=== PATIENT | female | born 1940 | race African-American/Black ===

== ENCOUNTER 2018-01-21 15:39 | Inpatient (IN) | payer OTHER ==
--- NOTE | 2018-01-21 16:02 | PDOC ---
History of Present Illness - General History Source: Patient, Care Provider (Aid.), [facility] Records Exam Limitations: No Limitations - History of Present Illness Initial Comments: 01/21/18 16:50 The patient is a 77 year old female, with a significant past medical history of HTN,Afib, osteoarthritis, GERD,depression, HLD, chronic pain, and age related cognitive decline, who presents to the emergency department with, 2 days of chest pain, shortness of breath, and cough. The patient is a poor historian. She describes her chest pain as her heart not feeling right. The patient reports an increasing nonproductive cough beginning yesterday. She reports shortness of breath when she talks which worsens at night. The shortness of breath is somewhat alleviated when sitting upright. She reports nausea without emesis. She reports drinking primarily water and small amounts of food. As per patient, she did not take her AM medications. As per patients aid to whom she is accompanied by, she took her AM medication today, however, the past few days she has been noncompliant with her medications. She denies recent fevers, chills, headache or dizziness. She denies recent vomit , diarrhea or constipation. She denies recent dysuria or hematuria. Allergies: NKA Past surgical history: None reported. Social history: Nonsmoker. Denies EtOH use and recreational drug use. <Cee Matson - Last Filed: 01/21/18 19:07> <Oscar Jung - Last Filed: 01/28/18 10:15> - General Chief Complaint: Respiratory Stated Complaint: SOB Time Seen by Provider: 01/21/18 16:00 Past History <Cee Matson - Last Filed: 01/21/18 19:07> <Oscar Jung - Last Filed: 01/28/18 10:15> 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 History Allergies/Adverse Reactions: Allergies Allergy/AdvReac Type Severity Reaction Status Date / Time No Known Allergies Allergy Verified 01/21/18 15:58 Home Medications: Ambulatory Orders Apixaban [Eliquis] 5 mg PO BID 01/21/18 Cholecalciferol (Vitamin D3) [Vitamin D3 -] 1,000 unit PO DAILY 01/21/18 Gabapentin [Neurontin] 100 mg PO TID 01/21/18 Lisinopril 5 mg PO DAILY 01/21/18 Metoprolol Tartrate [Lopressor] 100 mg PO BID 01/21/18 Mirtazapine 7.5 mg PO HS 01/21/18 Ranitidine [Zantac -] 150 mg PO HS 01/21/18 Rosuvastatin [Crestor -] 20 mg PO HS 01/21/18 Review of Systems - Review of Systems Able to Perform ROS?: Yes Comments:: 01/21/18 16:50 CONSTITUTIONAL: Absent: fever, no chills, no fatigue EYES: Absent: visual changes ENT: Absent: ear pain, no sore throat CARDIOVASCULAR: Present: Chest Pain Absent:no palpitations RESPIRATORY: Present: SOB, Cough GI: Present: Nausea. Absent: abdominal pain, no vomiting, no constipation, no diarrhea GENITOURINARY: Absent: dysuria, no frequency, no hematuria MUSKULOSKELETAL: Absent: back pain, no arthralgia, no myalgia SKIN: Absent: rash NEURO: Absent: headache All Other Systems: Reviewed and Negative <Cee Matson - Last Filed: 01/21/18 19:07> *Physical Exam - Vital Signs Last Vital Signs Temp Pulse Resp BP Pulse Ox 98.1 F 55 L 16 93/67 100 01/21/18 15:57 01/21/18 16:42 01/21/18 16:40 01/21/18 16:40 01/21/18 16:42 - Physical Exam Comments: 01/21/18 17:10 +GENERAL: Mildly obese. Well developed, well nourished. Awake and alert. No acute distress. HEENT: Normocephalic, atraumatic. PERRLA, fundi benign. No conjunctival pallor. Sclera are non-icteric. Moist mucous membranes. Oropharynx is clear. +NECK: Neck vein distention. Supple. Full ROM. Carotid pulses 2+ and symmetric, without bruits. No thyromegaly. No lymphadenopathy. +CARDIOVASCULAR: Regular rate and rhythm. 60 bpm. S1 S2 distant. No murmurs, rubs, or gallops. PULMONARY: Decreased breath sounds at the right posterior base with rales. No evidence of respiratory distress. No wheezing or rhonchi. ABDOMINAL: Soft. Non-tender. Non-distended. No rebound or guarding. No organomegaly. Normoactive bowel sounds. MUSCULOSKELETAL Normal range of motion at all joints. No bony deformities or tenderness. No CVA tenderness. EXTREMITIES: No cyanosis. No clubbing. No edema. No calf tenderness. SKIN: Warm and dry. Normal capillary refill. No rashes. No jaundice. +NEUROLOGICAL: Generalized weakness. No motor or sensory deficits in the in face, upper extremities and lower extremities. Alert, awake, appropriate. Cranial nerves 2- 12 intact. No deficits to light touch and temperature in face, upper extremities and lower extremities. Normoreflexic in the upper and lower extremities. Normal speech. Toes are down-going bilaterally. Gait not assessed. PSYCHIATRIC: Cooperative. Good eye contact. Appropriate mood and affect. <Cee Matson - Last Filed: 01/21/18 19:07> Heart Score/ECG Review #1 01/21/18 16:52 EKG performed at: 21 Jan 2018 at 16:28:29 Vent Rate 55 bpm KS interval 146 ms QRS duration 72 ms QT/QTc 574/549 ms P-R-T axes 69 -9 154 Sinus bradycardia Inferio infarct, age undetermined Anterior infarct, age undetermined T wave abnormality, consider lateral ischemia Prolonged QT Abnormal ECG <Cee Matson - Last Filed: 01/21/18 19:07> ED Treatment Course - LABORATORY CBC & Chemistry Diagram: 01/21/18 16:00 01/21/18 16:10 <Cee Matson - Last Filed: 01/21/18 19:07> - LABORATORY CBC & Chemistry Diagram: 01/27/18 09:55 01/27/18 09:55 <Oscar Jung - Last Filed: 01/28/18 10:15> Medical Decision Making - Medical Decision Making 01/21/18 5:14pm Call placed to Dr. Meet Xie, cardiology [employer] airspace control officer, awaiting call back. 5:41pm Second placed to Dr. Meet Xie, cardiology [employer] airspace control officer, awaiting call back. 6:00pm Third call placed to Dr. Meet Xie, cardiology [employer] airspace control officer, awaiting call back. 5:48pm Call placed to Dr. James Johnson, for ICU admission, case was discussed. 6:40pm Fourth call placed to Dr. Meet Xie, cardiology [employer] airspace control officer, case was discussed. <Cee Matson - Last Filed: 01/21/18 19:07> - Medical Decision Making 01/21/18 17:56 Chest x-ray shows clear lungs but a large globular heart There is neck vein distention, low blood pressure, and relatively muffled heart sounds suggesting the possibility of tamponade, especially since she is maintained on anticoagulation, Eliquis, with an INR 1.65 There is an elevated troponin of 0.14 with inverted T waves in the lateral leads , Q waves in the inferior and anteroseptal leads, with no old EKG available. There is the possibility of an acute coronary syndrome or non-ST elevation [place]. Dr. Johnson contacted for ICU admission, accepts the patient. Thus far repeated attempts to contact cardiology has been unsuccessful. Christine, the PA who is on-call for admissions, was contacted and the case was discussed. Dr. Snyder is the on-call hospitalist who will be accepting the admission. Theresa Mckee, head of radiology services, and was contacted and will attempt to arrange an emergency cardiac echo. 01/21/18 18:56 Spoke with adult education instructor Dr. Xie. His group will follow at [facility]. Patient remains hemodynamically stable. Pain controlled. Signed out to Dr. Okeefe 7 PM pending transfer to ICU. 01/28/18 10:15 <Oscar Jung - Last Filed: 01/28/18 10:15> *DC/Admit/Observation/Transfer - Attestations Scribe Attestion: 01/21/18 16:51 Documentation prepared by Cee Matson, acting as medical imaging director for Oscar Burr MD. <Cee Matson - Last Filed: 01/21/18 19:07> - Discharge Dispostion Decision to Admit order: Yes <Oscar Jung - Last Filed: 01/28/18 10:15> Diagnosis at time of Disposition: Acute coronary syndrome
[2018-01-21 16:50] LABS: MEAN PLT VOLUME 11.8 fl (7.5-11.1)
[2018-01-21 16:53] LABS: INR 1.65 (0.82-1.09); PROTHROMBIN TIME (PATIENT) 18.3 SEC (10.2-13.0)
[2018-01-21 16:53] LABS: MEAN CELL VOLUME 94.5 fl (80-96); RBC 4.06 M/mm3 (3.60-5.2)
[2018-01-21 16:58] LABS: ALBUMIN 3.4 g/dl (3.5-5.0); ALK PHOS 78 U/L (32-92); ANION GAP 8 (8-16); BILIRUBIN,TOTAL 2.6 mg/dl (0.2-1.0); BLOOD UREA NITROGEN 16 mg/dl (7-18); CALCIUM 8.9 mg/dl (8.4-10.2); CHLORIDE 106 mmol/L (98-107); CO2 24 mmol/L (22-28); CREATININE 1.3 mg/dl (0.6-1.3); GLUCOSE,RANDOM 143 mg/dl (74-106); POTASSIUM 4.5 mmol/L (3.5-5.1); SGOT/AST 43 U/L (10-42); SGPT/ALT 31 U/L (10-40); SODIUM 138 mmol/L (136-145); TOT PROT 6.5 g/dl (6.4-8.3)
[2018-01-21 17:00] LABS: HEMATOCRIT 38.3 % (32.4-45.2); HEMOGLOBIN 12.9 GM/dl (10.7-15.3); MCH 31.9 pg (25.7-33.7); MCHC 33.8 g/dl (32.0-36.0); PLATELET COUNT 204 K/MM3 (134-434); RDW 16.3 % (11.6-15.6); WHITE BLOOD COUNT 5.5 K/mm3 (4.0-10.8)
[2018-01-21 18:00] LABS: URINE APPEARANCE Clear; URINE BILIRUBIN 1+ (NEGATIVE); URINE BLOOD Negative (NEGATIVE); URINE GLUCOSE (UA) Negative (NEGATIVE); URINE KETONE Trace (NEGATIVE); URINE LEUK ESTERASE Negative (NEGATIVE); URINE NITRITE Positive (NEGATIVE)
[2018-01-21 18:02] LABS: URINE COLOR YELLOW; URINE PROTEIN 3+ (NEGATIVE)
[2018-01-21 18:30] LABS: URINE RBC 0-2 /hpf (0-3)
[2018-01-21 18:31] LABS: EPI CELLS FEW /HPF; URINE BACTERIA FEW /hpf (NEGATIVE); URINE WBC 20-30 (0-5)
--- NOTE | 2018-01-21 23:03 | HP ---
CHIEF COMPLAINT: Chest Pain PCP: HISTORY OF PRESENT ILLNESS: 77 y/o woman PMHx of: HTN, HLD, Afib (on Eliquis), OA, GERD, Depression, Age related Cognitive Decline, Chronic Pain. Who presents to the ED with her Aide with chest pain, SOB x 2 days. The patient reports having the CP while at rest, non-radiating. Patient has some memory recall deficits, and unable to provide further info. Patient had bedside echo at [facility], read by Dr. 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 Family History: Allergies No Known Allergies Allergy (Verified 01/21/18 15:58) HOME MEDICATIONS: Home Medications Medication Instructions Recorded Apixaban [Eliquis] 5 mg PO BID 01/21/18 Cholecalciferol (Vitamin D3) 1,000 unit PO DAILY 01/21/18 [Vitamin D3 -] Gabapentin [Neurontin] 100 mg PO TID 01/21/18 Lisinopril 5 mg PO DAILY 01/21/18 Metoprolol Tartrate [Lopressor] 100 mg PO BID 01/21/18 Mirtazapine 7.5 mg PO HS 01/21/18 Ranitidine [Zantac -] 150 mg PO HS 01/21/18 Rosuvastatin [Crestor -] 20 mg PO HS 01/21/18 REVIEW OF SYSTEMS CONSTITUTIONAL: Absent: fever, chills, diaphoresis, generalized weakness, malaise, loss of appetite, weight change HEENT: Absent: rhinorrhea, nasal congestion, throat pain, throat swelling, difficulty swallowing, mouth swelling, ear pain, eye pain, visual changes CARDIOVASCULAR: chest pain Absent: syncope, palpitations, irregular heart rate, lightheadedness, peripheral edema RESPIRATORY: shortness of breath Absent: cough, dyspnea with exertion, orthopnea, wheezing, stridor, hemoptysis GASTROINTESTINAL: Absent: abdominal pain, abdominal distension, nausea, vomiting, diarrhea, constipation, melena, hematochezia GENITOURINARY: Absent: dysuria, frequency, urgency, hesitancy, hematuria, flank pain, genital pain MUSCULOSKELETAL: Absent: myalgia, arthralgia, joint swelling, back pain, neck pain SKIN: Absent: rash, itching, pallor HEMATOLOGIC/IMMUNOLOGIC: Absent: easy bleeding, easy bruising, lymphadenopathy, frequent infections ENDOCRINE: Absent: unexplained weight gain, unexplained weight loss, heat intolerance, cold intolerance NEUROLOGIC: Absent: headache, focal weakness or paresthesias, dizziness, unsteady gait, seizure, mental status changes, bladder or bowel incontinence PSYCHIATRIC: Absent: anxiety, depression, suicidal or homicidal ideation, hallucinations. PHYSICAL EXAMINATION Vital Signs - 24 hr 01/21/18 01/21/18 01/21/18 15:57 16:40 16:42 Temperature 98.1 F Pulse Rate 55 L 55 L Pulse Rate [ 55 L Apical] Respiratory 20 16 Rate Blood Pressure 84/58 Blood Pressure 93/67 [Left Arm] O2 Sat by Pulse 98 98 100 Oximetry (%) 01/21/18 01/21/18 01/21/18 17:09 17:27 17:43 Temperature Pulse Rate 57 L Pulse Rate [ 57 L 57 L Apical] Respiratory 30 H 20 Rate Blood Pressure Blood Pressure 93/73 101/77 [Left Arm] O2 Sat by Pulse 99 98 97 Oximetry (%) 01/21/18 01/21/18 01/21/18 17:45 18:35 19:38 Temperature 98.6 F Pulse Rate 57 L Pulse Rate [ 58 L 66 Apical] Respiratory 23 22 22 Rate Blood Pressure 92/75 Blood Pressure 95/75 98/79 [Left Arm] O2 Sat by Pulse 98 100 Oximetry (%) 01/21/18 01/21/18 19:42 20:55 Temperature Pulse Rate 55 L Pulse Rate [ 55 L 75 Apical] Respiratory 16 14 Rate Blood Pressure Blood Pressure 98/79 100/64 [Left Arm] O2 Sat by Pulse 98 98 Oximetry (%) GENERAL:Obese, awake, alert, and oriented x2, in no acute distress. HEAD: Normal with no signs of trauma. EYES: Pupils equal, round and reactive to light, extraocular movements intact, sclera anicteric, conjunctiva clear. No lid lag. EARS, NOSE, THROAT: Ears normal, nares patent, oropharynx clear without exudates. Dry mucous membranes. NECK: Normal range of motion, supple without lymphadenopathy, JVD, or masses. LUNGS: Breath sounds diminished bilaterally. No wheezes, and no crackles. No accessory muscle use. HEART:Irregular rate and rhythm, +JVD, systolic murmur. normal S1 and S2, rub or gallop. ABDOMEN: Soft, nontender, not distended, normoactive bowel sounds, no guarding, no rebound, no masses. No hepatomegaly or splenomegaly. MUSCULOSKELETAL: Normal range of motion at all joints. No bony deformities or tenderness. No CVA tenderness. UPPER EXTREMITIES: 2+ pulses, warm, well-perfused. No cyanosis. No clubbing. No peripheral edema. LOWER EXTREMITIES: 2+ pulses, warm, well-perfused. No calf tenderness. No peripheral edema. NEUROLOGICAL: Cranial nerves II-XII intact. Normal speech. Gait not observed. PSYCHIATRIC: Cooperative. Good eye contact. Appropriate mood and affect. SKIN: Warm, dry, normal turgor, no rashes or lesions noted, normal capillary refill. Laboratory Results - last 24 hr 01/21/18 01/21/18 01/21/18 16:00 16:10 16:10 WBC 5.5 RBC 4.06 Hgb 12.9 Hct 38.3 MCV 94.5 MCH 31.9 MCHC 33.8 RDW 16.3 H Plt Count 204 MPV 11.8 H Neutrophils % No Result Required. Neutrophils % (Manual) 64.0 Lymphocytes % No Result Required. Lymphocytes % (Manual) 26.0 Monocytes % (Manual) 6 Eosinophils % (Manual) 3.0 Basophils % (Manual) 1.0 PT with INR INR Sodium 138 Potassium 4.5 Chloride 106 Carbon Dioxide 24 Anion Gap 8 BUN 16 Creatinine 1.3 Creat Clearance w eGFR 39.51 Random Glucose 143 H Calcium 8.9 Total Bilirubin 2.6 H AST 43 H ALT 31 Alkaline Phosphatase 78 Creatine Kinase 85 Troponin I 0.14 H Total Protein 6.5 Albumin 3.4 L Urine Color Urine Appearance Urine pH Ur Specific [place] Urine Protein Urine Glucose (UA) Urine Ketones Urine Blood Urine Nitrite Urine Bilirubin Urine Urobilinogen Ur Leukocyte Esterase Urine RBC Urine WBC Ur Epithelial Cells Urine Bacteria 01/21/18 01/21/18 16:10 17:04 WBC RBC Hgb Hct MCV MCH MCHC RDW Plt Count MPV Neutrophils % Neutrophils % (Manual) Lymphocytes % Lymphocytes % (Manual) Monocytes % (Manual) Eosinophils % (Manual) Basophils % (Manual) PT with INR 18.3 H INR 1.65 H Sodium Potassium Chloride Carbon Dioxide Anion Gap BUN Creatinine Creat Clearance w eGFR Random Glucose Calcium Total Bilirubin AST ALT Alkaline Phosphatase Creatine Kinase Troponin I Total Protein Albumin Urine Color Yellow Urine Appearance Clear Urine pH 6.0 Ur Specific [place] 1.025 Urine Protein 3+ H Urine Glucose (UA) Negative Urine Ketones Trace Urine Blood Negative Urine Nitrite Positive Urine Bilirubin 1+ H Urine Urobilinogen 2.0 H Ur Leukocyte Esterase Negative Urine RBC 0-2 Urine WBC 20-30 Ur Epithelial Cells Few Urine Bacteria Few ASSESSMENT/PLAN: 77 y/o woman PMHx HTN, Afib (on Eliquis), OA, GERD, Depression, HLD, Age related Cognitive Decline, Chronic Pain. Admitted to ICU for Chest Pain r/o ACS. Problems: 1. Chest Pain 2. SOB 3. UTI 4. Afib 5. HTN 6. HLD 7. GERD 8. Depression 9. Alzheimer's 10. Chronic Pain Plan: Admit to ICU for Chest Pain r/o ACS HEART Score 6 [id number] 4 Serial Enzymes Cardiac monitoring Cardiology aware and following Echo done at bedside- EF 20%, severe MR/TR Chest Xray image- cardiomegaly, no infiltrate, no pleural effusion, awaiting official report UA- +nitrates, 20-30 WBCs Will order urine culture, before treating empirically Continue home meds Will hold BB secondary to sinus bradycardia, hypotension NPO Repeat CBC, BMP in am Fall precautions DVT ppx- SCDs, Continue Eliquis Continue PPI FEN Replete lytes prn NPO Code Status: Full Code Dispo: Requires Inpatient Care Visit type - Emergency Visit Emergency Visit: Yes ED Registration Date: 01/21/18 Care time: The patient presented to the Emergency Department on the above date and was hospitalized for further evaluation of their emergent condition. - New Patient This patient is new to me today: Yes Date on this admission: 01/22/18 - Critical Care Critical Care patient: Yes Total Critical Care Time (in minutes): 40 Critical Care Statement: The care of this patient involved high complexity decision making to prevent further life threatening deterioration of the patient 's condition and/or to evaluate & treat vital organ system(s) failure or risk of failure. Hospitalist Screening - Colonoscopy Questionnaire Colonoscopy Questionnaire: Colonoscopy Questionnaire - Patient: 50 - 75 years old and never had a screening colonoscopy: Unknown History of colon or rectal polyps, or CA: Unknown History of IBD, Crohn's disease or UC: Unknown History of abdominal radiation therapy as a child: Unknown - Relative: 1 with colon or rectal CA, or polyps at age 60 or younger: Unknown Colon or rectal CA diagnosed at age 45 or younger: Unknown Multiple relatives with colon or rectal CA: Unknown - Outcome: Screening Result: Negative Screen
[2018-01-21 23:32] LABS: HEMATOCRIT 35.3 % (32.4-45.2); HEMOGLOBIN 11.4 GM/dL (10.7-15.3); MCH 30.8 pg (25.7-33.7); MCHC 32.4 g/dl (32.0-36.0); MEAN CELL VOLUME 95.3 fl (80-96); MEAN PLT VOLUME 11.7 fl (7.5-11.1); PLATELET COUNT 204 K/MM3 (134-434); RBC 3.71 M/mm3 (3.60-5.2); RDW 16.7 % (11.6-15.6); WHITE BLOOD COUNT 4.9 K/mm3 (4.0-10.0)
--- NOTE | 2018-01-21 23:40 | CONSULT ---
Consult Consult Specialty:: Pulm/CCM Reason for Consultation:: ACS - History of Present Illness Chief Complaint: Mid sternal and epigastric pain History of Present Illness: 77yow with PMhx of HTN, A-fib on Eliquis, HLD, GERD, osteoarthritis and depression and age related cognitive decline who was brought in to [place] ED with c/o chest pain, cough and SOB x2 days. Pt also describes decreased exercise tolerance, BLE edema and weakness. Pt is a poor historian but states that there were some changes in her medication and her compliance is unclear. Pt denied fever, chills, WHITE, dizziness, N/V/D, dysuria. In the ED VS T 98.1, HR 55, RR 16, BP 93/67, O2 sat 100% on room air. Labs notable for Trop 0.14, WBC 5.5, UA WBC 20-30. ECG with inverted T in jitendra/ lateral leads, and Qwaves in inferior and anteror leads. On exam noted to have elevated JVD and muffled heart sounds. Stat ECHO was done and read by Dr Xie of cardiology. No tamponade noted, EF 25% with global hypokinesis and severe MR and TR. She was transferred to [facility] ICU for further management. In ICU rec'd A+O x3, slightly confused, in NAD. VS HR 57, BP111/70, O2 sat 100 % on 3L NC. She continues to complain of mid lower sternal and epigastric pain. 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, Peripheral Neuropathy Cardio/Vascular: Yes: AFIB, CHF, HTN, Hyperlipdemia Gastrointestinal: Yes: GERD Psych: Yes: Depression - Alcohol/Substance Use Hx Alcohol Use: No - Smoking History Smoking history: Never smoked - Social History Usual Living Arrangement: With Child ADL: Support Services Home Medications - Allergies Allergies/Adverse Reactions: Allergies Allergy/AdvReac Type Severity Reaction Status Date / Time No Known Allergies Allergy Verified 01/21/18 15:58 - Home Medications Home Medications: Ambulatory Orders Apixaban [Eliquis] 5 mg PO BID 01/21/18 Cholecalciferol (Vitamin D3) [Vitamin D3 -] 1,000 unit PO DAILY 01/21/18 Gabapentin [Neurontin] 100 mg PO TID 01/21/18 Lisinopril 5 mg PO DAILY 01/21/18 Metoprolol Tartrate [Lopressor] 100 mg PO BID 01/21/18 Mirtazapine 7.5 mg PO HS 01/21/18 Ranitidine [Zantac -] 150 mg PO HS 01/21/18 Rosuvastatin [Crestor -] 20 mg PO HS 01/21/18 Review of Systems Unable to obtain ROS, reason: Poor historian Physical Exam Vital Signs: Vital Signs Temperature 98.6 F 01/21/18 19:38 Pulse Rate 75 01/21/18 20:55 Respiratory Rate 14 01/21/18 20:55 Blood Pressure 100/64 01/21/18 20:55 O2 Sat by Pulse Oximetry (%) 98 01/21/18 20:55 Constitutional: Yes: No Distress, Obese Eyes: Yes: Conjunctiva Clear, PERRL HENT: Yes: Atraumatic, Normocephalic Neck: Yes: Supple, Trachea Midline Cardiovascular: Yes: Bradycardia, S1, S2 Respiratory: Yes: Regular, CTA Bilaterally Gastrointestinal: Yes: Normal Bowel Sounds, Soft, Abdomen, Obese Renal/: Yes: [place] Present Extremities: Yes: WNL Edema: Yes Edema: LLE: Trace, RLE: Trace Peripheral Pulses WNL: Yes Integumentary: Yes: WNL Neurological: Yes: Alert, Oriented (oriented x to person), Confusion ...Motor Strength: WNL Psychiatric: Yes: Alert Labs: CBC, BMP 01/21/18 16:00 01/21/18 16:10 CBC,CMP WBC 4.9 K/mm3 (4.0-10.0) 01/21/18 23:20 RBC 3.71 M/mm3 (3.60-5.2) 01/21/18 23:20 Hgb 11.4 GM/dL (10.7-15.3) 01/21/18 23:20 Hct 35.3 % (32.4-45.2) 01/21/18 23:20 MCV 95.3 fl (80-96) 01/21/18 23:20 MCH 30.8 pg (25.7-33.7) 01/21/18 23:20 MCHC 32.4 g/dl (32.0-36.0) 01/21/18 23:20 RDW 16.7 % (11.6-15.6) H 01/21/18 23:20 Plt Count 204 K/MM3 (134-434) 01/21/18 23:20 MPV 11.7 fl (7.5-11.1) H 01/21/18 23:20 Neutrophils % No Result Required. 01/21/18 16:00 Neutrophils % (Manual) 64.0 % (42.8-82.8) 01/21/18 16:00 Lymphocytes % No Result Required. 01/21/18 16:00 Lymphocytes % (Manual) 26.0 % (8-40) 01/21/18 16:00 Monocytes % (Manual) 6 % (3.8-10.2) 01/21/18 16:00 Eosinophils % (Manual) 3.0 % (0-4.5) 01/21/18 16:00 Basophils % (Manual) 1.0 % (0-2.0) 01/21/18 16:00 Sodium 141 mmol/L (136-145) 01/21/18 23:20 Potassium 4.7 mmol/L (3.5-5.1) 01/21/18 23:20 Chloride 109 mmol/L (98-107) H 01/21/18 23:20 Carbon Dioxide 25 mmol/L (21-32) 01/21/18 23:20 Anion Gap 7 (8-16) L 01/21/18 23:20 BUN 19 mg/dL (7-18) H 01/21/18 23:20 Creatinine 1.5 mg/dL (0.55-1.02) H 01/21/18 23:20 Creat Clearance w eGFR 33.50 (>60) 01/21/18 23:20 Random Glucose 136 mg/dL (74-106) H 01/21/18 23:20 Calcium 8.1 mg/dL (8.5-10.1) L 01/21/18 23:20 Total Bilirubin 2.5 mg/dL (0.2-1.0) H 01/21/18 23:20 AST 54 U/L (15-37) H 01/21/18 23:20 ALT 38 U/L (12-78) 01/21/18 23:20 Alkaline Phosphatase 92 U/L (45-117) 01/21/18 23:20 Creatine Kinase 82 IU/L (26-192) 01/21/18 23:20 Troponin I 0.56 ng/ml (0.00-0.05) H 01/21/18 23:20 Total Protein 6.3 g/dl (6.4-8.2) L 01/21/18 23:20 Albumin 3.1 g/dl (3.4-5.0) L 01/21/18 23:20 Intake & Output 01/19/18 01/20/18 01/21/18 01/22/18 23:59 23:59 23:59 23:59 Intake Total 0 Output Total 100 Balance -100 Weight 72.3 kg Current Medications Apixaban (Eliquis -) 5 mg PO BID REJI Chlorhexidine Gluconate (Hibiclens For Decolonization -) 1 applic TP HS REJI Mirtazapine (Remeron -) 7.5 mg PO HS REJI Mupirocin (Bactroban Ointment (For Decolonization) -) 1 applic NS BID [facility] Stop: 01/27/18 09:59 Ranitidine HCl (Zantac -) 150 mg PO DAILY [facility] Last Admin: 01/21/18 23:50 Dose: 150 mg Rosuvastatin Calcium (Crestor -) 20 mg PO HS [facility] Imaging - Results Other: Other (ECHO results reported by Dr Xie) Problem List - Problems (1) HTN (hypertension) Code(s): I10 - ESSENTIAL (PRIMARY) HYPERTENSION (2) CHF (congestive heart failure) Code(s): I50.9 - HEART FAILURE, UNSPECIFIED (3) Dementia Code(s): F03.90 - UNSPECIFIED DEMENTIA WITHOUT BEHAVIORAL DISTURBANCE (4) HLD (hyperlipidemia) Code(s): E78.5 - HYPERLIPIDEMIA, UNSPECIFIED (5) Chest pain Code(s): R07.9 - CHEST PAIN, UNSPECIFIED (6) Acute coronary syndrome Code(s): I24.9 - ACUTE ISCHEMIC HEART DISEASE, UNSPECIFIED (7) A-fib Code(s): I48.91 - UNSPECIFIED ATRIAL FIBRILLATION Assessment/Plan 77yow with PMhx of HTN, A-fib on Eliquis, HLD, GERD, osteoarthritis and depression and age related cognitive decline who was transferred to ICU with ACS. Hemodynamically stable at present. ECHO notable for EF 25% with severe MR and TR. Plan: -Cardiology Dr Xie consulted -Maintain O2 sat>95% -Trend ECG and troponin q8 -HD monitoring -Cont betablockers; hold for HR<60 and SBP<100 -Cont TEENA as BP allows -Cosider Lasix diuresis as BP allows -Cont anticoagulation -Cont statin, Aspirin -Monitor BMP and UOP -Replete electrolytes -DVT and GI prophylaxis Tana Nunez, JOCY CC time 35mins
[2018-01-21] MEDS: RANITIDINE HCL 150 MG TABLET (FP) PO SCH (23:50)
[2018-01-22 00:19] LABS: ALBUMIN 3.1 g/dl (3.4-5.0); ANION GAP 7 (8-16); CALCIUM 8.1 mg/dL (8.5-10.1); CHLORIDE 109 mmol/L (98-107); CO2 25 mmol/L (21-32); CREATININE 1.5 mg/dL (0.55-1.02); GLUCOSE,RANDOM 136 mg/dL (74-106); POTASSIUM 4.7 mmol/L (3.5-5.1); SGOT/AST 54 U/L (15-37); SGPT/ALT 38 U/L (12-78); SODIUM 141 mmol/L (136-145); TOT PROT 6.3 g/dl (6.4-8.2)
[2018-01-22 00:25] LABS: ALK PHOS 92 U/L (45-117); BILIRUBIN,TOTAL 2.5 mg/dL (0.2-1.0); BLOOD UREA NITROGEN 19 mg/dL (7-18)
[2018-01-22 06:23] LABS: HEMATOCRIT 36.7 % (32.4-45.2); MCH 31.1 pg (25.7-33.7); MCHC 32.8 g/dl (32.0-36.0); MEAN CELL VOLUME 94.7 fl (80-96); MEAN PLT VOLUME 11.3 fl (7.5-11.1); PLATELET COUNT 180 K/MM3 (134-434); RBC 3.87 M/mm3 (3.60-5.2); RDW 16.4 % (11.6-15.6); WHITE BLOOD COUNT 5.3 K/mm3 (4.0-10.0)
[2018-01-22 06:33] LABS: INR 1.45 (0.82-1.09); PROTHROMBIN TIME (PATIENT) 16.4 SEC (9.7-13.0)
[2018-01-22 06:36] LABS: ACTIVATED PTT 28.1 SECONDS (26.9-34.4)
[2018-01-22 06:57] LABS: CHLORIDE 109 mmol/L (98-107); POTASSIUM 4.5 mmol/L (3.5-5.1); SODIUM 142 mmol/L (136-145)
[2018-01-22 07:12] LABS: ALBUMIN 3.2 g/dl (3.4-5.0); ALK PHOS 94 U/L (45-117); ANION GAP 9 (8-16); BILIRUBIN,TOTAL 2.5 mg/dL (0.2-1.0); BLOOD UREA NITROGEN 21 mg/dL (7-18); CALCIUM 8.4 mg/dL (8.5-10.1); CO2 24 mmol/L (21-32); CREATININE 1.6 mg/dL (0.55-1.02); GLUCOSE,RANDOM 87 mg/dL (74-106); MAGNESIUM 2.3 mg/dL (1.8-2.4); SGOT/AST 45 U/L (15-37); SGPT/ALT 36 U/L (12-78); TOT PROT 6.5 g/dl (6.4-8.2)
--- NOTE | 2018-01-22 08:06 | PN ---
Physical Exam: SUBJECTIVE: Patient awake, states chest pain is resolved, c/o B/L LE weakness. OBJECTIVE: GENERAL: Awake, A&O x3, CV: S1/S2, Irregular Rhythm, Systolic murmur, R sided JVD Respiratory: Decreased breath sounds @ L base Extremity: 2+ DP pulses, 5/5 B/L UE and LE strength Abdomen: soft, no TTP, (+) bowel sounds Vital Signs Period Temp Pulse Resp BP Sys/Villegas Pulse Ox Last 24 Hr 98.1 F-98.6 F 54-75 14-30 84-114/58-82 97-100 Laboratory Results - last 24 hr 01/21/18 01/21/18 01/21/18 16:00 16:10 16:10 WBC 5.5 RBC 4.06 Hgb 12.9 Hct 38.3 MCV 94.5 MCH 31.9 MCHC 33.8 RDW 16.3 H Plt Count 204 MPV 11.8 H Neutrophils % No Result Required. Neutrophils % (Manual) 64.0 Lymphocytes % No Result Required. Lymphocytes % (Manual) 26.0 Monocytes % (Manual) 6 Eosinophils % (Manual) 3.0 Basophils % (Manual) 1.0 PT with INR INR PTT (Actin FS) Sodium 138 Potassium 4.5 Chloride 106 Carbon Dioxide 24 Anion Gap 8 BUN 16 Creatinine 1.3 Creat Clearance w eGFR 39.51 Random Glucose 143 H Calcium 8.9 Phosphorus Magnesium Total Bilirubin 2.6 H AST 43 H ALT 31 Alkaline Phosphatase 78 Creatine Kinase 85 Troponin I 0.14 H Total Protein 6.5 Albumin 3.4 L Urine Color Urine Appearance Urine pH Ur Specific [place] Urine Protein Urine Glucose (UA) Urine Ketones Urine Blood Urine Nitrite Urine Bilirubin Urine Urobilinogen Ur Leukocyte Esterase Urine RBC Urine WBC Ur Epithelial Cells Urine Bacteria 01/21/18 01/21/18 01/21/18 16:10 17:04 23:20 WBC RBC Hgb Hct MCV MCH MCHC RDW Plt Count MPV Neutrophils % Neutrophils % (Manual) Lymphocytes % Lymphocytes % (Manual) Monocytes % (Manual) Eosinophils % (Manual) Basophils % (Manual) PT with INR 18.3 H INR 1.65 H PTT (Actin FS) Sodium 141 Potassium 4.7 Chloride 109 H Carbon Dioxide 25 Anion Gap 7 L BUN 19 H Creatinine 1.5 H Creat Clearance w eGFR 33.50 Random Glucose 136 H Calcium 8.1 L Phosphorus Magnesium Total Bilirubin 2.5 H AST 54 H ALT 38 Alkaline Phosphatase 92 Creatine Kinase Troponin I Cancelled Total Protein 6.3 L Albumin 3.1 L Urine Color Yellow Urine Appearance Clear Urine pH 6.0 Ur Specific [place] 1.025 Urine Protein 3+ H Urine Glucose (UA) Negative Urine Ketones Trace Urine Blood Negative Urine Nitrite Positive Urine Bilirubin 1+ H Urine Urobilinogen 2.0 H Ur Leukocyte Esterase Negative Urine RBC 0-2 Urine WBC 20-30 Ur Epithelial Cells Few Urine Bacteria Few 01/21/18 01/21/18 01/22/18 23:20 23:20 06:02 WBC 4.9 5.3 RBC 3.71 3.87 Hgb 11.4 12.0 Hct 35.3 36.7 MCV 95.3 94.7 MCH 30.8 31.1 MCHC 32.4 32.8 RDW 16.7 H 16.4 H Plt Count 204 180 MPV 11.7 H 11.3 H Neutrophils % Neutrophils % (Manual) Lymphocytes % Lymphocytes % (Manual) Monocytes % (Manual) Eosinophils % (Manual) Basophils % (Manual) PT with INR INR PTT (Actin FS) Sodium Potassium Chloride Carbon Dioxide Anion Gap BUN Creatinine Creat Clearance w eGFR Random Glucose Calcium Phosphorus Magnesium Total Bilirubin AST ALT Alkaline Phosphatase Creatine Kinase 82 Troponin I 0.56 H Total Protein Albumin Urine Color Urine Appearance Urine pH Ur Specific [place] Urine Protein Urine Glucose (UA) Urine Ketones Urine Blood Urine Nitrite Urine Bilirubin Urine Urobilinogen Ur Leukocyte Esterase Urine RBC Urine WBC Ur Epithelial Cells Urine Bacteria 01/22/18 01/22/18 06:02 06:02 WBC RBC Hgb Hct MCV MCH MCHC RDW Plt Count MPV Neutrophils % Neutrophils % (Manual) Lymphocytes % Lymphocytes % (Manual) Monocytes % (Manual) Eosinophils % (Manual) Basophils % (Manual) PT with INR 16.40 H INR 1.45 H PTT (Actin FS) 28.1 Sodium 142 Potassium 4.5 Chloride 109 H Carbon Dioxide 24 Anion Gap 9 BUN 21 H Creatinine 1.6 H Creat Clearance w eGFR 31.09 Random Glucose 87 Calcium 8.4 L Phosphorus 4.0 Magnesium 2.3 Total Bilirubin 2.5 H AST 45 H ALT 36 Alkaline Phosphatase 94 Creatine Kinase 73 Troponin I 0.56 H Total Protein 6.5 Albumin 3.2 L Urine Color Urine Appearance Urine pH Ur Specific [place] Urine Protein Urine Glucose (UA) Urine Ketones Urine Blood Urine Nitrite Urine Bilirubin Urine Urobilinogen Ur Leukocyte Esterase Urine RBC Urine WBC Ur Epithelial Cells Urine Bacteria Active Medications Generic Name Dose Route Start Last Admin Trade Name Andressa PRN Reason Stop Dose Admin Apixaban 5 mg 01/22/18 10:00 Eliquis - PO BID REJI Chlorhexidine Gluconate 1 applic 01/22/18 22:00 Hibiclens For Decolonization - TP HS REJI Mirtazapine 7.5 mg 01/22/18 22:00 Remeron - PO HS REJI Mupirocin 1 applic 01/22/18 10:00 Bactroban Ointment (For Decolonization) - NS 01/27/18 09:59 BID REJI Ranitidine HCl 150 mg 01/21/18 23:00 01/21/18 23:50 Zantac - PO 150 mg DAILY REJI Administration Rosuvastatin Calcium 20 mg 01/22/18 22:00 Crestor - PO HS REJI ASSESSMENT/PLAN: 77 year old female presents with chest pain. Admitted to ICU for concern for tamponade. #1 CHEST PAIN - Troponin stable today 0.56 - DOE showed severe MR/TR with EF 20%, no tamponade - EKG showed - Heart Score 6 - Continue O2 - Cardiology following, appreciate recs #2 ACUTE ON CHRONIC CHF - DOE shows EF 20%, with severe MR, TR - Appreciate cardiac recs #3 H/O AFIB - Patient intermittently in AFib during course of exam - Continue Apixiban #4 HLD - Continue Statin FEN - Monitor electrolytes - Regular diet Patient stable for transfer to inpatient telemetry Visit type - Emergency Visit Emergency Visit: No - New Patient This patient is new to me today: Yes Date on this admission: 01/22/18 - Critical Care Critical Care patient: No
[2018-01-22] MEDS ORDERED: ASPIRIN 325 MG TABLET PO ONE (09:15)
[2018-01-22] MEDS ORDERED: cefTRIAXone SODIUM 1 GM VIAL ONE (09:37)
[2018-01-22] MEDS ORDERED: DEXTROSE 5%-WATER - 50 ML IVPB ONE (09:38)
[2018-01-22] MEDS: RANITIDINE HCL 150 MG TABLET (FP) PO SCH (09:39)
[2018-01-22] MEDS ORDERED: CEFTRIAXONE 1 GM in DEXTROSE 5%-WATER - 50 ML IVPB SCH (10:00)
[2018-01-22] MEDS ORDERED: APIXABAN 5 MG TABLET PO SCH (10:00)
[2018-01-22] MEDS ORDERED: MUPIROCIN 2% TOPICAL OINTMENT FOR DECOLONIZATION NS SCH ×2 (10:00→22:00)
--- NOTE | 2018-01-22 13:15 | CON.CARD ---
Consult Consult Specialty:: Cardiology Referred by:: Pamela Snyder Reason for Consultation:: Cardiomyopathy - History of Present Illness Chief Complaint: Epigastric pain History of Present Illness: 77 year old female with a pmhx of htn, hld, Afib on apixaban, gerd, depression, chronic systolic CHF with LVEF 40-45% in 2017 (NST 01/2017 with no ischemia), and severe MR/TR who presented to [place] with epigastric pain. Patient denies any chest pain. Says she has chronic epigastric pain for years which was acutely worsened on day of admission. Epigastric pain is reproducible and seems to be worse with food. - History Source History Provided By: Patient, Medical Record 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 History RAILROAD HAND: Yes: Dementia, Peripheral Neuropathy Cardio/Vascular: Yes: AFIB, CHF, HTN, Hyperlipdemia Gastrointestinal: Yes: GERD ...: No Psych: Yes: Depression - Alcohol/Substance Use Hx Alcohol Use: No - Smoking History Smoking history: Never smoked Have you smoked in the past 12 months: No - Social History Usual Living Arrangement: With Child ADL: Support Services Home Medications - Allergies Allergies/Adverse Reactions: Allergies Allergy/AdvReac Type Severity Reaction Status Date / Time No Known Allergies Allergy Verified 01/21/18 15:58 - Home Medications Home Medications: Ambulatory Orders Apixaban [Eliquis] 5 mg PO BID 01/21/18 Cholecalciferol (Vitamin D3) [Vitamin D3 -] 1,000 unit PO DAILY 01/21/18 Gabapentin [Neurontin] 100 mg PO TID 01/21/18 Lisinopril 5 mg PO DAILY 01/21/18 Metoprolol Tartrate [Lopressor] 100 mg PO BID 01/21/18 Mirtazapine 7.5 mg PO HS 01/21/18 Ranitidine [Zantac -] 150 mg PO HS 01/21/18 Rosuvastatin [Crestor -] 20 mg PO HS 01/21/18 Vital Signs: Vital Signs Temperature 98.2 F 01/22/18 10:00 Pulse Rate 60 01/22/18 12:00 Respiratory Rate 20 01/22/18 12:00 Blood Pressure 109/61 01/22/18 12:00 O2 Sat by Pulse Oximetry (%) 99 01/22/18 09:00 Constitutional: Yes: No Distress Neck: Yes: Supple Respiratory: Yes: CTA Bilaterally Gastrointestinal: Yes: Soft Cardiovascular: Yes: Regular Rate and Rhythm JVD: No Carotid Bruit: No PMI: Non-Displaced Heart Sounds: Yes: S1, S2 Murmur: Yes: Systolic Murmur, Grade 4 (4/6 HSM apex) Edema: No - Other Data Labs, Other Data: CBC, BMP 01/22/18 06:02 01/22/18 06:02 INR, PTT INR 1.45 (0.82-1.09) H 01/22/18 06:02 Troponin, BNP 01/21/18 01/21/18 01/21/18 16:10 23:20 23:20 Troponin I 0.14 H Cancelled 0.56 H 01/22/18 06:02 Troponin I 0.56 H Troponin, BNP 01/21/18 01/21/18 01/21/18 16:10 23:20 23:20 Troponin I 0.14 H Cancelled 0.56 H 01/22/18 06:02 Troponin I 0.56 H Imaging - Results Chest X-ray: Report Reviewed EKG: Image Reviewed Assessment/Plan 77 year old female with a pmhx of htn, hld, Afib on apixaban, gerd, depression, chronic systolic CHF with LVEF 40-45% in 2017 (NST 01/2017 with no ischemia), and severe MR/TR who presented to [place] with epigastric pain. Patient denies any chest pain. Says she has chronic epigastric pain for years which was acutely worsened on day of admission. Epigastric pain is reproducible and seems to be worse with food. 1) Cardiomyopathy -Patient with LVEF 20% on echocardiogram here with severe MR/TR. Unclear etiology. Possibility of ischemia or due to valvular disease/severe MR. Had previously had cardiomyopathy with LVEF 40-45% last year with no ischemia on NST at that time. No chest pain and epigastric pain does not appear to be anginal equivalent. Troponins 0.5 with normal CK EKG: sinus bradycardia with antioer and inferior infarct pattern (old) and anterolateral TWI (new) -No signs of significant volume overload on exam. Treat medically at this time with aspirin/statin. Was on metoprolol and lisinopril as outpt but bp was on lower side. Will monitor BP and HR and restart meds at lower doses if she tolerates. -Would monitor patient and trend bun/cr. Treat UTI if needed. Monitor epigastric pain to see if improves with PPI. Would consider further cardiac work up but likely as an outpatient. AICD evaluation as an outpatient. When Cr improves will discuss with patient cardiac cath (likely as an outpatient). Will also discuss whether to pursue any mitral valve intervention (although patient does not seem to interested in any big procedures) such as mitral clip as an outpatient. Should follow up with her statistical clerk advertising Dr. Castillo but if they do not take her insurance than should follow up with us. [phone] Please repeat ekg Will follow Keep on telemetry
--- NOTE | 2018-01-22 13:16 | PN ---
Teaching Attending Note Name of Resident: Grace Freitas ATTENDING PHYSICIAN STATEMENT I saw and evaluated the patient. I reviewed the resident's note and discussed the case with the resident. I agree with the resident's findings and plan as documented. SUBJECTIVE: Pt seen and examined in the ICU. Still some intermittent epigastric pain. No shortness of breath. OBJECTIVE: Vital Signs Period Temp Pulse Resp BP Sys/Villegas Pulse Ox Last 24 Hr 98.1 F-98.6 F 54-75 14-30 84-124/58-82 97-100 Intake & Output 01/19/18 01/20/18 01/21/18 01/22/18 23:59 23:59 23:59 23:59 Intake Total 0 Output Total 100 Balance -100 Weight 72.3 kg Gen: NAD at rest Heart: RRR Lung: decreased breath sounds at the bases Abd: soft, nontender Ext: no edema CBC, BMP 01/22/18 06:02 01/22/18 06:02 Active Medications Apixaban (Eliquis -) 5 mg PO BID [facility] Last Admin: 01/22/18 09:39 Dose: 5 mg Aspirin (Asa -) 81 mg PO DAILY [facility] Chlorhexidine Gluconate (Hibiclens For Decolonization -) 1 applic TP HS [facility] Ceftriaxone Sodium 1 gm/ (Dextrose) 50 mls @ 100 mls/hr IVPB DAILY [facility]; Protocol Last Admin: 01/22/18 09:40 Dose: 100 mls/hr Mirtazapine (Remeron -) 7.5 mg PO HS [facility] Mupirocin (Bactroban Ointment (For Decolonization) -) 1 applic NS BID [facility] Stop: 01/27/18 09:59 Last Admin: 01/22/18 09:40 Dose: 1 applic Ranitidine HCl (Zantac -) 150 mg PO DAILY [facility] Last Admin: 01/22/18 09:39 Dose: 150 mg Rosuvastatin Calcium (Crestor -) 20 mg PO HS [facility] ASSESSMENT AND PLAN: Chest/Epigastric Pain +Troponins LV Systolic Dysfunction Severe Mitral Regurgitation Atrial Fibrillation Acute Kidney Injury GERD Hyperlipidemia r/o UTI - ASA, statin - rate control - continue anticoagulation - TEENA/ARB when renal function stable - on empiric antibiotics - f/u cultures - PPI for ?epigastric pain, can consult GI if no improvement - O2 as needed - can monitor on telemetry
--- NOTE | 2018-01-22 13:28 | EKG ---
Test Reason : Blood Pressure : / mmHG Vent. Rate : 068 BPM Atrial Rate : 053 BPM P-R Int : 148 ms QRS Dur : 078 ms QT Int : 616 ms P-R-T Axes : 082 -04 167 degrees QTc Int : 655 ms POOR DATA QUALITY, INTERPRETATION MAY BE ADVERSELY AFFECTED SINUS BRADYCARDIA WITH FREQUENT and consecutive PREMATURE VENTRICULAR COMPLEXES AND FUSION COMPLEXES ANTERIOR INFARCT (CITED ON OR BEFORE 21-JAN-2018) T WAVE ABNORMALITY, CONSIDER LATERAL ISCHEMIA PROLONGED QT ABNORMAL ECG WHEN COMPARED WITH ECG OF 21-JAN-2018 16:28, FUSION COMPLEXES ARE NOW PRESENT PREMATURE VENTRICULAR COMPLEXES ARE NOW PRESENT QT HAS LENGTHENED Confirmed by CHRISTIN AN MD ([id number]) on 01/22/2018 1:27:33 PM Referred By: Confirmed By:CHRISTIN AN MD
--- NOTE | 2018-01-22 13:31 | EKG ---
Test Reason : Blood Pressure : / mmHG Vent. Rate : 055 BPM Atrial Rate : 055 BPM P-R Int : 146 ms QRS Dur : 072 ms QT Int : 574 ms P-R-T Axes : 069 -09 154 degrees QTc Int : 549 ms SINUS BRADYCARDIA INFERIOR INFARCT , AGE UNDETERMINED ANTERIOR INFARCT , AGE UNDETERMINED T WAVE ABNORMALITY, CONSIDER LATERAL ISCHEMIA PROLONGED QT ABNORMAL ECG NO PREVIOUS ECGS AVAILABLE Confirmed by JUVE ZARATE, CHRSITIN ([id number]) on 01/22/2018 1:31:20 PM Referred By: Zuleyka DE LA VEGA Confirmed By:CHRISTIN AN MD
--- NOTE | 2018-01-22 15:28 | EKG ---
Test Reason : Blood Pressure : / mmHG Vent. Rate : 058 BPM Atrial Rate : 058 BPM P-R Int : 146 ms QRS Dur : 080 ms QT Int : 504 ms P-R-T Axes : 070 -10 167 degrees QTc Int : 494 ms SINUS BRADYCARDIA POSSIBLE LEFT ATRIAL ENLARGEMENT POSSIBLE INFERIOR INFARCT , AGE UNDETERMINED ANTERIOR INFARCT (CITED ON OR BEFORE 21-JAN-2018) T WAVE ABNORMALITY, CONSIDER LATERAL ISCHEMIA ABNORMAL ECG WHEN COMPARED WITH ECG OF 22-JAN-2018 00:40, FUSION COMPLEXES ARE NO LONGER PRESENT PREMATURE VENTRICULAR COMPLEXES ARE NO LONGER PRESENT NONSPECIFIC T WAVE ABNORMALITY HAS REPLACED INVERTED T WAVES IN ANTERIOR LEADS QT HAS SHORTENED Confirmed by JUVE ZARATE, CHRISTIN ([id number]) on 01/22/2018 3:28:42 PM Referred By: Confirmed By:CHRISTIN AN MD
--- NOTE | 2018-01-22 19:25 | PN ---
Progress Note (short form) - Note Progress Note: Subjective: The patient was seen and examined at the bedside, she has no complaints at this time Current Medications Generic Name Dose Route Start Last Admin Trade Name Andressa PRN Reason Stop Dose Admin Apixaban 5 mg 01/22/18 10:00 01/22/18 09:39 Eliquis - PO 5 mg BID REJI Administration Aspirin 81 mg 01/23/18 10:00 Asa - PO DAILY REJI Chlorhexidine Gluconate 1 applic 01/22/18 22:00 Hibiclens For Decolonization - TP HS REJI Ceftriaxone Sodium 1 gm/ 50 mls @ 100 mls/hr 01/22/18 10:00 01/22/18 09:40 Dextrose IVPB 100 mls/hr DAILY REJI Administration Protocol Mirtazapine 7.5 mg 01/22/18 22:00 Remeron - PO HS REJI Mupirocin 1 applic 01/22/18 10:00 01/22/18 09:40 Bactroban Ointment (For Decolonization) - NS 01/27/18 09:59 1 applic BID REJI Administration Ranitidine HCl 150 mg 01/21/18 23:00 01/22/18 09:39 Zantac - PO 150 mg DAILY REJI Administration Rosuvastatin Calcium 20 mg 01/22/18 22:00 Crestor - PO HS REJI Objective: Vital Signs Period Temp Pulse Resp BP Sys/Villegas Pulse Ox Last 24 Hr 98.2 F-98.6 F 54-75 14-22 92-133/61-82 98-99 Physical Exam: General: NAD Lungs: CTA bilaterally Heart: RRR, S1S2. Systolic murmur 4/6 Abd: Soft, non-tender, non-distended. Normoactive bowel sounds Ext: Warm, well-perfused. 2+ DP/PT bilaterally CBCD WBC 5.3 K/mm3 (4.0-10.0) 01/22/18 06:02 RBC 3.87 M/mm3 (3.60-5.2) 01/22/18 06:02 Hgb 12.0 GM/dL (10.7-15.3) 01/22/18 06:02 Hct 36.7 % (32.4-45.2) 01/22/18 06:02 MCV 94.7 fl (80-96) 01/22/18 06:02 MCHC 32.8 g/dl (32.0-36.0) 01/22/18 06:02 RDW 16.4 % (11.6-15.6) H 01/22/18 06:02 Plt Count 180 K/MM3 (134-434) 01/22/18 06:02 MPV 11.3 fl (7.5-11.1) H 01/22/18 06:02 CMP Sodium 142 mmol/L (136-145) 01/22/18 06:02 Potassium 4.5 mmol/L (3.5-5.1) 01/22/18 06:02 Chloride 109 mmol/L (98-107) H 01/22/18 06:02 Carbon Dioxide 24 mmol/L (21-32) 01/22/18 06:02 Anion Gap 9 (8-16) 01/22/18 06:02 BUN 21 mg/dL (7-18) H 01/22/18 06:02 Creatinine 1.6 mg/dL (0.55-1.02) H 01/22/18 06:02 Creat Clearance w eGFR 31.09 (>60) 01/22/18 06:02 Random Glucose 87 mg/dL (74-106) 01/22/18 06:02 Calcium 8.4 mg/dL (8.5-10.1) L 01/22/18 06:02 Total Bilirubin 2.5 mg/dL (0.2-1.0) H 01/22/18 06:02 AST 45 U/L (15-37) H 01/22/18 06:02 ALT 36 U/L (12-78) 01/22/18 06:02 Alkaline Phosphatase 94 U/L (45-117) 01/22/18 06:02 Total Protein 6.5 g/dl (6.4-8.2) 01/22/18 06:02 Albumin 3.2 g/dl (3.4-5.0) L 01/22/18 06:02 CARDIAC ENZYMES Creatine Kinase 75 IU/L (26-192) 01/22/18 13:45 Troponin I 0.58 ng/ml (0.00-0.05) H 01/22/18 13:45 Assessment: This is a 77 year old female with PMHx of
[2018-01-22] MEDS: APIXABAN 5 MG TABLET PO SCH (21:06)
[2018-01-22] MEDS: ROSUVASTATIN CA 20 MG TABLET (FP) PO SCH (21:06)
[2018-01-22] MEDS: MIRTAZAPINE 15 MG TABLET (FP) PO SCH (21:07)
[2018-01-22] MEDS ORDERED: MIRTAZAPINE 15 MG TABLET (FP) PO SCH (22:00)
[2018-01-22] MEDS ORDERED: CHLORHEXIDINE GLUCONATE 4% CLEANSER FOR DECOLONIZATION TP SCH ×2 (22:00)
[2018-01-22] MEDS ORDERED: ROSUVASTATIN CA 20 MG TABLET (FP) PO SCH (22:00)
[2018-01-23] MEDS ORDERED: METOPROLOL TARTRATE 25 MG TABLET (FP) PO ONE (07:51)
[2018-01-23] MEDS ORDERED: cefTRIAXone SODIUM 1 GM VIAL ONE (08:29)
[2018-01-23] MEDS ORDERED: DEXTROSE 5%-WATER - 50 ML IVPB ONE (08:29)
[2018-01-23 08:37] LABS: ALBUMIN 2.9 g/dl (3.4-5.0); ANION GAP 11 (8-16); BLOOD UREA NITROGEN 28 mg/dL (7-18); CALCIUM 8.4 mg/dL (8.5-10.1); CHLORIDE 108 mmol/L (98-107); CO2 24 mmol/L (21-32); GLUCOSE,RANDOM 85 mg/dL (74-106); POTASSIUM 4.1 mmol/L (3.5-5.1); SODIUM 143 mmol/L (136-145)
[2018-01-23 08:40] LABS: ALK PHOS 106 U/L (45-117); BILIRUBIN,TOTAL 1.3 mg/dL (0.2-1.0); CREATININE 1.5 mg/dL (0.55-1.02); SGOT/AST 54 U/L (15-37); SGPT/ALT 41 U/L (12-78)
[2018-01-23] MEDS ORDERED: CEFTRIAXONE 1 GM in DEXTROSE 5%-WATER - 50 ML IVPB SCH (10:00)
[2018-01-23] MEDS ORDERED: ASPIRIN 81 MG CHEWABLE TABLETS PO SCH (10:00)
[2018-01-23] MEDS: APIXABAN 5 MG TABLET PO SCH ×2 (10:12→21:54)
[2018-01-23] MEDS: RANITIDINE HCL 150 MG TABLET (FP) PO SCH (10:12)
[2018-01-23] MEDS: ASPIRIN 81 MG CHEWABLE TABLETS PO SCH (10:13)
--- NOTE | 2018-01-23 10:42 | PN ---
Progress Note, Physician History of Present Illness: pulmonary alert,feeling better,-abd pain,+ powers,-cp - Current Medication List Current Medications: Active Medications Apixaban (Eliquis -) 5 mg PO BID [facility] Last Admin: 01/23/18 10:12 Dose: 5 mg Aspirin (Asa -) 81 mg PO DAILY [facility] Last Admin: 01/23/18 10:13 Dose: 81 mg Ceftriaxone Sodium 1 gm/ (Dextrose) 50 mls @ 100 mls/hr IVPB DAILY [facility]; Protocol Last Admin: 01/23/18 10:12 Dose: 100 mls/hr Mirtazapine (Remeron -) 7.5 mg PO [facility] Last Admin: 01/22/18 21:07 Dose: 7.5 mg Ranitidine HCl (Zantac -) 150 mg PO DAILY [facility] Last Admin: 01/23/18 10:12 Dose: 150 mg Rosuvastatin Calcium (Crestor -) 20 mg PO [facility] Last Admin: 01/22/18 21:06 Dose: 20 mg - Objective Vital Signs: Vital Signs Temperature 98.1 F 01/23/18 07:29 Pulse Rate 129 H 01/23/18 07:29 Respiratory Rate 18 01/23/18 07:31 Blood Pressure 136/94 01/23/18 07:29 O2 Sat by Pulse Oximetry (%) 97 01/23/18 07:31 Constitutional: Yes: Well Nourished, Calm Eyes: Yes: WNL HENT: Yes: WNL Neck: Yes: WNL Cardiovascular: Yes: Pulse Irregular, S1, S2 Respiratory: Yes: Rales (bibasailar crackles) Gastrointestinal: Yes: Normal Bowel Sounds, Soft Extremities: Yes: WNL Edema: No Labs: CBC, BMP 01/22/18 06:02 01/23/18 05:56 INR, PTT INR 1.45 (0.82-1.09) H 01/22/18 06:02 Problem List - Problems (1) Epigastric abdominal pain Code(s): R10.13 - EPIGASTRIC PAIN (2) A-fib Code(s): I48.91 - UNSPECIFIED ATRIAL FIBRILLATION (3) CHF (congestive heart failure) Code(s): I50.9 - HEART FAILURE, UNSPECIFIED (4) HLD (hyperlipidemia) Code(s): E78.5 - HYPERLIPIDEMIA, UNSPECIFIED (5) HTN (hypertension) Code(s): I10 - ESSENTIAL (PRIMARY) HYPERTENSION (6) Elevated troponin Code(s): R74.8 - ABNORMAL LEVELS OF OTHER SERUM ENZYMES (7) Chest pain Code(s): R07.9 - CHEST PAIN, UNSPECIFIED (8) Mitral regurgitation Code(s): I34.0 - NONRHEUMATIC MITRAL (VALVE) INSUFFICIENCY (9) LV dysfunction Code(s): I51.9 - HEART DISEASE, UNSPECIFIED Assessment/Plan ASSESSMENT AND PLAN: Chest/Epigastric Pain improved +Troponins LV Systolic Dysfunction Severe Mitral Regurgitation Atrial Fibrillation Acute Kidney Injury GERD Hyperlipidemia r/o UTI - rate control - anticoagulation - TEENA/ARB when renal function stable - on empiric antibiotics - PPI for ?epigastric pain, can consult GI if no improvement - O2 as needed - monitor renal function DR WELCH
--- NOTE | 2018-01-23 13:10 | PN ---
Progress Note, Physician Chief Complaint: Shortness of breath History of Present Illness: 77-year-old female with hypertension, hyperlipidemia, atrial fibrillation on Eliquis, admitted with shortness of breath and found to have severe systolic dysfunction. - Current Medication List Current Medications: Active Medications Apixaban (Eliquis -) 5 mg PO BID [facility] Last Admin: 01/23/18 10:12 Dose: 5 mg Aspirin (Asa -) 81 mg PO DAILY [facility] Last Admin: 01/23/18 10:13 Dose: 81 mg Ceftriaxone Sodium 1 gm/ (Dextrose) 50 mls @ 100 mls/hr IVPB DAILY [facility]; Protocol Last Admin: 01/23/18 10:12 Dose: 100 mls/hr Mirtazapine (Remeron -) 7.5 mg PO [facility] Last Admin: 01/22/18 21:07 Dose: 7.5 mg Ranitidine HCl (Zantac -) 150 mg PO DAILY [facility] Last Admin: 01/23/18 10:12 Dose: 150 mg Rosuvastatin Calcium (Crestor -) 20 mg PO HS [facility] Last Admin: 01/22/18 21:06 Dose: 20 mg - Objective Vital Signs: Vital Signs Temperature 98.1 F 01/23/18 07:29 Pulse Rate 129 H 01/23/18 07:29 Respiratory Rate 18 01/23/18 07:31 Blood Pressure 136/94 01/23/18 07:29 O2 Sat by Pulse Oximetry (%) 97 01/23/18 07:31 Constitutional: Yes: Well Nourished, No Distress, Calm Eyes: Yes: WNL, Conjunctiva Clear, EOM Intact HENT: Yes: WNL, Atraumatic, Normocephalic Neck: Yes: WNL, Supple, Trachea Midline Cardiovascular: Yes: Pulse Irregular, S1, S2 Respiratory: Yes: WNL, Regular, CTA Bilaterally Gastrointestinal: Yes: WNL, Normal Bowel Sounds, Soft ...Rectal Exam: Yes: Deferred Genitourinary: Yes: WNL Musculoskeletal: Yes: WNL Extremities: Yes: WNL Edema: No Peripheral Pulses: Left Radial: 1+, Right Radial: 1+, Left Doralis Pedis: 1+, Right Dorsalis Pedis: 1+, Left Femoral: 1+, Right Femoral: 1+ Integumentary: Yes: WNL Neurological: Yes: WNL, Alert, Oriented ...Motor Strength: WNL Labs: CBC, BMP 01/22/18 06:02 01/23/18 05:56 INR, PTT INR 1.45 (0.82-1.09) H 01/22/18 06:02 Assessment/Plan The patient is stable, euvolemic and well compensated. She is breathing comfortably. Next Please start Coreg 3.125 mg twice a day. Tomorrow, if blood pressure allows, would start Carlos inhibitors. Strict salt and fluid restrictions. Gradually improving.
--- NOTE | 2018-01-23 15:36 | PN ---
Progress Note (short form) - Note Progress Note: Subjective: The patient was seen and examined at the bedside, she has no complaints at this time Current Medications Generic Name Dose Route Start Last Admin Trade Name Andressa PRN Reason Stop Dose Admin Apixaban 5 mg 01/22/18 22:00 01/23/18 10:12 Eliquis - PO 5 mg BID REJI Administration Aspirin 81 mg 01/23/18 10:00 01/23/18 10:13 Asa - PO 81 mg DAILY REJI Administration Carvedilol 3.125 mg 01/23/18 22:00 Coreg - PO BID REJI Ceftriaxone Sodium 1 gm/ 50 mls @ 100 mls/hr 01/23/18 10:00 01/23/18 10:12 Dextrose IVPB 100 mls/hr DAILY REJI Administration Protocol Mirtazapine 7.5 mg 01/22/18 22:00 01/22/18 21:07 Remeron - PO 7.5 mg HS REJI Administration Ranitidine HCl 150 mg 01/23/18 10:00 01/23/18 10:12 Zantac - PO 150 mg DAILY REJI Administration Rosuvastatin Calcium 20 mg 01/22/18 22:00 01/22/18 21:06 Crestor - PO 20 mg HS REJI Administration Objective: Vital Signs Period Temp Pulse Resp BP Sys/Villegas Pulse Ox Last 24 Hr 97.7 F-98.4 F 59-129 18-20 103-136/64-94 97-97 Physical Exam: General: NAD Lungs: CTA bilaterally Heart: RRR, S1S2. Systolic murmur 4/6 Abd: Soft, non-tender, non-distended. Normoactive bowel sounds Ext: Warm, well-perfused. 2+ DP/PT bilaterally CBCD WBC 5.3 K/mm3 (4.0-10.0) 01/22/18 06:02 RBC 3.87 M/mm3 (3.60-5.2) 01/22/18 06:02 Hgb 12.0 GM/dL (10.7-15.3) 01/22/18 06:02 Hct 36.7 % (32.4-45.2) 01/22/18 06:02 MCV 94.7 fl (80-96) 01/22/18 06:02 MCHC 32.8 g/dl (32.0-36.0) 01/22/18 06:02 RDW 16.4 % (11.6-15.6) H 01/22/18 06:02 Plt Count 180 K/MM3 (134-434) 01/22/18 06:02 MPV 11.3 fl (7.5-11.1) H 01/22/18 06:02 CMP Sodium 143 mmol/L (136-145) 01/23/18 05:56 Potassium 4.1 mmol/L (3.5-5.1) 01/23/18 05:56 Chloride 108 mmol/L (98-107) H 01/23/18 05:56 Carbon Dioxide 24 mmol/L (21-32) 01/23/18 05:56 Anion Gap 11 (8-16) 01/23/18 05:56 BUN 28 mg/dL (7-18) H 01/23/18 05:56 Creatinine 1.5 mg/dL (0.55-1.02) H 01/23/18 05:56 Creat Clearance w eGFR 33.50 (>60) 01/23/18 05:56 Random Glucose 85 mg/dL (74-106) 01/23/18 05:56 Calcium 8.4 mg/dL (8.5-10.1) L 01/23/18 05:56 Total Bilirubin 1.3 mg/dL (0.2-1.0) H D 01/23/18 05:56 AST 54 U/L (15-37) H 01/23/18 05:56 ALT 41 U/L (12-78) 01/23/18 05:56 Alkaline Phosphatase 106 U/L (45-117) 01/23/18 05:56 Total Protein 6.0 g/dl (6.4-8.2) L 01/23/18 05:56 Albumin 2.9 g/dl (3.4-5.0) L 01/23/18 05:56 CARDIAC ENZYMES Creatine Kinase 99 IU/L (26-192) 01/22/18 20:15 Troponin I 0.54 ng/ml (0.00-0.05) H 01/22/18 20:15 Assessment: This is a 77 year old female with PMHx of HTN, hyperlipidemia, a.fib (on Eliquis), OA, GERD, depression, chronic pain, who presented to the ED with chest pain and shortness of breath for 2 days. Plan: 1) Chest pain - Resolved - EKG with sinus bradycardia. possible inferior infarct, anterolateral TWI (new) - Trops ~ 0.5 2) Cardiomyopathy - Unclear etiology - ECHO with LVEF 20% with severe MR/TR - Previous ECHO last year with cardiomypathy and LVEF 40-45% - Patient appears euvolemic at this time - Start Coreg 3.125 mg po bid - If BP allows, start ACEi tomorrow - Continue ASA - Consider outpatient cardiac workup. AICD evaluation as an outpatient. Once Cr improves, cards will discuss cardiac cath - Appreciate cardiology consult 3) A.fib - Continue Eliquis - Continue Coreg 4) HTN - BP controlled - Continue Coreg 5) GERD - Continue Ranitidine 6) F/E/N: - Sodium controlled diet - Monitor electrolytes 7) Prophylaxis: - On Eliquis 8) Dispo: - Requires continued inpatient care CODE STATUS: FULL CODE Visit type - Emergency Visit Emergency Visit: Yes ED Registration Date: 01/21/18 Care time: The patient presented to the Emergency Department on the above date and was hospitalized for further evaluation of their emergent condition. - New Patient This patient is new to me today: No - Critical Care Critical Care patient: No
[2018-01-23] MEDS: CARVEDILOL 3.125 MG TABLET (FP) PO SCH (21:53)
[2018-01-23] MEDS: ROSUVASTATIN CA 20 MG TABLET (FP) PO SCH (21:54)
[2018-01-23] MEDS: MIRTAZAPINE 15 MG TABLET (FP) PO SCH (21:54)
[2018-01-24 07:27] LABS: BASO % 0.5 % (0-2.0); EOS % 3.6 % (0-4.5); HEMOGLOBIN 11.9 GM/dL (10.7-15.3); MCH 30.8 pg (25.7-33.7); MCHC 32.1 g/dl (32.0-36.0); MEAN CELL VOLUME 95.8 fl (80-96); MEAN PLT VOLUME 11.2 fl (7.5-11.1); MONO % 10.1 % (3.8-10.2); NEUT % 63.8 % (42.8-82.8); PLATELET COUNT 218 K/MM3 (134-434); RBC 3.86 M/mm3 (3.60-5.2); RDW 16.9 % (11.6-15.6); WHITE BLOOD COUNT 5.4 K/mm3 (4.0-10.0)
[2018-01-24 07:55] LABS: CHLORIDE 112 mmol/L (98-107); POTASSIUM 4.3 mmol/L (3.5-5.1); SODIUM 144 mmol/L (136-145)
--- NOTE | 2018-01-24 08:08 | PN ---
Progress Note, Physician History of Present Illness: PULMONARY ALERT,NO DISTRESS,-CP,-SOB,-ABD PAIN - Current Medication List Current Medications: Active Medications Apixaban (Eliquis -) 5 mg PO BID [facility] Last Admin: 01/23/18 21:54 Dose: 5 mg Aspirin (Asa -) 81 mg PO DAILY [facility] Last Admin: 01/23/18 10:13 Dose: 81 mg Carvedilol (Coreg -) 3.125 mg PO BID [facility] Last Admin: 01/23/18 21:53 Dose: 3.125 mg Mirtazapine (Remeron -) 7.5 mg PO [facility] Last Admin: 01/23/18 21:54 Dose: 7.5 mg Ranitidine HCl (Zantac -) 150 mg PO DAILY [facility] Last Admin: 01/23/18 10:12 Dose: 150 mg Rosuvastatin Calcium (Crestor -) 20 mg PO [facility] Last Admin: 01/23/18 21:54 Dose: 20 mg - Objective Vital Signs: Vital Signs Temperature 97.8 F 01/24/18 01:52 Pulse Rate 131 H 01/24/18 05:00 Respiratory Rate 20 01/24/18 05:00 Blood Pressure 159/99 01/24/18 05:00 O2 Sat by Pulse Oximetry (%) 96 01/23/18 21:00 Constitutional: Yes: Well Nourished, Calm Eyes: Yes: WNL HENT: Yes: WNL Neck: Yes: WNL Cardiovascular: Yes: Tachycardia, S1, S2 Respiratory: Yes: CTA Bilaterally Gastrointestinal: Yes: Normal Bowel Sounds, Soft Extremities: Yes: WNL Edema: No Labs: CBC, BMP 01/24/18 06:30 INR, PTT INR 1.45 (0.82-1.09) H 01/22/18 06:02 Problem List - Problems (1) Epigastric abdominal pain Code(s): R10.13 - EPIGASTRIC PAIN (2) A-fib Code(s): I48.91 - UNSPECIFIED ATRIAL FIBRILLATION (3) CHF (congestive heart failure) Code(s): I50.9 - HEART FAILURE, UNSPECIFIED (4) HLD (hyperlipidemia) Code(s): E78.5 - HYPERLIPIDEMIA, UNSPECIFIED (5) HTN (hypertension) Code(s): I10 - ESSENTIAL (PRIMARY) HYPERTENSION (6) Elevated troponin Code(s): R74.8 - ABNORMAL LEVELS OF OTHER SERUM ENZYMES (7) Chest pain Code(s): R07.9 - CHEST PAIN, UNSPECIFIED (8) Mitral regurgitation Code(s): I34.0 - NONRHEUMATIC MITRAL (VALVE) INSUFFICIENCY (9) LV dysfunction Code(s): I51.9 - HEART DISEASE, UNSPECIFIED Assessment/Plan ASSESSMENT AND PLAN: Chest/Epigastric Pain improved +Troponins LV Systolic Dysfunction Severe Mitral Regurgitation Atrial Fibrillation Acute Kidney Injury GERD Hyperlipidemia - rate control as per Cardiology - anticoagulation - TEENA/ARB when renal function stable - Zantac - O2 as needed - monitor renal function DR WELCH
[2018-01-24 08:15] LABS: ALBUMIN 3.2 g/dl (3.4-5.0); ALK PHOS 117 U/L (45-117); ANION GAP 9 (8-16); BILIRUBIN,TOTAL 1.3 mg/dL (0.2-1.0); BLOOD UREA NITROGEN 20 mg/dL (7-18); CALCIUM 8.3 mg/dL (8.5-10.1); CO2 23 mmol/L (21-32); CREATININE 1.1 mg/dL (0.55-1.02); GLUCOSE,RANDOM 106 mg/dL (74-106); SGOT/AST 57 U/L (15-37); SGPT/ALT 50 U/L (12-78); TOT PROT 6.7 g/dl (6.4-8.2)
[2018-01-24] MEDS: CARVEDILOL 3.125 MG TABLET (FP) PO SCH (08:26)
[2018-01-24] MEDS: RANITIDINE HCL 150 MG TABLET (FP) PO SCH (09:26)
[2018-01-24] MEDS: APIXABAN 5 MG TABLET PO SCH ×2 (09:26→23:59)
[2018-01-24] MEDS: ASPIRIN 81 MG CHEWABLE TABLETS PO SCH (09:27)
--- NOTE | 2018-01-24 10:41 | PN ---
Progress Note (short form) - Note Progress Note: c/o misplacing her bra. has no other complaints but very distressed over her missing items. states she has no CP, palpitations or SOB Current Medications Generic Name Dose Route Start Last Admin Trade Name Andressa PRN Reason Stop Dose Admin Apixaban 5 mg 01/22/18 22:00 01/24/18 09:26 Eliquis - PO 5 mg BID REJI Administration Aspirin 81 mg 01/23/18 10:00 01/24/18 09:27 Asa - PO 81 mg DAILY REJI Administration Carvedilol 3.125 mg 01/23/18 22:00 01/24/18 08:26 Coreg - PO 3.125 mg BID REJI Administration Mirtazapine 7.5 mg 01/22/18 22:00 01/23/18 21:54 Remeron - PO 7.5 mg HS REJI Administration Ranitidine HCl 150 mg 01/23/18 10:00 01/24/18 09:26 Zantac - PO 150 mg DAILY REJI Administration Rosuvastatin Calcium 20 mg 01/22/18 22:00 01/23/18 21:54 Crestor - PO 20 mg HS REJI Administration Last Vital Signs Temp Pulse Resp BP Pulse Ox 97.8 F 136 H 20 133/87 96 01/24/18 08:27 01/24/18 08:27 01/24/18 08:27 01/24/18 08:27 01/23/18 21:00 General agitated refused physical exam at this time. as this is not a concern until her missing item is found CBCD WBC 5.4 K/mm3 (4.0-10.0) 01/24/18 06:30 RBC 3.86 M/mm3 (3.60-5.2) 01/24/18 06:30 Hgb 11.9 GM/dL (10.7-15.3) 01/24/18 06:30 Hct 37.0 % (32.4-45.2) 01/24/18 06:30 MCV 95.8 fl (80-96) 01/24/18 06:30 MCHC 32.1 g/dl (32.0-36.0) 01/24/18 06:30 RDW 16.9 % (11.6-15.6) H 01/24/18 06:30 Plt Count 218 K/MM3 (134-434) D 01/24/18 06:30 MPV 11.2 fl (7.5-11.1) H 01/24/18 06:30 CMP Sodium 144 mmol/L (136-145) 01/24/18 06:30 Potassium 4.3 mmol/L (3.5-5.1) 01/24/18 06:30 Chloride 112 mmol/L (98-107) H 01/24/18 06:30 Carbon Dioxide 23 mmol/L (21-32) 01/24/18 06:30 Anion Gap 9 (8-16) 01/24/18 06:30 BUN 20 mg/dL (7-18) H 01/24/18 06:30 Creatinine 1.1 mg/dL (0.55-1.02) H 01/24/18 06:30 Creat Clearance w eGFR 47.91 (>60) 01/24/18 06:30 Calcium 8.3 mg/dL (8.5-10.1) L 01/24/18 06:30 Total Bilirubin 1.3 mg/dL (0.2-1.0) H 01/24/18 06:30 AST 57 U/L (15-37) H 01/24/18 06:30 ALT 50 U/L (12-78) 01/24/18 06:30 Alkaline Phosphatase 117 U/L (45-117) 01/24/18 06:30 Total Protein 6.7 g/dl (6.4-8.2) 01/24/18 06:30 Albumin 3.2 g/dl (3.4-5.0) L 01/24/18 06:30 Microbiology 01/22/18 09:00 Urine Culture - Final Urine - Urine [place] NO GROWTH OBTAINED A/P 77yo F with PMH HTN, cardiomyopathy s/p ICD, dyslipidemia, afib on eliquis, depression, dementia and chronic pain presents to the ER with CP and dyspnea x3 days 1. CP- flat trend of troponins 0.5. would benefit from cath however will want to medically optimize first. on asa. cardio on board 2. Systolic CHF- as per previous notes was noted to be euvolemic. (unable to assess at this time) not require diuretic. will start lisinopril. 3. afib with RVR- HR uncontrolled. exacerbated at thsi time due to agitation. however been persistent. will increase coreg to 6.25. lopressor prn HR >120. cont eliquis 4. SAMM- likely pre-renal. now improved. cont to monitor as medications adjusted 5. Dementia- noted with agitation. as per RN whom spoke with daughter this is typical for her to get agitated when hospitalized and noted to be at baseline. unable to start seroquel or haldol at this time due to prolonged QTc. will put ativan prn if needed. 6. HTN- controlled. cont current management 7. dyslipidemia- statin 8. DVT ppx- eliquis Visit type - Emergency Visit Emergency Visit: Yes ED Registration Date: 01/21/18 Care time: The patient presented to the Emergency Department on the above date and was hospitalized for further evaluation of their emergent condition. - New Patient This patient is new to me today: Yes Date on this admission: 01/24/18 - Critical Care Critical Care patient: No - Discharge Referral Referred to [facility] Med P.C.: No
[2018-01-24] MEDS ORDERED: CARVEDILOL 3.125 MG TABLET (FP) PO ONE (10:42)
[2018-01-24] MEDS ORDERED: LORazepam 2 MG/ML SDV VIAL IVPUSH PRN (11:02)
[2018-01-24] MEDS: LISINOPRIL 5 MG TABLET (FP) PO SCH (11:34)
--- NOTE | 2018-01-24 11:51 | PN ---
Progress Note, Physician Chief Complaint: agitated today tele ef rvr History of Present Illness: 77 year old female with a pmhx of htn, hld, Afib on apixaban, gerd, depression, chronic systolic CHF with LVEF 40-45% in 2017 (NST 01/2017 with no ischemia), and severe MR/TR who presented to [place] with epigastric pain. Patient denies any chest pain. Says she has chronic epigastric pain for years which was acutely worsened on day of admission. Epigastric pain is reproducible and seems to be worse with food. Echo showed LVEF 20% on echocardiogram here with severe MR/TR. - Current Medication List Current Medications: Active Medications Apixaban (Eliquis -) 5 mg PO BID [facility] Last Admin: 01/24/18 09:26 Dose: 5 mg Aspirin (Asa -) 81 mg PO DAILY [facility] Last Admin: 01/24/18 09:27 Dose: 81 mg Carvedilol (Coreg -) 6.25 mg PO BID [facility] Lisinopril (Prinivil) 5 mg PO DAILY [facility] Last Admin: 01/24/18 11:34 Dose: 5 mg Lorazepam (Ativan Injection -) 1 mg IVPUSH Q6H PRN PRN Reason: AGITATION Metoprolol Tartrate (Lopressor Injection -) 5 mg IVPUSH Q4H PRN PRN Reason: HYPERTENSION Mirtazapine (Remeron -) 7.5 mg PO [facility] Last Admin: 01/23/18 21:54 Dose: 7.5 mg Ranitidine HCl (Zantac -) 150 mg PO DAILY [facility] Last Admin: 01/24/18 09:26 Dose: 150 mg Rosuvastatin Calcium (Crestor -) 20 mg PO [facility] Last Admin: 01/23/18 21:54 Dose: 20 mg - Objective Vital Signs: Vital Signs Temperature 97.8 F 01/24/18 08:27 Pulse Rate 136 H 01/24/18 08:27 Respiratory Rate 20 01/24/18 08:27 Blood Pressure 133/87 01/24/18 08:27 O2 Sat by Pulse Oximetry (%) 96 01/23/18 21:00 Constitutional: Yes: Well Nourished, Anxious Eyes: Yes: Conjunctiva Clear HENT: Yes: Normocephalic Neck: Yes: Trachea Midline Cardiovascular: Yes: Tachycardia, Pulse Irregular Respiratory: Yes: CTA Bilaterally Gastrointestinal: Yes: Normal Bowel Sounds Musculoskeletal: Yes: WNL Extremities: Yes: WNL Edema: No Peripheral Pulses WNL: Yes Labs: CBC, BMP 01/24/18 06:30 01/24/18 06:30 INR, PTT INR 1.45 (0.82-1.09) H 01/22/18 06:02 Problem List - Problems (1) CHF (congestive heart failure) Assessment/Plan: -Patient with LVEF 20% on echocardiogram here with severe MR/TR. Unclear etiology. Possibility of ischemia or due to valvular disease/severe MR. Had previously had cardiomyopathy with LVEF 40-45% last year with no ischemia on NST at that time. -No signs of significant volume overload on exam. Treat medically at this time with aspirin/statin. restarted on coreg and ACEI. she is not a candidate for intervention on chf or MR at present. Code(s): I50.9 - HEART FAILURE, UNSPECIFIED Qualifiers: Heart failure type: systolic Heart failure chronicity: acute on chronic Qualified Code(s): I50.23 - Acute on chronic systolic (congestive) heart failure (2) A-fib Assessment/Plan: Rates are uncontrolled due to CHF and anxiety. Will need anxiety rx. Avoid QT prolonging agents. increase coreg as tolerated. continue eliquis. Code(s): I48.91 - UNSPECIFIED ATRIAL FIBRILLATION Qualifiers: Atrial fibrillation type: chronic Qualified Code(s): I48.2 - Chronic atrial fibrillation
[2018-01-24] MEDS: METOPROLOL TARTRATE 5 MG/5 ML VIAL IVPUSH PRN (14:00)
[2018-01-24] MEDS: ROSUVASTATIN CA 20 MG TABLET (FP) PO SCH (23:59)
[2018-01-24] MEDS: CARVEDILOL 6.25 MG TABLET (FP) PO SCH (23:59)
[2018-01-24] MEDS: MIRTAZAPINE 15 MG TABLET (FP) PO SCH (23:59)
[2018-01-25 07:45] LABS: CHLORIDE 112 mmol/L (98-107); POTASSIUM 4.1 mmol/L (3.5-5.1); SODIUM 145 mmol/L (136-145)
[2018-01-25] MEDS: METOPROLOL TARTRATE 5 MG/5 ML VIAL IVPUSH PRN (07:45)
[2018-01-25 07:53] LABS: ALBUMIN 2.8 g/dl (3.4-5.0); ALK PHOS 97 U/L (45-117); ANION GAP 9 (8-16); BILIRUBIN,TOTAL 1.4 mg/dL (0.2-1.0); BLOOD UREA NITROGEN 15 mg/dL (7-18); CALCIUM 8.3 mg/dL (8.5-10.1); CO2 24 mmol/L (21-32); CREATININE 0.9 mg/dL (0.55-1.02); GLUCOSE,RANDOM 72 mg/dL (74-106); SGOT/AST 37 U/L (15-37); SGPT/ALT 37 U/L (12-78)
[2018-01-25] MEDS: APIXABAN 5 MG TABLET PO SCH ×2 (09:45→21:47)
[2018-01-25] MEDS: LISINOPRIL 5 MG TABLET (FP) PO SCH (09:45)
[2018-01-25] MEDS: ASPIRIN 81 MG CHEWABLE TABLETS PO SCH (09:45)
[2018-01-25] MEDS: CARVEDILOL 6.25 MG TABLET (FP) PO SCH ×2 (09:45→21:46)
[2018-01-25] MEDS: RANITIDINE HCL 150 MG TABLET (FP) PO SCH (09:45)
--- NOTE | 2018-01-25 09:50 | PN ---
Progress Note, Physician History of Present Illness: pulmonary alert oob-chair,c/o epigastric discomfort - Current Medication List Current Medications: Active Medications Apixaban (Eliquis -) 5 mg PO BID [facility] Last Admin: 01/25/18 09:45 Dose: 5 mg Aspirin (Asa -) 81 mg PO DAILY [facility] Last Admin: 01/25/18 09:45 Dose: 81 mg Carvedilol (Coreg -) 6.25 mg PO BID [facility] Last Admin: 01/25/18 09:45 Dose: 6.25 mg Lisinopril (Prinivil) 5 mg PO DAILY [facility] Last Admin: 01/25/18 09:45 Dose: 5 mg Lorazepam (Ativan Injection -) 1 mg IVPUSH Q6H PRN PRN Reason: AGITATION Last Admin: 01/24/18 14:00 Dose: 1 mg Metoprolol Tartrate (Lopressor Injection -) 5 mg IVPUSH Q4H PRN PRN Reason: HYPERTENSION Last Admin: 01/25/18 07:45 Dose: 5 mg Mirtazapine (Remeron -) 7.5 mg PO [facility] Last Admin: 01/24/18 23:59 Dose: Not Given Ranitidine HCl (Zantac -) 150 mg PO DAILY [facility] Last Admin: 01/25/18 09:45 Dose: 150 mg Rosuvastatin Calcium (Crestor -) 20 mg PO [facility] Last Admin: 01/24/18 23:59 Dose: Not Given - Objective Vital Signs: Vital Signs Temperature 97.6 F 01/25/18 02:00 Pulse Rate 146 H 01/25/18 07:45 Respiratory Rate 20 01/25/18 06:00 Blood Pressure 136/89 01/25/18 07:45 O2 Sat by Pulse Oximetry (%) 95 01/24/18 21:00 Constitutional: Yes: Well Nourished, Calm Eyes: Yes: WNL HENT: Yes: WNL Neck: Yes: WNL Cardiovascular: Yes: Tachycardia, Pulse Irregular, S1, S2 Respiratory: Yes: Diminished Extremities: Yes: WNL Edema: No Labs: CBC, BMP 01/25/18 06:30 INR, PTT INR 1.45 (0.82-1.09) H 01/22/18 06:02 Problem List - Problems (1) Epigastric abdominal pain Code(s): R10.13 - EPIGASTRIC PAIN (2) A-fib Code(s): I48.91 - UNSPECIFIED ATRIAL FIBRILLATION Qualifiers: Atrial fibrillation type: chronic Qualified Code(s): I48.2 - Chronic atrial fibrillation (3) CHF (congestive heart failure) Code(s): I50.9 - HEART FAILURE, UNSPECIFIED Qualifiers: Heart failure type: systolic Heart failure chronicity: acute on chronic Qualified Code(s): I50.23 - Acute on chronic systolic (congestive) heart failure (4) HLD (hyperlipidemia) Code(s): E78.5 - HYPERLIPIDEMIA, UNSPECIFIED (5) HTN (hypertension) Code(s): I10 - ESSENTIAL (PRIMARY) HYPERTENSION (6) Elevated troponin Code(s): R74.8 - ABNORMAL LEVELS OF OTHER SERUM ENZYMES (7) Chest pain Code(s): R07.9 - CHEST PAIN, UNSPECIFIED (8) Mitral regurgitation Code(s): I34.0 - NONRHEUMATIC MITRAL (VALVE) INSUFFICIENCY (9) LV dysfunction Code(s): I51.9 - HEART DISEASE, UNSPECIFIED Assessment/Plan ASSESSMENT AND PLAN: Chest/Epigastric Pain +Troponins Severe LV Systolic Dysfunction Severe Mitral Regurgitation Rapid Atrial Fibrillation Acute Kidney Injury GERD Hyperlipidemia - rate control as per Cardiology - anticoagulation - Zantac - O2 as needed - monitor renal function DR WELCH
--- NOTE | 2018-01-25 12:54 | PN ---
Progress Note, Physician Chief Complaint: agitated today tele af better vr History of Present Illness: 77 year old female with a pmhx of htn, hld, Afib on apixaban, gerd, depression, chronic systolic CHF with LVEF 40-45% in 2017 (NST 01/2017 with no ischemia), and severe MR/TR who presented to [place] with epigastric pain. Patient denies any chest pain. Says she has chronic epigastric pain for years which was acutely worsened on day of admission. Epigastric pain is reproducible and seems to be worse with food. Echo showed LVEF 20% on echocardiogram here with severe MR/TR. - Current Medication List Current Medications: Active Medications Apixaban (Eliquis -) 5 mg PO BID [facility] Last Admin: 01/25/18 09:45 Dose: 5 mg Aspirin (Asa -) 81 mg PO DAILY [facility] Last Admin: 01/25/18 09:45 Dose: 81 mg Carvedilol (Coreg -) 6.25 mg PO BID [facility] Last Admin: 01/25/18 09:45 Dose: 6.25 mg Lisinopril (Prinivil) 5 mg PO DAILY [facility] Last Admin: 01/25/18 09:45 Dose: 5 mg Lorazepam (Ativan Injection -) 1 mg IVPUSH Q6H PRN PRN Reason: AGITATION Last Admin: 01/24/18 14:00 Dose: 1 mg Metoprolol Tartrate (Lopressor Injection -) 5 mg IVPUSH Q4H PRN PRN Reason: HYPERTENSION Last Admin: 01/25/18 07:45 Dose: 5 mg Mirtazapine (Remeron -) 7.5 mg PO [facility] Last Admin: 01/24/18 23:59 Dose: Not Given Ranitidine HCl (Zantac -) 150 mg PO DAILY [facility] Last Admin: 01/25/18 09:45 Dose: 150 mg Rosuvastatin Calcium (Crestor -) 20 mg PO [facility] Last Admin: 01/24/18 23:59 Dose: Not Given - Objective Vital Signs: Vital Signs Temperature 98.1 F 01/25/18 10:00 Pulse Rate 138 H 01/25/18 10:00 Respiratory Rate 20 01/25/18 10:00 Blood Pressure 133/69 01/25/18 10:00 O2 Sat by Pulse Oximetry (%) 95 01/25/18 09:00 Constitutional: Yes: No Distress, Calm Eyes: Yes: EOM Intact HENT: Yes: Atraumatic, Normocephalic Neck: Yes: Trachea Midline Cardiovascular: Yes: Tachycardia, Pulse Irregular Respiratory: Yes: CTA Bilaterally Gastrointestinal: Yes: Normal Bowel Sounds, Soft Genitourinary: Yes: WNL Musculoskeletal: Yes: WNL Extremities: Yes: WNL Edema: No Peripheral Pulses WNL: Yes Labs: CBC, BMP 01/24/18 06:30 01/25/18 06:30 INR, PTT INR 1.45 (0.82-1.09) H 01/22/18 06:02 Problem List - Problems (1) CHF (congestive heart failure) Assessment/Plan: -Patient with LVEF 20% on echocardiogram here with severe MR/TR. Unclear etiology. Possibility of ischemia or due to valvular disease/severe MR. Had previously had cardiomyopathy with LVEF 40-45% last year with no ischemia on NST at that time. -No signs of significant volume overload on exam. Treat medically at this time with aspirin/statin. restarted on coreg and ACEI. she is not a candidate for intervention on chf or MR at present. Code(s): I50.9 - HEART FAILURE, UNSPECIFIED Qualifiers: Heart failure type: systolic Heart failure chronicity: acute on chronic Qualified Code(s): I50.23 - Acute on chronic systolic (congestive) heart failure (2) A-fib Assessment/Plan: Rates are uncontrolled due to CHF and anxiety. Will need anxiety rx. Avoid QT prolonging agents. increase coreg as tolerated by bp and HR. continue eliquis. Code(s): I48.91 - UNSPECIFIED ATRIAL FIBRILLATION Qualifiers: Atrial fibrillation type: chronic Qualified Code(s): I48.2 - Chronic atrial fibrillation
--- NOTE | 2018-01-25 19:23 | PN ---
Physical Exam: SUBJECTIVE: Patient seen and examined, sitting in chair, comfortable. Having intermittent epigastric pain. OBJECTIVE: Vital Signs Period Temp Pulse Resp BP Sys/Villegas Pulse Ox Last 24 Hr 97.6 F-98.6 F 108-146 20-20 107-136/69-89 95-95 GENERAL: The patient is awake, alert, and fully oriented, in no acute distress. HEAD: Normal with no signs of trauma. EYES: PERRL, extraocular movements intact, sclera anicteric, conjunctiva clear. No ptosis. ENT: Ears normal, nares patent, oropharynx clear without exudates, moist mucous membranes. NECK: Trachea midline, full range of motion, supple. LUNGS: Breath sounds equal, clear to auscultation bilaterally, no wheezes, no crackles, no accessory muscle use. HEART: atrial fib, 120s ABDOMEN: Soft, nontender, nondistended, normoactive bowel sounds, no guarding, no rebound, no hepatosplenomegaly, no masses. EXTREMITIES: 2+ pulses, warm, well-perfused, no edema. SKIN: Warm, dry, normal turgor, no rashes or lesions noted Laboratory Results - last 24 hr 01/25/18 06:30 Sodium 145 Potassium 4.1 Chloride 112 H Carbon Dioxide 24 Anion Gap 9 BUN 15 Creatinine 0.9 Creat Clearance w eGFR > 60 Random Glucose 72 L Calcium 8.3 L Total Bilirubin 1.4 H AST 37 ALT 37 Alkaline Phosphatase 97 Total Protein 6.0 L Albumin 2.8 L Active Medications Generic Name Dose Route Start Last Admin Trade Name Freq PRN Reason Stop Dose Admin Apixaban 5 mg 01/22/18 22:00 01/25/18 09:45 Eliquis - PO 5 mg BID REJI Administration Aspirin 81 mg 01/23/18 10:00 01/25/18 09:45 Asa - PO 81 mg DAILY REJI Administration Carvedilol 6.25 mg 01/24/18 10:44 01/25/18 09:45 Coreg - PO 6.25 mg BID REJI Administration Lisinopril 5 mg 01/24/18 10:45 01/25/18 09:45 Prinivil PO 5 mg DAILY REJI Administration Lorazepam 1 mg 01/24/18 11:02 01/24/18 14:00 Ativan Injection - IVPUSH 1 mg Q6H PRN Administration AGITATION Metoprolol Tartrate 5 mg 01/24/18 10:43 01/25/18 07:45 Lopressor Injection - IVPUSH 5 mg Q4H PRN Administration HYPERTENSION Mirtazapine 7.5 mg 01/22/18 22:00 01/24/18 23:59 Remeron - PO Not Given HS REJI Ranitidine HCl 150 mg 01/23/18 10:00 01/25/18 09:45 Zantac - PO 150 mg DAILY REJI Administration Rosuvastatin Calcium 20 mg 01/22/18 22:00 01/24/18 23:59 Crestor - PO Not Given HS REJI ASSESSMENT/PLAN: Patient is a 77 year old female with a significant past medical history of hypertensin, hyperlipidemia, Afib (on Eliquis), OA, GERD, depression and age related cognitive declined. Patient presents to the ED with chest pain and shortness of breath. Patient reports the chest pain occurred during rest, but non radiating. Patient was noted to have an EF of 20% on echo done at [place] with severe MR/TR.Card: Cardiology: Chest Pain, Trops flat trending. Chest pain intermittent. On ASA, Crestor, Lopressor iv push for rate control, Lisinopril, Coreq. Patient for possible cath per cardiology once kidney function improves. Systolic CHF, monitor for intake and output, daily weights Atrial Fibrillation, on Eliquis. Heart rate still uncontrolled, Coreq increased , Lopressor pushes Hyperlipidemia, on statin Renal: Acute Kidney Injury, resolved. Monitor with daily labs Creatinine improved Neuro Dementia, at baseline. Monitor mental status. F.E.N. Fluids: tolerating PO Electrolytes: monitor Nutrition: low salt Prophy: DVT: Eliquis GI: Zantac full code Visit type - Emergency Visit Emergency Visit: Yes ED Registration Date: 01/21/18 Care time: The patient presented to the Emergency Department on the above date and was hospitalized for further evaluation of their emergent condition. - New Patient This patient is new to me today: Yes Date on this admission: 01/25/18 - Critical Care Critical Care patient: No - Discharge Referral Referred to [facility] Med P.C.: No
[2018-01-25] MEDS: MIRTAZAPINE 15 MG TABLET (FP) PO SCH (21:46)
[2018-01-25] MEDS: ROSUVASTATIN CA 20 MG TABLET (FP) PO SCH (21:47)
[2018-01-26] MEDS: LISINOPRIL 5 MG TABLET (FP) PO SCH (09:03)
[2018-01-26] MEDS: ASPIRIN 81 MG CHEWABLE TABLETS PO SCH (09:03)
[2018-01-26] MEDS: APIXABAN 5 MG TABLET PO SCH ×2 (09:03→21:25)
[2018-01-26] MEDS: RANITIDINE HCL 150 MG TABLET (FP) PO SCH (09:03)
[2018-01-26] MEDS: CARVEDILOL 6.25 MG TABLET (FP) PO SCH (09:03)
--- NOTE | 2018-01-26 11:30 | PN ---
Progress Note, Physician History of Present Illness: PULMONARY ALERT,FEELING BETTER,-SOB,MIN EPIGASTRIC DISCOMFORT. STILL EPISODES OF RAPID AFIB WITH EXERTION. - Current Medication List Current Medications: Active Medications Apixaban (Eliquis -) 5 mg PO BID REPLACED BY [facility] Last Admin: 01/26/18 09:03 Dose: 5 mg Aspirin (Asa -) 81 mg PO DAILY REPLACED BY [facility] Last Admin: 01/26/18 09:03 Dose: 81 mg Carvedilol (Coreg -) 6.25 mg PO BID REPLACED BY [facility] Last Admin: 01/26/18 09:03 Dose: 6.25 mg Gabapentin (Neurontin -) 100 mg PO TID REPLACED BY [facility] Lisinopril (Prinivil) 5 mg PO DAILY REPLACED BY [facility] Last Admin: 01/26/18 09:03 Dose: 5 mg Lorazepam (Ativan Injection -) 1 mg IVPUSH Q6H PRN PRN Reason: AGITATION Last Admin: 01/24/18 14:00 Dose: 1 mg Metoprolol Tartrate (Lopressor Injection -) 5 mg IVPUSH Q4H PRN PRN Reason: HYPERTENSION Last Admin: 01/25/18 07:45 Dose: 5 mg Mirtazapine (Remeron -) 7.5 mg PO [facility] Last Admin: 01/25/18 21:46 Dose: 7.5 mg Ranitidine HCl (Zantac -) 150 mg PO DAILY REPLACED BY [facility] Last Admin: 01/26/18 09:03 Dose: 150 mg Rosuvastatin Calcium (Crestor -) 20 mg PO [facility] Last Admin: 01/25/18 21:47 Dose: 20 mg - Objective Vital Signs: Vital Signs Temperature 98.2 F 01/26/18 08:59 Pulse Rate 128 H 01/26/18 08:59 Respiratory Rate 14 01/26/18 08:59 Blood Pressure 138/82 01/26/18 08:59 O2 Sat by Pulse Oximetry (%) 95 01/25/18 21:00 Constitutional: Yes: Well Nourished, Calm Eyes: Yes: WNL HENT: Yes: WNL Neck: Yes: WNL Cardiovascular: Yes: Tachycardia, Pulse Irregular, S1, S2 Respiratory: Yes: Diminished Gastrointestinal: Yes: Normal Bowel Sounds, Soft Extremities: Yes: WNL Edema: No Labs: Problem List - Problems (1) Epigastric abdominal pain Code(s): R10.13 - EPIGASTRIC PAIN (2) A-fib Code(s): I48.91 - UNSPECIFIED ATRIAL FIBRILLATION Qualifiers: Atrial fibrillation type: chronic Qualified Code(s): I48.2 - Chronic atrial fibrillation (3) CHF (congestive heart failure) Code(s): I50.9 - HEART FAILURE, UNSPECIFIED Qualifiers: Heart failure type: systolic Heart failure chronicity: acute on chronic Qualified Code(s): I50.23 - Acute on chronic systolic (congestive) heart failure (4) HLD (hyperlipidemia) Code(s): E78.5 - HYPERLIPIDEMIA, UNSPECIFIED (5) HTN (hypertension) Code(s): I10 - ESSENTIAL (PRIMARY) HYPERTENSION (6) Elevated troponin Code(s): R74.8 - ABNORMAL LEVELS OF OTHER SERUM ENZYMES (7) Chest pain Code(s): R07.9 - CHEST PAIN, UNSPECIFIED (8) Mitral regurgitation Code(s): I34.0 - NONRHEUMATIC MITRAL (VALVE) INSUFFICIENCY (9) LV dysfunction Code(s): I51.9 - HEART DISEASE, UNSPECIFIED Assessment/Plan ASSESSMENT AND PLAN: Chest/Epigastric Pain +Troponins Severe LV Systolic Dysfunction Severe Mitral Regurgitation Rapid Atrial Fibrillation Acute Kidney Injury improved GERD Hyperlipidemia - rate control as per Cardiology - anticoagulation - Zantac - O2 as needed DR WELCH
--- NOTE | 2018-01-26 13:35 | PN ---
Progress Note, Physician History of Present Illness: seen and examined today in nad. states that she is feeling better. no further chest pain, no new complaints. - Current Medication List Current Medications: Active Medications Apixaban (Eliquis -) 5 mg PO BID [facility] Last Admin: 01/26/18 09:03 Dose: 5 mg Aspirin (Asa -) 81 mg PO DAILY [facility] Last Admin: 01/26/18 09:03 Dose: 81 mg Carvedilol (Coreg -) 6.25 mg PO BID [facility] Last Admin: 01/26/18 09:03 Dose: 6.25 mg Gabapentin (Neurontin -) 100 mg PO TID [facility] Lisinopril (Prinivil) 5 mg PO DAILY [facility] Last Admin: 01/26/18 09:03 Dose: 5 mg Lorazepam (Ativan Injection -) 1 mg IVPUSH Q6H PRN PRN Reason: AGITATION Last Admin: 01/24/18 14:00 Dose: 1 mg Metoprolol Tartrate (Lopressor Injection -) 5 mg IVPUSH Q4H PRN PRN Reason: HYPERTENSION Last Admin: 01/25/18 07:45 Dose: 5 mg Mirtazapine (Remeron -) 7.5 mg PO [facility] Last Admin: 01/25/18 21:46 Dose: 7.5 mg Ranitidine HCl (Zantac -) 150 mg PO DAILY [facility] Last Admin: 01/26/18 09:03 Dose: 150 mg Rosuvastatin Calcium (Crestor -) 20 mg PO [facility] Last Admin: 01/25/18 21:47 Dose: 20 mg - Objective Vital Signs: Vital Signs Temperature 98.2 F 01/26/18 08:59 Pulse Rate 128 H 01/26/18 08:59 Respiratory Rate 14 01/26/18 09:00 Blood Pressure 138/82 01/26/18 08:59 O2 Sat by Pulse Oximetry (%) 95 01/26/18 09:00 Constitutional: Yes: No Distress, Calm Eyes: Yes: Conjunctiva Clear, EOM Intact, PERRL HENT: Yes: Atraumatic, Normocephalic Neck: Yes: Supple, Trachea Midline Cardiovascular: Yes: Tachycardia, Pulse Irregular, Murmur, S1, S2. No: Regular Rate and Rhythm, Bradycardia, Bruit, JVD, Gallop, Rub, S3, S4, Varicosities Respiratory: Yes: Regular, Diminished, Rales. No: On Nasal O2, Rhonchi, SOB, Wheezes Gastrointestinal: Yes: Normal Bowel Sounds, Soft. No: Distention, Tenderness Extremities: Yes: WNL Edema: Yes Edema: LLE: Trace, RLE: Trace Peripheral Pulses WNL: Yes Peripheral Pulses: Left Doralis Pedis: 2+, Right Dorsalis Pedis: 2+ Integumentary: Yes: WNL Neurological: Yes: Alert, Oriented Psychiatric: Yes: Alert, Oriented Labs: CBC, BMP 01/24/18 06:30 01/25/18 06:30 INR, PTT INR 1.45 (0.82-1.09) H 01/22/18 06:02 - ....Imaging Chest X-ray: Report Reviewed, Image Reviewed EKG: Report Reviewed, Image Reviewed Other: Report Reviewed, Image Reviewed (Tele-AFib, HR above goal) Assessment/Plan 77 year old female with a pmhx of htn, hld, Afib on apixaban, gerd, depression, chronic systolic CHF with LVEF 40-45% in 2017 (NST 01/2017 with no ischemia), and severe MR/TR who presented to [place] with epigastric pain. Patient denies any chest pain. Says she has chronic epigastric pain for years which was acutely worsened on day of admission. Epigastric pain is reproducible and seems to be worse with food. Echo showed LVEF 20% on echocardiogram here with severe MR/TR. CHF (congestive heart failure) Assessment/Plan: Acute on chronic systolic/valvular CHF -Patient with LVEF 20% on echocardiogram here with severe MR/TR. Unclear etiology. Possibility of ischemia or due to valvular disease/severe MR. Had previously had cardiomyopathy with LVEF 40-45% last year with no ischemia on NST at that time. -Now appears to be developing mild volume overload, rales and peripheral edema, likely secondary to AFib with RVR Rate control, uptitrate Coreg as BP tolerates, cont Lopressor IV prn Treat medically at this time with aspirin/statin. Cont ACEI. Lengthy discussion held with pt today, she was followed by Dr. Castillo for some time but is unsure if she can still see him due to insurance issues. We discussed the possibility of needing a cardiac cath and possible ICD. She wishes to follow up with her PMD Dr. Chilel as outpatient to discuss it further and speak with Dr. Castillo as well. If she is unable to see Dr. Castillo she will likely follow with us here. Transportation has been an issue for her as she lives in [facility]. [id number], HR uncontrolled as above Assessment/Plan: Rates are uncontrolled due to CHF and anxiety. increase coreg as tolerated by bp and HR, use Lopressor IV prn continue eliquis.
[2018-01-26] MEDS: GABAPENTIN 100 MG CAPSULE (FP) PO SCH ×2 (13:38→21:25)
--- NOTE | 2018-01-26 17:18 | PN ---
Physical Exam: SUBJECTIVE: Patient seen and examined sitting on edge of bed. Just walked back from bathroom, slightly SOB and HR to 150s. OBJECTIVE: Vital Signs Period Temp Pulse Resp BP Sys/Villegas Pulse Ox Last 24 Hr 97.3 F-98.4 F 123-130 14-20 106-140/50-82 95-95 General/Neuro: A&Ox3, mildly SOB with walking, in no acute distress CV: Irregular, S1, S2 Pulm: bibasilar crackles, diminished sounds RLL Abd: soft, not tender, not distended Ext: b/l LE edema 2+ on left, 1+ on right Active Medications Generic Name Dose Route Start Last Admin Trade Name Freq PRN Reason Stop Dose Admin Apixaban 5 mg 01/22/18 22:00 01/26/18 09:03 Eliquis - PO 5 mg BID REJI Administration Aspirin 81 mg 01/23/18 10:00 01/26/18 09:03 Asa - PO 81 mg DAILY REJI Administration Carvedilol 6.25 mg 01/24/18 10:44 01/26/18 09:03 Coreg - PO 6.25 mg BID REJI Administration Gabapentin 100 mg 01/26/18 14:00 01/26/18 13:38 Neurontin - PO 100 mg TID REJI Administration Lisinopril 5 mg 01/24/18 10:45 01/26/18 09:03 Prinivil PO 5 mg DAILY REJI Administration Lorazepam 1 mg 01/24/18 11:02 01/24/18 14:00 Ativan Injection - IVPUSH 1 mg Q6H PRN Administration AGITATION Metoprolol Tartrate 5 mg 01/24/18 10:43 01/25/18 07:45 Lopressor Injection - IVPUSH 5 mg Q4H PRN Administration HYPERTENSION Mirtazapine 7.5 mg 01/22/18 22:00 01/25/18 21:46 Remeron - PO 7.5 mg HS REJI Administration Ranitidine HCl 150 mg 01/23/18 10:00 01/26/18 09:03 Zantac - PO 150 mg DAILY REJI Administration Rosuvastatin Calcium 20 mg 01/22/18 22:00 01/25/18 21:47 Crestor - PO 20 mg HS REJI Administration ASSESSMENT/PLAN: 77 year-old female with a PMH significant for HTN, HLD, afib on apixaban, systolic heart failure, GERD, depression, and dementia. Admitted with severe systolic heart failure and afib with RVR. Severe systolic heart failure exacerbation --01/21 Echo: LV severely reduced EF 20%, severe global hypokinesis; RV normal ; BLAE; severe MR; severe TR; moderate pHTN; trace AI, moderate PI --01/21 CXR: fluid in horizontal fissure --bibasilar crackles, diminished breath sounds RLL, bilateral LE edema L>R on today's exam --repeat CXR pending --lasix IV 40mg x 1 --continue lisinopril Atrial fibrillation with RVR --rate in 120s, to 150s with exertion --increase Coreg to 12.5mg BID --continue apixaban, ASA Hypertension --BP stable --continue lisinopril, carvedilol Hyperlipidemia --continue Crestor GERD --continue Zantac Depression Dementia --continue Remeron, ativan PRN FEN Fluids: PO intake adequate Electrolytes: replete as indicated Nutrition: low sodium DVT prophylaxis: on Eliquis Dispo: continues to require inpatient care. Full code. Visit type - Emergency Visit Emergency Visit: Yes ED Registration Date: 01/21/18 Care time: The patient presented to the Emergency Department on the above date and was hospitalized for further evaluation of their emergent condition. - New Patient This patient is new to me today: Yes Date on this admission: 01/26/18 - Critical Care Critical Care patient: No
[2018-01-26] MEDS: CARVEDILOL 12.5 MG TABLET (FP) PO SCH (21:25)
[2018-01-26] MEDS: MIRTAZAPINE 15 MG TABLET (FP) PO SCH (21:25)
[2018-01-26] MEDS: ROSUVASTATIN CA 20 MG TABLET (FP) PO SCH (21:25)
[2018-01-27] MEDS: GABAPENTIN 100 MG CAPSULE (FP) PO SCH ×3 (05:40→21:41)
--- NOTE | 2018-01-27 09:26 | PN ---
Physical Exam: SUBJECTIVE: Patient seen and examined. Complaining of left foot and ankle pain which started acutely today. Denies any type of trauma. Denies history of gout. OBJECTIVE: Vital Signs Period Temp Pulse Resp BP Sys/Villegas Pulse Ox Last 24 Hr 98 F-98.4 F 107-125 18-20 115-131/75-93 95 General/Neuro: A&Ox3, in no acute distress CV: Irregular, S1, S2 Pulm: bibasilar crackles, diminished sounds RLL Abd: soft, not tender, not distended Ext: b/l LE edema 2+ on left, 1+ on right; swelling left foot and tenderness over lateral and medial malleoli Active Medications Generic Name Dose Route Start Last Admin Trade Name Freq PRN Reason Stop Dose Admin Apixaban 5 mg 01/22/18 22:00 01/26/18 21:25 Eliquis - PO 5 mg BID REJI Administration Aspirin 81 mg 01/23/18 10:00 01/26/18 09:03 Asa - PO 81 mg DAILY REJI Administration Carvedilol 12.5 mg 01/26/18 22:00 01/26/18 21:25 Coreg - PO 12.5 mg BID REJI Administration Gabapentin 100 mg 01/26/18 14:00 01/27/18 05:40 Neurontin - PO 100 mg TID REJI Administration Lisinopril 5 mg 01/24/18 10:45 01/26/18 09:03 Prinivil PO 5 mg DAILY REJI Administration Lorazepam 1 mg 01/24/18 11:02 01/24/18 14:00 Ativan Injection - IVPUSH 1 mg Q6H PRN Administration AGITATION Metoprolol Tartrate 5 mg 01/24/18 10:43 01/25/18 07:45 Lopressor Injection - IVPUSH 5 mg Q4H PRN Administration HYPERTENSION Mirtazapine 7.5 mg 01/22/18 22:00 01/26/18 21:25 Remeron - PO 7.5 mg HS REJI Administration Ranitidine HCl 150 mg 01/23/18 10:00 01/26/18 09:03 Zantac - PO 150 mg DAILY REJI Administration Rosuvastatin Calcium 20 mg 01/22/18 22:00 01/26/18 21:25 Crestor - PO 20 mg HS REJI Administration Imaging 01/21 Echo: LV severely reduced EF 20%, severe global hypokinesis; RV normal; BLAE; severe MR; severe TR; moderate pHTN; trace AI, moderate PI 01/21 CXR: fluid in horizontal fissure 01/26 CXR: worsening congestion with bilateral pleural effusions now noted 01/27 Left foot/ankle xray: possible nondisplaced fracture of posterior tibia ASSESSMENT/PLAN 77 year-old female with a PMH significant for HTN, HLD, afib on apixaban, systolic heart failure, GERD, depression, and dementia. Admitted with severe systolic heart failure and afib with RVR. Now with acute onset left foot swelling and pain. Severe systolic heart failure exacerbation --worsening congestion and bilateral pleural effusions on cxr today --lasix IV 40mg daily --continue lisinopril but will monitor renal function carefully with addition of diuretic Atrial fibrillation with RVR --rate still in 120s --increase Coreg to 25mg BID --continue apixaban, ASA Hypertension --BP stable --continue lisinopril, carvedilol Hyperlipidemia --continue Crestor GERD --continue Zantac Depression Dementia --continue Remeron, ativan PRN Left foot pain --acute onset of pain today without any reported trauma; foot is swollen on exam --xray shows possible nondisplaced fracture of posterior tibia --ortho consult --no weight bearing Elevated uric acid FEN Fluids: PO intake adequate Electrolytes: replete as indicated Nutrition: low sodium DVT prophylaxis: on Eliquis Dispo: continues to require inpatient care. Full code. Visit type - Emergency Visit Emergency Visit: Yes ED Registration Date: 01/21/18 Care time: The patient presented to the Emergency Department on the above date and was hospitalized for further evaluation of their emergent condition. - New Patient This patient is new to me today: No - Critical Care Critical Care patient: No
[2018-01-27] MEDS ORDERED: PT OWN MED DRAWER 7, Y5N ONE (09:44)
--- NOTE | 2018-01-27 09:44 | PN ---
Progress Note, Physician History of Present Illness: seen and examined today in nad. no overnight events. no new complaints. - Current Medication List Current Medications: Active Medications Apixaban (Eliquis -) 5 mg PO BID [facility] Last Admin: 01/26/18 21:25 Dose: 5 mg Aspirin (Asa -) 81 mg PO DAILY [facility] Last Admin: 01/26/18 09:03 Dose: 81 mg Carvedilol (Coreg -) 12.5 mg PO BID [facility] Last Admin: 01/26/18 21:25 Dose: 12.5 mg Gabapentin (Neurontin -) 100 mg PO TID [facility] Last Admin: 01/27/18 05:40 Dose: 100 mg Lisinopril (Prinivil) 5 mg PO DAILY [facility] Last Admin: 01/26/18 09:03 Dose: 5 mg Lorazepam (Ativan Injection -) 1 mg IVPUSH Q6H PRN PRN Reason: AGITATION Last Admin: 01/24/18 14:00 Dose: 1 mg Metoprolol Tartrate (Lopressor Injection -) 5 mg IVPUSH Q4H PRN PRN Reason: HYPERTENSION Last Admin: 01/25/18 07:45 Dose: 5 mg Mirtazapine (Remeron -) 7.5 mg PO [facility] Last Admin: 01/26/18 21:25 Dose: 7.5 mg Ranitidine HCl (Zantac -) 150 mg PO DAILY [facility] Last Admin: 01/26/18 09:03 Dose: 150 mg Rosuvastatin Calcium (Crestor -) 20 mg PO [facility] Last Admin: 01/26/18 21:25 Dose: 20 mg - Objective Vital Signs: Vital Signs Temperature 98.2 F 01/27/18 05:40 Pulse Rate 121 H 01/27/18 05:40 Respiratory Rate 20 01/27/18 05:40 Blood Pressure 115/82 01/27/18 05:40 O2 Sat by Pulse Oximetry (%) 95 01/26/18 21:00 Constitutional: Yes: No Distress, Calm Eyes: Yes: Conjunctiva Clear, EOM Intact HENT: Yes: Atraumatic, Normocephalic Neck: Yes: Supple, Trachea Midline Cardiovascular: Yes: Tachycardia, Pulse Irregular, Murmur, S1, S2. No: Regular Rate and Rhythm, Bradycardia, Bruit, JVD, Gallop, Rub, S3, S4, Varicosities Respiratory: Yes: Regular, Rales. No: CTA Bilaterally, Rhonchi, SOB, Wheezes Gastrointestinal: Yes: Normal Bowel Sounds, Soft. No: Distention, Tenderness Edema: Yes Edema: LLE: Trace, RLE: Trace Peripheral Pulses WNL: Yes Peripheral Pulses: Left Doralis Pedis: 2+, Right Dorsalis Pedis: 2+ Neurological: Yes: Alert, Oriented Psychiatric: Yes: Alert, Oriented Labs: CBC, BMP 01/24/18 06:30 01/25/18 06:30 INR, PTT INR 1.45 (0.82-1.09) H 01/22/18 06:02 - ....Imaging Chest X-ray: Report Reviewed, Image Reviewed EKG: Report Reviewed, Image Reviewed Other: Report Reviewed, Image Reviewed (tele-Afib, HR above goal 100-115bpm) Assessment/Plan 77 year old female with a pmhx of htn, hld, Afib on apixaban, gerd, depression, chronic systolic CHF with LVEF 40-45% in 2017 (NST 01/2017 with no ischemia), and severe MR/TR who presented to [place] with epigastric pain. Patient denies any chest pain. Says she has chronic epigastric pain for years which was acutely worsened on day of admission. Epigastric pain is reproducible and seems to be worse with food. Echo showed LVEF 20% on echocardiogram here with severe MR/TR. CHF (congestive heart failure) Assessment/Plan: Acute on chronic systolic/valvular CHF -Patient with LVEF 20% on echocardiogram here with severe MR/TR. Unclear etiology. Possibility of ischemia or due to valvular disease/severe MR. Had previously had cardiomyopathy with LVEF 40-45% last year with no ischemia on NST at that time. -Developed mild volume overload, rales and peripheral edema, over the past few days, likely secondary to AFib with RVR (was NSR on admission, went into Afib with RVR over the weekend) -Rate control, uptitrate Coreg as BP tolerates (was increased to 12.5mg bid last night), cont Lopressor IV prn -Was given 1 dose of IV Lasix yesterday, can give another dose today but should check Chemistry panel to evaluate bun/creat, electrolytes -Treat medically at this time with aspirin/statin. -Cont ACEI. -outpatient f/up to consider possibility of needing a cardiac cath and possible ICD. She wishes to follow up with her PMD Dr. Chilel as outpatient to discuss it further and speak with Dr. Castillo as well. If she is unable to see Dr. Castillo she will likely follow with us here. Transportation has been an issue for her as she lives in [facility]. [id number], HR uncontrolled as above Assessment/Plan: -as above -titrate up coreg as tolerated by bp and HR, use Lopressor IV prn -continue eliquis.
[2018-01-27] MEDS: LISINOPRIL 5 MG TABLET (FP) PO SCH (10:02)
[2018-01-27] MEDS: CARVEDILOL 12.5 MG TABLET (FP) PO SCH (10:02)
[2018-01-27] MEDS: RANITIDINE HCL 150 MG TABLET (FP) PO SCH (10:02)
[2018-01-27 10:19] LABS: BASO % 1.3 % (0-2.0); EOS % 3.1 % (0-4.5); HEMATOCRIT 37.3 % (32.4-45.2); LYMPH % 20.7 % (8-40); MCH 30.8 pg (25.7-33.7); MCHC 32.1 g/dl (32.0-36.0); MEAN PLT VOLUME 10.3 fl (7.5-11.1); MONO % 9.1 % (3.8-10.2); NEUT % 65.8 % (42.8-82.8); PLATELET COUNT 253 K/MM3 (134-434); RBC 3.89 M/mm3 (3.60-5.2); WHITE BLOOD COUNT 5.5 K/mm3 (4.0-10.0)
[2018-01-27] MEDS: ASPIRIN 81 MG CHEWABLE TABLETS PO SCH (11:12)
[2018-01-27] MEDS: APIXABAN 5 MG TABLET PO SCH ×2 (11:13→21:41)
--- NOTE | 2018-01-27 13:11 | PN ---
Progress Note (short form) - Note Progress Note: PULMONARY Denies shortness of breath, cough or chest pain. Last Vital Signs Temp Pulse Resp BP Pulse Ox 98.2 F 127 H 20 116/72 95 01/27/18 09:00 01/27/18 09:00 01/27/18 09:00 01/27/18 09:00 01/27/18 09:00 Intake & Output 01/24/18 01/25/18 01/26/18 01/27/18 23:59 23:59 23:59 23:59 Intake Total 80 20 460 Output Total 400 Balance -320 20 460 Weight 70.42 kg 71.94 kg Gen: NAD in chair Heart: tachycardic, irregular Lung: decreased breath sounds at the bases Abd: soft, nontender Ext: no edema CBC, BMP 01/27/18 09:55 Active Medications Apixaban (Eliquis -) 5 mg PO BID [facility] Last Admin: 01/27/18 11:13 Dose: 5 mg Aspirin (Asa -) 81 mg PO DAILY [facility] Last Admin: 01/27/18 11:12 Dose: 81 mg Carvedilol (Coreg -) 12.5 mg PO BID [facility] Last Admin: 01/27/18 10:02 Dose: 12.5 mg Gabapentin (Neurontin -) 100 mg PO TID [facility] Last Admin: 01/27/18 05:40 Dose: 100 mg Lisinopril (Prinivil) 5 mg PO DAILY [facility] Last Admin: 01/27/18 10:02 Dose: 5 mg Lorazepam (Ativan Injection -) 1 mg IVPUSH Q6H PRN PRN Reason: AGITATION Last Admin: 01/24/18 14:00 Dose: 1 mg Metoprolol Tartrate (Lopressor Injection -) 5 mg IVPUSH Q4H PRN PRN Reason: HYPERTENSION Last Admin: 01/25/18 07:45 Dose: 5 mg Mirtazapine (Remeron -) 7.5 mg PO [facility] Last Admin: 01/26/18 21:25 Dose: 7.5 mg Ranitidine HCl (Zantac -) 150 mg PO DAILY [facility] Last Admin: 01/27/18 10:02 Dose: 150 mg Rosuvastatin Calcium (Crestor -) 20 mg PO [facility] Last Admin: 01/26/18 21:25 Dose: 20 mg A/p Chest/Epigastric Pain +Troponins LV Systolic Dysfunction Severe Mitral Regurgitation Atrial Fibrillation Acute Kidney Injury GERD Hyperlipidemia r/o UTI - ASA, statin - rate control - continue anticoagulation - TEENA - O2 as needed - telemetry monitoring
[2018-01-27 13:13] LABS: CHLORIDE 112 mmol/L (98-107); POTASSIUM 4.7 mmol/L (3.5-5.1); SODIUM 145 mmol/L (136-145)
[2018-01-27 13:24] LABS: ALBUMIN 3.3 g/dl (3.4-5.0); ALK PHOS 112 U/L (45-117); ANION GAP 10 (8-16); BILIRUBIN,TOTAL 0.9 mg/dL (0.2-1.0); BLOOD UREA NITROGEN 20 mg/dL (7-18); CALCIUM 8.8 mg/dL (8.5-10.1); CO2 23 mmol/L (21-32); CREATININE 1.1 mg/dL (0.55-1.02); GLUCOSE,RANDOM 109 mg/dL (74-106); MAGNESIUM 2.3 mg/dL (1.8-2.4); SGOT/AST 39 U/L (15-37); SGPT/ALT 40 U/L (12-78); TOT PROT 6.9 g/dl (6.4-8.2)
[2018-01-27] MEDS ORDERED: ACETAMINOPHEN 325 MG TABLET (FP) ONE (14:56)
[2018-01-27] MEDS: CARVEDILOL 25 MG TABLET (FP) PO SCH (21:40)
[2018-01-27] MEDS: ROSUVASTATIN CA 20 MG TABLET (FP) PO SCH (21:41)
[2018-01-27] MEDS: MIRTAZAPINE 15 MG TABLET (FP) PO SCH (21:41)
[2018-01-28] MEDS: GABAPENTIN 100 MG CAPSULE (FP) PO SCH ×3 (06:37→22:02)
[2018-01-28] MEDS: FUROSEMIDE 40 MG/4 ML INJECTABLE VIAL IVPUSH SCH (06:37)
[2018-01-28] MEDS: LISINOPRIL 5 MG TABLET (FP) PO SCH (09:35)
[2018-01-28] MEDS: APIXABAN 5 MG TABLET PO SCH ×2 (09:35→22:02)
[2018-01-28] MEDS: CARVEDILOL 25 MG TABLET (FP) PO SCH ×3 (09:35→22:02)
[2018-01-28] MEDS: RANITIDINE HCL 150 MG TABLET (FP) PO SCH (09:35)
[2018-01-28] MEDS: ASPIRIN 81 MG CHEWABLE TABLETS PO SCH (09:35)
[2018-01-28] MEDS ORDERED: FUROSEMIDE 40 MG/4 ML INJECTABLE VIAL IVPUSH SCH (10:00)
--- NOTE | 2018-01-28 10:11 | CONSULT ---
Consult Consult Specialty:: orthopedics Reason for Consultation:: left ankle - History of Present Illness History of Present Illness: 77y/o female c/o left ankle pain which began yesterday without any injury or trauma. The patient states she has been able to walk on the ankle and went to the bathroom 2 times today with help. She states she usually does not have pain in the ankle. She denies any numbness or tingling. No other associated, aggravating or relieving factors. 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 History COAT FITTER: Yes: Dementia, Peripheral Neuropathy Cardio/Vascular: Yes: AFIB, CHF, HTN, Hyperlipdemia Gastrointestinal: Yes: GERD ...: No Psych: Yes: Depression - Alcohol/Substance Use Hx Alcohol Use: No - Smoking History Smoking history: Never smoked Have you smoked in the past 12 months: No - Social History Usual Living Arrangement: With Child ADL: Support Services Home Medications - Allergies Allergies/Adverse Reactions: Allergies Allergy/AdvReac Type Severity Reaction Status Date / Time No Known Allergies Allergy Verified 01/21/18 15:58 - Home Medications Home Medications: Ambulatory Orders Apixaban [Eliquis] 5 mg PO BID 01/21/18 Cholecalciferol (Vitamin D3) [Vitamin D3 -] 1,000 unit PO DAILY 01/21/18 Gabapentin [Neurontin] 100 mg PO TID 01/21/18 Lisinopril 5 mg PO DAILY 01/21/18 Metoprolol Tartrate [Lopressor] 100 mg PO BID 01/21/18 Mirtazapine 7.5 mg PO HS 01/21/18 Ranitidine [Zantac -] 150 mg PO HS 01/21/18 Rosuvastatin [Crestor -] 20 mg PO HS 01/21/18 Review of Systems - Review of Systems Constitutional: reports: No Symptoms Eyes: reports: No Symptoms HENT: reports: No Symptoms Neck: reports: No Symptoms Cardiovascular: reports: No Symptoms Respiratory: reports: No Symptoms Gastrointestinal: reports: No Symptoms Genitourinary: reports: No Symptoms Breasts: reports: No Symptoms Reported Musculoskeletal: reports: Extremity Pain Integumentary: reports: No Symptoms Neurological: reports: No Symptoms Endocrine: reports: No Symptoms Hematology/Lymphatic: reports: No Symptoms Psychiatric: reports: No Symptoms Physical Exam Vital Signs: Vital Signs Temperature 97.9 F 01/28/18 06:00 Pulse Rate 102 H 01/28/18 06:00 Respiratory Rate 18 01/28/18 06:00 Blood Pressure 123/77 01/28/18 06:00 O2 Sat by Pulse Oximetry (%) 96 01/27/18 21:00 Constitutional: Yes: Well Nourished, No Distress, Calm Musculoskeletal: Yes: Other (Left ankle: no open wounds. There is +2 edema of the ankle. Diffuse mild tenderness along the ankle joint. Achillies is intact. no tenderness posteriorly. Smooth motion of the ankle. Good strenght with flexion and extension. No instablity. NVID.) Labs: CBC, BMP 01/27/18 09:55 01/27/18 09:55 Imaging - Results X-ray: Report Reviewed, Image Reviewed (Left ankle: mild degenerative changes. No acute fracture) Assessment/Plan #1 left ankle sprain -WBAT, PT -Pain control -F/u as needed as outpatient. -May brace as needed
--- NOTE | 2018-01-28 10:46 | PN ---
Progress Note, Physician History of Present Illness: PULMONARY ALERT,COMFORTABLE,-RESP DISTRESS,-CP.PT STILL HAVING EPISODES OF RAPID A-FIB - Current Medication List Current Medications: Active Medications Apixaban (Eliquis -) 5 mg PO BID [facility] Last Admin: 01/28/18 09:35 Dose: 5 mg Aspirin (Asa -) 81 mg PO DAILY [facility] Last Admin: 01/28/18 09:35 Dose: 81 mg Carvedilol (Coreg -) 25 mg PO BID [facility] Last Admin: 01/28/18 09:35 Dose: 25 mg Furosemide (Lasix Injection -) 40 mg IVPUSH DAILY [facility] Last Admin: 01/28/18 06:37 Dose: 40 mg Gabapentin (Neurontin -) 100 mg PO TID [facility] Last Admin: 01/28/18 06:37 Dose: 100 mg Lisinopril (Prinivil) 5 mg PO DAILY [facility] Last Admin: 01/28/18 09:35 Dose: 5 mg Lorazepam (Ativan Injection -) 1 mg IVPUSH Q6H PRN PRN Reason: AGITATION Last Admin: 01/24/18 14:00 Dose: 1 mg Metoprolol Tartrate (Lopressor Injection -) 5 mg IVPUSH Q4H PRN PRN Reason: HYPERTENSION Last Admin: 01/25/18 07:45 Dose: 5 mg Mirtazapine (Remeron -) 7.5 mg PO [facility] Last Admin: 01/27/18 21:41 Dose: 7.5 mg Ranitidine HCl (Zantac -) 150 mg PO DAILY [facility] Last Admin: 01/28/18 09:35 Dose: 150 mg Rosuvastatin Calcium (Crestor -) 20 mg PO [facility] Last Admin: 01/27/18 21:41 Dose: 20 mg - Objective Vital Signs: Vital Signs Temperature 97.9 F 01/28/18 06:00 Pulse Rate 102 H 01/28/18 06:00 Respiratory Rate 18 01/28/18 06:00 Blood Pressure 123/77 01/28/18 06:00 O2 Sat by Pulse Oximetry (%) 96 01/27/18 21:00 Constitutional: Yes: Well Nourished, Calm Eyes: Yes: WNL HENT: Yes: WNL Neck: Yes: WNL Cardiovascular: Yes: Pulse Irregular, S1, S2 Respiratory: Yes: CTA Bilaterally Gastrointestinal: Yes: Normal Bowel Sounds, Soft Extremities: Yes: WNL Edema: No Labs: CBC, BMP Problem List - Problems (1) Epigastric abdominal pain Code(s): R10.13 - EPIGASTRIC PAIN (2) A-fib Code(s): I48.91 - UNSPECIFIED ATRIAL FIBRILLATION Qualifiers: Atrial fibrillation type: chronic Qualified Code(s): I48.2 - Chronic atrial fibrillation (3) CHF (congestive heart failure) Code(s): I50.9 - HEART FAILURE, UNSPECIFIED Qualifiers: Heart failure type: systolic Heart failure chronicity: acute on chronic Qualified Code(s): I50.23 - Acute on chronic systolic (congestive) heart failure (4) HLD (hyperlipidemia) Code(s): E78.5 - HYPERLIPIDEMIA, UNSPECIFIED (5) HTN (hypertension) Code(s): I10 - ESSENTIAL (PRIMARY) HYPERTENSION (6) Elevated troponin Code(s): R74.8 - ABNORMAL LEVELS OF OTHER SERUM ENZYMES (7) Chest pain Code(s): R07.9 - CHEST PAIN, UNSPECIFIED (8) Mitral regurgitation Code(s): I34.0 - NONRHEUMATIC MITRAL (VALVE) INSUFFICIENCY (9) LV dysfunction Code(s): I51.9 - HEART DISEASE, UNSPECIFIED Assessment/Plan ASSESSMENT AND PLAN: Chest/Epigastric Pain +Troponins Severe LV Systolic Dysfunction Severe Mitral Regurgitation Rapid Atrial Fibrillation Acute Kidney Injury improved GERD Hyperlipidemia - rate control as per Cardiology - coreg - anticoagulation - Zantac - O2 as needed DR WELCH
--- NOTE | 2018-01-28 17:38 | PN ---
Progress Note, Physician History of Present Illness: seen and examined today in nad. states she is feeling better. no new complaints. - Current Medication List Current Medications: Active Medications Apixaban (Eliquis -) 5 mg PO BID [facility] Last Admin: 01/28/18 09:35 Dose: 5 mg Aspirin (Asa -) 81 mg PO DAILY [facility] Last Admin: 01/28/18 09:35 Dose: 81 mg Carvedilol (Coreg -) 37.5 mg PO BID [facility] Last Admin: 01/28/18 15:44 Dose: 37.5 mg Furosemide (Lasix Injection -) 40 mg IVPUSH DAILY [facility] Last Admin: 01/28/18 06:37 Dose: 40 mg Gabapentin (Neurontin -) 100 mg PO TID [facility] Last Admin: 01/28/18 15:43 Dose: 100 mg Lisinopril (Prinivil) 5 mg PO DAILY [facility] Last Admin: 01/28/18 09:35 Dose: 5 mg Lorazepam (Ativan Injection -) 1 mg IVPUSH Q6H PRN PRN Reason: AGITATION Last Admin: 01/24/18 14:00 Dose: 1 mg Metoprolol Tartrate (Lopressor Injection -) 5 mg IVPUSH Q4H PRN PRN Reason: HYPERTENSION Last Admin: 01/25/18 07:45 Dose: 5 mg Mirtazapine (Remeron -) 7.5 mg PO [facility] Last Admin: 01/27/18 21:41 Dose: 7.5 mg Ranitidine HCl (Zantac -) 150 mg PO DAILY [facility] Last Admin: 01/28/18 09:35 Dose: 150 mg Rosuvastatin Calcium (Crestor -) 20 mg PO [facility] Last Admin: 01/27/18 21:41 Dose: 20 mg - Objective Vital Signs: Vital Signs Temperature 97.7 F 01/28/18 14:00 Pulse Rate 101 H 01/28/18 14:00 Respiratory Rate 18 01/28/18 14:00 Blood Pressure 101/69 01/28/18 14:00 O2 Sat by Pulse Oximetry (%) 96 01/28/18 09:00 Constitutional: Yes: No Distress, Calm Eyes: Yes: Conjunctiva Clear HENT: Yes: Atraumatic, Normocephalic Neck: Yes: Supple, Trachea Midline Cardiovascular: Yes: Tachycardia, Pulse Irregular, Murmur, S1, S2. No: Regular Rate and Rhythm, Bradycardia, Bruit, JVD, Gallop, Rub, S3, S4, Varicosities Respiratory: Yes: Regular, Diminished, Rales. No: Rhonchi, SOB, Wheezes Gastrointestinal: Yes: Normal Bowel Sounds, Soft. No: Distention, Tenderness Musculoskeletal: Yes: Muscle Weakness Extremities: Yes: WNL Edema: Yes Edema: LLE: Trace, RLE: Trace Peripheral Pulses WNL: Yes Peripheral Pulses: Left Doralis Pedis: 2+, Right Dorsalis Pedis: 2+ Neurological: Yes: Alert, Oriented Psychiatric: Yes: Alert, Oriented Labs: CBC, BMP 01/27/18 09:55 01/27/18 09:55 INR, PTT INR 1.45 (0.82-1.09) H 01/22/18 06:02 - ....Imaging Chest X-ray: Report Reviewed, Image Reviewed EKG: Report Reviewed, Image Reviewed Other: Report Reviewed, Image Reviewed (tele-AF Hr still above goal but improving currently low 100s) Assessment/Plan 77 year old female with a pmhx of htn, hld, Afib on apixaban, gerd, depression, chronic systolic CHF with LVEF 40-45% in 2017 (NST 01/2017 with no ischemia), and severe MR/TR who presented to [facility] with epigastric pain. Patient denies any chest pain. Says she has chronic epigastric pain for years which was acutely worsened on day of admission. Epigastric pain is reproducible and seems to be worse with food. Echo showed LVEF 20% on echocardiogram here with severe MR/TR. CHF (congestive heart failure) Assessment/Plan: Acute on chronic systolic/valvular CHF -Patient with LVEF 20% on echocardiogram here with severe MR/TR. Unclear etiology. Possibility of ischemia or due to valvular disease/severe MR. Had previously had cardiomyopathy with LVEF 40-45% last year with no ischemia on NST at that time. -Developed mild volume overload, rales and peripheral edema, over the past few days, likely secondary to AFib with RVR (was NSR on admission, went into Afib with RVR over the weekend) -Rate control, uptitrate Coreg again to 37.5mg bid cont Lopressor IV prn -still volume overloaded, given Lasix 40mg IV this am, will give additional dose now -re-evaluate volume status in am and attempt transition to po Lasix tomorrow -Treat medically at this time with aspirin/statin. -Cont ACEI. -outpatient f/up to consider possibility of needing a cardiac cath and possible ICD. She wishes to follow up with her PMD Dr. Chilel as outpatient to discuss it further and speak with Dr. Castillo as well. If she is unable to see Dr. Castillo she will likely follow with us here. Transportation has been an issue for her as she lives in [facility]. [id number], HR uncontrolled as above Assessment/Plan: -as above -titrate up coreg as tolerated by bp and HR, use Lopressor IV prn -continue eliquis.
[2018-01-28] MEDS ORDERED: FUROSEMIDE 40 MG/4 ML INJECTABLE VIAL IVPUSH ONE (17:45)
--- NOTE | 2018-01-28 17:51 | PN ---
Physical Exam: SUBJECTIVE: Patient seen and examined oob to chair. Home health aide visiting. Able to ambulate. OBJECTIVE: Vital Signs Period Temp Pulse Resp BP Sys/Villegas Pulse Ox Last 24 Hr 97.5 F-97.9 F 96-117 18-18 101-123/61-77 96-96 General/Neuro: A&Ox3, in no acute distress. Chatting with home health aide, quite comfortable. CV: Irregular, S1, S2 Pulm: CTA Abd: soft, not tender, not distended Ext: b/l LE edema 2+ on left, 1+ on right; swelling left foot almost completely resolved, still with tenderness over lateral and medial malleoli Laboratory Results - last 24 hr 01/27/18 18:53 Uric Acid 8.1 H Active Medications Generic Name Dose Route Start Last Admin Trade Name Freq PRN Reason Stop Dose Admin Apixaban 5 mg 01/22/18 22:00 01/28/18 09:35 Eliquis - PO 5 mg BID REJI Administration Aspirin 81 mg 01/23/18 10:00 01/28/18 09:35 Asa - PO 81 mg DAILY REJI Administration Carvedilol 37.5 mg 01/28/18 15:15 01/28/18 15:44 Coreg - PO 37.5 mg BID REJI Administration Furosemide 40 mg 01/28/18 06:00 01/28/18 06:37 Lasix Injection - IVPUSH 40 mg DAILY REJI Administration Gabapentin 100 mg 01/26/18 14:00 01/28/18 15:43 Neurontin - PO 100 mg TID REJI Administration Lisinopril 5 mg 01/24/18 10:45 01/28/18 09:35 Prinivil PO 5 mg DAILY REJI Administration Lorazepam 1 mg 01/24/18 11:02 01/24/18 14:00 Ativan Injection - IVPUSH 1 mg Q6H PRN Administration AGITATION Metoprolol Tartrate 5 mg 01/24/18 10:43 01/25/18 07:45 Lopressor Injection - IVPUSH 5 mg Q4H PRN Administration HYPERTENSION Mirtazapine 7.5 mg 01/22/18 22:00 01/27/18 21:41 Remeron - PO 7.5 mg HS REJI Administration Ranitidine HCl 150 mg 01/23/18 10:00 01/28/18 09:35 Zantac - PO 150 mg DAILY REJI Administration Rosuvastatin Calcium 20 mg 01/22/18 22:00 01/27/18 21:41 Crestor - PO 20 mg HS REJI Administration Imaging 01/21 Echo: LV severely reduced EF 20%, severe global hypokinesis; RV normal; BLAE; severe MR; severe TR; moderate pHTN; trace AI, moderate PI 01/21 CXR: fluid in horizontal fissure 01/26 CXR: worsening congestion with bilateral pleural effusions now noted 01/27 Left foot/ankle xray: possible nondisplaced fracture of posterior tibia ASSESSMENT/PLAN 77 year-old female with a PMH significant for HTN, HLD, afib on apixaban, systolic heart failure, GERD, depression, and dementia. Admitted with severe systolic heart failure and afib with RVR. Now with acute onset left foot swelling and pain. Severe systolic heart failure exacerbation --continue Lasix IV 40mg daily --renal function stable Atrial fibrillation with RVR --rate still in 120s --discussed with cardiology Dr. Huynh --increase Coreg to 37.5mg BID --continue apixaban, ASA Hypertension --BP stable --continue lisinopril, carvedilol Hyperlipidemia --continue Crestor GERD --continue Zantac Depression Dementia --continue Remeron, ativan PRN Left ankle sprain --acute onset of pain on 01/26 without reported trauma; swelling much improved today with elevation --xray shows possible nondisplaced fracture of posterior tibia --ortho consult, diagnosis ankle sprain --WBAT --needs ortho soft cast or shoe Elevated uric acid --should be followed as outpatient FEN Fluids: PO intake adequate Electrolytes: replete as indicated Nutrition: low sodium DVT prophylaxis: on Eliquis Dispo: continues to require inpatient care. Full code. Visit type - Emergency Visit Emergency Visit: Yes ED Registration Date: 01/21/18 Care time: The patient presented to the Emergency Department on the above date and was hospitalized for further evaluation of their emergent condition. - New Patient This patient is new to me today: No - Critical Care Critical Care patient: No
[2018-01-28] MEDS ORDERED: PT OWN MED DRAWER 7, Y5N ONE (18:06)
[2018-01-28] MEDS: ROSUVASTATIN CA 20 MG TABLET (FP) PO SCH (22:02)
[2018-01-28] MEDS: MIRTAZAPINE 15 MG TABLET (FP) PO SCH (22:02)
[2018-01-28 22:31] VITALS: BMI 36.8
[2018-01-29] MEDS: GABAPENTIN 100 MG CAPSULE (FP) PO SCH (05:57)
[2018-01-29 06:27] LABS: BASO % 1.4 % (0-2.0); EOS % 4.5 % (0-4.5); HEMATOCRIT 33.4 % (32.4-45.2); LYMPH % 30.6 % (8-40); MCH 31.1 pg (25.7-33.7); MEAN CELL VOLUME 94.1 fl (80-96); MEAN PLT VOLUME 10.8 fl (7.5-11.1); MONO % 11.2 % (3.8-10.2); NEUT % 52.3 % (42.8-82.8); PLATELET COUNT 221 K/MM3 (134-434); RBC 3.55 M/mm3 (3.60-5.2); RDW 16.3 % (11.6-15.6); WHITE BLOOD COUNT 4.3 K/mm3 (4.0-10.0)
[2018-01-29 07:21] LABS: ALBUMIN 2.6 g/dl (3.4-5.0); ALK PHOS 79 U/L (45-117); ANION GAP 8 (8-16); BILIRUBIN,TOTAL 0.8 mg/dL (0.2-1.0); BLOOD UREA NITROGEN 20 mg/dL (7-18); CALCIUM 8.3 mg/dL (8.5-10.1); CHLORIDE 108 mmol/L (98-107); CO2 28 mmol/L (21-32); GLUCOSE,RANDOM 83 mg/dL (74-106); MAGNESIUM 1.8 mg/dL (1.8-2.4); SGOT/AST 26 U/L (15-37); SGPT/ALT 26 U/L (12-78); SODIUM 144 mmol/L (136-145); TOT PROT 5.7 g/dl (6.4-8.2)
[2018-01-29] MEDS: CARVEDILOL 25 MG TABLET (FP) PO SCH (10:48)
[2018-01-29] MEDS: APIXABAN 5 MG TABLET PO SCH (10:48)
[2018-01-29] MEDS: FUROSEMIDE 40 MG/4 ML INJECTABLE VIAL IVPUSH SCH (10:49)
[2018-01-29] MEDS: ASPIRIN 81 MG CHEWABLE TABLETS PO SCH (10:49)
[2018-01-29] MEDS: RANITIDINE HCL 150 MG TABLET (FP) PO SCH (10:49)
[2018-01-29] MEDS: LISINOPRIL 5 MG TABLET (FP) PO SCH (10:49)
--- NOTE | 2018-01-29 13:15 | PN ---
Progress Note (short form) - Note Progress Note: PULMONARY Denies shortness of breath, cough or chest pain. Last Vital Signs Temp Pulse Resp BP Pulse Ox 98 F 115 H 18 112/62 97 01/29/18 10:00 01/29/18 10:00 01/29/18 10:00 01/29/18 10:00 01/29/18 09:00 Gen: NAD in chair Heart: tachycardic, irregular Lung: decreased breath sounds at the bases Abd: soft, nontender Ext: no edema CBC, BMP 01/29/18 05:30 01/29/18 05:30 Active Medications Apixaban (Eliquis -) 5 mg PO BID [facility] Last Admin: 01/29/18 10:48 Dose: 5 mg Aspirin (Asa -) 81 mg PO DAILY [facility] Last Admin: 01/29/18 10:49 Dose: 81 mg Carvedilol (Coreg -) 37.5 mg PO BID [facility] Last Admin: 01/29/18 10:48 Dose: 37.5 mg Furosemide (Lasix Injection -) 40 mg IVPUSH DAILY [facility] Last Admin: 01/29/18 10:49 Dose: 40 mg Gabapentin (Neurontin -) 100 mg PO TID [facility] Last Admin: 01/29/18 05:57 Dose: Not Given Lisinopril (Prinivil) 5 mg PO DAILY [facility] Last Admin: 01/29/18 10:49 Dose: Not Given Lorazepam (Ativan Injection -) 1 mg IVPUSH Q6H PRN PRN Reason: AGITATION Last Admin: 01/24/18 14:00 Dose: 1 mg Metoprolol Tartrate (Lopressor Injection -) 5 mg IVPUSH Q4H PRN PRN Reason: HYPERTENSION Last Admin: 01/25/18 07:45 Dose: 5 mg Mirtazapine (Remeron -) 7.5 mg PO [facility] Last Admin: 01/28/18 22:02 Dose: Not Given Ranitidine HCl (Zantac -) 150 mg PO DAILY [facility] Last Admin: 01/29/18 10:49 Dose: 150 mg Rosuvastatin Calcium (Crestor -) 20 mg PO HS [facility] Last Admin: 01/28/18 22:02 Dose: Not Given A/p Chest/Epigastric Pain resolved +Troponins LV Systolic Dysfunction Severe Mitral Regurgitation Atrial Fibrillation Acute Kidney Injury GERD Hyperlipidemia r/o UTI - will repeat CXR today as last film with worsening congestion - continue lasix - monitor urine output, creatinine - ASA, statin - rate control - continue anticoagulation - TEENA - O2 as needed - telemetry monitoring
--- NOTE | 2018-01-29 15:13 | DS ---
Physical Examination Vital Signs: Vital Signs Temperature 98 F 01/29/18 10:00 Pulse Rate 115 H 01/29/18 10:00 Respiratory Rate 18 01/29/18 10:00 Blood Pressure 112/62 01/29/18 10:00 O2 Sat by Pulse Oximetry (%) 97 01/29/18 09:00 Labs: CBC, BMP 01/29/18 05:30 01/29/18 05:30 Discharge Summary Reason For Visit: ACUTE CORONARY SYNDROME Current Active Problems A-fib (Acute) Acute coronary syndrome (Acute) CHF (congestive heart failure) (Acute) Chest pain (Acute) Dementia (Acute) Elevated troponin (Acute) Epigastric abdominal pain (Acute) HLD (hyperlipidemia) (Acute) HTN (hypertension) (Acute) LV dysfunction (Acute) Mitral regurgitation (Acute) - Instructions - Home Medications Comprehensive Discharge Medication List: Ambulatory Orders Apixaban [Eliquis] 5 mg PO BID 01/21/18 Cholecalciferol (Vitamin D3) [Vitamin D3 -] 1,000 unit PO DAILY 01/21/18 Gabapentin [Neurontin] 100 mg PO TID 01/21/18 Lisinopril 5 mg PO DAILY 01/21/18 Metoprolol Tartrate [Lopressor] 100 mg PO BID 01/21/18 Mirtazapine 7.5 mg PO HS 01/21/18 Ranitidine [Zantac -] 150 mg PO HS 01/21/18 Rosuvastatin [Crestor -] 20 mg PO HS 01/21/18 - Discharge Referral Referred to [facility] No
[2018-01-29 15:17] VITALS: BP 102/61; PULSE 114; TEMP 97.8
--- NOTE | 2018-01-29 16:29 | PN ---
Progress Note, Physician History of Present Illness: seen and examined today in nad. feeling better. wants to go home. refusing tele today. - Current Medication List Current Medications: Active Medications Apixaban (Eliquis -) 5 mg PO BID [facility] B[facility]S AT [facility] Last Admin: 01/29/18 10:48 Dose: 5 mg Aspirin (Asa -) 81 mg PO DAILY [facility]S [facility] Last Admin: 01/29/18 10:49 Dose: 81 mg Carvedilol (Coreg -) 37.5 mg PO BID [facility]S AT [facility] Last Admin: 01/29/18 10:48 Dose: 37.5 mg Furosemide (Lasix Injection -) 40 mg IVPUSH DAILY [facility]S AT [facility] Last Admin: 01/29/18 10:49 Dose: 40 mg Gabapentin (Neurontin -) 100 mg PO TID [facility]S AT [facility] Last Admin: 01/29/18 05:57 Dose: Not Given Lisinopril (Prinivil) 5 mg PO DAILY [facility]S AT [facility] Last Admin: 01/29/18 10:49 Dose: Not Given Lorazepam (Ativan Injection -) 1 mg IVPUSH Q6H PRN PRN Reason: AGITATION Last Admin: 01/24/18 14:00 Dose: 1 mg Metoprolol Tartrate (Lopressor Injection -) 5 mg IVPUSH Q4H PRN PRN Reason: HYPERTENSION Last Admin: 01/25/18 07:45 Dose: 5 mg Mirtazapine (Remeron -) 7.5 mg PO [facility] Last Admin: 01/28/18 22:02 Dose: Not Given Ranitidine HCl (Zantac -) 150 mg PO DAILY [facility]S [facility] Last Admin: 01/29/18 10:49 Dose: 150 mg Rosuvastatin Calcium (Crestor -) 20 mg PO [facility] Last Admin: 01/28/18 22:02 Dose: Not Given - Objective Vital Signs: Vital Signs Temperature 97.8 F 01/29/18 15:00 Pulse Rate 114 H 01/29/18 15:00 Respiratory Rate 22 01/29/18 15:00 Blood Pressure 102/61 01/29/18 15:00 O2 Sat by Pulse Oximetry (%) 97 01/29/18 09:00 Constitutional: Yes: No Distress, Calm Eyes: Yes: Conjunctiva Clear, EOM Intact, PERRL HENT: Yes: Atraumatic, Normocephalic Neck: Yes: Supple, Trachea Midline Cardiovascular: Yes: Pulse Irregular, Murmur, S1, S2. No: Regular Rate and Rhythm, Bradycardia, Tachycardia, Bruit, JVD, Gallop, Rub, S3, S4, Varicosities Respiratory: Yes: Regular, Diminished. No: Rales, Rhonchi, SOB, Wheezes Gastrointestinal: Yes: Normal Bowel Sounds, Soft. No: Distention, Tenderness Musculoskeletal: Yes: WNL Extremities: Yes: WNL Edema: No Peripheral Pulses WNL: Yes Peripheral Pulses: Left Doralis Pedis: 2+, Right Dorsalis Pedis: 2+ Neurological: Yes: Alert, Oriented Psychiatric: Yes: Alert, Oriented Labs: CBC, BMP 01/29/18 05:30 01/29/18 05:30 INR, PTT INR 1.45 (0.82-1.09) H 01/22/18 06:02 - ....Imaging Chest X-ray: Report Reviewed, Image Reviewed EKG: Report Reviewed, Image Reviewed Other: Report Reviewed, Image Reviewed (tele-Afib, HR improved overnight 90s- 100s overnight and this am, pt refusing tele today) Assessment/Plan 77 year old female with a pmhx of htn, hld, Afib on apixaban, gerd, depression, chronic systolic CHF with LVEF 40-45% in 2017 (NST 01/2017 with no ischemia), and severe MR/TR who presented to [place] with epigastric pain. Patient denies any chest pain. Says she has chronic epigastric pain for years which was acutely worsened on day of admission. Epigastric pain is reproducible and seems to be worse with food. Echo showed LVEF 20% on echocardiogram here with severe MR/TR. CHF (congestive heart failure) Assessment/Plan: Acute on chronic systolic/valvular CHF -Patient with LVEF 20% on echocardiogram here with severe MR/TR. Unclear etiology. Possibility of ischemia or due to valvular disease/severe MR. Had previously had cardiomyopathy with LVEF 40-45% last year with no ischemia on NST at that time. -Developed mild volume overload, rales and peripheral edema, over the past few days, likely secondary to AFib with RVR (was NSR on admission, went into Afib with RVR over the weekend) -HR better controlled overnight, cont Coreg 37.5mg bid on discharge -Volume status improved, transition to po Lasix on discharge -cont aspirin/statin. -Cont ACEI. -outpatient f/up to consider possibility of needing a cardiac cath and possible ICD. She wishes to follow up with her PMD Dr. Chilel as outpatient to discuss it further and speak with Dr. Castillo as well. If she is unable to see Dr. Castillo she will likely follow with us here. Transportation has been an issue for her as she lives in [facility]. [id number], HR uncontrolled as above Assessment/Plan: -as above -HR better controlled -cont Coreg 37.5mg bid -continue eliquis. No additional planned inpatient cardiac work up at this time. Pt is acceptable for discharge from a cardiac standpoint. Please call with any additional questions.
== END 2018-01-29 16:58 | disposition home health service (06) | DRG 306 ==
LOC: FER 15:39 → JICU 22:20 → J4W 01-22 16:41
PROVIDERS: ADMIT Internal Medicine; ATTEND Registered Nurse
DX: I34.0 Nonrheumatic mitral (valve) insufficiency (principal); I50.23 Acute on chronic systolic (congestive) heart failure; N17.9 Acute kidney failure, unspecified; I42.9 Cardiomyopathy, unspecified; K21.9 Gastro-esophageal reflux disease without esophagitis; F32.9 Major depressive disorder, single episode, unspecified; E78.5 Hyperlipidemia, unspecified; G89.29 Other chronic pain; M19.90 Unspecified osteoarthritis, unspecified site; E66.9 Obesity, unspecified; R00.1 Bradycardia, unspecified; Z79.01 Long term (current) use of anticoagulants; G62.9 Polyneuropathy, unspecified; I11.0 Hypertensive heart disease with heart failure; G30.9 Alzheimer's disease, unspecified; F02.80 Dementia in other diseases classified elsewhere, unspecified severity, without behavioral disturbance, psychotic disturbance, mood disturbance, and anxiety; I36.1 Nonrheumatic tricuspid (valve) insufficiency; I27.20 Pulmonary hypertension, unspecified; M79.672 Pain in left foot; I48.0 Paroxysmal atrial fibrillation; S93.402A Sprain of unspecified ligament of left ankle, initial encounter; X58.XXXA Exposure to other specified factors, initial encounter; Y93.89 Activity, other specified; Y92.89 Other specified places as the place of occurrence of the external cause; Y99.8 Other external cause status; Z68.36 Body mass index [BMI] 36.0-36.9, adult
CPT/HCPCS: 36415; 71045-TC-FY; 73610-TC-LT-FY; 73630-TC-LT; 80053; 81003; 81015; 82550; 83036; 83735; 84100; 84484; 84550; 85025; 85027; 85610; 85730; 87086; 93005; 93010; 93306-TC; 97116-GP; 97161-GP; 99285-25

== ENCOUNTER 2018-07-14 02:25 | Emergency (ER) | payer OTHER ==
[2018-07-14 02:40] VITALS: BMI 27.7
--- NOTE | 2018-07-14 03:39 | PDOC ---
History of Present Illness - General Chief Complaint: Urinary Problem Stated Complaint: URINARY PROBLEM Time Seen by Provider: 07/14/18 03:39 Past History 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 History Allergies/Adverse Reactions: Allergies Allergy/AdvReac Type Severity Reaction Status Date / Time No Known Allergies Allergy Verified 07/14/18 02:40 Home Medications: Ambulatory Orders Apixaban [Eliquis] 5 mg PO BID 01/21/18 Cholecalciferol (Vitamin D3) [Vitamin D3 -] 1,000 unit PO DAILY 01/21/18 Gabapentin [Neurontin] 100 mg PO TID 01/21/18 Lisinopril 5 mg PO DAILY 01/21/18 Mirtazapine 7.5 mg PO HS 01/21/18 Ranitidine [Zantac -] 150 mg PO HS 01/21/18 Rosuvastatin [Crestor -] 20 mg PO HS 01/21/18 Aspirin [ASA -] 81 mg PO DAILY #30 tab.chew 01/29/18 Carvedilol [Coreg -] 37.5 mg PO BID #120 tablet 01/29/18 Cardiac Disorders: Yes (A-FIB) COPD: No Dementia: Yes (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) GI Disorders: Yes (GERD) Disorders: Yes (INCONTINENCE) HTN: Yes Hypercholesterolemia: Yes Psychiatric Problems: Yes (DEPRESSION) - Suicide/Smoking/Psychosocial Hx Smoking History: Never smoked Have you smoked in the past 12 months: No Information on smoking cessation initiated: No Hx Alcohol Use: No Drug/Substance Use Hx: No Substance Use Type: None Hx Substance Use Treatment: No *Physical Exam - Vital Signs Last Vital Signs Temp Pulse Resp BP Pulse Ox 97.3 F L 93 H 18 113/83 96 07/14/18 02:25 07/14/18 02:25 07/14/18 02:25 07/14/18 02:25 07/14/18 02:25 *DC/Admit/Observation/Transfer - Discharge Dispostion Condition at time of disposition: Fair - Referrals Referrals: Elizabeth Hooper MD [Primary Care Provider] - - Patient Instructions - Post Discharge Activity
--- NOTE | 2018-07-14 04:56 | PDOC ---
History of Present Illness - General Chief Complaint: Urinary Problem Stated Complaint: URINARY PROBLEM Time Seen by Provider: 07/14/18 03:39 - History of Present Illness Initial Comments: 07/14/18 04:56 Ms. Smith is a 77 yo female w/ pmh of HTN, afib (on eliquis), arthritis, GERD , depression, HLD, and dementia BIBA who presents for evaluation of reported urinary retention in the assisted. Patient unable to provide additional history. Currently complaining of chronic bilateral knee pain only. The patient denies chest pain, shortness of breath, headache and dizziness. Denies fever, chills, nausea, vomit, diarrhea and constipation. Denies dysuria, frequency, urgency and hematuria. Past History 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 History Allergies/Adverse Reactions: Allergies Allergy/AdvReac Type Severity Reaction Status Date / Time No Known Allergies Allergy Verified 07/14/18 02:40 Home Medications: Ambulatory Orders Apixaban [Eliquis] 5 mg PO BID 01/21/18 Cholecalciferol (Vitamin D3) [Vitamin D3 -] 1,000 unit PO DAILY 01/21/18 Gabapentin [Neurontin] 100 mg PO TID 01/21/18 Lisinopril 5 mg PO DAILY 01/21/18 Mirtazapine 7.5 mg PO HS 01/21/18 Ranitidine [Zantac -] 150 mg PO HS 01/21/18 Rosuvastatin [Crestor -] 20 mg PO HS 01/21/18 Aspirin [ASA -] 81 mg PO DAILY #30 tab.chew 01/29/18 Carvedilol [Coreg -] 37.5 mg PO BID #120 tablet 01/29/18 Cardiac Disorders: Yes (A-FIB) COPD: No Dementia: Yes (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) GI Disorders: Yes (GERD) Disorders: Yes (INCONTINENCE) HTN: Yes Hypercholesterolemia: Yes Psychiatric Problems: Yes (DEPRESSION) - Suicide/Smoking/Psychosocial Hx Smoking History: Never smoked Have you smoked in the past 12 months: No Information on smoking cessation initiated: No Hx Alcohol Use: No Drug/Substance Use Hx: No Substance Use Type: None Hx Substance Use Treatment: No Review of Systems - Review of Systems Comments:: 07/14/18 05:04 Unable to obtain further. *Physical Exam - Vital Signs Last Vital Signs Temp Pulse Resp BP Pulse Ox 97.3 F L 93 H 18 113/83 96 07/14/18 02:25 07/14/18 02:25 07/14/18 02:25 07/14/18 02:25 07/14/18 02:25 - Physical Exam Comments: 07/14/18 05:05 GENERAL: Awake, alert, and oriented to baseline, in no acute distress HEAD: No signs of trauma, normocephalic, atraumatic EYES: PERRLA, EOMI, sclera anicteric, conjunctiva clear ENT: Auricles normal inspection, hearing grossly normal, nares patent, oropharynx clear without exudates. Moist mucosa NECK: Normal ROM, supple, no lymphadenopathy, JVD, or masses LUNGS: No distress, speaks full sentences, clear to auscultation bilaterally HEART: Regular rate and rhythm, normal S1 and S2, no murmurs, rubs or gallops, peripheral pulses normal and equal bilaterally. ABDOMEN: Soft, nontender, normoactive bowel sounds. No guarding, no rebound. No masses EXTREMITIES: +2+ Pedal edema noted extending over majority of lower extremities. Normal range of motion. No clubbing or cyanosis. NEUROLOGICAL: Cranial nerves II through XII grossly intact. Normal speech, normal gait, no focal sensorimotor deficits SKIN: Warm, Dry, normal turgor, no rashes or lesions noted. ED Treatment Course - LABORATORY CBC & Chemistry Diagram: 07/14/18 06:22 07/14/18 06:22 Medical Decision Making - Medical Decision Making 07/14/18 06:26 Ms. Smith is a 77 yo female w/ pmh as described who presents for evaluation of suspected urinary retention at ID. Upon presentation patient has no coinciding complaints. Bedside US revealed approximately 15mL in bladder. Patient will be evaluated with labs to r/o acute process and obtain kidney function baseline. 07/14/18 06:55 Patient currently pending finalized labs and UA/UCx evaluation. Patient signed out to Dr. Alejo for further evaluation. *DC/Admit/Observation/Transfer Diagnosis at time of Disposition: Urinary retention, Dehydration - Discharge Dispostion Disposition: [facility]ENT[facility] FACILITY Condition at time of disposition: Good - Referrals Referrals: Elizabeth Hooper MD [Primary Care Provider] - - Patient Instructions Printed Discharge Instructions: DI for Dehydration -- Adult, DI for Urinary Retention in Women Additional Instructions: You were seen in the ER today for limited urine output. The results of your labs today showed you were dehydrated. Please follow-up with your primary care doctor within 1-2 days to discuss your visit and make sure your symptoms have improved. Please continue drinking plenty of fluids to maintain your urine output. Please return to the ER if you have any worsening pain, development of fevers or chills, blood in your urine or inability to urinate, loss of consciousness, inability to tolerate food or fluids, or any other concerns. - Post Discharge Activity
[2018-07-14 06:44] LABS: BASO % 1.6 % (0-2.0); EOS % 4.5 % (0-4.5); HEMATOCRIT 38.9 % (32.4-45.2); HEMOGLOBIN 11.9 GM/dL (10.7-15.3); LYMPH % 26.1 % (8-40); MCH 27.2 pg (25.7-33.7); MCHC 30.7 g/dl (32.0-36.0); MEAN CELL VOLUME 88.6 fl (80-96); MEAN PLT VOLUME 10.3 fl (7.5-11.1); MONO % 11.5 % (3.8-10.2); NEUT % 56.3 % (42.8-82.8); PLATELET COUNT 193 K/MM3 (134-434); RBC 4.39 M/mm3 (3.60-5.2); RDW 21.2 % (11.6-15.6); WHITE BLOOD COUNT 4.3 K/mm3 (4.0-10.0)
[2018-07-14 07:05] LABS: ALBUMIN 2.7 g/dl (3.4-5.0); ALK PHOS 94 U/L (45-117); ANION GAP 14 MMOL/L (8-16); BILIRUBIN,TOTAL 2.3 mg/dL (0.2-1); BLOOD UREA NITROGEN 28 mg/dL (7-18); CALCIUM 8.9 mg/dL (8.5-10.1); CHLORIDE 113 mmol/L (98-107); CO2 19 mmol/L (21-32); CREATININE 1.4 mg/dL (0.55-1.3); GLUCOSE,RANDOM 95 mg/dL (74-106); POTASSIUM 3.7 mmol/L (3.5-5.1); SGOT/AST 14 U/L (15-37); SGPT/ALT 9 U/L (13-61); SODIUM 145 mmol/L (136-145); TOT PROT 6.7 g/dl (6.4-8.2)
--- NOTE | 2018-07-14 07:05 | PDOC ---
Attending Attestation - Resident Resident Name: Jeradro Machado - HPI HPI: 07/14/18 06:56 Pt presents to the ED after sent in from [place] for urinary retention. Pt denies complaints. - Physicial Exam PE: 07/14/18 06:58 Agree with resident exam. Patient is demented but is alert and in no acute distress. Abdomen is soft, non tender and non distended. - Medical Decision Making 07/14/18 06:58 Pt presents to the ED after sent in from [place] for urinary retention. No evidence of retention on exam or on bedside US. Will check labs to evaluate for renal failure and reevaluate. Will discharge home if negative.
--- NOTE | 2018-07-14 07:27 | PDOC ---
*Physical Exam - Vital Signs Last Vital Signs Temp Pulse Resp BP Pulse Ox 97.3 F L 93 H 18 113/83 96 07/14/18 02:25 07/14/18 02:25 07/14/18 02:25 07/14/18 02:25 07/14/18 02:25 <Verenice Alejo - Last Filed: 07/14/18 10:32> - Vital Signs Last Vital Signs Temp Pulse Resp BP Pulse Ox 97.5 F L 91 H 16 110/62 96 07/14/18 09:50 07/14/18 09:50 07/14/18 09:50 07/14/18 09:50 07/14/18 09:50 <Tamar Ferguson - Last Filed: 07/14/18 10:54> ED Treatment Course - LABORATORY CBC & Chemistry Diagram: 07/14/18 06:22 07/14/18 06:22 - ADDITIONAL ORDERS Additional order review: Laboratory Results 07/14/18 06:22 Sodium 145 Potassium 3.7 Chloride 113 H Carbon Dioxide 19 L Anion Gap 14 BUN 28 H Creatinine 1.4 H Creat Clearance w eGFR 36.27 Random Glucose 95 Calcium 8.9 Total Bilirubin 2.3 H AST 14 L ALT 9 L Alkaline Phosphatase 94 Total Protein 6.7 Albumin 2.7 L 07/14/18 06:22 RBC 4.39 MCV 88.6 MCHC 30.7 L RDW 21.2 H MPV 10.3 Neutrophils % 56.3 Lymphocytes % 26.1 Monocytes % 11.5 H Eosinophils % 4.5 Basophils % 1.6 <Verenice Alejo - Last Filed: 07/14/18 10:32> - LABORATORY CBC & Chemistry Diagram: 07/14/18 06:22 07/14/18 06:22 - ADDITIONAL ORDERS Additional order review: Laboratory Results 07/14/18 07/14/18 09:30 06:22 Sodium 145 Potassium 3.7 Chloride 113 H Carbon Dioxide 19 L Anion Gap 14 BUN 28 H Creatinine 1.4 H Creat Clearance w eGFR 36.27 Random Glucose 95 Calcium 8.9 Total Bilirubin 2.3 H AST 14 L ALT 9 L Alkaline Phosphatase 94 Total Protein 6.7 Albumin 2.7 L Urine Color Dk yellow Urine Appearance Clear Urine pH 5.0 Ur Specific [place] 1.023 Urine Protein 2+ H Urine Glucose (UA) Negative Urine Ketones Negative Urine Blood Negative Urine Nitrite Negative Urine Bilirubin Negative Urine Urobilinogen 4.0 e.u/dl H Ur Leukocyte Esterase Negative Urine WBC (Auto) 2 Urine RBC (Auto) 1 Ur Epithelial Cells Rare Hyaline Casts 20 Urine Mucus Rare 07/14/18 06:22 RBC 4.39 MCV 88.6 MCHC 30.7 L RDW 21.2 H MPV 10.3 Neutrophils % 56.3 Lymphocytes % 26.1 Monocytes % 11.5 H Eosinophils % 4.5 Basophils % 1.6 - Medications Given in the ED: ED Medications Discontinued Medications Generic Name Dose Route Start Last Admin Trade Name Freq PRN Reason Stop Dose Admin Sodium Chloride 500 mls @ 1,000 mls/hr 07/14/18 08:05 07/14/18 08:29 Normal Saline - IV 07/14/18 08:34 Not Given ASDIR STA <Tamar Ferguson - Last Filed: 07/14/18 10:54> Medical Decision Making - Medical Decision Making Pt was signed out to me by resident Dr. Machado, who explained the presentation, ED course, any pending results, and needed interventions. Pending results include CMP (Cr r/o kidney failure). Pt is currently stable and is lying comfortably. 07/14/18 07:25 BUN/Creatinine 28/1.4 07/14/18 07:26 Providing oral fluids, and obtaining urine sample. Pt able to drink jug of water in the department. If she is unable to urinate, we will straight catheter for sample. 07/14/18 08:06 Pt states she normally urinates in a diaper. Will obtain urine via straight catheter and send for UA/culture. 07/14/18 08:15 Pt tolerated PO intake in the department (Creatinine mildly elevated). Urine showed no UTI, no leuk esterase, 2 WBC. Vitals stable, pt resting comfortably. Pt safe to discharge back to nursing facility. 07/14/18 10:23 <Verenice Alejo - Last Filed: 07/14/18 10:32> - Medical Decision Making pt signed out from Dr. Grant lebron wnl. umu PO here, straight cath urine neg for infection Cr borderline, mildly elevated, but not 1.5-2X greater to signify SAMM or renal insufficiency. no infection on UA. remainder of labs normal well apppearing. baseline dementia DC back to nursing facility. 07/14/18 10:21 07/14/18 10:54 <Tamar Ferguson Phyllislindayohan - Last Filed: 07/14/18 10:54> *DC/Admit/Observation/Transfer - Discharge Dispostion Decision to Admit order: No <Verenice Alejo - Last Filed: 07/14/18 10:32> <Tamar Ferguson Samara - Last Filed: 07/14/18 10:54> Diagnosis at time of Disposition: Urinary retention, Dehydration - Discharge Dispostion Disposition: [facility] Condition at time of disposition: Good - Referrals Referrals: Elizabeth Hooper MD [Primary Care Provider] - - Patient Instructions Printed Discharge Instructions: DI for Dehydration -- Adult, DI for Urinary Retention in Women Additional Instructions: You were seen in the ER today for limited urine output. The results of your labs today showed you were dehydrated. Please follow-up with your primary care doctor within 1-2 days to discuss your visit and make sure your symptoms have improved. Please continue drinking plenty of fluids to maintain your urine output. Please return to the ER if you have any worsening pain, development of fevers or chills, blood in your urine or inability to urinate, loss of consciousness, inability to tolerate food or fluids, or any other concerns. - Post Discharge Activity
[2018-07-14] MEDS ORDERED: SODIUM CHLORIDE 500 ML IV STA (08:05)
[2018-07-14 09:43] LABS: URINE APPEARANCE CLEAR; URINE BILIRUBIN NEGATIVE (<2.0 mg/dL); URINE GLUCOSE (UA) NEGATIVE (NEGATIVE); URINE KETONE NEGATIVE (NEGATIVE); URINE LEUK ESTERASE NEGATIVE (NEGATIVE); URINE NITRITE NEGATIVE (NEGATIVE); URINE PROTEIN 2+ (NEGATIVE); URINE UROBILINOGEN 4.0 E.U/dl mg/dL (0.2-1.0)
[2018-07-14 09:51] VITALS: TEMP 97.5
[2018-07-14 09:54] LABS: URINE COLOR DK YELLOW
[2018-07-14 09:58] LABS: EPI CELLS RARE /HPF (FEW); URINE HYALINE CAST 20 /lpf; URINE MUCUS RARE
[2018-07-14 13:05] LABS: ACANTHOCYTES 1+; ANISOCYTOSIS 1+; MACROCYTOSIS 1+; OVALOCYTE 1+; PLATELET ESTIMATE NORMAL; TARGET CELLS 1+
[2018-07-14 13:19] VITALS: BP 118/70; PULSE 80
== END 2018-07-14 13:19 ==
LOC: JER 02:25
PROC: 0T9B70Z Drainage of Bladder with Drainage Device, Via Natural or Artificial Opening (ICD-10-PCS; principal; 2018-07-14)
PROC: BT40ZZZ Ultrasonography of Bladder (ICD-10-PCS; 2018-07-14)
DX: E86.0 Dehydration (principal); R33.8 Other retention of urine; I10 Essential (primary) hypertension; E78.00 Pure hypercholesterolemia, unspecified; I48.91 Unspecified atrial fibrillation; Z79.01 Long term (current) use of anticoagulants; K21.9 Gastro-esophageal reflux disease without esophagitis; F03.90 Unspecified dementia, unspecified severity, without behavioral disturbance, psychotic disturbance, mood disturbance, and anxiety
CPT/HCPCS: 36415; 76857-TC; 80053; 81003; 81015; 85025; 87086; 99282-25

== ENCOUNTER 2018-07-24 17:40 | Inpatient (IN) | payer OTHER ==
--- NOTE | 2018-07-24 17:57 | PDOC ---
Attending Attestation - HPI HPI: 07/24/18 19:29 The patient is a 77 year old female with a significant PMH of hypertension, hyperlipidemia, depression, dementia, GERD, arthritis, and afib (on eliquis) who presents to the emergency department via EMS, from [facility] with shortness of breath since earlier today. The patient also reports some lower abdominal pain in suprapubic region and leg pain and swelling. The patient denies any other symptoms. She denies any fever, chills, nausea, vomiting diarrhea, constipation or urinary symptom. She denies any chest pain, headache or dizziness. - Physicial Exam PE: 07/24/18 19:29 GENERAL: Awake, alert, and fully oriented, in no acute distress HEAD: No signs of trauma EYES: PERRLA, EOMI, sclera anicteric, conjunctiva clear ENT: Auricles normal inspection, hearing grossly normal, nares patent, oropharynx clear without exudates. Moist mucosa NECK: Normal ROM, supple, no lymphadenopathy, JVD, or masses LUNGS: (+)SMALL pe at left base, lungs diminished bilaterally. No wheezes, and no crackles HEART: Regular rate and rhythm, normal S1 and S2, no murmurs, rubs or gallops ABDOMEN: Soft,obese with suprapubic tenderness. normoactive bowel sounds. No guarding, no rebound. No masses EXTREMITIES: (+)3+ pitting edema, no calf tenderness. Normal range of motion. No clubbing or cyanosis. No cords, erythema. NEUROLOGICAL: Cranial nerves II through XII grossly intact. Normal speech, normal gait SKIN: Warm, Dry, normal turgor, no rashes or lesions noted. Documentation prepared by Janene Bran, acting as certified medical transcriptionist for Vanessa Lee MD. <Janene Bran - Last Filed: 07/24/18 19:29> - Resident Resident Name: Aleksandra Groves - ED Attending Attestation I have performed the following: I have examined & evaluated the patient, The case was reviewed & discussed with the resident, I agree w/resident's findings & plan, Exceptions are as noted - Critical Care Time Total Critical Care Time: 35 Critical Care Statement: The care of this patient involved high complexity decision making to prevent further life threatening deterioration of the patient 's condition and/or to evaluate & treat vital organ system(s) failure or risk of failure. - Medical Decision Making 07/24/18 17:56 I, Dr. Vanessa Lee, DO, attest that this document has been prepared under my direction and personally reviewed by me in its entirety. I further attest, that it accurately reflects all work, treatment, procedures and medical decision -making performed by me. 07/24/18 18:50 a/p: 77yo female with sob and leg pain -b/l pitting edema -small pleural effusion on bedside ultrasound -global hypokinesis on bedside ultrasound with globular appearing heart -no b lines on ultrasound -will send labs, ua, cxr, ekg -pt currently on O2 -pt with conversational dyspnea -pt c/o epigastric ttp earlier- will obtain ultrasound RUQ -will monitor and reassess 07/24/18 19:11 small pericardial effusion without tamponade 07/24/18 22:56 elevated trop elevated BNP concern for heart failure will add markell resident discussed the case with cardiology case was discussed with Dr. Guillen who accepts pt to service <Vanessa Lee - Last Filed: 07/24/18 22:57> Heart Score/ECG Review - ECG Intrepretation Comment:: 07/24/18 18:52 afib w rvr at 109, low voltage, q waves septally that are age indeterminate, poor r wave progression, abnl ekg <Vanessa Lee - Last Filed: 07/24/18 22:57>
--- NOTE | 2018-07-24 18:26 | PDOC ---
History of Present Illness - General Chief Complaint: Chest Pain Stated Complaint: SOB/CHEST PAIN Time Seen by Provider: 07/24/18 17:47 - History of Present Illness Initial Comments: Ravin Smith is a 77yo woman with a PMH of CAD, HTN, HLD, CHF, dementia, and a -fib on apixaban who presents from [facility] with epigastric pain since yesterday. She reports chest pain and shortness of breath, but when asked to locate her pain, points at her epigastric area. She is unable to describe the duration, timing, severity, quality, aggravating or relieving factors. She reports that "they tried to give [her] medication, but she wasn't sure, so she wanted to get checked" and states that she did not take her medication. It is unknown whether she took her regular medications or not. Ms Smith is unable to report whether she has had any associated symptoms along with her epigastric pain. She does say that her pain has been constant since yesterday. Past History 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 History Allergies/Adverse Reactions: Allergies Allergy/AdvReac Type Severity Reaction Status Date / Time No Known Allergies Allergy Verified 07/24/18 18:21 Home Medications: Ambulatory Orders Apixaban [Eliquis] 5 mg PO BID 01/21/18 Cholecalciferol (Vitamin D3) [Vitamin D3 -] 1,000 unit PO DAILY 01/21/18 Gabapentin [Neurontin] 100 mg PO TID 01/21/18 Lisinopril 5 mg PO DAILY 01/21/18 Mirtazapine 7.5 mg PO HS 01/21/18 Ranitidine [Zantac -] 150 mg PO HS 01/21/18 Rosuvastatin [Crestor -] 20 mg PO HS 01/21/18 Aspirin [ASA -] 81 mg PO DAILY #30 tab.chew 01/29/18 Carvedilol [Coreg -] 37.5 mg PO BID #120 tablet 01/29/18 Cardiac Disorders: Yes (A-FIB) COPD: No Dementia: Yes (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) GI Disorders: Yes (GERD) Disorders: Yes (INCONTINENCE) HTN: Yes Hypercholesterolemia: Yes Psychiatric Problems: Yes (DEPRESSION) - Immunization History Immunization Up to Date: Yes - Suicide/Smoking/Psychosocial Hx Smoking History: Never smoked Have you smoked in the past 12 months: No Hx Alcohol Use: No Drug/Substance Use Hx: No Substance Use Type: None Hx Substance Use Treatment: No Review of Systems - Review of Systems Comments:: 07/24/18 18:26 Unable to obtain, patient has dementia. Denies all symptoms other than her epigastric pain. *Physical Exam - Physical Exam Comments: General: No acute distress HEENT: PERRL, EOMI, MMM, voice normal, normal neck ROM, no LAD Cards: Tachycardic, irregularly irregular, no murmurs noted Pulm: Comfortable O2 by NC, clear to auscultation bilaterally Abd: Soft, nondistended. Epigastric TTP, otherwise no pain : No CVA tenderness Ext: Atraumatic Vasc: Extremities WWP. Skin: Normal color, no rashes or lesions Neuro: Oriented to self and hospital. Normal speech, motor/sensory grossly intact and symmetric Psych: Mood appropriate to situation ED Treatment Course - LABORATORY CBC & Chemistry Diagram: 07/24/18 19:55 07/24/18 19:55 - RADIOLOGY Radiology Studies Ordered: Category Date Time Status CHEST PA & LAT [RAD] Stat Radiology 07/24/18 18:15 Ordered ABDOMEN US -LIMITED [US] Stat Ultrasound 07/24/18 18:15 Ordered Medical Decision Making - Medical Decision Making 07/24/18 18:34 Ravin Smith is a 77yo woman with a PMH of CHF, dementia, HTN, HLD, CAD, and a -fib who presents reporting chest v epigastric pain since yesterday. - Unable to provide details regarding pain. Need to consider ACS vs pulmonary pathology vs abdominal causes of pain such as GERD, pancreatitis, cholecystitis. - CBC, CMP, mag, phos, lipase, amylase, troponin, EKG, CXR, UA, urine culture and abdominal ultrasound ordered to evaluate - Noted to have HR in 130's w/ known afib on arrival. Will evaluate EKG and treat as needed 07/24/18 20:24 - Bedside echo showing global hypokinesis, no effusion, irregular rhythm - IV placed in R EJ; attempts made to place upper extremity IV under ultrasound guidance w/o success - Labs sent. CBC reviewed; no concerning abnormalities. Remainder of labs pending 07/24/18 21:38 - Labs reviewed - BNP 76498. 40mg IV lasix ordered for fluid overload - Trop elevated to 0.24. No ST elevations on EKG though low voltage throughout. Appears to have NSTEMI. Previously received ASA 324. - Microblog to [facility]/surg for admission. Waiting for return call. - Spoke to Dr Heller via phone. Requests that Ms Smith receive her normal cardiac meds. Will see tomorrow. Seen and discussed with Dr Lee. Aleksandra Groves PGY1 *DC/Admit/Observation/Transfer Diagnosis at time of Disposition: Acute exacerbation of CHF (congestive heart failure), NSTEMI (non-ST elevated myocardial infarction) - Discharge Dispostion Decision to Admit order: Yes - Referrals - Patient Instructions - Post Discharge Activity
[2018-07-24 20:10] LABS: BASO % 0.2 % (0-2.0); EOS % 5.3 % (0-4.5); HEMATOCRIT 38.1 % (32.4-45.2); HEMOGLOBIN 12.7 GM/dL (10.7-15.3); LYMPH % 29.2 % (8-40); MCH 29.5 pg (25.7-33.7); MCHC 33.2 g/dl (32.0-36.0); MEAN CELL VOLUME 88.8 fl (80-96); MEAN PLT VOLUME 10.1 fl (7.5-11.1); MONO % 10.7 % (3.8-10.2); NEUT % 54.6 % (42.8-82.8); PLATELET COUNT 233 K/MM3 (134-434); RDW 21.5 % (11.6-15.6); WHITE BLOOD COUNT 3.9 K/mm3 (4.0-10.0)
[2018-07-24 20:41] LABS: ALBUMIN 2.8 g/dl (3.4-5.0); ALK PHOS 110 U/L (45-117); AMYLASE 65 U/L (25-115); ANION GAP 9 MMOL/L (8-16); BILIRUBIN,TOTAL 2.1 mg/dL (0.2-1); BLOOD UREA NITROGEN 27 mg/dL (7-18); CALCIUM 8.9 mg/dL (8.5-10.1); CHLORIDE 113 mmol/L (98-107); CO2 22 mmol/L (21-32); CREATININE 1.3 mg/dL (0.55-1.3); GLUCOSE,RANDOM 88 mg/dL (74-106); LIPASE 81 U/L (73-393); MAGNESIUM 2.3 mg/dL (1.8-2.4); PHOSPHOROUS 3.6 mg/dL (2.5-4.9); POTASSIUM 4.5 mmol/L (3.5-5.1); SGOT/AST 19 U/L (15-37); SGPT/ALT 13 U/L (13-61); SODIUM 144 mmol/L (136-145); TOT PROT 7.2 g/dl (6.4-8.2)
[2018-07-24] MEDS ORDERED: FUROSEMIDE 40 MG/4 ML INJECTABLE VIAL IVPUSH ONE (21:22)
[2018-07-24] MEDS ORDERED: ASPIRIN 81 MG CHEWABLE TABLETS PO ONE (21:23)
--- NOTE | 2018-07-24 21:37 | CON.CARD ---
Consult Consult Specialty:: Cardioilogy - History of Present Illness History of Present Illness: The patient is a 77 year old female with a significant PMH of hypertension, hyperlipidemia, depression, dementia, GERD, arthritis, and afib (on eliquis) who presents to the emergency department via EMS, from [facility] with shortness of breath since earlier today. The patient also reports some lower abdominal pain in suprapubic region and leg pain and swelling. The patient denies any other symptoms. She denies any fever, chills, nausea, vomiting diarrhea, constipation or urinary symptom. She denies any chest pain, headache or dizziness. 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 Neuropathy Cardio/Vascular: Yes: AFIB, CHF, HTN, Hyperlipdemia Gastrointestinal: Yes: GERD Psych: Yes: Depression - Alcohol/Substance Use Hx Alcohol Use: No - Smoking History Smoking history: Never smoked Have you smoked in the past 12 months: No - Social History Usual Living Arrangement: With Child ADL: Support Services Home Medications - Allergies Allergies/Adverse Reactions: Allergies Allergy/AdvReac Type Severity Reaction Status Date / Time No Known Allergies Allergy Verified 07/24/18 18:21 - Home Medications Home Medications: Ambulatory Orders Apixaban [Eliquis] 5 mg PO BID 01/21/18 Cholecalciferol (Vitamin D3) [Vitamin D3 -] 1,000 unit PO DAILY 01/21/18 Gabapentin [Neurontin] 100 mg PO TID 01/21/18 Lisinopril 5 mg PO DAILY 01/21/18 Mirtazapine 7.5 mg PO HS 01/21/18 Ranitidine [Zantac -] 150 mg PO HS 01/21/18 Rosuvastatin [Crestor -] 20 mg PO HS 01/21/18 Aspirin [ASA -] 81 mg PO DAILY #30 tab.chew 01/29/18 Carvedilol [Coreg -] 37.5 mg PO BID #120 tablet 01/29/18 Review of Systems - Review of Systems Constitutional: reports: No Symptoms Eyes: reports: No Symptoms HENT: reports: No Symptoms Neck: reports: No Symptoms Cardiovascular: reports: Shortness of Breath Respiratory: reports: SOB Gastrointestinal: reports: No Symptoms Genitourinary: reports: No Symptoms Breasts: reports: No Symptoms Reported Musculoskeletal: reports: No Symptoms Integumentary: reports: No Symptoms Neurological: reports: No Symptoms Endocrine: reports: No Symptoms Hematology/Lymphatic: reports: No Symptoms Psychiatric: reports: No Symptoms Vital Signs: Vital Signs Temperature 98.4 F 07/24/18 17:40 Pulse Rate 131 H 07/24/18 17:40 Respiratory Rate 18 07/24/18 17:40 Blood Pressure 107/68 07/24/18 17:40 O2 Sat by Pulse Oximetry (%) 100 07/24/18 17:40 Constitutional: Yes: Well Nourished, No Distress, Calm Eyes: Yes: WNL, Conjunctiva Clear, EOM Intact HENT: Yes: WNL, Atraumatic, Normocephalic Neck: Yes: WNL, Supple, Trachea Midline Respiratory: Yes: WNL, Regular, CTA Bilaterally Gastrointestinal: Yes: WNL, Normal Bowel Sounds Renal/: Yes: WNL Cardiovascular: Yes: WNL, Regular Rate and Rhythm Musculoskeletal: Yes: WNL Extremities: Yes: WNL Edema: Yes Edema: LLE: 2+, RLE: 2+ Integumentary: Yes: WNL Neurological: Yes: WNL, Alert, Oriented ...Motor Strength: WNL Psychiatric: Yes: WNL, Alert, Oriented - Other Data Labs, Other Data: CBC, BMP 07/24/18 19:55 07/24/18 19:55 Troponin, BNP 07/24/18 07/24/18 19:55 19:55 Troponin I 0.25 H B-Natriuretic Peptide 14326.2 H Troponin, BNP 07/24/18 07/24/18 19:55 19:55 Troponin I 0.25 H B-Natriuretic Peptide 69225.2 H Imaging - Results Chest X-ray: Image Reviewed (chf) EKG: Image Reviewed (af old ant septal mi) Problem List - Problems (1) Acute exacerbation of CHF (congestive heart failure) Code(s): I50.9 - HEART FAILURE, UNSPECIFIED (2) NSTEMI (non-ST elevated myocardial infarction) Code(s): I21.4 - NON-ST ELEVATION (NSTEMI) MYOCARDIAL INFARCTION (3) A-fib Code(s): I48.91 - UNSPECIFIED ATRIAL FIBRILLATION Qualifiers: Atrial fibrillation type: chronic Qualified Code(s): I48.2 - Chronic atrial fibrillation (4) Acute coronary syndrome Code(s): I24.9 - ACUTE ISCHEMIC HEART DISEASE, UNSPECIFIED (5) CHF (congestive heart failure) Code(s): I50.9 - HEART FAILURE, UNSPECIFIED Qualifiers: Heart failure type: systolic Heart failure chronicity: acute on chronic Qualified Code(s): I50.23 - Acute on chronic systolic (congestive) heart failure (6) Chest pain Code(s): R07.9 - CHEST PAIN, UNSPECIFIED (7) Dehydration Code(s): E86.0 - DEHYDRATION (8) Dementia Code(s): F03.90 - UNSPECIFIED DEMENTIA WITHOUT BEHAVIORAL DISTURBANCE (9) Elevated troponin Code(s): R74.8 - ABNORMAL LEVELS OF OTHER SERUM ENZYMES (10) Epigastric abdominal pain Code(s): R10.13 - EPIGASTRIC PAIN (11) HLD (hyperlipidemia) Code(s): E78.5 - HYPERLIPIDEMIA, UNSPECIFIED (12) HTN (hypertension) Code(s): I10 - ESSENTIAL (PRIMARY) HYPERTENSION (13) LV dysfunction Code(s): I51.9 - HEART DISEASE, UNSPECIFIED (14) Mitral regurgitation Code(s): I34.0 - NONRHEUMATIC MITRAL (VALVE) INSUFFICIENCY (15) Urinary retention Code(s): R33.9 - RETENTION OF URINE, UNSPECIFIED Assessment/Plan chf ef 30% severe mr, tr, hypertension, hyperlipidemia, depression, dementia, GERD, arthritis, and afib (on eliquis) who presents to the emergency department via EMS, from [facility] with shortness of breath found to have elevated TNIs - most likely due to cmp . doubt primary mi. Plan agree with iv laslaureano telemetry AC coreg radha i to be d/w outside private cardiology further plan? ICD? revascularization, c. cath?
[2018-07-24] MEDS ORDERED: ASPIRIN COATED 81 MG TABLET.EC ONE (22:49)
[2018-07-24] MEDS ORDERED: FUROSEMIDE 40 MG/4 ML INJECTABLE VIAL ONE (22:49)
[2018-07-24 23:00] LABS: ANISOCYTOSIS 2+; PLATELET ESTIMATE ADEQUATE
--- NOTE | 2018-07-25 02:38 | HP ---
Admitting History and Physical - Admission History of Present Illness: The patient is a 77 year old female with a significant PMH of hypertension, dyslipidemia, MDD, advanced dementia, GERD, arthritis, and afib (on apoxiban) who presents to the emergency department via EMS, from [facility] with worsening shortness of breath that began in the morning, I was not able to get information from the patient directly she was confused when i was interviewing her. 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: Yes: Dementia, Peripheral Neuropathy Cardiovascular: Yes: AFIB, CHF, HTN, Hyperlipdemia Gastrointestinal: Yes: GERD Psych: Yes: Depression - Smoking History Smoking history: Never smoked Have you smoked in the past 12 months: No - Alcohol/Substance Use Hx Alcohol Use: No - Social History ADL: Support Services Home Medications - Allergies Allergies/Adverse Reactions: Allergies Allergy/AdvReac Type Severity Reaction Status Date / Time No Known Allergies Allergy Verified 07/24/18 18:21 - Home Medications Home Medications: Ambulatory Orders Apixaban [Eliquis] 5 mg PO BID 01/21/18 Cholecalciferol (Vitamin D3) [Vitamin D3 -] 1,000 unit PO DAILY 01/21/18 Gabapentin [Neurontin] 100 mg PO TID 01/21/18 Lisinopril 5 mg PO DAILY 01/21/18 Mirtazapine 7.5 mg PO HS 01/21/18 Ranitidine [Zantac -] 150 mg PO HS 01/21/18 Rosuvastatin [Crestor -] 20 mg PO HS 01/21/18 Aspirin [ASA -] 81 mg PO DAILY #30 tab.chew 01/29/18 Carvedilol [Coreg -] 37.5 mg PO BID #120 tablet 01/29/18 Review of Systems Unable to obtain ROS, reason: AMS - Review of Systems Constitutional: reports: No Symptoms Eyes: reports: No Symptoms Physical Examination Vital Signs: Vital Signs Temperature 98.4 F 07/24/18 17:40 Pulse Rate 131 H 07/24/18 17:40 Respiratory Rate 18 07/24/18 17:40 Blood Pressure 107/68 07/24/18 17:40 O2 Sat by Pulse Oximetry (%) 100 07/24/18 17:40 Constitutional: Yes: Well Nourished, No Distress, Calm Eyes: Yes: WNL, Conjunctiva Clear, EOM Intact HENT: Yes: WNL, Atraumatic, Normocephalic Neck: Yes: WNL, Supple, Trachea Midline Cardiovascular: Yes: WNL, Pulse Irregular, S1, S2 Respiratory: Yes: Regular, CTA Bilaterally Gastrointestinal: Yes: WNL, Normal Bowel Sounds, Soft ...Rectal Exam: Yes: Deferred Edema: LLE: 4+, RLE: 4+ Integumentary: Yes: WNL Neurological: Yes: WNL, Alert, Oriented (to herself only, patient is unaware of the year, city, or state she is in) Labs: CBC, BMP 07/24/18 19:55 07/24/18 19:55 Imaging - Results Chest X-ray: Report Reviewed Problem List - Problems (1) Acute exacerbation of CHF (congestive heart failure) Assessment/Plan: patient presented with worsening SOB, she is laying on elevated bed crackles at the bases of the lungs c/w home medicaiton c c/w lasix f/u with cardiology recommendation. Code(s): I50.9 - HEART FAILURE, UNSPECIFIED (2) A-fib Assessment/Plan: on eliquis c/w rate control c/w eliquis Code(s): I48.91 - UNSPECIFIED ATRIAL FIBRILLATION Qualifiers: Atrial fibrillation type: chronic Qualified Code(s): I48.2 - Chronic atrial fibrillation (3) Dementia Assessment/Plan: stable no acute changes Code(s): F03.90 - UNSPECIFIED DEMENTIA WITHOUT BEHAVIORAL DISTURBANCE (4) HLD (hyperlipidemia) Assessment/Plan: stable c/w statin Code(s): E78.5 - HYPERLIPIDEMIA, UNSPECIFIED (5) HTN (hypertension) Assessment/Plan: stable c/w home medication Code(s): I10 - ESSENTIAL (PRIMARY) HYPERTENSION
[2018-07-25 03:33] VITALS: BMI 42.4
[2018-07-25] MEDS: GABAPENTIN 100 MG CAPSULE (FP) PO SCH ×3 (06:23→21:35)
--- NOTE | 2018-07-25 09:55 | PN ---
Progress Note, Physician History of Present Illness: The patient is a 77 year old female with a significant PMH of hypertension, hyperlipidemia, depression, dementia, GERD, arthritis, and afib (on eliquis) who presents to the emergency department via EMS, from [facility] with shortness of breath since earlier today. The patient also reports some lower abdominal pain in suprapubic region and leg pain and swelling. The patient denies any other symptoms. She denies any fever, chills, nausea, vomiting diarrhea, constipation or urinary symptom. She denies any chest pain, headache or dizziness. - Current Medication List Current Medications: Active Medications Apixaban (Eliquis -) 5 mg PO BID [facility] Aspirin (Asa -) 81 mg PO DAILY [facility] Carvedilol 25 mg/ Carvedilol (12.5 mg) 37.5 mg PO BID [facility] Cholecalciferol (Vitamin D3 -) 1,000 unit PO DAILY [facility] Furosemide (Lasix Injection -) 40 mg IVPUSH DAILY [facility] Gabapentin (Neurontin -) 100 mg PO TID [facility] Last Admin: 07/25/18 06:23 Dose: Not Given Lisinopril (Prinivil) 5 mg PO DAILY [facility] Mirtazapine (Remeron -) 7.5 mg PO HS [facility] Ranitidine HCl (Zantac -) 150 mg PO HS [facility] Rosuvastatin Calcium (Crestor -) 20 mg PO HS [facility] - Objective Vital Signs: Vital Signs Temperature 98.4 F 07/24/18 17:40 Pulse Rate 115 H 07/25/18 02:30 Respiratory Rate 18 07/25/18 02:30 Blood Pressure 115/65 07/25/18 02:30 O2 Sat by Pulse Oximetry (%) 96 07/25/18 02:30 Eyes: Yes: WNL, Conjunctiva Clear, EOM Intact HENT: Yes: WNL, Atraumatic, Normocephalic Neck: Yes: WNL, Supple, Trachea Midline Cardiovascular: Yes: Pulse Irregular, S1, S2 Respiratory: Yes: WNL, Regular, CTA Bilaterally Gastrointestinal: Yes: WNL, Normal Bowel Sounds Genitourinary: Yes: WNL Musculoskeletal: Yes: WNL Extremities: Yes: WNL Edema: No Integumentary: Yes: WNL Neurological: Yes: WNL, Alert, Oriented ...Motor Strength: WNL Psychiatric: Yes: WNL Labs: CBC, BMP 07/24/18 19:55 07/24/18 19:55 Laboratory Tests 07/24/18 07/24/18 07/24/18 19:55 19:55 19:55 WBC 3.9 L RBC 4.30 Hgb 12.7 Hct 38.1 MCV 88.8 MCH 29.5 MCHC 33.2 RDW 21.5 H Plt Count 233 D MPV 10.1 Absolute Neuts (auto) 2.1 Neutrophils % 54.6 Lymphocytes % 29.2 Monocytes % 10.7 H Eosinophils % 5.3 H Basophils % 0.2 Nucleated RBC % 1 H Platelet Estimate Adequate Anisocytosis 2+ Sodium 144 Potassium 4.5 Chloride 113 H Carbon Dioxide 22 Anion Gap 9 BUN 27 H Creatinine 1.3 Creat Clearance w eGFR 39.51 Random Glucose 88 Calcium 8.9 Phosphorus 3.6 Magnesium 2.3 Total Bilirubin 2.1 H AST 19 ALT 13 Alkaline Phosphatase 110 Creatine Kinase 36 Troponin I 0.25 H B-Natriuretic Peptide 31080.2 H Total Protein 7.2 Albumin 2.8 L Total Amylase 65 Lipase 81 Problem List - Problems (1) Acute exacerbation of CHF (congestive heart failure) Code(s): I50.9 - HEART FAILURE, UNSPECIFIED (2) NSTEMI (non-ST elevated myocardial infarction) Code(s): I21.4 - NON-ST ELEVATION (NSTEMI) MYOCARDIAL INFARCTION (3) A-fib Code(s): I48.91 - UNSPECIFIED ATRIAL FIBRILLATION Qualifiers: Atrial fibrillation type: chronic Qualified Code(s): I48.2 - Chronic atrial fibrillation (4) Acute coronary syndrome Code(s): I24.9 - ACUTE ISCHEMIC HEART DISEASE, UNSPECIFIED (5) CHF (congestive heart failure) Code(s): I50.9 - HEART FAILURE, UNSPECIFIED Qualifiers: Heart failure type: systolic Heart failure chronicity: acute on chronic Qualified Code(s): I50.23 - Acute on chronic systolic (congestive) heart failure (6) Chest pain Code(s): R07.9 - CHEST PAIN, UNSPECIFIED (7) Dehydration Code(s): E86.0 - DEHYDRATION (8) Dementia Code(s): F03.90 - UNSPECIFIED DEMENTIA WITHOUT BEHAVIORAL DISTURBANCE (9) Elevated troponin Code(s): R74.8 - ABNORMAL LEVELS OF OTHER SERUM ENZYMES (10) Epigastric abdominal pain Code(s): R10.13 - EPIGASTRIC PAIN (11) HLD (hyperlipidemia) Code(s): E78.5 - HYPERLIPIDEMIA, UNSPECIFIED (12) HTN (hypertension) Code(s): I10 - ESSENTIAL (PRIMARY) HYPERTENSION (13) LV dysfunction Code(s): I51.9 - HEART DISEASE, UNSPECIFIED (14) Mitral regurgitation Code(s): I34.0 - NONRHEUMATIC MITRAL (VALVE) INSUFFICIENCY (15) Urinary retention Code(s): R33.9 - RETENTION OF URINE, UNSPECIFIED Assessment/Plan chf ef 30% severe mr, tr, hypertension, hyperlipidemia, depression, dementia, GERD, arthritis, and afib (on eliquis) who presents to the emergency department via EMS, from [facility] with shortness of breath found to have elevated TNIs - most likely due to cmp . doubt primary mi. Plan agree with iv lasix telemetry AC coreg radha i to be d/w outside private cardiology further plan? ICD? revascularization, c. cath?
[2018-07-25] MEDS ORDERED: CARVEDILOL 25 MG TABLET (FP) PO SCH (10:00)
[2018-07-25] MEDS ORDERED: CARVEDILOL 25 MG TABLET (FP) ONE (12:03)
[2018-07-25] MEDS ORDERED: CARVEDILOL 12.5 MG TABLET (FP) ONE (12:03)
[2018-07-25] MEDS: LISINOPRIL 5 MG TABLET (FP) PO SCH (12:11)
[2018-07-25] MEDS: ASPIRIN 81 MG CHEWABLE TABLETS PO SCH (12:11)
[2018-07-25] MEDS: CHOLECALCIFEROL (VITAMIN D3) 1,000 UNIT TABLET (FP) PO SCH (12:11)
[2018-07-25] MEDS: CARVEDILOL 25 MG, CARVEDILOL 12.5 MG PO SCH ×2 (12:11→21:35)
[2018-07-25] MEDS: APIXABAN 5 MG TABLET PO SCH ×2 (12:11→21:35)
[2018-07-25] MEDS: FUROSEMIDE 40 MG/4 ML INJECTABLE VIAL IVPUSH SCH (12:11)
--- NOTE | 2018-07-25 14:02 | PN ---
Progress Note (short form) - Note Progress Note: pt seen/ examined chart reviewed. awake/ comfortable poor historian Vital Signs Temp 98.4 F 07/24/18 17:40 Pulse 115 H 07/25/18 02:30 Resp 18 07/25/18 02:30 BP 115/65 07/25/18 02:30 Pulse Ox 96 07/25/18 02:30 Intake & Output 07/24/18 07/25/18 07/25/18 23:59 11:59 23:59 Weight 153 lb 6.4 oz 176 lb Other: Voiding Method Incontinent Diaper # Unmeasured Voids Void 1 Height 4 ft 6 in 4 ft 6 in Body Mass Index (BMI) 37.0 42.4 Active Medications Apixaban (Eliquis -) 5 mg PO BID [facility] Last Admin: 07/25/18 12:11 Dose: 5 mg Aspirin (Asa -) 81 mg PO DAILY [facility] Last Admin: 07/25/18 12:11 Dose: 81 mg Carvedilol 25 mg/ Carvedilol (12.5 mg) 37.5 mg PO BID [facility] Last Admin: 07/25/18 12:11 Dose: 37.5 mg Cholecalciferol (Vitamin D3 -) 1,000 unit PO DAILY [facility] Last Admin: 07/25/18 12:11 Dose: 1,000 unit Furosemide (Lasix Injection -) 40 mg IVPUSH DAILY [facility] Last Admin: 07/25/18 12:11 Dose: 40 mg Gabapentin (Neurontin -) 100 mg PO TID [facility] Last Admin: 07/25/18 06:23 Dose: Not Given Lisinopril (Prinivil) 5 mg PO DAILY [facility] Last Admin: 07/25/18 12:11 Dose: 5 mg Mirtazapine (Remeron -) 7.5 mg PO HS [facility] Ranitidine HCl (Zantac -) 150 mg PO HS [facility] Rosuvastatin Calcium (Crestor -) 20 mg PO HS [facility] CBC, BMP 07/24/18 19:55 07/24/18 19:55 Physical Examination Constitutional: Yes: No distress/ awake Eyes: Yes: Conjunctiva Clear HENT: Yes: WNL Neck: Yes: Supple. no jvd Cardiovascular: Yes: Regular Rate and Rhythm Respiratory: Yes: crackles at bases Gastrointestinal: Yes: Soft/ non tender Edema: LLE: 3+, RLE: 3+ Neurological: Yes: awake Imaging - Results Chest X-ray: Report Reviewed EKG: Report Reviewed Assessment/Plan chf exac i/v lasix echo pending cardiology eval noted will follow daily oob - chair. monitor lytes monitor on tele Problem List - Problems (1) Acute exacerbation of CHF (congestive heart failure) Code(s): I50.9 - HEART FAILURE, UNSPECIFIED (2) A-fib Code(s): I48.91 - UNSPECIFIED ATRIAL FIBRILLATION Qualifiers: Atrial fibrillation type: chronic Qualified Code(s): I48.2 - Chronic atrial fibrillation (3) Dementia Code(s): F03.90 - UNSPECIFIED DEMENTIA WITHOUT BEHAVIORAL DISTURBANCE (4) Elevated troponin Code(s): R74.8 - ABNORMAL LEVELS OF OTHER SERUM ENZYMES (5) HTN (hypertension) Code(s): I10 - ESSENTIAL (PRIMARY) HYPERTENSION
--- NOTE | 2018-07-25 17:16 | EKG ---
Test Reason : Blood Pressure : / mmHG Vent. Rate : 109 BPM Atrial Rate : 312 BPM P-R Int : 000 ms QRS Dur : 070 ms QT Int : 314 ms P-R-T Axes : 000 014 126 degrees QTc Int : 422 ms ATRIAL FIBRILLATION WITH RAPID VENTRICULAR RESPONSE LOW VOLTAGE QRS CANNOT RULE OUT ANTEROSEPTAL INFARCT (CITED ON OR BEFORE 21-JAN-2018) ABNORMAL ECG WHEN COMPARED WITH ECG OF 22-JAN-2018 13:52, SIGNIFICANT CHANGES HAVE OCCURRED Confirmed by MD SAUL, TESSA ([id number]) on 07/25/2018 5:15:47 PM Referred By: Confirmed By:TESSA HUGHES MD
[2018-07-25] MEDS: ROSUVASTATIN CA 20 MG TABLET (FP) PO SCH (21:35)
[2018-07-25] MEDS: RANITIDINE HCL 150 MG TABLET (FP) PO SCH (21:36)
[2018-07-25] MEDS: MIRTAZAPINE 15 MG TABLET (FP) PO SCH (21:36)
[2018-07-26] MEDS: GABAPENTIN 100 MG CAPSULE (FP) PO SCH ×3 (05:54→22:01)
--- NOTE | 2018-07-26 09:59 | PN ---
Progress Note, Physician History of Present Illness: The patient is a 77 year old female with a significant PMH of hypertension, hyperlipidemia, depression, dementia, GERD, arthritis, and afib (on eliquis) who presents to the emergency department via EMS, from [facility] with shortness of breath since earlier today. The patient also reports some lower abdominal pain in suprapubic region and leg pain and swelling. The patient denies any other symptoms. She denies any fever, chills, nausea, vomiting diarrhea, constipation or urinary symptom. She denies any chest pain, headache or dizziness. - Current Medication List Current Medications: Active Medications Apixaban (Eliquis -) 5 mg PO BID [facility] Last Admin: 07/25/18 21:35 Dose: Not Given Aspirin (Asa -) 81 mg PO DAILY [facility] Last Admin: 07/25/18 12:11 Dose: 81 mg Carvedilol 25 mg/ Carvedilol (12.5 mg) 37.5 mg PO BID [facility] Last Admin: 07/25/18 21:35 Dose: Not Given Cholecalciferol (Vitamin D3 -) 1,000 unit PO DAILY [facility] Last Admin: 07/25/18 12:11 Dose: 1,000 unit Furosemide (Lasix Injection -) 40 mg IVPUSH DAILY [facility] Last Admin: 07/25/18 12:11 Dose: 40 mg Gabapentin (Neurontin -) 100 mg PO TID [facility] Last Admin: 07/26/18 05:54 Dose: Not Given Lisinopril (Prinivil) 5 mg PO DAILY [facility] Last Admin: 07/25/18 12:11 Dose: 5 mg Mirtazapine (Remeron -) 7.5 mg PO HS [facility] Last Admin: 07/25/18 21:36 Dose: Not Given Ranitidine HCl (Zantac -) 150 mg PO HS [facility] Last Admin: 07/25/18 21:36 Dose: Not Given Rosuvastatin Calcium (Crestor -) 20 mg PO [facility] Last Admin: 07/25/18 21:35 Dose: Not Given - Objective Vital Signs: Vital Signs Temperature 98.4 F 07/24/18 17:40 Pulse Rate 66 07/26/18 03:00 Respiratory Rate 18 07/26/18 03:00 Blood Pressure 127/64 07/26/18 03:00 O2 Sat by Pulse Oximetry (%) 96 07/25/18 09:00 Eyes: Yes: WNL, Conjunctiva Clear, EOM Intact HENT: Yes: WNL, Atraumatic, Normocephalic Neck: Yes: WNL, Supple, Trachea Midline Cardiovascular: Yes: WNL, Regular Rate and Rhythm Respiratory: Yes: WNL, Regular, CTA Bilaterally Gastrointestinal: Yes: WNL, Normal Bowel Sounds Genitourinary: Yes: WNL Musculoskeletal: Yes: WNL Extremities: Yes: WNL Edema: No Integumentary: Yes: WNL Neurological: Yes: WNL, Alert, Oriented ...Motor Strength: WNL Psychiatric: Yes: WNL Labs: CBC, BMP 07/24/18 19:55 07/24/18 19:55 Problem List - Problems (1) Acute exacerbation of CHF (congestive heart failure) Code(s): I50.9 - HEART FAILURE, UNSPECIFIED (2) NSTEMI (non-ST elevated myocardial infarction) Code(s): I21.4 - NON-ST ELEVATION (NSTEMI) MYOCARDIAL INFARCTION (3) A-fib Code(s): I48.91 - UNSPECIFIED ATRIAL FIBRILLATION Qualifiers: Atrial fibrillation type: chronic Qualified Code(s): I48.2 - Chronic atrial fibrillation (4) Acute coronary syndrome Code(s): I24.9 - ACUTE ISCHEMIC HEART DISEASE, UNSPECIFIED (5) CHF (congestive heart failure) Code(s): I50.9 - HEART FAILURE, UNSPECIFIED Qualifiers: Heart failure type: systolic Heart failure chronicity: acute on chronic Qualified Code(s): I50.23 - Acute on chronic systolic (congestive) heart failure (6) Chest pain Code(s): R07.9 - CHEST PAIN, UNSPECIFIED (7) Dehydration Code(s): E86.0 - DEHYDRATION (8) Dementia Code(s): F03.90 - UNSPECIFIED DEMENTIA WITHOUT BEHAVIORAL DISTURBANCE (9) Elevated troponin Code(s): R74.8 - ABNORMAL LEVELS OF OTHER SERUM ENZYMES (10) Epigastric abdominal pain Code(s): R10.13 - EPIGASTRIC PAIN (11) HLD (hyperlipidemia) Code(s): E78.5 - HYPERLIPIDEMIA, UNSPECIFIED (12) HTN (hypertension) Code(s): I10 - ESSENTIAL (PRIMARY) HYPERTENSION (13) LV dysfunction Code(s): I51.9 - HEART DISEASE, UNSPECIFIED (14) Mitral regurgitation Code(s): I34.0 - NONRHEUMATIC MITRAL (VALVE) INSUFFICIENCY (15) Urinary retention Code(s): R33.9 - RETENTION OF URINE, UNSPECIFIED Assessment/Plan chf ef 30% severe mr, tr, hypertension, hyperlipidemia, depression, dementia, GERD, arthritis, and afib (on eliquis) who presents to the emergency department via EMS, from [facility] with shortness of breath found to have elevated TNIs - most likely due to cmp . doubt primary mi. Plan agree with iv lasix telemetry AC coreg radha i to be d/w outside private cardiology further plan? ICD? revascularization, c. cath?
[2018-07-26] MEDS ORDERED: CARVEDILOL 25 MG TABLET (FP) ONE ×2 (10:24→21:48)
[2018-07-26] MEDS ORDERED: CARVEDILOL 12.5 MG TABLET (FP) ONE ×2 (10:25→21:48)
[2018-07-26] MEDS: ASPIRIN 81 MG CHEWABLE TABLETS PO SCH (10:53)
[2018-07-26] MEDS: LISINOPRIL 5 MG TABLET (FP) PO SCH (10:53)
[2018-07-26] MEDS: CARVEDILOL 25 MG, CARVEDILOL 12.5 MG PO SCH ×2 (10:53→22:05)
[2018-07-26] MEDS: APIXABAN 5 MG TABLET PO SCH ×2 (10:53→22:01)
[2018-07-26] MEDS: CHOLECALCIFEROL (VITAMIN D3) 1,000 UNIT TABLET (FP) PO SCH (10:53)
--- NOTE | 2018-07-26 13:01 | PN ---
Progress Note (short form) - Note Progress Note: awake/ comfortable no new issues Vital Signs Temp 97.3 F L 07/26/18 10:00 Pulse 97 H 07/26/18 10:00 Resp 18 07/26/18 10:00 BP 113/58 L 07/26/18 10:00 Pulse Ox 95 07/26/18 09:00 Intake & Output 07/25/18 07/26/18 07/26/18 23:59 11:59 23:59 Intake Total 0 0 Balance 0 0 Intake: IVPB 0 0 Other: Voiding Method Incontinent Incontinent Active Medications Apixaban (Eliquis -) 5 mg PO BID [facility] Last Admin: 07/26/18 10:53 Dose: 5 mg Aspirin (Asa -) 81 mg PO DAILY [facility] Last Admin: 07/26/18 10:53 Dose: 81 mg Carvedilol 25 mg/ Carvedilol (12.5 mg) 37.5 mg PO BID [facility] Last Admin: 07/26/18 10:53 Dose: 37.5 mg Cholecalciferol (Vitamin D3 -) 1,000 unit PO DAILY [facility] Last Admin: 07/26/18 10:53 Dose: 1,000 unit Furosemide (Lasix Injection -) 40 mg IVPUSH DAILY [facility] Last Admin: 07/25/18 12:11 Dose: 40 mg Gabapentin (Neurontin -) 100 mg PO TID [facility] Last Admin: 07/26/18 05:54 Dose: Not Given Lisinopril (Prinivil) 5 mg PO DAILY [facility] Last Admin: 07/26/18 10:53 Dose: 5 mg Mirtazapine (Remeron -) 7.5 mg PO [facility] Last Admin: 07/25/18 21:36 Dose: Not Given Ranitidine HCl (Zantac -) 150 mg PO HS [facility] Last Admin: 07/25/18 21:36 Dose: Not Given Rosuvastatin Calcium (Crestor -) 20 mg PO [facility] Last Admin: 07/25/18 21:35 Dose: Not Given CBC, BMP 07/24/18 19:55 07/24/18 19:55 echo- pending Physical Examination Constitutional: Yes: No distress/ awake Eyes: Yes: Conjunctiva Clear HENT: Yes: WNL Neck: Yes: Supple. no jvd Cardiovascular: Yes: S1, S2 irregular Respiratory: Yes: crackles at bases Gastrointestinal: Yes: Soft/ non tender Edema: LLE: 3+, RLE: 3+ Neurological: Yes: awake Imaging - Results Chest X-ray: Report Reviewed EKG: Report Reviewed Assessment/Plan chf exac i/v lasix echo pending cardiology on case will follow daily oob - chair. monitor lytes monitor on tele oob - chair will follow
[2018-07-26] MEDS: FUROSEMIDE 40 MG/4 ML INJECTABLE VIAL IVPUSH SCH (14:51)
[2018-07-26] MEDS: RANITIDINE HCL 150 MG TABLET (FP) PO SCH (22:01)
[2018-07-26] MEDS: MIRTAZAPINE 15 MG TABLET (FP) PO SCH (22:01)
[2018-07-26] MEDS: ROSUVASTATIN CA 20 MG TABLET (FP) PO SCH (22:01)
[2018-07-27] MEDS: GABAPENTIN 100 MG CAPSULE (FP) PO SCH ×3 (06:33→22:28)
[2018-07-27 06:49] LABS: BASO % 1.1 % (0-2.0); HEMOGLOBIN 11.1 GM/dL (10.7-15.3); LYMPH % 26.4 % (8-40); MCH 27.4 pg (25.7-33.7); MCHC 30.8 g/dl (32.0-36.0); MEAN CELL VOLUME 88.9 fl (80-96); MONO % 10.3 % (3.8-10.2); NEUT % 56.2 % (42.8-82.8); PLATELET COUNT 190 K/MM3 (134-434); RBC 4.05 M/mm3 (3.60-5.2); RDW 21.4 % (11.6-15.6); WHITE BLOOD COUNT 3.6 K/mm3 (4.0-10.0)
[2018-07-27 07:19] LABS: ALBUMIN 2.2 g/dl (3.4-5.0); ALK PHOS 83 U/L (45-117); ANION GAP 11 MMOL/L (8-16); BLOOD UREA NITROGEN 26 mg/dL (7-18); CALCIUM 8.3 mg/dL (8.5-10.1); CHLORIDE 114 mmol/L (98-107); CO2 23 mmol/L (21-32); CREATININE 1.2 mg/dL (0.55-1.3); GLUCOSE,RANDOM 99 mg/dL (74-106); POTASSIUM 3.5 mmol/L (3.5-5.1); SGOT/AST 17 U/L (15-37); SGPT/ALT 10 U/L (13-61); SODIUM 148 mmol/L (136-145); TOT PROT 5.6 g/dl (6.4-8.2)
[2018-07-27] MEDS ORDERED: CARVEDILOL 25 MG TABLET (FP) ONE ×2 (09:23→22:26)
[2018-07-27] MEDS ORDERED: CARVEDILOL 12.5 MG TABLET (FP) ONE ×2 (09:24→22:27)
[2018-07-27] MEDS: FUROSEMIDE 40 MG/4 ML INJECTABLE VIAL IVPUSH SCH (09:54)
[2018-07-27] MEDS: ASPIRIN 81 MG CHEWABLE TABLETS PO SCH (09:56)
[2018-07-27] MEDS: APIXABAN 5 MG TABLET PO SCH ×2 (09:57→22:28)
[2018-07-27] MEDS: CARVEDILOL 25 MG, CARVEDILOL 12.5 MG PO SCH ×2 (09:57→22:28)
[2018-07-27] MEDS: LISINOPRIL 5 MG TABLET (FP) PO SCH (09:58)
[2018-07-27] MEDS: CHOLECALCIFEROL (VITAMIN D3) 1,000 UNIT TABLET (FP) PO SCH (09:58)
[2018-07-27] MEDS ORDERED: PT OWN MED DRAWER 7, Y5N ONE (11:42)
--- NOTE | 2018-07-27 14:01 | PN ---
Progress Note (short form) - Note Progress Note: pt seen/ examined comfortable. Sometimes pulls out IV. no distress Vital Signs Temp 97 F L 07/27/18 09:59 Pulse 92 H 07/27/18 09:59 Resp 20 07/27/18 09:59 BP 96/68 07/27/18 09:59 Pulse Ox 96 07/27/18 09:00 Intake & Output 07/26/18 07/27/18 07/27/18 23:59 11:59 23:59 Other: Voiding Method Incontinent Incontinent # Unmeasured Voids Void 1 Active Medications Apixaban (Eliquis -) 5 mg PO BID [facility] Last Admin: 07/27/18 09:57 Dose: 5 mg Aspirin (Asa -) 81 mg PO DAILY [facility] Last Admin: 07/27/18 09:56 Dose: 81 mg Carvedilol 25 mg/ Carvedilol (12.5 mg) 37.5 mg PO BID [facility] Last Admin: 07/27/18 09:57 Dose: 37.5 mg Cholecalciferol (Vitamin D3 -) 1,000 unit PO DAILY [facility] Last Admin: 07/27/18 09:58 Dose: 1,000 unit Furosemide (Lasix Injection -) 40 mg IVPUSH DAILY [facility] Last Admin: 07/27/18 09:54 Dose: 40 mg Gabapentin (Neurontin -) 100 mg PO TID [facility] Last Admin: 07/27/18 06:33 Dose: Not Given Lisinopril (Prinivil) 5 mg PO DAILY [facility] Last Admin: 07/27/18 09:58 Dose: 5 mg Mirtazapine (Remeron -) 7.5 mg PO [facility] Last Admin: 07/26/18 22:01 Dose: 7.5 mg Ranitidine HCl (Zantac -) 150 mg PO HS [facility] Last Admin: 07/26/18 22:01 Dose: 150 mg Rosuvastatin Calcium (Crestor -) 20 mg PO [facility] Last Admin: 07/26/18 22:01 Dose: 20 mg CBC, BMP 07/27/18 05:30 07/27/18 05:30 echo-- pending Physical Examination Constitutional: Yes: No distress/ awake Eyes: Yes: Conjunctiva Clear HENT: Yes: WNL Neck: Yes: Supple. no jvd Cardiovascular: Yes: S1, S2 irregular Respiratory: Yes: crackles at bases Gastrointestinal: Yes: Soft/ non tender Edema: LLE: 3+, RLE: 3+ Neurological: Yes: awake Imaging - Results Chest X-ray: Report Reviewed EKG: Report Reviewed Assessment/Plan chf exac i/v lasix echo pending cardiology on case will follow daily oob - chair. monitor lytes monitor on tele oob - chair will follow
[2018-07-27] MEDS ORDERED: LORazepam 2 MG/ML SDV VIAL IVPUSH ONE (16:45)
--- NOTE | 2018-07-27 18:26 | PN ---
Progress Note, Physician History of Present Illness: The patient is a 77 year old female with a significant PMH of hypertension, hyperlipidemia, depression, dementia, GERD, arthritis, and afib (on eliquis) who presents to the emergency department via EMS, from [facility] with shortness of breath since earlier today. The patient also reports some lower abdominal pain in suprapubic region and leg pain and swelling. The patient denies any other symptoms. She denies any fever, chills, nausea, vomiting diarrhea, constipation or urinary symptom. She denies any chest pain, headache or dizziness. - Current Medication List Current Medications: Active Medications Apixaban (Eliquis -) 5 mg PO BID [facility] Last Admin: 07/27/18 09:57 Dose: 5 mg Aspirin (Asa -) 81 mg PO DAILY [facility] Last Admin: 07/27/18 09:56 Dose: 81 mg Carvedilol 25 mg/ Carvedilol (12.5 mg) 37.5 mg PO BID [facility] Last Admin: 07/27/18 09:57 Dose: 37.5 mg Cholecalciferol (Vitamin D3 -) 1,000 unit PO DAILY [facility] Last Admin: 07/27/18 09:58 Dose: 1,000 unit Furosemide (Lasix Injection -) 40 mg IVPUSH DAILY [facility] Last Admin: 07/27/18 09:54 Dose: 40 mg Gabapentin (Neurontin -) 100 mg PO TID [facility] Last Admin: 07/27/18 14:32 Dose: Not Given Lisinopril (Prinivil) 5 mg PO DAILY [facility] Last Admin: 07/27/18 09:58 Dose: 5 mg Mirtazapine (Remeron -) 7.5 mg PO HS [facility] Last Admin: 07/26/18 22:01 Dose: 7.5 mg Ranitidine HCl (Zantac -) 150 mg PO HS [facility] Last Admin: 07/26/18 22:01 Dose: 150 mg Rosuvastatin Calcium (Crestor -) 20 mg PO [facility] Last Admin: 07/26/18 22:01 Dose: 20 mg - Objective Vital Signs: Vital Signs Temperature 97.2 F L 07/27/18 13:59 Pulse Rate 86 07/27/18 13:59 Respiratory Rate 20 07/27/18 13:59 Blood Pressure 94/58 L 07/27/18 13:59 O2 Sat by Pulse Oximetry (%) 96 12/03/18 09:00 Eyes: Yes: WNL, Conjunctiva Clear, EOM Intact HENT: Yes: WNL, Atraumatic, Normocephalic Neck: Yes: WNL, Supple, Trachea Midline Cardiovascular: Yes: WNL, Regular Rate and Rhythm Respiratory: Yes: WNL, Regular, CTA Bilaterally Gastrointestinal: Yes: WNL, Normal Bowel Sounds Genitourinary: Yes: WNL Musculoskeletal: Yes: WNL Extremities: Yes: WNL Edema: No Integumentary: Yes: WNL Neurological: Yes: WNL, Alert, Oriented ...Motor Strength: WNL Psychiatric: Yes: WNL Labs: CBC, BMP 07/27/18 05:30 07/27/18 05:30 Problem List - Problems (1) Acute exacerbation of CHF (congestive heart failure) Code(s): I50.9 - HEART FAILURE, UNSPECIFIED (2) NSTEMI (non-ST elevated myocardial infarction) Code(s): I21.4 - NON-ST ELEVATION (NSTEMI) MYOCARDIAL INFARCTION (3) A-fib Code(s): I48.91 - UNSPECIFIED ATRIAL FIBRILLATION Qualifiers: Atrial fibrillation type: chronic Qualified Code(s): I48.2 - Chronic atrial fibrillation (4) Acute coronary syndrome Code(s): I24.9 - ACUTE ISCHEMIC HEART DISEASE, UNSPECIFIED (5) CHF (congestive heart failure) Code(s): I50.9 - HEART FAILURE, UNSPECIFIED Qualifiers: Heart failure type: systolic Heart failure chronicity: acute on chronic Qualified Code(s): I50.23 - Acute on chronic systolic (congestive) heart failure (6) Chest pain Code(s): R07.9 - CHEST PAIN, UNSPECIFIED (7) Dehydration Code(s): E86.0 - DEHYDRATION (8) Dementia Code(s): F03.90 - UNSPECIFIED DEMENTIA WITHOUT BEHAVIORAL DISTURBANCE (9) Elevated troponin Code(s): R74.8 - ABNORMAL LEVELS OF OTHER SERUM ENZYMES (10) Epigastric abdominal pain Code(s): R10.13 - EPIGASTRIC PAIN (11) HLD (hyperlipidemia) Code(s): E78.5 - HYPERLIPIDEMIA, UNSPECIFIED (12) HTN (hypertension) Code(s): I10 - ESSENTIAL (PRIMARY) HYPERTENSION (13) LV dysfunction Code(s): I51.9 - HEART DISEASE, UNSPECIFIED (14) Mitral regurgitation Code(s): I34.0 - NONRHEUMATIC MITRAL (VALVE) INSUFFICIENCY (15) Urinary retention Code(s): R33.9 - RETENTION OF URINE, UNSPECIFIED Assessment/Plan chf ef 30% severe mr, tr, hypertension, hyperlipidemia, depression, dementia, GERD, arthritis, and afib (on eliquis) who presents to the emergency department via EMS, from [facility] with shortness of breath found to have elevated TNIs - most likely due to cmp . doubt primary mi. Plan agree with iv lasix telemetry AC coreg radha i to be d/w outside private cardiology further plan? ICD? revascularization, c. cath?
[2018-07-27] MEDS: ROSUVASTATIN CA 20 MG TABLET (FP) PO SCH (22:28)
[2018-07-27] MEDS: MIRTAZAPINE 15 MG TABLET (FP) PO SCH (22:28)
[2018-07-27] MEDS: RANITIDINE HCL 150 MG TABLET (FP) PO SCH (22:28)
[2018-07-28 06:04] VITALS: BP 151/73; PULSE 94; TEMP 97
[2018-07-28] MEDS: GABAPENTIN 100 MG CAPSULE (FP) PO SCH (06:04)
[2018-07-28 07:48] LABS: BASO % 1.2 % (0-2.0); EOS % 5.9 % (0-4.5); HEMATOCRIT 37.4 % (32.4-45.2); HEMOGLOBIN 11.5 GM/dL (10.7-15.3); LYMPH % 29.9 % (8-40); MCH 27.6 pg (25.7-33.7); MCHC 30.7 g/dl (32.0-36.0); MEAN CELL VOLUME 89.8 fl (80-96); MEAN PLT VOLUME 10.3 fl (7.5-11.1); MONO % 12.2 % (3.8-10.2); NEUT % 50.8 % (42.8-82.8); PLATELET COUNT 192 K/MM3 (134-434); RBC 4.16 M/mm3 (3.60-5.2); RDW 21.1 % (11.6-15.6); WHITE BLOOD COUNT 3.7 K/mm3 (4.0-10.0)
[2018-07-28 08:33] LABS: ALBUMIN 2.6 g/dl (3.4-5.0); ALK PHOS 82 U/L (45-117); ANION GAP 12 MMOL/L (8-16); BILIRUBIN,TOTAL 2.1 mg/dL (0.2-1); BLOOD UREA NITROGEN 24 mg/dL (7-18); CALCIUM 8.5 mg/dL (8.5-10.1); CHLORIDE 111 mmol/L (98-107); CO2 25 mmol/L (21-32); CREATININE 1.2 mg/dL (0.55-1.3); GLUCOSE,RANDOM 80 mg/dL (74-106); POTASSIUM 3.3 mmol/L (3.5-5.1); SGOT/AST 16 U/L (15-37); SGPT/ALT 11 U/L (13-61); SODIUM 148 mmol/L (136-145); TOT PROT 6.1 g/dl (6.4-8.2)
[2018-07-28] MEDS ORDERED: CARVEDILOL 25 MG TABLET (FP) ONE ×2 (10:41→12:43)
[2018-07-28] MEDS ORDERED: CARVEDILOL 12.5 MG TABLET (FP) ONE (10:41)
[2018-07-28] MEDS ORDERED: POTASSIUM CHLORIDE TABS 20 MEQ TABLET.ER (FP) PO ONE (11:01)
[2018-07-28] MEDS ORDERED: FUROSEMIDE 40 MG TABLET (FP) PO ONE (11:34)
[2018-07-28] MEDS ORDERED: QUEtiapine FUMARATE 25 MG TABLET (FP) PO SCH (11:45)
[2018-07-28] MEDS ORDERED: APIXABAN 5 MG TABLET PO SCH ×2 (12:08→12:15)
--- NOTE | 2018-07-28 12:08 | DS ---
Physical Examination Vital Signs: Vital Signs Temperature 97 F L 07/28/18 06:03 Pulse Rate 94 H 07/28/18 06:03 Respiratory Rate 22 H 07/28/18 06:03 Blood Pressure 151/73 07/28/18 06:03 O2 Sat by Pulse Oximetry (%) 96 07/28/18 08:25 Constitutional: Yes: No Distress, Calm Cardiovascular: Yes: Pulse Irregular Respiratory: Yes: Diminished Gastrointestinal: Yes: Normal Bowel Sounds, Soft. No: Tenderness Edema: No Labs: CBC, BMP 07/28/18 05:30 07/28/18 05:30 Discharge Summary Reason For Visit: NSTEMI MYOCARDIAL INFARCTION, ACUTE ON CHRONIC CON Current Active Problems Acute exacerbation of CHF (congestive heart failure) (Acute) NSTEMI (non-ST elevated myocardial infarction) (Acute) Hospital Course: Admitted for CHF decompensation , NSTEMI Rapid Afib Seen by Cardiology non compliant with meds due to dementia Pt better after iv lasix and Eliquis As per Cardiology -- will need outpt follow up with Private business support with regards to CAD For now continue with Eliquis stable for dc to NH - Instructions Diet, Activity, Other Instructions: follow up with outpt private cardiology Referrals: Elizabeth Hooper MD [Primary Care Provider] - Disposition: INTERMEDIATE FACILITY - Home Medications Comprehensive Discharge Medication List: Ambulatory Orders Apixaban [Eliquis] 5 mg PO BID 01/21/18 Cholecalciferol (Vitamin D3) [Vitamin D3 -] 1,000 unit PO DAILY 01/21/18 Gabapentin [Neurontin] 100 mg PO TID 01/21/18 Lisinopril 5 mg PO DAILY 01/21/18 Mirtazapine 7.5 mg PO HS 01/21/18 Ranitidine [Zantac -] 150 mg PO HS 01/21/18 Rosuvastatin [Crestor -] 20 mg PO HS 01/21/18 Aspirin [ASA -] 81 mg PO DAILY #30 tab.chew 01/29/18 Carvedilol [Coreg -] 37.5 mg PO BID #120 tablet 01/29/18
[2018-07-28] MEDS: CARVEDILOL 25 MG, CARVEDILOL 12.5 MG PO SCH (12:09)
[2018-07-28] MEDS: LISINOPRIL 5 MG TABLET (FP) PO SCH (12:09)
[2018-07-28] MEDS: APIXABAN 5 MG TABLET PO SCH (12:09)
[2018-07-28] MEDS: ASPIRIN 81 MG CHEWABLE TABLETS PO SCH (12:09)
[2018-07-28] MEDS: CHOLECALCIFEROL (VITAMIN D3) 1,000 UNIT TABLET (FP) PO SCH (12:09)
[2018-07-28 13:06] LABS: ANISOCYTOSIS 1+; MACROCYTOSIS 1+
--- NOTE | 2018-07-28 17:12 | ECHO ---
Name: DONYA MARTINEZ Exam:Adult Echocardiogram Study Date: 07/28/2018 08:01 AM Age: 77 yrs Reason For Study: CHF Height: 54 in Weight: 176 lb BSA: 1.6 m2 MMode/2D Measurements & Calculations IVSd: 0.86 cm Ao root diam: 2.9 cm LVIDd: 5.3 cm LA dimension: 4.5 cm LVIDs: 3.9 cm LVPWd: 0.98 cm EDV(Teich): 133.4 ml LAV (MOD-bp): 136.0 ml ESV(Teich): 65.8 ml Doppler Measurements & Calculations MV E max dagmar: 118.0 cm/sec AI P1/2t: 599.8 msec MV dec time: 0.13 sec AI max dagmar: 224.0 cm/sec MR max dagmar: 572.6 cm/sec AI max P.1 mmHg MR max P.6 mmHg AI dec slope: 109.4 cm/sec2 TR max dagmar: 297.5 cm/sec Med Peak E' Dagmar: 6.9 cm/sec TR max P.4 mmHg Med E/e': 17.2 Lat Peak E' Dagmar: 7.7 cm/sec Lat E/e': 15.3 PI Vmax: 172.4 cm/sec Procedure A two-dimensional transthoracic echocardiogram with color flow and Doppler was performed. The patient was in atrial fibrillation with controlled ventricular rate during the exam. Left Ventricle The left ventricle is mildly dilated. Left ventricular systolic function is severely reduced. Ejectio n Fraction = 25-30%. There is severe global hypokinesis of the left ventricle. Right Ventricle The right ventricle is mildly dilated. The right ventricular systolic function is mildly reduced. Atria The left atrium is severely dilated. The right atrium is severely dilated. Mitral Valve There is moderate mitral annular calcification. There is severe mitral regurgitation. Tricuspid Valve The tricuspid valve is normal. There is severe tricuspid regurgitation. Right ventricular systolic pr essure is elevated at 40-50mmHg. There is moderate pulmonary hypertension. Aortic Valve There is moderate aortic sclerosis.;. The aortic valve is trileaflet. No aortic regurgitation is pres ent. Pulmonic Valve The pulmonic valve leaflets are thin and pliable; valve motion is normal. Mild pulmonic valvular regurgitation. Great Vessels The aortic root is normal size. Pericardium/Pleura Trivial pericardial effusion not hemodynamically significant. Interpretation Summary The left ventricle is mildly dilated. Left ventricular systolic function is severely reduced. There is severe global hypokinesis of the left ventricle. The right ventricle is mildly dilated. The right ventricular systolic function is mildly reduced. The left atrium is severely dilated. The right atrium is severely dilated. There is moderate mitral annular calcification. There is severe mitral regurgitation. There is severe tricuspid regurgitation. Right ventricular systolic pressure is elevated at 40-50mmHg. There is moderate pulmonary hypertension. There is moderate aortic sclerosis.; Mild pulmonic valvular regurgitation. Trivial pericardial effusion not hemodynamically significant MD Inocente Huynh 07/28/2018 05:11 PM
== END 2018-07-28 14:33 | DRG 280 ==
LOC: JER 17:40 → JERBED 21:42 → J4W 07-25 03:13
PROVIDERS: ADMIT Internal Medicine; ATTEND Internal Medicine
DX: I21.4 Non-ST elevation (NSTEMI) myocardial infarction (principal); I50.23 Acute on chronic systolic (congestive) heart failure; I31.3 Pericardial effusion (noninflammatory); E78.5 Hyperlipidemia, unspecified; F03.90 Unspecified dementia, unspecified severity, without behavioral disturbance, psychotic disturbance, mood disturbance, and anxiety; K21.9 Gastro-esophageal reflux disease without esophagitis; M19.90 Unspecified osteoarthritis, unspecified site; F32.9 Major depressive disorder, single episode, unspecified; I25.10 Atherosclerotic heart disease of native coronary artery without angina pectoris; I48.2 Chronic atrial fibrillation; G62.9 Polyneuropathy, unspecified; I11.0 Hypertensive heart disease with heart failure
CPT/HCPCS: 36415; 71045-TC-FY; 76705-TC; 80053; 82150; 82550; 82962; 83690; 83735; 83880; 84100; 84443; 84484; 85025; 93005; 93010; 93306-TC; 99282-25

== ENCOUNTER 2018-12-19 14:44 | Inpatient (IN) | payer OTHER ==
[2018-12-19] MEDS ORDERED: dilTIAZem HCL 50 MG/10 ML - 10 ML VIAL IVPUSH ONE ×2 (15:36→15:37)
[2018-12-19] MEDS ORDERED: dilTIAZem HCL 50 MG/10 ML - 10 ML VIAL ONE (15:39)
--- NOTE | 2018-12-19 15:41 | PDOC ---
History of Present Illness - General Chief Complaint: Chest Pain Stated Complaint: CHEST PAIN Time Seen by Provider: 12/19/18 14:56 History Source: EMS, Skilled Nursing Records Exam Limitations: Dementia - History of Present Illness Initial Comments: 12/19/18 15:40 78 y/o female with PMH of afib (on eliquis), HTN, HLD, CAD presents to the ED with complaints of shortness of breath and chest pain. As per EMS and the care home, patient had been refusing to take her blood pressure medications the past 6 months. . As per patient (though she had dementia at baseline), patient states that she has been having chest pains for the past week and also trouble breathing. She claims that she does not take any medications. She denies having any nausea/vomiting/fevers or chills no blurred vision . She states that sh does not live in the care home and that she thinks that she is in [facility]. Her usual mental status according to the [place] is alert, but disoriented. The only medications she did take today were her eliquis and her lasix otherwise she did not take her hypertensive medications. 12/19/18 15:41 12/19/18 15:46 Timing/Duration: 1 week Severity: moderate Associated Symptoms: reports: chest pain Past History - Travel Traveled outside of the country in the last 30 days: No Close contact w/someone who was outside of country & ill: No 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 History Allergies/Adverse Reactions: Allergies Allergy/AdvReac Type Severity Reaction Status Date / Time No Known Allergies Allergy Verified 12/19/18 15:11 Home Medications: Ambulatory Orders Apixaban [Eliquis] 5 mg PO BID 01/21/18 Lisinopril 5 mg PO DAILY 01/21/18 Mirtazapine 7.5 mg PO HS 01/21/18 Rosuvastatin [Crestor -] 20 mg PO HS 01/21/18 Potassium Chloride 20 meq PO DAILY #30 tablet.er 07/28/18 Carvedilol [Coreg -] 37.5 mg PO BID 12/19/18 Famotidine 20 mg PO DAILY 12/19/18 Furosemide [Lasix] 40 mg PO DAILY 12/19/18 Gabapentin 200 mg PO DAILY 12/19/18 Multivitamins [Tab-A-Vit -] 1 tab PO DAILY 12/19/18 Sennosides [Senna] 2 tab PO HS 12/19/18 Cardiac Disorders: Yes (A-FIB) COPD: No Dementia: Yes (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) GI Disorders: Yes (GERD) Disorders: Yes (INCONTINENCE) HTN: Yes Hypercholesterolemia: Yes Psychiatric Problems: Yes (DEPRESSION) - Family Disease History Comment:: 12/19/18 15:50 unable to obtain - Immunization History Immunization Up to Date: Yes - Suicide/Smoking/Psychosocial Hx Smoking History: Unknown if ever smoked Have you smoked in the past 12 months: No Information on smoking cessation initiated: No Hx Alcohol Use: No Drug/Substance Use Hx: No Substance Use Type: None Hx Substance Use Treatment: No Review of Systems - Review of Systems Able to Perform ROS?: No (not fully given dementia) Respiratory: Yes: Shortness of Breath Cardiac (ROS): Yes: Chest Pain ABD/GI: Yes: Other (abdominal pain) *Physical Exam - Vital Signs Last Vital Signs Temp Pulse Resp BP Pulse Ox 97.2 F L 65 16 120/90 100 12/19/18 14:45 12/19/18 14:45 12/19/18 14:45 12/19/18 14:45 12/19/18 14:45 - Physical Exam General Appearance: Yes: Mild Distress Neck: positive: Normal Thyroid Respiratory/Chest: positive: Lungs Clear, Normal Breath Sounds Cardiovascular: positive: S1, S2, Edema (B/L 2+ pitting edema), Tachycardia, Irregularly Irregular Gastrointestinal/Abdominal: positive: Tender (slight tenderness upon palpation) , Flat, Soft Musculoskeletal: negative: CVA Tenderness Neurologic: positive: Confused, Disoriented, Other (oriented to self not to time or place ) ED Treatment Course - LABORATORY CBC & Chemistry Diagram: 12/19/18 15:45 12/19/18 15:45 Medical Decision Making - Medical Decision Making 12/19/18 15:52 cbc/cmp/cardiac profile/bnp EKG: afib w/ RVR rate; 142 giving 15mg of diltiazem after dilt: HR in the 80's; BP 100/84 giving baby aspirin CXR admitted 12/19/18 16:03 12/19/18 16:25 12/19/18 17:21 *DC/Admit/Observation/Transfer Diagnosis at time of Disposition: Acute exacerbation of CHF (congestive heart failure), Atrial fibrillation with rapid ventricular response - Discharge Dispostion Decision to Admit order: Yes - Referrals Referrals: Elizabeth Hooper MD [Primary Care Provider] - - Patient Instructions - Post Discharge Activity - Attestations Physician Attestion: 12/19/18 17:22 Ericka Abreu
--- NOTE | 2018-12-19 15:58 | PDOC ---
Documentation entered by Lisseth Zaidi SCRIBE, acting as scribe for Tess Hernandez MD. Tess Hernandez MD: This documentation has been prepared by the alisee, Lisseth Zaidi SCRIBE, under my direction and personally reviewed by me in its entirety. I confirm that the documentation accurately reflects all work, treatment, procedures, and medical decision making performed by me. Attending Attestation - Resident Resident Name: Ericka Abreu - ED Attending Attestation I have performed the following: I have examined & evaluated the patient, The case was reviewed & discussed with the resident, I agree w/resident's findings & plan, Exceptions are as noted - HPI HPI: 12/19/18 15:52 78 yo F with h/o htn hld chf afib, dementia at [facility] sent for complaints of chest pain and sob. per nursing staff the patient is intermittently refusing to take her medications. pt states she has had chest pain x one week. no f/c no n/v no cough. per nursining she did take her meds today including lasix and eloquis, but did not take carvedelol or lisinopril. - Physicial Exam PE: 12/19/18 15:54 awake alert lungs normal effort. no crackles no wheeze, heart irreg tachycardia. no mrg abd soft nt nd. pitting edema. 2+ bilat lower ext. speech clear. - Medical Decision Making 12/19/18 15:54 78 yo F with h/o chf htn dementia hld here with sob, found to be in a-fib with RVR heart rate 150's. and peripheral edema. plan rate control with diltiazem 15 mg good response of heart rate to 87. will ro other causes of sob such as pna, copd effusion. plueral effsuion. will require admission for chf, afib with rvr. also r/o acs. Heart Score/ECG Review #1 Compared to previous ECG there are: Other (afib with rvr rate 142 bpm, low voltage.)
[2018-12-19 16:00] LABS: BASO % 2.4 % (0-2.0); EOS % 2.5 % (0-4.5); HEMATOCRIT 36.9 % (32.4-45.2); LYMPH % 21.1 % (8-40); MCH 30.4 pg (25.7-33.7); MCHC 32.4 g/dl (32.0-36.0); MEAN CELL VOLUME 93.8 fl (80-96); MEAN PLT VOLUME 10.9 fl (7.5-11.1); MONO % 15.7 % (3.8-10.2); NEUT % 58.3 % (42.8-82.8); PLATELET COUNT 224 K/MM3 (134-434); RBC 3.93 M/mm3 (3.60-5.2); RDW 18.4 % (11.6-15.6); WHITE BLOOD COUNT 3.5 K/mm3 (4.0-10.0)
[2018-12-19] MEDS ORDERED: ASPIRIN 81 MG CHEWABLE TABLETS PO ONE (16:00)
[2018-12-19] MEDS ORDERED: ASPIRIN 81 MG CHEWABLE TABLETS ONE (16:16)
[2018-12-19 16:39] LABS: ALBUMIN 3.2 g/dl (3.4-5.0); ALK PHOS 86 U/L (45-117); ANION GAP 10 MMOL/L (8-16); BILIRUBIN,TOTAL 3.8 mg/dL (0.2-1); BLOOD UREA NITROGEN 33 mg/dL (7-18); CALCIUM 9.3 mg/dL (8.5-10.1); CHLORIDE 110 mmol/L (98-107); CO2 24 mmol/L (21-32); CREATININE 1.7 mg/dL (0.55-1.3); GLUCOSE,RANDOM 109 mg/dL (74-106); POTASSIUM 4.3 mmol/L (3.5-5.1); SGOT/AST 10 U/L (15-37); SGPT/ALT 7 U/L (13-61); SODIUM 144 mmol/L (136-145)
[2018-12-19 17:01] LABS: INR 1.53 (0.83-1.09); PROTHROMBIN TIME (PATIENT) 18.1 SEC (9.7-13.0)
[2018-12-19] MEDS ORDERED: FUROSEMIDE 40 MG/4 ML INJECTABLE VIAL IVPUSH ONE (17:31)
--- NOTE | 2018-12-19 17:35 | HP ---
Admitting History and Physical - Primary Care Physician PCP: Elizabeth Hooper - Admission Chief Complaint: Shortness of breath History of Present Illness: 78 year old F with h/o HTN, HLD, Afib (on Eliquis), OA, GERD, depression, dementia, chronic Pain presents to ED for evaluation of chest pain and dyspnea x 6days. Patient is a poor historian and history is obtained from records/notes sent from ID. As per ID records, pt has been intermittently refusing her meds over the last 6months; when hospitalist [employer] inquired of patient why she refuses- she states "it 's too many pills at one time." Pt reports she has been having trouble breathing since Friday, 12/14; she denies chest pain, nausea/vomiting/fevers, diarrhea, chills.. Pt had routine labs done at [facility] on 11/25: BNP 1092, BUN/Cr 26/1.2, EGFR 52, Tbili 2.20, WBC 3.0, H/H 11/29.7. In ED: Pt noted to be in Afib w/RVR, HR 142bpm. Cardizem 15mg IVP administered with HR declining to 87bpm Vitals: HR 143bpm, BP 114/96, RR 26, O2 sat 96%. AB.43/37.3/119/24.7/98.3 Lasix given for peripheral edema, pulm congestion on CXR and BNP 18,238 decision made to admit for further management of CHF exacerbation. History Source: Medical Record, Transfer Record Limitations to Obtaining History: Dementia 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 History [place]: Yes: Dementia, Peripheral Neuropathy Cardiovascular: Yes: AFIB, CHF, HTN, Hyperlipdemia Gastrointestinal: Yes: GERD Renal/: Yes: Renal Inusuff Reproductive: Yes: Postmenopausal Psych: Yes: Depression - Past Surgical History Past Surgical History: Yes: None - Advance Directives Advance Directives: Yes: DNR, MOLST - Smoking History Smoking history: Unknown if ever smoked Have you smoked in the past 12 months: No - Alcohol/Substance Use Hx Alcohol Use: No History of Substance Use: reports: None - Social History Usual Living Arrangement: Yes: Intermediate ADL: Support Services History of Recent Travel: No Home Medications - Allergies Allergies/Adverse Reactions: Allergies Allergy/AdvReac Type Severity Reaction Status Date / Time No Known Allergies Allergy Verified 12/19/18 15:11 - Home Medications Home Medications: Ambulatory Orders Apixaban [Eliquis] 5 mg PO BID 01/21/18 Lisinopril 5 mg PO DAILY 01/21/18 Mirtazapine 7.5 mg PO HS 01/21/18 Rosuvastatin [Crestor -] 20 mg PO HS 01/21/18 Potassium Chloride 20 meq PO DAILY #30 tablet.er 07/28/18 Carvedilol [Coreg -] 37.5 mg PO BID 12/19/18 Famotidine 20 mg PO DAILY 12/19/18 Furosemide [Lasix] 40 mg PO DAILY 12/19/18 Gabapentin 200 mg PO DAILY 12/19/18 Multivitamins [Tab-A-Vit -] 1 tab PO DAILY 12/19/18 Sennosides [Senna] 2 tab PO HS 12/19/18 Family Disease History - Family Disease History Family History: Unable to Obtain Review of Systems - Review of Systems Constitutional: reports: No Symptoms Eyes: reports: No Symptoms HENT: reports: No Symptoms Neck: reports: No Symptoms Cardiovascular: reports: Edema, Shortness of Breath Respiratory: reports: SOB Gastrointestinal: reports: No Symptoms Genitourinary: reports: No Symptoms Breasts: reports: No Symptoms Reported Musculoskeletal: reports: No Symptoms Integumentary: reports: No Symptoms Neurological: reports: No Symptoms Endocrine: reports: No Symptoms Hematology/Lymphatic: reports: No Symptoms Psychiatric: reports: Depression Physical Examination Vital Signs: Vital Signs Temperature 97.2 F L 12/19/18 14:45 Pulse Rate 92 H 12/19/18 17:27 Respiratory Rate 24 H 12/19/18 17:27 Blood Pressure 112/84 12/19/18 17:27 O2 Sat by Pulse Oximetry (%) 98 12/19/18 17:27 Constitutional: Yes: Well Nourished, No Distress, Calm Eyes: Yes: Conjunctiva Clear, PERRL HENT: Yes: Atraumatic, Normocephalic Neck: Yes: Supple, Trachea Midline Cardiovascular: Yes: Pulse Irregular Respiratory: Yes: Regular, CTA Bilaterally, Diminished (at bases), On Nasal O2 Gastrointestinal: Yes: Normal Bowel Sounds, Soft, Abdomen, Obese ...Rectal Exam: Yes: Deferred Musculoskeletal: Yes: Muscle Weakness Extremities: Yes: Other (venous stasis changes) Edema: Yes Edema: LLE: 3+ (pitting), RLE: 3+ (pitting) Peripheral Pulses WNL: Yes Peripheral Pulses: Left Radial: 2+, Right Radial: 2+, Left Doralis Pedis: 1+, Right Dorsalis Pedis: 1+ Integumentary: Yes: Venous Stasis Changes Neurological: Yes: Alert, Confusion, Weakness ...Motor Strength: WNL (4/5 strength x 4) Psychiatric: Yes: Alert Labs: CBC, BMP 12/19/18 15:45 12/19/18 15:45 Imaging - Results Chest X-ray: Pending (CXR 12/19/2018) Problem List - Problems (1) Acute exacerbation of CHF (congestive heart failure) Assessment/Plan: Lasix 40mg BID Place [place] for strict intake and output daily weights close monitoring of electrolytes and replete as needed lisinopril 5mg daily Code(s): I50.9 - HEART FAILURE, UNSPECIFIED (2) Atrial fibrillation with rapid ventricular response Assessment/Plan: coreg 37.5mg BID eliquis 5mg BID bleeding precautions continuous tele Code(s): I48.91 - UNSPECIFIED ATRIAL FIBRILLATION (3) Dementia Assessment/Plan: frequent reorientation fall precautions REmeron 7.5mg qhs Code(s): F03.90 - UNSPECIFIED DEMENTIA WITHOUT BEHAVIORAL DISTURBANCE (4) HLD (hyperlipidemia) Assessment/Plan: crestor 20mg qhs cardiac puree diet Code(s): E78.5 - HYPERLIPIDEMIA, UNSPECIFIED (5) HTN (hypertension) Assessment/Plan: continue ACEi, BB and lasix Code(s): I10 - ESSENTIAL (PRIMARY) HYPERTENSION (6) Prophylactic measure Assessment/Plan: turn and position q2hrs bowel regimen with senna and colace MOLST form in chart DNR/DNI Code(s): Z29.9 - ENCOUNTER FOR PROPHYLACTIC MEASURES, UNSPECIFIED Assessment/Plan DISPO: d/c to [facility] when pt euvolemic Visit type - Emergency Visit Emergency Visit: Yes ED Registration Date: 12/19/18 Care time: The patient presented to the Emergency Department on the above date and was hospitalized for further evaluation of their emergent condition. - New Patient This patient is new to me today: Yes Date on this admission: 12/19/18 - Critical Care Critical Care patient: No
[2018-12-19] MEDS ORDERED: RANITIDINE HCL 150 MG/10 ML UNIT-DOSE PO ONE (17:45)
[2018-12-19] MEDS ORDERED: FUROSEMIDE 40 MG/4 ML INJECTABLE VIAL ONE (18:04)
[2018-12-19 19:23] LABS: ARTERIAL BLD GAS O2 SATURATION 98.3 % (95-98); ARTERIAL BLOOD GAS BASE EXCESS 1.1 meq/l (-2-2); ARTERIAL BLOOD GAS PCO2 37.3 mmHg (35-45); ARTERIAL BLOOD GAS PO2 119 mmHg (80-105); ARTERIAL BLOOD GAS pH 7.43 (7.35-7.45)
[2018-12-19 19:24] LABS: ALLENS TEST POSITIVE
[2018-12-19] MEDS ORDERED: HEPARIN NA (PORCINE) 5,000 UNITS/ML 1ML VIAL SQ SCH (22:00)
[2018-12-20] MEDS: DOCUSATE NA 100 MG/10 ML UNIT-DOSE CUPS PO SCH ×3 (00:10→22:06)
[2018-12-20] MEDS: CARVEDILOL 12.5 MG TABLET (FP) PO SCH ×4 (00:10→21:48)
[2018-12-20] MEDS: SENNOSIDES 8.8 MG/5 ML BULK BOTTLE PO SCH ×2 (00:11→22:06)
[2018-12-20] MEDS: ROSUVASTATIN CA 20 MG TABLET (FP) PO SCH ×2 (00:11→21:49)
[2018-12-20] MEDS: APIXABAN 5 MG TABLET PO SCH ×3 (00:11→21:48)
[2018-12-20] MEDS: MIRTAZAPINE 15 MG TABLET (FP) PO SCH ×2 (00:11→21:49)
[2018-12-20] MEDS ORDERED: FUROSEMIDE 40 MG/4 ML INJECTABLE VIAL ONE ×2 (06:04→13:18)
[2018-12-20] MEDS: FUROSEMIDE 40 MG/4 ML INJECTABLE VIAL IVPUSH SCH ×2 (06:11→14:56)
--- NOTE | 2018-12-20 09:51 | CON.CARD ---
Consult Consult Specialty:: Cardiology Referred by:: Dr. Cuello Reason for Consultation:: Rapid AF, CHF - History of Present Illness Chief Complaint: Shortness of breath, chest pain History of Present Illness: "78 year old F with h/o HTN, HLD, Afib (on Eliquis), OA, GERD, depression, dementia, chronic Pain presents to ED for evaluation of chest pain and dyspnea x 6days. Patient is a poor historian and history is obtained from records/notes sent from [place]. As per [place] records, pt has been intermittently refusing her meds over the last 6months; when hospitalist [facility] inquired of patient why she refuses- she states "it 's too many pills at one time." Pt reports she has been having trouble breathing since Friday, 12/14; she denies chest pain, nausea/vomiting/fevers, diarrhea, chills.. Pt had routine labs done at [facility] on 11/25: BNP 1092, BUN/Cr 26/1.2, EGFR 52, Tbili 2.20, WBC 3.0, H/H /29.7. In ED: Pt noted to be in Afib w/RVR, HR 142bpm. Cardizem 15mg IVP administered with HR declining to 87bpm" Above HPI reviewed from EMR. Patient is a poor historian: able to tell me her abdomen and chest felt "full" and that she felt heart "beating very fast." 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 History [employer] WORK[employer]: Yes: Dementia, Peripheral Neuropathy Cardio/Vascular: Yes: AFIB, CHF, HTN, Hyperlipdemia Gastrointestinal: Yes: GERD Renal/: Yes: Renal Inusuff Psych: Yes: Depression - Past Surgical History Past Surgical History: Yes: None - Alcohol/Substance Use Hx Alcohol Use: No History of Substance Use: reports: None - Smoking History Smoking history: Unknown if ever smoked Have you smoked in the past 12 months: No - Social History Usual Living Arrangement: With Child ADL: Support Services History of Recent Travel: No Home Medications - Allergies Allergies/Adverse Reactions: Allergies Allergy/AdvReac Type Severity Reaction Status Date / Time No Known Allergies Allergy Verified 12/19/18 15:11 - Home Medications Home Medications: Ambulatory Orders Apixaban [Eliquis] 5 mg PO BID 01/21/18 Lisinopril 5 mg PO DAILY 01/21/18 Mirtazapine 7.5 mg PO HS 01/21/18 Rosuvastatin [Crestor -] 20 mg PO HS 01/21/18 Potassium Chloride 20 meq PO DAILY #30 tablet.er 07/28/18 Carvedilol [Coreg -] 37.5 mg PO BID 12/19/18 Famotidine 20 mg PO DAILY 12/19/18 Furosemide [Lasix] 40 mg PO DAILY 12/19/18 Gabapentin 200 mg PO DAILY 12/19/18 Multivitamins [Tab-A-Vit -] 1 tab PO DAILY 12/19/18 Sennosides [Senna] 2 tab PO HS 12/19/18 Family Disease History - Family Disease History Family History: Unremarkable (not pertinent to this presentation) Review of Systems Findings/Remarks: see HPI - Review of Systems Constitutional: reports: Weakness Cardiovascular: reports: Chest Pain, Palpitations, Shortness of Breath Respiratory: reports: SOB Gastrointestinal: reports: Abdominal Pain Breasts: denies: No Symptoms Reported, See HPI, Breast Implants, Discharge from Nipple, Lumps, Pain, Skin Changes, Other Musculoskeletal: denies: No Symptoms, Back Pain, Crepitus, Decreased ROM, Extremity Pain, Joint Pain, Joint Swelling, Muscle Pain, Muscle Cramps, Muscle Weakness, Other Integumentary: denies: No Symptoms, Blister, Bruising, Change in Color, Eczema, Erythema, Incision, Lesions, Lump, Pallor, Pruritis, Rash, Wound, Other Neurological: denies: No Symptoms, Change in LOC, Change in Speech, Confusion, Dizziness, Headache, Incoordination, Numbness, Parasthesia, Pre-Existing Deficit , Seizure, Syncope, Tremors, Unsteady Gait, Weakness, Other Endocrine: denies: No Symptoms, Excessive Sweating, Flushing, Increased Hunger, Increased Thirst, Intolerance to Cold, Intolerance to Heat, Unexplained Weight Gain, Unexplained Weight Loss, Other Hematology/Lymphatic: denies: No Symptoms, Easily Bruised, Excessive Bleeding, Swollen Glands, Other Psychiatric: denies: No Symptoms, Altered Sleep Pattern, Anxiety, Depression, Hallucinations, Panic, Paranoia, Suicidal, Other - Risk Factors Known Risk Factors: Yes: Hypercholesterolemia, Hypertension Vital Signs: Vital Signs Temperature 97.9 F 12/20/18 07:11 Pulse Rate 67 12/20/18 07:11 Respiratory Rate 16 12/20/18 07:11 Blood Pressure 96/67 12/20/18 07:11 O2 Sat by Pulse Oximetry (%) 96 12/20/18 07:11 Constitutional: Yes: No Distress, Calm Eyes: Yes: Conjunctiva Clear Respiratory: Yes: Other (No wheezing. Decreased basilar breath sounds) Gastrointestinal: Yes: Soft, Abdomen, Obese Cardiovascular: Yes: Pulse Irregular JVD: Yes Carotid Bruit: No PMI: Non-Displaced Heart Sounds: Yes: S1, S2 (irregular) Edema: Yes Edema: LLE: 3+, RLE: 3+ Peripheral Pulses WNL: Yes Neurological: Yes: Confusion - Other Data Labs, Other Data: CBC, BMP 12/19/18 15:45 12/19/18 15:45 INR, PTT INR 1.53 (0.83-1.09) H 12/19/18 15:45 Troponin, BNP 12/19/18 12/19/18 15:45 15:45 Troponin I 0.08 H B-Natriuretic Peptide 40973.5 H Troponin, BNP 12/19/18 12/19/18 15:45 15:45 Troponin I 0.08 H B-Natriuretic Peptide 87089.5 H Laboratory Tests 12/19/18 12/19/18 12/19/18 15:45 15:45 15:45 WBC 3.5 L Hgb 12.0 Hct 36.9 Plt Count 224 INR ABG pH ABG pCO2 at Pt Temp ABG pO2 at Pt Temp Sodium 144 Potassium 4.3 BUN 33 H Creatinine 1.7 H Creatine Kinase 29 Troponin I 0.08 H B-Natriuretic Peptide 22783.5 H 12/19/18 12/19/18 15:45 19:20 WBC Hgb Hct Plt Count INR 1.53 H ABG pH 7.43 ABG pCO2 at Pt Temp 37.3 ABG pO2 at Pt Temp 119 H Sodium Potassium BUN Creatinine Creatine Kinase Troponin I B-Natriuretic Peptide Rapid atrial fibrillation, low voltage, cannot r/o old anteroseptal NE Echo: Report Reviewed, Other (July 2018: Severe LV dysfx, Mild RV dysfx, severe MR, Severe PHTN) Ejection Fraction %: LVEF < 40 % Imaging - Results Chest X-ray: Image Reviewed (Cardiomegaly) EKG: Image Reviewed Problem List - Problems (1) Acute exacerbation of CHF (congestive heart failure) Code(s): I50.9 - HEART FAILURE, UNSPECIFIED (2) Pulmonary HTN Code(s): I27.20 - PULMONARY HYPERTENSION, UNSPECIFIED (3) Atrial fibrillation with rapid ventricular response Code(s): I48.91 - UNSPECIFIED ATRIAL FIBRILLATION (4) Mitral regurgitation Code(s): I34.0 - NONRHEUMATIC MITRAL (VALVE) INSUFFICIENCY (5) Dementia Code(s): F03.90 - UNSPECIFIED DEMENTIA WITHOUT BEHAVIORAL DISTURBANCE Qualifiers: Dementia type: unspecified type Assessment/Plan IMP: 1. Acute on chronic systolic CHF, possibly due to med non-adherence 2. Severe MR 3. Moderate to severe chronic PHTN 4. AF w/ RVR 5. Dementia REC: 1. IV Lasix with daily weights and daily BMP to follow renal fx 2. Continue home TEENA-I and Coreg. May need to hold or reduce TEENA dose to allow for diuresis. 3. Recent echo reviewed: severe chronic LV dysfx, severe MR. ?etiology of LV dysfx? ?Ischemic. Would need to review any outside records of prior ischemic evaluations. 4. Continue Eliquis, [id number] score is elevated. 5. Holter to assess average heart rate, may need additional/optimized rate control. 6. Advanced Directive: DNR/DNI
[2018-12-20] MEDS: GABAPENTIN 100 MG CAPSULE (FP) PO SCH ×2 (09:56→16:57)
[2018-12-20] MEDS: MULTIVITAMINS (DAILY MVI) TABLET (FP) PO SCH (09:57)
[2018-12-20] MEDS: LISINOPRIL 5 MG TABLET (FP) PO SCH ×2 (09:57→16:57)
[2018-12-20] MEDS ORDERED: ASPIRIN COATED 81 MG TABLET.EC PO SCH (10:00)
[2018-12-20 10:21] LABS: HEMATOCRIT 38.7 % (32.4-45.2); HEMOGLOBIN 12.3 GM/dL (10.7-15.3); MCH 30.1 pg (25.7-33.7); MCHC 31.9 g/dl (32.0-36.0); MEAN CELL VOLUME 94.4 fl (80-96); MEAN PLT VOLUME 10.9 fl (7.5-11.1); PLATELET COUNT 219 K/MM3 (134-434); RDW 18.8 % (11.6-15.6); WHITE BLOOD COUNT 4.5 K/mm3 (4.0-10.0)
[2018-12-20 10:35] LABS: INR 1.5 (0.83-1.09); PROTHROMBIN TIME (PATIENT) 17.8 SEC (9.7-13.0)
[2018-12-20 10:37] LABS: ACTIVATED PTT 32.8 SECONDS (25.2-36.5)
[2018-12-20 10:53] LABS: ALBUMIN 3.2 g/dl (3.4-5.0); ALK PHOS 89 U/L (45-117); ANION GAP 10 MMOL/L (8-16); BILIRUBIN,TOTAL 3.9 mg/dL (0.2-1); BLOOD UREA NITROGEN 35 mg/dL (7-18); CALCIUM 9.4 mg/dL (8.5-10.1); CHLORIDE 108 mmol/L (98-107); CO2 27 mmol/L (21-32); CREATININE 1.8 mg/dL (0.55-1.3); GLUCOSE,RANDOM 84 mg/dL (74-106); MAGNESIUM 2.5 mg/dL (1.8-2.4); POTASSIUM 5.1 mmol/L (3.5-5.1); SGOT/AST 15 U/L (15-37); SGPT/ALT 8 U/L (13-61); SODIUM 145 mmol/L (136-145); TOT PROT 7.2 g/dl (6.4-8.2)
--- NOTE | 2018-12-20 10:59 | PN ---
Progress Note (short form) - Note Progress Note: agitated wants to go to sleep no chest pain no sob spoke with PMD- Dr Rowe-- was sent for CHF exacerbation-- she is non compliant with meds Vital Signs - 24 hr 12/19/18 12/19/18 12/20/18 19:23 23:00 07:11 Temperature 97.9 F Pulse Rate [ 108 H 67 Apical] Respiratory 22 H 22 H 16 Rate Blood Pressure 110/81 96/67 [Left Arm] O2 Sat by Pulse 98 98 96 Oximetry (%) 12/20/18 10:00 Temperature Pulse Rate [ 112 H Apical] Respiratory 16 Rate Blood Pressure 107/72 [Left Arm] O2 Sat by Pulse 100 Oximetry (%) Current Medications Generic Name Dose Route Start Last Admin Trade Name Freq PRN Reason Stop Dose Admin Apixaban 5 mg 12/19/18 22:00 12/20/18 09:56 Eliquis - PO Not Given BID REJI Carvedilol 37.5 mg 12/19/18 22:00 12/20/18 16:57 Coreg - PO 37.5 mg BID REJI Administration Docusate Sodium 100 mg 12/19/18 22:00 12/20/18 09:56 Colace Liquid - PO Not Given BID REJI Furosemide 40 mg 12/20/18 06:00 12/20/18 14:56 Lasix Injection - IVPUSH 40 mg BIDLASIX REJI Administration Gabapentin 200 mg 12/20/18 10:00 12/20/18 16:57 Neurontin - PO 200 mg DAILY REJI Administration Lisinopril 5 mg 12/20/18 10:00 12/20/18 16:57 Prinivil PO 5 mg DAILY REJI Administration Lorazepam 1 mg 12/20/18 17:54 Ativan Injection - IVPUSH Q6H PRN ANXIETY Mirtazapine 7.5 mg 12/19/18 22:00 12/20/18 00:11 Remeron - PO Not Given HS REJI Multivitamins/Minerals/Vitamin C 1 tab 12/20/18 10:00 12/20/18 09:57 Tab-A-Vit - PO Not Given DAILY REJI Rosuvastatin Calcium 20 mg 12/19/18 22:00 12/20/18 00:11 Crestor - PO Not Given HS REJI Senna 8.8 mg 12/19/18 22:00 12/20/18 00:11 Senna Oral Solution - PO Not Given HS [facility] Laboratory Results - last 24 hr 12/19/18 12/20/18 12/20/18 19:20 10:00 10:00 WBC 4.5 RBC 4.10 Hgb 12.3 Hct 38.7 MCV 94.4 MCH 30.1 MCHC 31.9 L RDW 18.8 H Plt Count 219 MPV 10.9 PT with INR 17.80 H INR 1.50 H PTT (Actin FS) 32.8 Puncture Site Right brachial ABG pH 7.43 ABG pCO2 at Pt Temp 37.3 ABG pO2 at Pt Temp 119 H ABG HCO3 24.7 ABG O2 Sat (Measured) 98.3 H ABG O2 Content No Result Required. ABG Base Excess 1.1 Tyron Test Positive Oxygen Flow Rate Yes Sodium Potassium Chloride Carbon Dioxide Anion Gap BUN Creatinine Creat Clearance w eGFR Random Glucose Hemoglobin A1c % Calcium Phosphorus Magnesium Total Bilirubin AST ALT Alkaline Phosphatase Creatine Kinase Troponin I Total Protein Albumin TSH 12/20/18 12/20/18 10:00 10:00 WBC RBC Hgb Hct MCV MCH MCHC RDW Plt Count MPV PT with INR INR PTT (Actin FS) Puncture Site ABG pH ABG pCO2 at Pt Temp ABG pO2 at Pt Temp ABG HCO3 ABG O2 Sat (Measured) ABG O2 Content ABG Base Excess Tyron Test Oxygen Flow Rate Sodium 145 Potassium 5.1 Chloride 108 H Carbon Dioxide 27 Anion Gap 10 BUN 35 H Creatinine 1.8 H Creat Clearance w eGFR 27.07 Random Glucose 84 Hemoglobin A1c % 5.9 Calcium 9.4 Phosphorus 4.0 Magnesium 2.5 H Total Bilirubin 3.9 H AST 15 ALT 8 L Alkaline Phosphatase 89 Creatine Kinase 36 Troponin I 0.08 H Total Protein 7.2 Albumin 3.2 L TSH 2.03 S1 S2 Irregular Lungs decreased Abd- soft, NT, obese Edema++ PLAN rapid Afib CHF-- acute on chronic dementia HTN CKD 3 -- continue with Lasix BID-- monitor renal function-- baseline creatinine around 1.5 -- Ativan prn for agitation -- continue with meds -- rate controlled with Coreg Problem List - Problems (1) Acute exacerbation of CHF (congestive heart failure) Code(s): I50.9 - HEART FAILURE, UNSPECIFIED (2) Atrial fibrillation with rapid ventricular response Code(s): I48.91 - UNSPECIFIED ATRIAL FIBRILLATION (3) Pulmonary HTN Code(s): I27.20 - PULMONARY HYPERTENSION, UNSPECIFIED (4) A-fib Code(s): I48.91 - UNSPECIFIED ATRIAL FIBRILLATION Qualifiers: Atrial fibrillation type: chronic Qualified Code(s): I48.2 - Chronic atrial fibrillation (5) CHF (congestive heart failure) Code(s): I50.9 - HEART FAILURE, UNSPECIFIED Qualifiers: Heart failure type: systolic Heart failure chronicity: acute on chronic Qualified Code(s): I50.23 - Acute on chronic systolic (congestive) heart failure (6) Chest pain Code(s): R07.9 - CHEST PAIN, UNSPECIFIED (7) Dementia Code(s): F03.90 - UNSPECIFIED DEMENTIA WITHOUT BEHAVIORAL DISTURBANCE Qualifiers: Dementia type: unspecified type (8) HLD (hyperlipidemia) Code(s): E78.5 - HYPERLIPIDEMIA, UNSPECIFIED (9) HTN (hypertension) Code(s): I10 - ESSENTIAL (PRIMARY) HYPERTENSION
--- NOTE | 2018-12-20 15:29 | EKG ---
Test Reason : Blood Pressure : / mmHG Vent. Rate : 142 BPM Atrial Rate : 156 BPM P-R Int : 000 ms QRS Dur : 064 ms QT Int : 258 ms P-R-T Axes : 000 039 146 degrees QTc Int : 396 ms ATRIAL FIBRILLATION WITH RAPID VENTRICULAR RESPONSE WITH PREMATURE VENTRICULAR OR ABERRANTLY CONDUCTED COMPLEXES LOW VOLTAGE QRS POSSIBLE ANTEROLATERAL INFARCT (CITED ON OR BEFORE 21-JAN-2018) ABNORMAL ECG WHEN COMPARED WITH ECG OF 24-JUL-2018 18:29, PVC NOW SEEN Confirmed by EDEL ALMANZA MD ([id number]) on 12/20/2018 3:29:42 PM Referred By: Confirmed By:EDEL ALMANZA MD
[2018-12-21] MEDS: FUROSEMIDE 40 MG/4 ML INJECTABLE VIAL IVPUSH SCH ×2 (05:51→14:16)
[2018-12-21 08:53] LABS: ANION GAP 10 MMOL/L (8-16); BLOOD UREA NITROGEN 36 mg/dL (7-18); CHLORIDE 109 mmol/L (98-107); CO2 25 mmol/L (21-32); CREATININE 1.8 mg/dL (0.55-1.3); GLUCOSE,RANDOM 76 mg/dL (74-106); N-TERMINAL BNP 16189.7 pg/ml (5-450); POTASSIUM 4.4 mmol/L (3.5-5.1); SODIUM 144 mmol/L (136-145)
--- NOTE | 2018-12-21 09:29 | PN ---
Progress Note, Physician Chief Complaint: not taliking to staff Seems to be purposely squeezing her eyes shut Earlier in AM was shouting at staff and refused echo - Current Medication List Current Medications: Active Medications Apixaban (Eliquis -) 5 mg PO BID [facility] Last Admin: 12/20/18 21:48 Dose: 5 mg Carvedilol (Coreg -) 37.5 mg PO BID [facility] Last Admin: 12/20/18 21:48 Dose: 37.5 mg Docusate Sodium (Colace Liquid -) 100 mg PO BID [facility] Last Admin: 12/20/18 22:06 Dose: Not Given Furosemide (Lasix Injection -) 40 mg IVPUSH BIDLASIX [facility] Last Admin: 12/21/18 05:51 Dose: 40 mg Gabapentin (Neurontin -) 200 mg PO DAILY [facility] Last Admin: 12/20/18 16:57 Dose: 200 mg Lisinopril (Prinivil) 5 mg PO DAILY [facility] Last Admin: 12/20/18 16:57 Dose: 5 mg Lorazepam (Ativan Injection -) 1 mg IVPUSH Q6H PRN PRN Reason: ANXIETY Mirtazapine (Remeron -) 7.5 mg PO HS [facility] Last Admin: 12/20/18 21:49 Dose: 7.5 mg Multivitamins/Minerals/Vitamin C (Tab-A-Vit -) 1 tab PO DAILY [facility] Last Admin: 12/20/18 09:57 Dose: Not Given Rosuvastatin Calcium (Crestor -) 20 mg PO HS [facility] Last Admin: 12/20/18 21:49 Dose: 20 mg Senna (Senna Oral Solution -) 8.8 mg PO [facility] Last Admin: 12/20/18 22:06 Dose: Not Given - Objective Vital Signs: Vital Signs Temperature 97.9 F 12/21/18 05:25 Pulse Rate 96 H 12/21/18 05:25 Respiratory Rate 20 12/21/18 05:25 Blood Pressure 138/70 12/21/18 05:25 O2 Sat by Pulse Oximetry (%) 97 12/20/18 21:00 Cardiovascular: Yes: Pulse Irregular Respiratory: Yes: CTA Bilaterally Gastrointestinal: Yes: Soft Edema: Yes Edema: LLE: 1+, RLE: 1+ Labs: CBC, BMP 12/20/18 10:00 12/21/18 07:55 INR, PTT INR 1.50 (0.83-1.09) H 12/20/18 10:00 Laboratory Tests 12/19/18 12/20/18 12/20/18 15:45 10:00 10:00 WBC 4.5 Hgb 12.3 Plt Count 219 Sodium Potassium BUN Creatinine Troponin I 0.08 H 0.08 H B-Natriuretic Peptide 12/21/18 07:55 WBC Hgb Plt Count Sodium 144 Potassium 4.4 BUN 36 H Creatinine 1.8 H Troponin I B-Natriuretic Peptide 56783.7 H Problem List - Problems (1) Acute exacerbation of CHF (congestive heart failure) Code(s): I50.9 - HEART FAILURE, UNSPECIFIED (2) Pulmonary HTN Code(s): I27.20 - PULMONARY HYPERTENSION, UNSPECIFIED (3) Atrial fibrillation with rapid ventricular response Code(s): I48.91 - UNSPECIFIED ATRIAL FIBRILLATION (4) Mitral regurgitation Code(s): I34.0 - NONRHEUMATIC MITRAL (VALVE) INSUFFICIENCY (5) Dementia Code(s): F03.90 - UNSPECIFIED DEMENTIA WITHOUT BEHAVIORAL DISTURBANCE Qualifiers: Dementia type: unspecified type Assessment/Plan IMP: 1. Acute on chronic systolic CHF, possibly due to med non-adherence 2. Severe MR 3. Moderate to severe chronic PHTN 4. AF w/ RVR 5. Dementia REC: 1. IV Lasix with daily weights and daily BMP to follow renal fx 2. Continue home TEENA-I and Coreg. May need to hold or reduce TEENA dose to allow for diuresis. 3. Recent echo reviewed: severe chronic LV dysfx, severe MR. ?etiology of LV dysfx? ?Ischemic. Would need to review any outside records of prior ischemic evaluations. 4. Continue Eliquis, [id number] score is elevated. 5. Holter to assess average heart rate, may need additional/optimized rate control. 6. Advanced Directive: DNR/DNI
[2018-12-21] MEDS: LORazepam 2 MG/ML SDV VIAL IVPUSH PRN (10:30)
[2018-12-21] MEDS: LISINOPRIL 5 MG TABLET (FP) PO SCH (10:42)
[2018-12-21] MEDS: GABAPENTIN 100 MG CAPSULE (FP) PO SCH (10:42)
[2018-12-21] MEDS: CARVEDILOL 12.5 MG TABLET (FP) PO SCH ×2 (10:42→23:49)
[2018-12-21] MEDS: APIXABAN 5 MG TABLET PO SCH ×2 (10:42→23:49)
[2018-12-21] MEDS: MULTIVITAMINS (DAILY MVI) TABLET (FP) PO SCH (10:42)
[2018-12-21] MEDS: DOCUSATE NA 100 MG/10 ML UNIT-DOSE CUPS PO SCH ×2 (10:42→23:49)
--- NOTE | 2018-12-21 11:53 | PN ---
Progress Note (short form) - Note Progress Note: pt seen/ examined chart reviewed not very cooperative with exam refuses meds denies pain Vital Signs Temp 97.9 F 12/21/18 05:25 Pulse 96 H 12/21/18 05:25 Resp 20 12/21/18 05:25 BP 138/70 12/21/18 05:25 Pulse Ox 97 12/20/18 21:00 Intake & Output 12/20/18 12/20/18 12/21/18 11:59 23:59 11:59 Intake Total 350 Balance 350 Weight 191 lb 3.2 oz Intake: Oral 350 Other: Voiding Method Diaper Incontinent # Unmeasured Voids Void 2 2 Height 4 ft 6 in Weight Measurement Method Patient Lift Scale Active Medications Apixaban (Eliquis -) 5 mg PO BID [facility] Last Admin: 12/21/18 10:42 Dose: Not Given Carvedilol (Coreg -) 37.5 mg PO BID [facility] Last Admin: 12/21/18 10:42 Dose: Not Given Docusate Sodium (Colace Liquid -) 100 mg PO BID [facility] Last Admin: 12/21/18 10:42 Dose: Not Given Furosemide (Lasix Injection -) 40 mg IVPUSH BIDLASIX [facility] Last Admin: 12/21/18 05:51 Dose: 40 mg Gabapentin (Neurontin -) 200 mg PO DAILY [facility] Last Admin: 12/21/18 10:42 Dose: Not Given Lisinopril (Prinivil) 5 mg PO DAILY [facility] Last Admin: 12/21/18 10:42 Dose: Not Given Lorazepam (Ativan Injection -) 1 mg IVPUSH Q6H PRN PRN Reason: ANXIETY Last Admin: 12/21/18 10:30 Dose: 1 mg Mirtazapine (Remeron -) 7.5 mg PO HS [facility] Last Admin: 12/20/18 21:49 Dose: 7.5 mg Multivitamins/Minerals/Vitamin C (Tab-A-Vit -) 1 tab PO DAILY [facility] Last Admin: 12/21/18 10:42 Dose: Not Given Rosuvastatin Calcium (Crestor -) 20 mg PO HS [facility] Last Admin: 12/20/18 21:49 Dose: 20 mg Senna (Senna Oral Solution -) 8.8 mg PO HS [facility] Last Admin: 12/20/18 22:06 Dose: Not Given CBC, BMP 12/20/18 10:00 12/21/18 07:55 Physical Exam S1 S2 Irregular Lungs decreased Abd- soft, NT, obese Edema++ PLAN r Afib CHF-- acute on chronic dementia HTN CKD 3 Compliance issues -- continue with Lasix BID-- monitor renal function-- baseline creatinine around 1.5 -- Ativan prn for agitation -- continue with meds -- rate controlled with Coreg - will consult psych also -- will follow
--- NOTE | 2018-12-21 15:12 | ECHO ---
Name: DONYA MARTINEZ Exam:Adult Echocardiogram Study Date: 12/21/2018 09:16 AM Age: 78 yrs Reason For Study: ATRIAL FIBRILLATION WITH RVR CHF EXACERBATION Height: 54 in Weight: 190 lb BSA: 1.7 m2 MMode/2D Measurements & Calculations IVSd: 0.76 cm Ao root diam: 3.0 cm LVIDd: 5.7 cm LA dimension: 5.4 cm LVIDs: 5.0 cm LVPWd: 0.71 cm EDV(Teich): 160.4 ml LVOT diam: 2.1 cm ESV(Teich): 116.0 ml LAV (MOD-bp): 178.0 ml Doppler Measurements & Calculations MV E max dagmar: 127.3 cm/sec MR max dagmar: 479.2 cm/sec MV A max dagmar: 24.7 cm/sec MR max P.1 mmHg MV E/A: 5.2 MV dec time: 0.18 sec TR max dagmar: 264.4 cm/sec PI end-d dagmar: 142.5 cm/sec TR max P.2 mmHg Med Peak E' Dagmar: 7.3 cm/sec Med E/e': 17.5 Lat Peak E' Dagmar: 24.2 cm/sec Lat E/e': 5.3 Procedure A complete two-dimensional transthoracic echocardiogram was performed (2D, M-mode, Doppler and color flow Doppler). Technically limited study. There was technical limitations during this study due to uncoope rative patient. Left Ventricle The left ventricle is normal in size. Left ventricular systolic function is severely reduced. Ejectio n Fraction = 25-30%. There is severe global hypokinesis of the left ventricle. Right Ventricle The right ventricle is normal size. The right ventricular systolic function is mildly reduced. Atria The left atrium is severely dilated. The right atrium is moderately dilated. Mitral Valve There is mild mitral valve thickening. There is mild mitral annular calcification. There is moderate to severe mitral regurgitation. Tricuspid Valve The tricuspid valve is normal in structure and function. There is moderate to severe tricuspid regurg itation. Pulmonary artery systolic pressure is at least 40 mmHg if RA pressure is assumed 3 mmHg. Aortic Valve There is mild aortic sclerosis.;. Mild aortic regurgitation. Pulmonic Valve The pulmonic valve is not well visualized. Moderate pulmonic valvular regurgitation. Great Vessels The aortic root is normal size. Pericardium/Pleura Small pericardial effusion (<1cm). There is a pleural effusion present. Interpretation Summary Technically limited study There was technical limitations during this study due to uncooperative patient. The left ventricle is normal in size. Left ventricular systolic function is severely reduced. There is severe global hypokinesis of the left ventricle. Ejection Fraction = 25-30%. The right ventricular systolic function is mildly reduced. The left atrium is severely dilated. The right atrium is moderately dilated. There is mild mitral valve thickening. There is mild mitral annular calcification. There is moderate to severe mitral regurgitation. There is moderate to severe tricuspid regurgitation. Pulmonary artery systolic pressure is at least 40 mmHg if RA pressure is assumed 3 mmHg There is mild aortic sclerosis. Mild aortic regurgitation. Moderate pulmonic valvular regurgitation. Small pericardial effusion (<1cm) There is a pleural effusion present. When compared to study dated 07/28/18, likely no significant changes are seen Greyson Adams MD 12/21/2018 03:12 PM
[2018-12-21] MEDS: ROSUVASTATIN CA 20 MG TABLET (FP) PO SCH (23:49)
[2018-12-21] MEDS: SENNOSIDES 8.8 MG/5 ML BULK BOTTLE PO SCH (23:49)
[2018-12-21] MEDS: MIRTAZAPINE 15 MG TABLET (FP) PO SCH (23:49)
[2018-12-22] MEDS: FUROSEMIDE 40 MG/4 ML INJECTABLE VIAL IVPUSH SCH ×2 (06:09→13:25)
[2018-12-22] MEDS: GABAPENTIN 100 MG CAPSULE (FP) PO SCH (09:57)
[2018-12-22] MEDS: CARVEDILOL 12.5 MG TABLET (FP) PO SCH ×2 (09:57→21:41)
[2018-12-22] MEDS: APIXABAN 5 MG TABLET PO SCH ×2 (09:57→21:42)
[2018-12-22] MEDS: DOCUSATE NA 100 MG/10 ML UNIT-DOSE CUPS PO SCH ×2 (09:57→21:41)
[2018-12-22] MEDS: LISINOPRIL 5 MG TABLET (FP) PO SCH (09:58)
[2018-12-22] MEDS: MULTIVITAMINS (DAILY MVI) TABLET (FP) PO SCH (09:58)
--- NOTE | 2018-12-22 12:23 | DS ---
Physical Examination Vital Signs: Vital Signs Temperature 98 F 12/22/18 08:30 Pulse Rate 112 H 12/22/18 08:30 Respiratory Rate 20 12/22/18 08:30 Blood Pressure 108/81 12/22/18 08:30 O2 Sat by Pulse Oximetry (%) 96 12/21/18 21:00 Constitutional: Yes: No Distress, Calm Cardiovascular: Yes: Pulse Irregular Respiratory: Yes: Diminished Gastrointestinal: Yes: Normal Bowel Sounds, Soft. No: Tenderness Edema: Yes (decreased) Labs: CBC, BMP 12/20/18 10:00 12/21/18 07:55 Discharge Summary Reason For Visit: ACUTE ON CHRONIC CONGESTIVE HEART FAILURE Current Active Problems Acute exacerbation of CHF (congestive heart failure) (Acute) Atrial fibrillation with rapid ventricular response (Acute) Prophylactic measure (Acute) Pulmonary HTN (Acute) Hospital Course: Admitted for acute on chronic CHF and rapid Afib Seen by cardiology Ruled out IA rate is better controlled with coreg On Iv lasix BID Pt pulled out her IV line Agitated ,,started her on PO seroquel and ativan as needed needs psych eval in [facility] stable for dc to NH Condition: Improved - Instructions [facility]position: [facility] - Home Medications Comprehensive Discharge Medication List: Ambulatory Orders Apixaban [Eliquis] 5 mg PO BID 01/21/18 Mirtazapine 7.5 mg PO HS 01/21/18 Rosuvastatin [Crestor -] 20 mg PO HS 01/21/18 Potassium Chloride 20 meq PO DAILY #30 tablet.er 07/28/18 Carvedilol [Coreg -] 37.5 mg PO BID 12/19/18 Famotidine 20 mg PO DAILY 12/19/18 Gabapentin 200 mg PO DAILY 12/19/18 Multivitamins [Multivit ([facility] Formulary)] 1 tab PO DAILY 12/19/18 Sennosides [Senna -] 2 tab PO HS 12/19/18 Furosemide [Lasix] 40 mg PO DAILY #60 tablet 12/22/18 Quetiapine Fumarate [Seroquel -] 25 mg PO HS #30 tab 12/22/18
[2018-12-22 13:33] VITALS: BMI 41.7
[2018-12-22] MEDS: MIRTAZAPINE 15 MG TABLET (FP) PO SCH (21:42)
[2018-12-22] MEDS: SENNOSIDES 8.8 MG/5 ML BULK BOTTLE PO SCH (21:42)
[2018-12-22] MEDS: ROSUVASTATIN CA 20 MG TABLET (FP) PO SCH (21:42)
[2018-12-23] MEDS: FUROSEMIDE 40 MG/4 ML INJECTABLE VIAL IVPUSH SCH ×2 (08:03→16:35)
[2018-12-23] MEDS: CARVEDILOL 12.5 MG TABLET (FP) PO SCH ×2 (10:33→21:42)
[2018-12-23] MEDS: APIXABAN 5 MG TABLET PO SCH ×2 (10:46→21:42)
[2018-12-23] MEDS: LISINOPRIL 5 MG TABLET (FP) PO SCH (10:46)
--- NOTE | 2018-12-23 10:49 | PN ---
Progress Note (short form) - Note Progress Note: agitated wants to go to sleep no chest pain no sob discharge was held yesterday as her heart rate was elevated and low BP Vital Signs - 24 hr 12/22/18 12/22/18 13:20 22:00 Temperature 98 F Pulse Rate 142 H 110 H Respiratory 20 20 Rate Blood Pressure 125/84 122/82 Current Medications Generic Name Dose Route Start Last Admin Trade Name Freq PRN Reason Stop Dose Admin Apixaban 5 mg 12/19/18 22:00 12/23/18 10:46 Eliquis - PO 5 mg BID REJI Administration Carvedilol 37.5 mg 12/19/18 22:00 12/23/18 10:33 Coreg - PO 37.5 mg BID REJI Administration Docusate Sodium 100 mg 12/19/18 22:00 12/22/18 21:41 Colace Liquid - PO Not Given BID REJI Furosemide 40 mg 12/20/18 06:00 12/23/18 08:03 Lasix Injection - IVPUSH Not Given BIDLASIX REJI Gabapentin 200 mg 12/20/18 10:00 12/22/18 09:57 Neurontin - PO 200 mg DAILY REJI Administration Lorazepam 1 mg 12/20/18 17:54 12/21/18 10:30 Ativan Injection - IVPUSH 1 mg Q6H PRN Administration ANXIETY Memantine 5 mg 12/23/18 11:00 Namenda - PO BID REJI Mirtazapine 7.5 mg 12/19/18 22:00 12/22/18 21:42 Remeron - PO Not Given HS [facility] Multivitamins/Minerals/Vitamin C 1 tab 12/20/18 10:00 12/22/18 09:58 Tab-A-Vit - PO 1 tab DAILY REJI Administration Quetiapine Fumarate 25 mg 12/23/18 20:00 Seroquel Xr - PO HS@2000 REJI Rosuvastatin Calcium 20 mg 12/19/18 22:00 12/22/18 21:42 Crestor - PO Not Given HS REJI Senna 8.8 mg 12/19/18 22:00 12/22/18 21:42 Senna Oral Solution - PO Not Given HS [facility] S1 S2 Irregular Lungs decreased Abd- soft, NT, obese Edema++ PLAN rapid Afib CHF-- acute on chronic dementia HTN CKD 3 -- continue with Lasix BID-- po--monitor renal function-- baseline creatinine around 1.5 -- Ativan prn for agitation -- continue with meds -- rate controlled with Coreg -- dc to NH today-- she took her AM Coreg -- dc Lisinopril -- start Namenda and Seroquel Problem List - Problems (1) Acute exacerbation of CHF (congestive heart failure) Code(s): I50.9 - HEART FAILURE, UNSPECIFIED (2) Atrial fibrillation with rapid ventricular response Code(s): I48.91 - UNSPECIFIED ATRIAL FIBRILLATION (3) Pulmonary HTN Code(s): I27.20 - PULMONARY HYPERTENSION, UNSPECIFIED (4) A-fib Code(s): I48.91 - UNSPECIFIED ATRIAL FIBRILLATION Qualifiers: Atrial fibrillation type: chronic Qualified Code(s): I48.2 - Chronic atrial fibrillation (5) CHF (congestive heart failure) Code(s): I50.9 - HEART FAILURE, UNSPECIFIED Qualifiers: Heart failure type: systolic Heart failure chronicity: acute on chronic Qualified Code(s): I50.23 - Acute on chronic systolic (congestive) heart failure (6) Chest pain Code(s): R07.9 - CHEST PAIN, UNSPECIFIED (7) Dementia Code(s): F03.90 - UNSPECIFIED DEMENTIA WITHOUT BEHAVIORAL DISTURBANCE Qualifiers: Dementia type: unspecified type (8) HLD (hyperlipidemia) Code(s): E78.5 - HYPERLIPIDEMIA, UNSPECIFIED (9) HTN (hypertension) Code(s): I10 - ESSENTIAL (PRIMARY) HYPERTENSION
[2018-12-23] MEDS: MULTIVITAMINS (DAILY MVI) TABLET (FP) PO SCH (11:01)
[2018-12-23] MEDS: GABAPENTIN 100 MG CAPSULE (FP) PO SCH (11:01)
[2018-12-23] MEDS: DOCUSATE NA 100 MG/10 ML UNIT-DOSE CUPS PO SCH ×2 (11:02→21:42)
[2018-12-23] MEDS ORDERED: CARVEDILOL 12.5 MG TABLET (FP) PO ONE (13:49)
--- NOTE | 2018-12-23 14:47 | PN ---
Progress Note, Physician Chief Complaint: no acute distress - Current Medication List Current Medications: Active Medications Apixaban (Eliquis -) 5 mg PO BID [facility] Last Admin: 12/23/18 10:46 Dose: 5 mg Carvedilol (Coreg -) 37.5 mg PO BID [facility] Last Admin: 12/23/18 10:33 Dose: 37.5 mg Docusate Sodium (Colace Liquid -) 100 mg PO BID [facility] Last Admin: 12/23/18 11:02 Dose: 100 mg Furosemide (Lasix Injection -) 40 mg IVPUSH BIDLASIX [facility] Last Admin: 12/23/18 08:03 Dose: Not Given Gabapentin (Neurontin -) 200 mg PO DAILY [facility] Last Admin: 12/23/18 11:01 Dose: 200 mg Lorazepam (Ativan Injection -) 1 mg IVPUSH Q6H PRN PRN Reason: ANXIETY Last Admin: 12/21/18 10:30 Dose: 1 mg Memantine (Namenda -) 5 mg PO BID [facility] Mirtazapine (Remeron -) 7.5 mg PO HS [facility] Last Admin: 12/22/18 21:42 Dose: Not Given Multivitamins/Minerals/Vitamin C (Tab-A-Vit -) 1 tab PO DAILY [facility] Last Admin: 12/23/18 11:01 Dose: 1 tab Rosuvastatin Calcium (Crestor -) 20 mg PO HS [facility] Last Admin: 12/22/18 21:42 Dose: Not Given Senna (Senna Oral Solution -) 8.8 mg PO HS [facility] Last Admin: 12/22/18 21:42 Dose: Not Given - Objective Vital Signs: Vital Signs Temperature 98 F 12/22/18 13:20 Pulse Rate 110 H 12/22/18 22:00 Respiratory Rate 20 12/22/18 22:00 Blood Pressure 122/82 12/22/18 22:00 O2 Sat by Pulse Oximetry (%) 96 12/21/18 21:00 Constitutional: Yes: No Distress Cardiovascular: Yes: Pulse Irregular Respiratory: Yes: Other (decreased breath sounds bases) Gastrointestinal: Yes: Soft, Abdomen, Obese Edema: Yes Edema: LLE: 1+, RLE: 1+ Labs: CBC, BMP 12/20/18 10:00 12/21/18 07:55 INR, PTT INR 1.50 (0.83-1.09) H 12/20/18 10:00 Problem List - Problems (1) Acute exacerbation of CHF (congestive heart failure) Code(s): I50.9 - HEART FAILURE, UNSPECIFIED (2) Pulmonary HTN Code(s): I27.20 - PULMONARY HYPERTENSION, UNSPECIFIED (3) Atrial fibrillation with rapid ventricular response Code(s): I48.91 - UNSPECIFIED ATRIAL FIBRILLATION (4) Mitral regurgitation Code(s): I34.0 - NONRHEUMATIC MITRAL (VALVE) INSUFFICIENCY (5) Dementia Code(s): F03.90 - UNSPECIFIED DEMENTIA WITHOUT BEHAVIORAL DISTURBANCE Qualifiers: Dementia type: unspecified type Assessment/Plan IMP: 1. Acute on chronic systolic CHF, possibly due to med non-adherence 2. Severe MR 3. Moderate to severe chronic PHTN 4. AF w/ RVR 5. Dementia REC: 1. PO Lasix tomorrow 2. TEENA held (CKD). Cont Coreg 3. Recent echo reviewed: severe chronic LV dysfx, severe MR. ?etiology of LV dysfx? ?Ischemic. Would need to review any outside records of prior ischemic evaluations. 4. Continue Eliquis, [id number] score is elevated. 5. Holter to assess average heart rate, may need additional/optimized rate control- can be done as outpt 6. Advanced Directive: DNR/DNI
[2018-12-23] MEDS ORDERED: PT OWN MED DRAWER 7, Y5N ONE ×2 (18:12→20:40)
[2018-12-23] MEDS: MEMANTINE HCL 5 MG TABLET (UD) PO SCH ×2 (18:36→21:42)
[2018-12-23] MEDS: SENNOSIDES 8.8 MG/5 ML BULK BOTTLE PO SCH (21:42)
[2018-12-23] MEDS: ROSUVASTATIN CA 20 MG TABLET (FP) PO SCH (21:42)
[2018-12-23] MEDS: MIRTAZAPINE 15 MG TABLET (FP) PO SCH (21:42)
[2018-12-24] MEDS: FUROSEMIDE 40 MG/4 ML INJECTABLE VIAL IVPUSH SCH (06:28)
[2018-12-24] MEDS: CARVEDILOL 12.5 MG TABLET (FP) PO SCH (09:47)
[2018-12-24] MEDS: MEMANTINE HCL 5 MG TABLET (UD) PO SCH (09:47)
[2018-12-24] MEDS: APIXABAN 5 MG TABLET PO SCH (09:47)
[2018-12-24] MEDS: DOCUSATE NA 100 MG/10 ML UNIT-DOSE CUPS PO SCH (09:47)
[2018-12-24] MEDS: GABAPENTIN 100 MG CAPSULE (FP) PO SCH (09:48)
[2018-12-24] MEDS: MULTIVITAMINS (DAILY MVI) TABLET (FP) PO SCH (09:48)
[2018-12-24] MEDS: LORazepam 2 MG/ML SDV VIAL IVPUSH PRN (10:42)
--- NOTE | 2018-12-24 10:52 | PN ---
Progress Note (short form) - Note Progress Note: agitated wants to go to sleep no chest pain no sob discharge was held yesterday as her heart rate was elevated she is scratching the staff, spitting out her meds very non compliant started seroquel and Namenda yesterday--- pt did not take it Vital Signs - 24 hr 12/23/18 16:30 Pulse Rate 126 H Respiratory 18 Rate Blood Pressure 132/77 Current Medications Generic Name Dose Route Start Last Admin Trade Name Andressa PRN Reason Stop Dose Admin Apixaban 5 mg 12/19/18 22:00 12/24/18 09:47 Eliquis - PO Not Given BID REJI Carvedilol 37.5 mg 12/19/18 22:00 12/24/18 09:47 Coreg - PO Not Given BID REJI Docusate Sodium 100 mg 12/19/18 22:00 12/24/18 09:47 Colace Liquid - PO Not Given BID REJI Furosemide 40 mg 12/20/18 06:00 12/24/18 06:28 Lasix Injection - IVPUSH 40 mg BIDLASIX REJI Administration Gabapentin 200 mg 12/20/18 10:00 12/24/18 09:48 Neurontin - PO Not Given DAILY REJI Lorazepam 1 mg 12/20/18 17:54 12/24/18 10:42 Ativan Injection - IVPUSH 1 mg Q6H PRN Administration ANXIETY Memantine 5 mg 12/23/18 11:00 12/24/18 09:47 Namenda - PO Not Given BID REJI Mirtazapine 7.5 mg 12/19/18 22:00 12/23/18 21:42 Remeron - PO Not Given HS [facility] Multivitamins/Minerals/Vitamin C 1 tab 12/20/18 10:00 12/24/18 09:48 Tab-A-Vit - PO Not Given DAILY [facility] Rosuvastatin Calcium 20 mg 12/19/18 22:00 12/23/18 21:42 Crestor - PO Not Given HS REJI Senna 8.8 mg 12/19/18 22:00 12/23/18 21:42 Senna Oral Solution - PO Not Given HS [facility] S1 S2 Irregular Lungs decreased Abd- soft, NT, obese Edema++ PLAN rapid Afib CHF-- acute on chronic dementia HTN CKD 3 -- continue with Lasix BID-- po--monitor renal function-- baseline creatinine around 1.5 -- Ativan prn for agitation -- continue with meds -- rate control with Coreg -- dc to NH today-- will give her Ativan as needed -- NH will need to call psych for dementia with behavior issues -- recommend Ativan as needed in NH as well -- dc Lisinopril -- start Namenda and Seroquel Problem List - Problems (1) Acute exacerbation of CHF (congestive heart failure) Code(s): I50.9 - HEART FAILURE, UNSPECIFIED (2) Atrial fibrillation with rapid ventricular response Code(s): I48.91 - UNSPECIFIED ATRIAL FIBRILLATION (3) Pulmonary HTN Code(s): I27.20 - PULMONARY HYPERTENSION, UNSPECIFIED (4) A-fib Code(s): I48.91 - UNSPECIFIED ATRIAL FIBRILLATION Qualifiers: Atrial fibrillation type: chronic Qualified Code(s): I48.2 - Chronic atrial fibrillation (5) CHF (congestive heart failure) Code(s): I50.9 - HEART FAILURE, UNSPECIFIED Qualifiers: Heart failure type: systolic Heart failure chronicity: acute on chronic Qualified Code(s): I50.23 - Acute on chronic systolic (congestive) heart failure (6) Chest pain Code(s): R07.9 - CHEST PAIN, UNSPECIFIED (7) Dementia Code(s): F03.90 - UNSPECIFIED DEMENTIA WITHOUT BEHAVIORAL DISTURBANCE Qualifiers: Dementia type: unspecified type (8) HLD (hyperlipidemia) Code(s): E78.5 - HYPERLIPIDEMIA, UNSPECIFIED (9) HTN (hypertension) Code(s): I10 - ESSENTIAL (PRIMARY) HYPERTENSION
[2018-12-24 11:30] VITALS: BP 96/55; PULSE 87; TEMP 98
== END 2018-12-24 13:59 | DRG 291 ==
LOC: JER 14:44 → SUPCPDRO 14:44 → JERBED 17:19 → J4W 12-20 14:54 → OBSVTOIN 12-21 08:36 → J8W 12-21 15:07
PROVIDERS: ADMIT Internal Medicine; ATTEND Internal Medicine
DX: I13.0 Hypertensive heart and chronic kidney disease with heart failure and stage 1 through stage 4 chronic kidney disease, or unspecified chronic kidney disease (principal); I50.23 Acute on chronic systolic (congestive) heart failure; F03.91 Unspecified dementia, unspecified severity, with behavioral disturbance; Z68.41 Body mass index [BMI] 40.0-44.9, adult; R45.1 Restlessness and agitation; Z66 Do not resuscitate; N18.3 Chronic kidney disease, stage 3 (moderate); I48.91 Unspecified atrial fibrillation; I27.20 Pulmonary hypertension, unspecified; I34.0 Nonrheumatic mitral (valve) insufficiency; Z79.01 Long term (current) use of anticoagulants; E78.5 Hyperlipidemia, unspecified; E66.9 Obesity, unspecified; K21.9 Gastro-esophageal reflux disease without esophagitis; I25.10 Atherosclerotic heart disease of native coronary artery without angina pectoris; F32.9 Major depressive disorder, single episode, unspecified; G62.9 Polyneuropathy, unspecified; N95.9 Unspecified menopausal and perimenopausal disorder; Z91.14 Patient's other noncompliance with medication regimen
CPT/HCPCS: 36415; 36600; 71045-TC-FY; 80048; 80053; 82550; 82803; 82962; 83036; 83735; 83880; 84100; 84443; 84484; 85025; 85027; 85610; 85730; 93005; 93010; 93306-TC; 99285-25; G0378

== ENCOUNTER 2019-02-09 17:05 | Inpatient (IN) | payer OTHER | END 2019-02-16 20:00 | LOC: JER 17:05 → JERBED 20:49 → J4S 02-10 12:08 ==

== ENCOUNTER 2019-02-28 09:21 | Inpatient (IN) | payer OTHER ==
--- NOTE | 2019-02-28 09:40 | PDOC ---
History of Present Illness - General Chief Complaint: Edema Stated Complaint: NON COMPLIANT WITH MEDS Time Seen by Provider: 02/28/19 09:39 History Source: Patient, EMS Exam Limitations: Dementia - History of Present Illness Initial Comments: 02/28/19 10:37 Source: Pt poor historian, history from [facility], EMS, and chart HPI: 78yo woman with PMH CHF, HTN, HLD, Afib (on Eliquis), OA, renal insufficiency, GERD, depression, dementia, peripheral neuropathy, chronic pain, coming in from [facility] with pitting edema and soft BP in the setting of 80mg lasix dosed last night. Pt received 80mg lasix in the evening and has had SBPs >100 intermittently since. Endorses some nausea, no vomiting, an unclear stomach complaint, and some difficulty breathing since last night. Endorses fatigue, weakness, and pain in her legs. Medications as listed in chart. PCP: China Cuello PSH: None reported Allergies: NKDA, NKA Social Hx: DNR, MOLST, denies smoking, drinking, or other substance use Past History 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 History Allergies/Adverse Reactions: Allergies Allergy/AdvReac Type Severity Reaction Status Date / Time No Known Allergies Allergy Verified 02/28/19 09:36 Home Medications: Ambulatory Orders Mirtazapine 7.5 mg PO HS 01/21/18 Rosuvastatin [Crestor -] 20 mg PO HS 01/21/18 Potassium Chloride 20 meq PO DAILY #30 tablet.er 07/28/18 Famotidine 20 mg PO DAILY 12/19/18 Gabapentin 200 mg PO DAILY 12/19/18 Multivitamins [Multivit ([facility] Formulary)] 1 tab PO DAILY 12/19/18 Sennosides [Senna -] 17.2 tab PO HS 12/19/18 Quetiapine Fumarate [Seroquel -] 25 mg PO HS #30 tab 12/22/18 Acetaminophen 650 mg PO TID 02/09/19 Memantine HCl [Namenda Xr] 14 mg PO DAILY 02/09/19 Nystatin Cream [Mycostatin Cream -] 1 applic TP BID 02/09/19 Triamcinolone 0.1% Cream 1 applic TP DAILY 02/09/19 Apixaban [Eliquis -] 5 mg PO BID 02/28/19 Carvedilol [Coreg -] 25 mg PO BID 02/28/19 Furosemide 20 mg PO DAILY 02/28/19 Furosemide Injection [Lasix Injection -] 40 mg IM DAILY 02/28/19 Cardiac Disorders: Yes (A-FIB) COPD: No Dementia: Yes (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) GI Disorders: Yes (GERD) Disorders: Yes (INCONTINENCE) HTN: Yes Hypercholesterolemia: Yes Psychiatric Problems: Yes (DEPRESSION) - Immunization History Immunization Up to Date: Yes - Suicide/Smoking/Psychosocial Hx Smoking History: Unknown if ever smoked Have you smoked in the past 12 months: No Hx Alcohol Use: No Drug/Substance Use Hx: No Substance Use Type: None Hx Substance Use Treatment: No Review of Systems - Review of Systems Able to Perform ROS?: Yes (Pt demented, limited ROS) Constitutional: Yes: Weakness. No: Chills, Diaphoresis, Fever HEENTM: No: Symptoms Reported Respiratory: Yes: See HPI, Shortness of Breath, SOB with Exertion. No: Cough, SOB at Rest, Wheezing, Productive cough Cardiac (ROS): Yes: See HPI, Edema. No: Lightheadedness, Palpitations, Syncope , Chest Tightness ABD/GI: Yes: Nausea. No: Vomiting All Other Systems: Reviewed and Negative *Physical Exam - Physical Exam Comments: 02/28/19 11:40 Gen: pleasant, obese woman, demented, appears stated age, resting comfortably in bed HEENT: EOMI, normal morphologies, poor dentition CV: regular rate and rhythm, faint sounds 2/2 habitus, normal inspection Pulm: crackles at b/l lung bases Abd: soft, nontender, nondistended Pulses: radial and DP present, radial thready Ext: 3+ pitting edema up to the lower abdomen and on the b/l hands, skin cool, normal capillary refill, no cyanosis or clubbing MSE: perseveration, repetitive, demented Procedures - Bedside Ultrasound Bedside Ultrasound: Cardiac Remarks: 02/28/19 11:47 Bedside Lung/Cardiac ultrasound performed. - Mild pericardial effusion, no tamponade - Severely reduced EF, global reduction in wall motion - Valvular disease noted - Bilateral pleural effusions - B-lines at bilateral apices 02/28/19 11:49 ED Treatment Course - LABORATORY CBC & Chemistry Diagram: 02/28/19 11:11 02/28/19 11:11 Medical Decision Making - Medical Decision Making 02/28/19 11:50 78yo woman with PMH CHF, HTN, HLD, Afib (on Eliquis), OA, renal insufficiency, GERD, depression, dementia, peripheral neuropathy, chronic pain, coming in from [facility] with heart failure exacerbation. H&P notable for recent admission for CHF with discharge on 02/16, severe pitting edema, evidence of fluid overload on POCUS. - CBC, CMP, Cardiac profile, BNP, Coags, ABG - EKG, CXR - UA, UCx - Bipap - Likely admission, continuous cardiac monitoring 02/28/19 11:53 Vascular access obtained using POCUS guidance at bedside. Pt placed on Bipap given low SBP in setting of fluid overload. POCUS showing bilateral pleural effusions, B lines in apices, reduced EF with globally reduced wall motion 02/28/19 12:05 Cardiology consulted, spoke with Dr. Goins. Recommended giving lasix if BP reaches upper 90s-100s. 02/28/19 12:11 CXR - Large heart, sclerotic knob scoliosis with degenerative spine and shoulder changes with some mild central congestive findings and fluid in the horizontal fissure. There is an elevated left hemidiaphragm. 02/28/19 14:22 Attending endorsed patient to Dr. Lloyd. Patient was not tolerating bipap, switched to NC 7L. 02/28/19 14:25 *DC/Admit/Observation/Transfer Diagnosis at time of Disposition: CHF (congestive heart failure) Qualifiers: Heart failure type: systolic Heart failure chronicity: acute on chronic Qualified Code(s): I50.23 - Acute on chronic systolic (congestive) heart failure - Discharge Dispostion Condition at time of disposition: Guarded Decision to Admit order: Yes - Referrals Referrals: Elizabeth Hooper MD [Primary Care Provider] - - Patient Instructions - Post Discharge Activity
--- NOTE | 2019-02-28 11:39 | PDOC ---
Attending Attestation - Resident Resident Name: BrandonAlexandre - ED Attending Attestation I have performed the following: I have examined & evaluated the patient, The case was reviewed & discussed with the resident, I agree w/resident's findings & plan, Exceptions are as noted - HPI HPI: 02/28/19 12:46 78yo female sent from [facility] for eval of low bp after receiving IM lasix at 11p last night. BP upon arrival 86 systolic. Pt arrives awake, alert, nad. Denies cp/sob. Pt with 4+ pitting edema to LUE and b/l LE. Pt with anasarca. Pt denies fever/chills. Pt states she does take all her meds, but per the NH concern for decompensated hf and pt refusing meds and med noncompliance. - Physicial Exam PE: 02/28/19 12:48 Gen: awake, alert- pleasant, nad heart: irreg irreg rvr, tachy, afib lungs: coarse bs b/l bases, rales abd: soft, nt/nd +bs ext: LUE 4+ pitting edema, b/l 4+ pitting edema to LE neuro: moving all extremities, no focal neuro findings - Medical Decision Making 02/28/19 11:35 a/p: 78yo female with hx of heart failure and afib recently admitted for CHF exacerbation sent from [facility] for eval of low bp -pt received lasix 80mg orally last night around 11am and then this AM with low bp of 96/60 -pt denies cp and sob -pt is a DNR/I -pt with LUE and b/l LE pitting edema -concern for worsenign and decompensated heart failure -bedside echo shows poor ef, trace pericardial effusion without tamponade physiology, b/l pleural effusions and compressed atelectatic lung b/l -will send labs, ekg, cxr -will place on bipap, pulse ox 87% on 6L nc -pt without resp distress -will discuss with cards -pt will need admission -pt is pleasant upon arrival and states she has been taking all her meds as they are given to her. -per [place] report pt has been noncompliant with meds 02/28/19 11:48 cxr shows congestive changes and fluid in the fissure 02/28/19 12:23 elevated trop and bnp call placed to cardiology 02/28/19 12:[address] Goins from cards - recommends lasix 40mg iv, agrees with plan for metoprolol, pt uses Lasix 80mg im daily. states pressures are normally soft. will add asa for mildly elevated trop. agrees with plan for admission 02/28/19 12:49 pt pending call back from Dr. Cuello for admission 02/28/19 14:[address] liriano who accepts pt to service Heart Score/ECG Review - ECG Intrepretation Comment:: 02/28/19 11:39 afib at 108, low voltage, nl axis, pvc, no acute st/t wave findings
[2019-02-28 11:54] LABS: INR 1.3 (0.83-1.09); PROTHROMBIN TIME (PATIENT) 15.4 SEC (9.7-13.0)
[2019-02-28 11:54] LABS: ALLENS TEST POSITIVE
[2019-02-28 11:56] LABS: ACTIVATED PTT 34.3 SECONDS (25.2-36.5)
[2019-02-28 11:57] LABS: ARTERIAL BLD GAS O2 SATURATION 99.7 % (95-98); ARTERIAL BLOOD GAS PO2 144 mmHg (80-105); ARTERIAL BLOOD GAS pH 7.43 (7.35-7.45); CARBOXYHEMOGLOBIN 1.8 % (0-2)
[2019-02-28 11:58] LABS: BASO % 0.8 % (0-2.0); EOS % 4.3 % (0-4.5); HEMATOCRIT 34.2 % (32.4-45.2); HEMOGLOBIN 10.9 GM/dL (10.7-15.3); LYMPH % 12.2 % (8-40); MCH 30.7 pg (25.7-33.7); MCHC 31.8 g/dl (32.0-36.0); MEAN CELL VOLUME 96.7 fl (80-96); MEAN PLT VOLUME 9.7 fl (7.5-11.1); MONO % 10.6 % (3.8-10.2); NEUT % 72.1 % (42.8-82.8); RBC 3.54 M/mm3 (3.60-5.2); RDW 21.1 % (11.6-15.6)
[2019-02-28 12:01] LABS: PLATELET COUNT 225 K/MM3 (134-434)
[2019-02-28 12:02] LABS: ALBUMIN 3.2 g/dl (3.4-5.0); BILIRUBIN,TOTAL 2.7 mg/dL (0.2-1); BLOOD UREA NITROGEN 37.4 mg/dL (7-18); CALCIUM 8.9 mg/dL (8.5-10.1); N-TERMINAL BNP 17664.6 pg/ml (5-450); POTASSIUM 3.9 mmol/L (3.5-5.1); TOT PROT 7.7 g/dl (6.4-8.2)
[2019-02-28] MEDS ORDERED: METOPROLOL TARTRATE 5 MG/5 ML VIAL IVPUSH ONE ×2 (12:29→14:59)
[2019-02-28] MEDS ORDERED: FUROSEMIDE 40 MG/4 ML INJECTABLE VIAL IVPUSH ONE (12:42)
[2019-02-28] MEDS ORDERED: ASPIRIN 81 MG CHEWABLE TABLETS PO ONE (12:42)
[2019-02-28] MEDS ORDERED: ASPIRIN 81 MG CHEWABLE TABLETS ONE (13:11)
[2019-02-28] MEDS ORDERED: METOPROLOL TARTRATE 5 MG/5 ML VIAL ONE ×2 (13:11→15:02)
--- NOTE | 2019-02-28 13:43 | EKG ---
Test Reason : Blood Pressure : / mmHG Vent. Rate : 108 BPM Atrial Rate : 141 BPM P-R Int : 000 ms QRS Dur : 064 ms QT Int : 278 ms P-R-T Axes : 000 023 145 degrees QTc Int : 372 ms ATRIAL FIBRILLATION WITH RAPID VENTRICULAR RESPONSE WITH PREMATURE VENTRICULAR OR ABERRANTLY CONDUCTED COMPLEXES LOW VOLTAGE QRS CANNOT RULE OUT ANTEROSEPTAL INFARCT (CITED ON OR BEFORE 21-JAN-2018) ABNORMAL ECG Confirmed by MD ERIC, JAIME ([id number]) on 02/28/2019 1:43:00 PM Referred By: Confirmed By:JAIME REYES MD
[2019-02-28] MEDS ORDERED: CARVEDILOL 12.5 MG TABLET (FP) PO ONE (14:59)
[2019-02-28] MEDS ORDERED: CARVEDILOL 12.5 MG TABLET (FP) ONE (15:01)
--- NOTE | 2019-02-28 15:33 | HP ---
Admitting History and Physical - Primary Care Physician PCP: Yoanna Harden - Admission Chief Complaint: EDEMA,SOB History of Present Illness: ER HISTORY 02/28/19 12:46 78yo female sent from [facility] for eval of low bp after receiving IM lasix at 11p last night. BP upon arrival 86 systolic. Pt arrives awake, alert, nad. Denies cp/sob. Pt with 4+ pitting edema to LUE and b/l LE. Pt with anasarca. Pt denies fever/chills. Pt states she does take all her meds, but per the [facility] concern for decompensated hf and pt refusing meds and med noncompliance. 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 STICKER: Yes: Dementia, Peripheral Neuropathy Cardiovascular: Yes: AFIB, CHF, HTN, Hyperlipdemia Gastrointestinal: Yes: GERD Renal/: Yes: Renal Inusuff Psych: Yes: Depression - Past Surgical History Past Surgical History: Yes: None - Smoking History Smoking history: Unknown if ever smoked Have you smoked in the past 12 months: No - Alcohol/Substance Use Hx Alcohol Use: No History of Substance Use: reports: None - Social History ADL: Support Services History of Recent Travel: No Home Medications - Allergies Allergies/Adverse Reactions: Allergies Allergy/AdvReac Type Severity Reaction Status Date / Time No Known Allergies Allergy Verified 02/28/19 09:36 - Home Medications Home Medications: Ambulatory Orders Mirtazapine 7.5 mg PO HS 01/21/18 Rosuvastatin [Crestor -] 20 mg PO HS 01/21/18 Potassium Chloride 20 meq PO DAILY #30 tablet.er 07/28/18 Famotidine 20 mg PO DAILY 12/19/18 Gabapentin 200 mg PO DAILY 12/19/18 Multivitamins [Multivit ([facility] Formulary)] 1 tab PO DAILY 12/19/18 Sennosides [Senna -] 17.2 tab PO HS 12/19/18 Quetiapine Fumarate [Seroquel -] 25 mg PO HS #30 tab 12/22/18 Acetaminophen 650 mg PO TID 02/09/19 Memantine HCl [Namenda Xr] 14 mg PO DAILY 02/09/19 Nystatin Cream [Mycostatin Cream -] 1 applic TP BID 02/09/19 Triamcinolone 0.1% Cream 1 applic TP DAILY 02/09/19 Apixaban [Eliquis -] 5 mg PO BID 02/28/19 Carvedilol [Coreg -] 25 mg PO BID 02/28/19 Furosemide 20 mg PO DAILY 02/28/19 Furosemide Injection [Lasix Injection -] 40 mg IM DAILY 02/28/19 Physical Examination Vital Signs: Vital Signs Temperature 97.5 F L 02/28/19 09:37 Pulse Rate 101 H 02/28/19 13:23 Respiratory Rate 12 02/28/19 13:23 Blood Pressure 96/76 02/28/19 13:23 O2 Sat by Pulse Oximetry (%) 98 02/28/19 09:37 Constitutional: No: No Distress Cardiovascular: Yes: Pulse Irregular Respiratory: Yes: Diminished, Rales Gastrointestinal: Yes: Normal Bowel Sounds, Soft, Abdomen, Obese. No: Tenderness Edema: Yes Edema: LLE: 4+, RLE: 4+ Labs: CBC, BMP 02/28/19 11:11 02/28/19 11:11 Imaging - Results Chest X-ray: Image Reviewed (congested B/L) EKG: Image Reviewed (Afib) Problem List - Problems (1) Non compliance w medication regimen Code(s): Z91.14 - PATIENT'S OTHER NONCOMPLIANCE WITH MEDICATION REGIMEN (2) CHF (congestive heart failure) Code(s): I50.9 - HEART FAILURE, UNSPECIFIED Qualifiers: Heart failure type: systolic Heart failure chronicity: acute on chronic Qualified Code(s): I50.23 - Acute on chronic systolic (congestive) heart failure (3) A-fib Code(s): I48.91 - UNSPECIFIED ATRIAL FIBRILLATION Qualifiers: Atrial fibrillation type: chronic Qualified Code(s): I48.2 - Chronic atrial fibrillation (4) Acute exacerbation of CHF (congestive heart failure) Code(s): I50.9 - HEART FAILURE, UNSPECIFIED (5) Dementia Code(s): F03.90 - UNSPECIFIED DEMENTIA WITHOUT BEHAVIORAL DISTURBANCE Qualifiers: Dementia type: unspecified type (6) HTN (hypertension) Code(s): I10 - ESSENTIAL (PRIMARY) HYPERTENSION Assessment/Plan PLAN start Lasix iv daily -- monitor BP Cardiology eval check renal function monitor weights avoid sedatives continue with eliquis
[2019-02-28] MEDS: ACETAMINOPHEN 325 MG TABLET (FP) PO PRN (19:54)
[2019-02-28] MEDS: FUROSEMIDE 40 MG/4 ML INJECTABLE VIAL IVPUSH SCH (19:54)
[2019-02-28] MEDS: MIRTAZAPINE 15 MG TABLET (FP) PO SCH (21:05)
[2019-02-28] MEDS: CARVEDILOL 12.5 MG TABLET (FP) PO SCH (21:05)
[2019-02-28] MEDS: APIXABAN 5 MG TABLET PO SCH (21:05)
[2019-02-28] MEDS: QUEtiapine FUMARATE 25 MG TABLET (FP) PO SCH (21:06)
[2019-02-28] MEDS: ROSUVASTATIN CA 20 MG TABLET (FP) PO SCH (21:07)
[2019-02-28] MEDS ORDERED: HALOPERIDOL LACTATE 5 MG/ML IM ONE (21:15)
[2019-03-01] MEDS: FUROSEMIDE 40 MG/4 ML INJECTABLE VIAL IVPUSH SCH ×2 (05:13→18:36)
--- NOTE | 2019-03-01 09:24 | PN ---
Progress Note, Physician Chief Complaint: Well known to our service with several recent admissions for decompensated CHF, recently discharged to half-way at end of January. PMH: AF, Chronic systolic CHF and dementia. She is DNR/DNI. She now returns to hospital for hypotension after receiving IM Lasix in the half-way. She cannot provide a history, it is obtained from review of ER and PMD notes. She is alert today, although mental status waxes and wanes. She denies CP or SOB, she complains of diffuse nonspecific abdominal discomfort. History of Present Illness: 78yo female sent from [facility] for eval of low bp after receiving IM lasix at 11p last night. BP upon arrival 86 systolic. Pt arrives awake, alert, nad. Denies cp/sob. Pt with 4+ pitting edema to LUE and b/l LE. Pt with anasarca. Pt denies fever/chills. Pt states she does take all her meds, but per the OR concern for decompensated hf and pt refusing meds and med noncompliance. Pt examined in ER known to me from previous admissions Non compliant with meds She refuses her meds and OR staff gives Lasix intramuscular - denies chest pain appears SOB - Current Medication List Current Medications: Active Medications Acetaminophen (Tylenol -) 650 mg PO TID PRN PRN Reason: FEVER Last Admin: 02/28/19 19:54 Dose: 650 mg Apixaban (Eliquis -) 5 mg PO BID [facility] Last Admin: 02/28/19 21:05 Dose: 5 mg Carvedilol (Coreg -) 12.5 mg PO BID [facility] Last Admin: 02/28/19 21:05 Dose: 12.5 mg Furosemide (Lasix Injection -) 40 mg IVPUSH Q12H [facility] Last Admin: 03/01/19 05:13 Dose: Not Given Gabapentin (Neurontin -) 200 mg PO DAILY [facility] Mirtazapine (Remeron -) 7.5 mg PO [facility] Last Admin: 02/28/19 21:05 Dose: 7.5 mg Non-Formulary Medication (Memantine Hcl [Namenda Xr]) 14 mg PO DAILY [facility] Potassium Chloride (K-Dur -) 20 meq PO DAILY [facility] Quetiapine Fumarate (Seroquel -) 25 mg PO [facility] Last Admin: 02/28/19 21:06 Dose: 25 mg Rosuvastatin Calcium (Crestor -) 20 mg PO HS [facility] Last Admin: 02/28/19 21:07 Dose: 20 mg - Objective Vital Signs: Vital Signs Temperature 97.6 F 02/28/19 20:00 Pulse Rate 105 H 02/28/19 20:00 Respiratory Rate 18 02/28/19 20:00 Blood Pressure 106/79 02/28/19 20:00 O2 Sat by Pulse Oximetry (%) 98 02/28/19 09:37 Constitutional: Yes: Calm Cardiovascular: Yes: Pulse Irregular Respiratory: Yes: Other (decreased breath sounds at bases, no active wheezing) Gastrointestinal: Yes: Soft, Abdomen, Obese Edema: Yes Edema: LLE: 2+, RLE: 2+ Neurological: Yes: Confusion Labs: CBC, BMP 02/28/19 11:11 02/28/19 11:11 INR, PTT INR 1.30 (0.83-1.09) H 02/28/19 11:30 Laboratory Tests 02/28/19 02/28/19 02/28/19 11:11 11:11 11:11 WBC 5.0 Hgb 10.9 Plt Count 225 D ABG pH ABG pCO2 at Pt Temp ABG pO2 at Pt Temp Oxygen Flow Rate Sodium 144 Potassium 3.9 BUN 37.4 H Creatinine 2.0 H Creatine Kinase 46 Troponin I 0.06 H B-Natriuretic Peptide 64089.6 H 02/28/19 11:40 WBC Hgb Plt Count ABG pH 7.43 ABG pCO2 at Pt Temp 41.0 ABG pO2 at Pt Temp 144 H Oxygen Flow Rate 3l Sodium Potassium BUN Creatinine Creatine Kinase Troponin I B-Natriuretic Peptide - ....Imaging EKG: Image Reviewed ( AF 113bpm, low voltage.) Assessment/Plan Echo 12/11: LVEF 25-30% (global). RV mildly hypo. mod-severe MR/TR. PASP at least 40. (small peric effusion, + pleural eff) tele: AF rates mostly 90s-100s, transiently to 140s Acute on chronic systolic CHF exac, shortness of breath, pulm HTN, MR: - h/o med non-compliance in NH per prior notes - Daily weights on IV Lasix - Monitor renal fx - Cont Coreg - not on ACEI due to CKD - per review of notes from [facility] prior admits, pt EF was 40-45% in 2017; was following with outside cardio and decisions re: cath, ICD have been deferred to outpt f/u though it has been unclear whether she has complied with cardiology office visits. she has no recollection of any of this at the moment. unfortunately, pt would be a poor candidate for PCIs given frequent med non- adherence (risks of premature discontinuation of DAPT) and doubt she would be a candidate for CABG if has MVDz in light of what appears to be poor baseline functional status. - med optimization for now - Pt has stated on previous admissions that she is not interested in invasive measures and is now DNR/DNI advanved directive Afib: - Cont Eliquis, adjust for renal fx and age - rates controlled on average, on carvedilol Elevated trop: - indeterminate range, similar to prior values - likely demand in setting of CHF exac HTN: - controlled - cont home meds HLD: - cont statin
[2019-03-01] MEDS ORDERED: PATIENT'S OWN MEDICATION (NON-FORMULARY) (Memantine Hcl [Namenda Xr] 14 MG) PO SCH (10:00)
[2019-03-01] MEDS ORDERED: FUROSEMIDE 40 MG/4 ML INJECTABLE VIAL IVPUSH SCH (10:00)
[2019-03-01] MEDS: POTASSIUM CHLORIDE TABS 20 MEQ TABLET.ER (FP) PO SCH (10:52)
[2019-03-01] MEDS: CARVEDILOL 12.5 MG TABLET (FP) PO SCH ×2 (10:52→21:36)
[2019-03-01] MEDS: APIXABAN 5 MG TABLET PO SCH ×2 (10:52→21:35)
[2019-03-01] MEDS: GABAPENTIN 100 MG CAPSULE (FP) PO SCH (10:52)
--- NOTE | 2019-03-01 12:44 | PN ---
Progress Note (short form) - Note Progress Note: pt seen/ examined chart reviewed cardiology consult noted Discussed with nursing staff also refuses meds Vital Signs Temp 97.6 F 02/28/19 20:00 Pulse 105 H 02/28/19 20:00 Resp 18 02/28/19 20:00 BP 106/79 02/28/19 20:00 Pulse Ox 98 02/28/19 09:37 Intake & Output 02/28/19 03/01/19 03/01/19 23:59 11:59 23:59 Intake Total 270 Balance 270 Intake: IV 30 SALINE LOCK 30 Oral 240 Other: Voiding Method Diaper Diaper # Unmeasured Voids Void 3 Bowel Movement No No Height 4 ft 9 in Active Medications Acetaminophen (Tylenol -) 650 mg PO TID PRN PRN Reason: FEVER Last Admin: 02/28/19 19:54 Dose: 650 mg Apixaban (Eliquis -) 5 mg PO BID [facility] Last Admin: 03/01/19 10:52 Dose: Not Given Carvedilol (Coreg -) 12.5 mg PO BID [facility] Last Admin: 03/01/19 10:52 Dose: Not Given Furosemide (Lasix Injection -) 40 mg IVPUSH Q12H [facility] Last Admin: 03/01/19 05:13 Dose: Not Given Gabapentin (Neurontin -) 200 mg PO DAILY [facility] Last Admin: 03/01/19 10:52 Dose: Not Given Mirtazapine (Remeron -) 7.5 mg PO HS [facility] Last Admin: 02/28/19 21:05 Dose: 7.5 mg Non-Formulary Medication (Memantine Hcl [Namenda Xr]) 14 mg PO DAILY [facility] Potassium Chloride (K-Dur -) 20 meq PO DAILY [facility] Last Admin: 03/01/19 10:52 Dose: Not Given Quetiapine Fumarate (Seroquel -) 25 mg PO HS [facility] Last Admin: 02/28/19 21:06 Dose: 25 mg Rosuvastatin Calcium (Crestor -) 20 mg PO HS [facility] Last Admin: 02/28/19 21:07 Dose: 20 mg CBC,CMP WBC 5.0 K/mm3 (4.0-10.0) 02/28/19 11:11 RBC 3.54 M/mm3 (3.60-5.2) L 02/28/19 11:11 Hgb 10.9 GM/dL (10.7-15.3) 02/28/19 11:11 Hct 34.2 % (32.4-45.2) D 02/28/19 11:11 MCV 96.7 fl (80-96) H 02/28/19 11:11 MCH 30.7 pg (25.7-33.7) 02/28/19 11:11 MCHC 31.8 g/dl (32.0-36.0) L 02/28/19 11:11 RDW 21.1 % (11.6-15.6) H 02/28/19 11:11 Plt Count 225 K/MM3 (134-434) D 02/28/19 11:11 MPV 9.7 fl (7.5-11.1) 02/28/19 11:11 Absolute Neuts (auto) 3.6 K/mm3 (1.5-8.0) 02/28/19 11:11 Neutrophils % 72.1 % (42.8-82.8) 02/28/19 11:11 Lymphocytes % 12.2 % (8-40) D 02/28/19 11:11 Monocytes % 10.6 % (3.8-10.2) H 02/28/19 11:11 Eosinophils % 4.3 % (0-4.5) 02/28/19 11:11 Basophils % 0.8 % (0-2.0) 02/28/19 11:11 Nucleated RBC % 0 % (0-0) 02/28/19 11:11 Sodium 144 mmol/L (136-145) 02/28/19 11:11 Potassium 3.9 mmol/L (3.5-5.1) 02/28/19 11:11 Chloride 107 mmol/L (98-107) 02/28/19 11:11 Carbon Dioxide 31 mmol/L (21-32) 02/28/19 11:11 Anion Gap 6 MMOL/L (8-16) L 02/28/19 11:11 BUN 37.4 mg/dL (7-18) H 02/28/19 11:11 Creatinine 2.0 mg/dL (0.55-1.3) H 02/28/19 11:11 Est GFR (CKD-EPI)AfAm 26.65 02/28/19 11:11 Est GFR (CKD-EPI)NonAf 23.00 02/28/19 11:11 Random Glucose 81 mg/dL (74-106) 02/28/19 11:11 Calcium 8.9 mg/dL (8.5-10.1) 02/28/19 11:11 Total Bilirubin 2.7 mg/dL (0.2-1) H 02/28/19 11:11 AST 14 U/L (15-37) L 02/28/19 11:11 ALT 9 U/L (13-61) L 02/28/19 11:11 Alkaline Phosphatase 115 U/L (45-117) 02/28/19 11:11 Creatine Kinase 46 U/L (26-192) 02/28/19 11:11 Troponin I 0.06 ng/ml (0.00-0.05) H 02/28/19 11:11 B-Natriuretic Peptide 37147.6 pg/ml (5-450) H 02/28/19 11:11 Total Protein 7.7 g/dl (6.4-8.2) 02/28/19 11:11 Albumin 3.2 g/dl (3.4-5.0) L 02/28/19 11:11 CBC, BMP 02/28/19 11:11 02/28/19 11:11 Physical Examination Constitutional: No: No Distress. awake/ poor historian Cardiovascular: Yes: Pulse Irregular Respiratory: Yes: Diminished, Rales at bases Gastrointestinal: Yes: Normal Bowel Sounds, Soft, Abdomen, Obese. No: Tenderness Edema: Yes Edema: LLE: 4+, RLE: 4+ Imaging - Results Chest X-ray: Image Reviewed (congested B/L) EKG: Image Reviewed (Afib) Problem List - Problems (1) Non compliance w medication regimen Code(s): Z91.14 - PATIENT'S OTHER NONCOMPLIANCE WITH MEDICATION REGIMEN (2) CHF (congestive heart failure) Code(s): I50.9 - HEART FAILURE, UNSPECIFIED Qualifiers: Heart failure type: systolic Heart failure chronicity: acute on chronic Qualified Code(s): I50.23 - Acute on chronic systolic (congestive) heart failure (3) A-fib Code(s): I48.91 - UNSPECIFIED ATRIAL FIBRILLATION Qualifiers: Atrial fibrillation type: chronic Qualified Code(s): I48.2 - Chronic atrial fibrillation (4) Acute exacerbation of CHF (congestive heart failure) Code(s): I50.9 - HEART FAILURE, UNSPECIFIED (5) Dementia Code(s): F03.90 - UNSPECIFIED DEMENTIA WITHOUT BEHAVIORAL DISTURBANCE Qualifiers: Dementia type: unspecified type (6) HTN (hypertension) Code(s): I10 - ESSENTIAL (PRIMARY) HYPERTENSION Assessment/Plan Lasix iv daily - Cardiology eval check renal function monitor weights avoid sedatives continue with eliquis Compliance issues Pt is dnr/ Di will follow
[2019-03-01] MEDS: QUEtiapine FUMARATE 25 MG TABLET (FP) PO SCH (21:34)
[2019-03-01] MEDS: MIRTAZAPINE 15 MG TABLET (FP) PO SCH (21:34)
[2019-03-01] MEDS: ROSUVASTATIN CA 20 MG TABLET (FP) PO SCH (21:35)
[2019-03-01] MEDS: ACETAMINOPHEN 325 MG TABLET (FP) PO PRN (21:36)
[2019-03-02 01:11] LABS: EPI CELLS 5.8 /HPF (0-5/HPF); HYALINE CASTS 21 /lpf (0-8); PH,URINE 5.5 (5.0-8.0); URINE APPEARANCE CLEAR; URINE BACTERIA 6.9 /hpf (NEGATIVE); URINE BILIRUBIN NEGATIVE (NEGATIVE); URINE COLOR DK YELLOW; URINE GLUCOSE (UA) NEGATIVE (NEGATIVE); URINE KETONE NEGATIVE (NEGATIVE); URINE LEUK ESTERASE NEGATIVE (NEGATIVE); URINE NITRITE NEGATIVE (NEGATIVE); URINE PROTEIN 1+ (NEGATIVE); URINE RBC 2 /hpf (0-4); URINE WBC 0 /hpf (0-5)
[2019-03-02] MEDS: FUROSEMIDE 40 MG/4 ML INJECTABLE VIAL IVPUSH SCH ×3 (06:11→17:58)
--- NOTE | 2019-03-02 11:21 | PN ---
Progress Note (short form) - Note Progress Note: s: not answering questions, refuses tele, has been refusing lab draws as well Current Medications Acetaminophen (Tylenol -) 650 mg PO TID PRN PRN Reason: FEVER Last Admin: 03/01/19 21:36 Dose: 650 mg Apixaban (Eliquis -) 5 mg PO BID [facility] Last Admin: 03/01/19 21:35 Dose: 5 mg Carvedilol (Coreg -) 12.5 mg PO BID [facility] Last Admin: 03/01/19 21:36 Dose: 12.5 mg Furosemide (Lasix Injection -) 40 mg IVPUSH Q12H [facility] Last Admin: 03/02/19 06:11 Dose: 40 mg Gabapentin (Neurontin -) 200 mg PO DAILY [facility] Last Admin: 03/01/19 10:52 Dose: Not Given Mirtazapine (Remeron -) 7.5 mg PO HS [facility] Last Admin: 03/01/19 21:34 Dose: 7.5 mg Non-Formulary Medication (Memantine Hcl [Namenda Xr]) 14 mg PO DAILY [facility] Potassium Chloride (K-Dur -) 20 meq PO DAILY [facility] Last Admin: 03/01/19 10:52 Dose: Not Given Quetiapine Fumarate (Seroquel -) 25 mg PO [facility] Last Admin: 03/01/19 21:34 Dose: 25 mg Rosuvastatin Calcium (Crestor -) 20 mg PO [facility] Last Admin: 03/01/19 21:35 Dose: 20 mg Vital Signs Period Temp Pulse Resp BP Sys/Villegas Pulse Ox Last 24 Hr 97.5 F-97.9 F 59-109 18-20 116-136/77-84 95 Constitutional: Yes: Calm Cardiovascular: Yes: Pulse Irregular Respiratory: Yes: Other (decreased breath sounds at bases, no active wheezing) Gastrointestinal: Yes: Soft, Abdomen, Obese Edema: Yes Edema: LLE: 1+, RLE: 1+ Neurological: Yes: Confusion not agitated no jaundice, diaphoresis - ....Imaging EKG: Image Reviewed ( AF 113bpm, low voltage.) Assessment/Plan Echo 12/11: LVEF 25-30% (global). RV mildly hypo. mod-severe MR/TR. PASP at least 40. (small peric effusion, + pleural eff) Acute on chronic systolic CHF exac, shortness of breath, pulm HTN, MR: - h/o med non-compliance in NH per prior notes, had been on IM lasix at NH - Daily weights on IV Lasix - Monitor renal fx - refusing labs - Cont Coreg - not on ACEI due to CKD - per review of notes from [facility] [place], pt EF was 40-45% in 2017; was following with outside cardio and decisions re: cath, ICD have been deferred to outpt f/u though it has been unclear whether she has complied with cardiology office visits. she has no recollection of any of this at the moment. unfortunately, pt would be a poor candidate for PCIs given frequent med non- adherence (risks of premature discontinuation of DAPT) and doubt she would be a candidate for CABG if has MVDz in light of what appears to be poor baseline functional status. - med optimization for now - Pt has stated on previous admissions that she is not interested in invasive measures and is now DNR/DNI advanved directive Afib: - Cont Eliquis, adjust for renal fx and age - rates controlled on average, on carvedilol Elevated trop: - indeterminate range, similar to prior values - likely demand in setting of CHF exac HTN: - controlled - cont home meds HLD: - cont statin
[2019-03-02] MEDS: GABAPENTIN 100 MG CAPSULE (FP) PO SCH (12:12)
[2019-03-02] MEDS: APIXABAN 5 MG TABLET PO SCH ×2 (12:13→23:55)
[2019-03-02] MEDS: POTASSIUM CHLORIDE TABS 20 MEQ TABLET.ER (FP) PO SCH (12:13)
[2019-03-02] MEDS: CARVEDILOL 12.5 MG TABLET (FP) PO SCH ×2 (12:13→23:54)
--- NOTE | 2019-03-02 13:47 | PN ---
Progress Note (short form) - Note Progress Note: refuses labs at her baseline no distress Vital Signs - 24 hr 03/01/19 03/01/19 03/02/19 20:41 20:44 05:28 Temperature 97.5 F L 97.9 F Pulse Rate 109 H 59 L Respiratory 18 20 20 Rate Blood Pressure 116/77 136/84 O2 Sat by Pulse 95 Oximetry (%) Current Medications Generic Name Dose Route Start Last Admin Trade Name Freq PRN Reason Stop Dose Admin Acetaminophen 650 mg 02/28/19 15:33 03/01/19 21:36 Tylenol - PO 650 mg TID PRN Administration FEVER Apixaban 5 mg 02/28/19 22:00 03/02/19 12:13 Eliquis - PO 5 mg BID [facility] Administration Carvedilol 12.5 mg 02/28/19 22:00 03/02/19 12:13 Coreg - PO 12.5 mg BID [facility] Administration Furosemide 40 mg 02/28/19 18:00 03/02/19 06:11 Lasix Injection - IVPUSH 40 mg Q12H [facility] Administration Gabapentin 200 mg 03/01/19 10:00 03/02/19 12:12 Neurontin - PO 200 mg DAILY [facility] Administration Mirtazapine 7.5 mg 02/28/19 22:00 03/01/19 21:34 Remeron - PO 7.5 mg HS [facility] Administration Non-Formulary Medication 14 mg 03/01/19 10:00 Memantine Hcl [Namenda Xr] PO DAILY [facility] Potassium Chloride 20 meq 03/01/19 10:00 03/02/19 12:13 K-Dur - PO 20 meq DAILY [facility] Administration Quetiapine Fumarate 25 mg 02/28/19 22:00 03/01/19 21:34 Seroquel - PO 25 mg HS [facility] Administration Rosuvastatin Calcium 20 mg 02/28/19 22:00 03/01/19 21:35 Crestor - PO 20 mg HS [facility] Administration Laboratory Results - last 24 hr 03/02/19 00:00 Urine Color Dk yellow Urine Appearance Clear Urine pH 5.5 Ur Specific Bally 1.013 Urine Protein 1+ H Urine Glucose (UA) Negative Urine Ketones Negative Urine Blood Negative Urine Nitrite Negative Urine Bilirubin Negative Urine Urobilinogen 1.0 Ur Leukocyte Esterase Negative Urine WBC (Auto) 0 Urine RBC (Auto) 2 Urine Casts (Auto) 21 U Pathogenic Cast Auto 1-3 U Epithel Cells (Auto) 5.8 Urine Bacteria (Auto) 6.9 s1 s2 Irregular Lungs decreased Abd- soft, obese edema++ PLAN continue with medical management for now iv lasix labs weight daily cardiology follow up noted Problem List - Problems (1) Non compliance w medication regimen Code(s): Z91.14 - PATIENT'S OTHER NONCOMPLIANCE WITH MEDICATION REGIMEN (2) CHF (congestive heart failure) Code(s): I50.9 - HEART FAILURE, UNSPECIFIED Qualifiers: Heart failure type: systolic Heart failure chronicity: acute on chronic Qualified Code(s): I50.23 - Acute on chronic systolic (congestive) heart failure (3) A-fib Code(s): I48.91 - UNSPECIFIED ATRIAL FIBRILLATION Qualifiers: Atrial fibrillation type: chronic Qualified Code(s): I48.2 - Chronic atrial fibrillation (4) Acute exacerbation of CHF (congestive heart failure) Code(s): I50.9 - HEART FAILURE, UNSPECIFIED (5) Dementia Code(s): F03.90 - UNSPECIFIED DEMENTIA WITHOUT BEHAVIORAL DISTURBANCE Qualifiers: Dementia type: unspecified type (6) HTN (hypertension) Code(s): I10 - ESSENTIAL (PRIMARY) HYPERTENSION
[2019-03-02] MEDS: ROSUVASTATIN CA 20 MG TABLET (FP) PO SCH (23:54)
[2019-03-02] MEDS: QUEtiapine FUMARATE 25 MG TABLET (FP) PO SCH (23:55)
[2019-03-02] MEDS: MIRTAZAPINE 15 MG TABLET (FP) PO SCH (23:55)
[2019-03-03] MEDS: FUROSEMIDE 40 MG/4 ML INJECTABLE VIAL IVPUSH SCH ×2 (06:52→17:04)
[2019-03-03 08:36] LABS: POTASSIUM 4.1 mmol/L (3.5-5.1)
[2019-03-03 08:43] LABS: BLOOD UREA NITROGEN 43.4 mg/dL (7-18); CALCIUM 8.5 mg/dL (8.5-10.1); CREATININE 2.1 mg/dL (0.55-1.3)
[2019-03-03] MEDS: CARVEDILOL 12.5 MG TABLET (FP) PO SCH ×3 (10:00→23:36)
--- NOTE | 2019-03-03 11:23 | PN ---
Progress Note (short form) - Note Progress Note: s: no chest pain, palps, dizziness. edema improving. refuses tele, has been refusing some meds Current Medications Acetaminophen (Tylenol -) 650 mg PO TID PRN PRN Reason: FEVER Last Admin: 03/01/19 21:36 Dose: 650 mg Apixaban (Eliquis -) 5 mg PO BID [facility] Last Admin: 03/02/19 23:55 Dose: Not Given Carvedilol (Coreg -) 12.5 mg PO BID [facility] Last Admin: 03/02/19 23:54 Dose: Not Given Furosemide (Lasix Injection -) 40 mg IVPUSH Q12H [facility] Last Admin: 03/03/19 06:52 Dose: 40 mg Gabapentin (Neurontin -) 200 mg PO DAILY [facility] Last Admin: 03/02/19 12:12 Dose: 200 mg Mirtazapine (Remeron -) 7.5 mg PO HS [facility] Last Admin: 03/02/19 23:55 Dose: Not Given Non-Formulary Medication (Memantine Hcl [Namenda Xr]) 14 mg PO DAILY [facility] Potassium Chloride (K-Dur -) 20 meq PO DAILY [facility] Last Admin: 03/02/19 12:13 Dose: 20 meq Quetiapine Fumarate (Seroquel -) 25 mg PO [facility] Last Admin: 03/02/19 23:55 Dose: Not Given Rosuvastatin Calcium (Crestor -) 20 mg PO [facility] Last Admin: 03/02/19 23:54 Dose: Not Given Vital Signs Period Temp Pulse Resp BP Sys/Villegas Pulse Ox Last 24 Hr 97.6 F-98.8 F 64-123 18-20 98-122/59-74 96 Constitutional: Yes: Calm Cardiovascular: Yes: Pulse Irregular Respiratory: Yes: Other (decreased breath sounds at bases, no active wheezing) Gastrointestinal: Yes: Soft, Abdomen, Obese Edema: Yes Edema: LLE: 1+, RLE: 1+ Neurological: Yes: Confusion not agitated no jaundice, diaphoresis - ....Imaging EKG: Image Reviewed ( AF 113bpm, low voltage.) Assessment/Plan Echo 12/11: LVEF 25-30% (global). RV mildly hypo. mod-severe MR/TR. PASP at least 40. (small peric effusion, + pleural eff) Acute on chronic systolic CHF exac, shortness of breath, pulm HTN, MR: - h/o med non-compliance in NH per prior notes, had been on IM lasix at [place] - Daily weights on IV Lasix - Monitor renal fx - stable - Cont Coreg - not on ACEI due to CKD - per review [facility] [place] [facility] [place], pt EF was 40-45% in 2017; was following with outside cardio and decisions re: cath, ICD have been deferred to outpt f/u though it has been unclear whether she has complied with cardiology office visits. she has no recollection of any of this at the moment. unfortunately, pt would be a poor candidate for PCIs given frequent med non- adherence (risks of premature discontinuation of DAPT) and doubt she would be a candidate for CABG if has MVDz in light of what appears to be poor baseline functional status. - med optimization for now - Pt has stated on previous admissions that she is not interested in invasive measures and is now DNR/DNI advanved directive - cont IV lasix Afib: - Cont Eliquis, adjust for renal fx and age - rates controlled on average, on carvedilol Elevated trop: - indeterminate range, similar to prior values - likely demand in setting of CHF exac HTN: - controlled - cont home meds HLD: - cont statin
--- NOTE | 2019-03-03 12:27 | PN ---
Progress Note (short form) - Note Progress Note: refuses labs at her baseline no distress Vital Signs - 24 hr 03/02/19 03/02/19 03/02/19 14:10 17:00 22:00 Temperature 98 F 98.8 F 97.6 F Pulse Rate 64 113 H 123 H Respiratory 18 18 18 Rate Blood Pressure 122/61 100/71 108/74 O2 Sat by Pulse 96 Oximetry (%) 03/03/19 03/03/19 02:00 06:00 Temperature 98.1 F 97.7 F Pulse Rate 116 H 112 H Respiratory 20 20 Rate Blood Pressure 106/63 98/59 L O2 Sat by Pulse Oximetry (%) Current Medications Generic Name Dose Route Start Last Admin Trade Name Freq PRN Reason Stop Dose Admin Acetaminophen 650 mg 02/28/19 15:33 03/01/19 21:36 Tylenol - PO 650 mg TID PRN Administration FEVER Apixaban 5 mg 02/28/19 22:00 03/02/19 23:55 Eliquis - PO Not Given BID [facility] Carvedilol 12.5 mg 02/28/19 22:00 03/02/19 23:54 Coreg - PO Not Given BID [facility] Furosemide 40 mg 02/28/19 18:00 03/03/19 06:52 Lasix Injection - IVPUSH 40 mg Q12H [facility] Administration Gabapentin 200 mg 03/01/19 10:00 03/02/19 12:12 Neurontin - PO 200 mg DAILY [facility] Administration Mirtazapine 7.5 mg 02/28/19 22:00 03/02/19 23:55 Remeron - PO Not Given HS [facility] Non-Formulary Medication 14 mg 03/01/19 10:00 Memantine Hcl [Namenda Xr] PO DAILY [facility] Potassium Chloride 20 meq 03/01/19 10:00 03/02/19 12:13 K-Dur - PO 20 meq DAILY [facility] Administration Quetiapine Fumarate 25 mg 02/28/19 22:00 03/02/19 23:55 Seroquel - PO Not Given HS [facility] Rosuvastatin Calcium 20 mg 02/28/19 22:00 03/02/19 23:54 Crestor - PO Not Given HS [facility] Laboratory Results - last 24 hr 03/03/19 06:42 Sodium 144 Potassium 4.1 Chloride 109 H Carbon Dioxide 26 Anion Gap 9 BUN 43.4 H Creatinine 2.1 H Est GFR (CKD-EPI)AfAm 25.13 Est GFR (CKD-EPI)NonAf 21.68 Random Glucose 119 H Calcium 8.5 S1 S2 Irregular Lungs decreased Abd- soft, obese edema++ decreased edema PLAN continue with medical management for now iv lasix renal function noted -- worsening creatinine labs weight daily cardiology follow up noted Problem List - Problems (1) Non compliance w medication regimen Code(s): Z91.14 - PATIENT'S OTHER NONCOMPLIANCE WITH MEDICATION REGIMEN (2) CHF (congestive heart failure) Code(s): I50.9 - HEART FAILURE, UNSPECIFIED Qualifiers: Heart failure type: systolic Heart failure chronicity: acute on chronic Qualified Code(s): I50.23 - Acute on chronic systolic (congestive) heart failure (3) A-fib Code(s): I48.91 - UNSPECIFIED ATRIAL FIBRILLATION Qualifiers: Atrial fibrillation type: chronic Qualified Code(s): I48.2 - Chronic atrial fibrillation (4) Acute exacerbation of CHF (congestive heart failure) Code(s): I50.9 - HEART FAILURE, UNSPECIFIED (5) Dementia Code(s): F03.90 - UNSPECIFIED DEMENTIA WITHOUT BEHAVIORAL DISTURBANCE Qualifiers: Dementia type: unspecified type (6) HTN (hypertension) Code(s): I10 - ESSENTIAL (PRIMARY) HYPERTENSION
[2019-03-03] MEDS: GABAPENTIN 100 MG CAPSULE (FP) PO SCH (14:19)
[2019-03-03] MEDS: POTASSIUM CHLORIDE TABS 20 MEQ TABLET.ER (FP) PO SCH (14:19)
[2019-03-03] MEDS: APIXABAN 5 MG TABLET PO SCH ×3 (14:19→23:36)
[2019-03-03] MEDS: ROSUVASTATIN CA 20 MG TABLET (FP) PO SCH ×2 (22:47→23:36)
[2019-03-03] MEDS: MIRTAZAPINE 15 MG TABLET (FP) PO SCH ×2 (22:47→23:37)
[2019-03-03] MEDS: QUEtiapine FUMARATE 25 MG TABLET (FP) PO SCH ×2 (22:47→23:37)
[2019-03-04] MEDS: FUROSEMIDE 40 MG/4 ML INJECTABLE VIAL IVPUSH SCH ×2 (06:07→17:43)
[2019-03-04] MEDS: APIXABAN 5 MG TABLET PO SCH ×3 (09:36→22:54)
[2019-03-04] MEDS: CARVEDILOL 12.5 MG TABLET (FP) PO SCH ×3 (09:36→22:53)
[2019-03-04] MEDS: POTASSIUM CHLORIDE TABS 20 MEQ TABLET.ER (FP) PO SCH (09:36)
[2019-03-04] MEDS: GABAPENTIN 100 MG CAPSULE (FP) PO SCH (09:36)
--- NOTE | 2019-03-04 12:32 | PN ---
Progress Note (short form) - Note Progress Note: refuses labs at her baseline no distress took her meds today Vital Signs - 24 hr 03/03/19 03/04/19 03/04/19 21:00 02:00 09:00 Temperature 98 F 97.3 F L Pulse Rate 106 H 117 H Respiratory 20 18 20 Rate Blood Pressure 100/59 L 106/75 O2 Sat by Pulse 97 95 Oximetry (%) 03/04/19 10:00 Temperature 97.4 F L Pulse Rate 76 Respiratory 20 Rate Blood Pressure 116/94 O2 Sat by Pulse Oximetry (%) Current Medications Generic Name Dose Route Start Last Admin Trade Name Freq PRN Reason Stop Dose Admin Acetaminophen 650 mg 02/28/19 15:33 03/01/19 21:36 Tylenol - PO 650 mg TID PRN Administration FEVER Apixaban 5 mg 02/28/19 22:00 03/04/19 09:36 Eliquis - PO 5 mg BID [facility] Administration Carvedilol 12.5 mg 02/28/19 22:00 03/04/19 09:36 Coreg - PO 12.5 mg BID [facility] Administration Furosemide 40 mg 02/28/19 18:00 03/04/19 06:07 Lasix Injection - IVPUSH 40 mg Q12H [facility] Administration Gabapentin 200 mg 03/01/19 10:00 03/04/19 09:36 Neurontin - PO 200 mg DAILY [facility] Administration Mirtazapine 7.5 mg 02/28/19 22:00 03/03/19 23:37 Remeron - PO Not Given HS [facility] Non-Formulary Medication 14 mg 03/01/19 10:00 Memantine Hcl [Namenda Xr] PO DAILY [facility] Potassium Chloride 20 meq 03/01/19 10:00 03/04/19 09:36 K-Dur - PO 20 meq DAILY [facility] Administration Quetiapine Fumarate 25 mg 02/28/19 22:00 03/03/19 23:37 Seroquel - PO Not Given HS [facility] Rosuvastatin Calcium 20 mg 02/28/19 22:00 03/03/19 23:36 Crestor - PO Not Given HS [facility] Laboratory Results - last 24 hr 03/04/19 12:06 POC Glucometer 142 S1 S2 Irregular Lungs decreased Abd- soft, obese edema++ decreased edema PLAN continue with medical management for now iv lasix renal function noted -- worsening creatinine labs -- pt refusing weight daily cardiology follow up noted Problem List - Problems (1) Non compliance w medication regimen Code(s): Z91.14 - PATIENT'S OTHER NONCOMPLIANCE WITH MEDICATION REGIMEN (2) CHF (congestive heart failure) Code(s): I50.9 - HEART FAILURE, UNSPECIFIED Qualifiers: Heart failure type: systolic Heart failure chronicity: acute on chronic Qualified Code(s): I50.23 - Acute on chronic systolic (congestive) heart failure (3) A-fib Code(s): I48.91 - UNSPECIFIED ATRIAL FIBRILLATION Qualifiers: Atrial fibrillation type: chronic Qualified Code(s): I48.2 - Chronic atrial fibrillation (4) Acute exacerbation of CHF (congestive heart failure) Code(s): I50.9 - HEART FAILURE, UNSPECIFIED (5) Dementia Code(s): F03.90 - UNSPECIFIED DEMENTIA WITHOUT BEHAVIORAL DISTURBANCE Qualifiers: Dementia type: unspecified type (6) HTN (hypertension) Code(s): I10 - ESSENTIAL (PRIMARY) HYPERTENSION
--- NOTE | 2019-03-04 12:46 | PN ---
Progress Note (short form) - Note Progress Note: s: no chest pain, palps, dizziness. edema improving. no sob Vital Signs Period Temp Pulse Resp BP Sys/Villegas Pulse Ox Last 24 Hr 97.3 F-98 F 76-117 18-20 100-116/59-94 95-97 Constitutional: Yes: Calm Cardiovascular: Yes: Pulse Irregular Respiratory: Yes: Other (decreased breath sounds at bases, no active wheezing) Gastrointestinal: Yes: Soft, Abdomen, Obese Edema: Yes Edema: LLE: 1+, RLE: 1+ Neurological: Yes: Confusion not agitated no jaundice, diaphoresis Current Medications Generic Name Dose Route Start Last Admin Trade Name Freq PRN Reason Stop Dose Admin Acetaminophen 650 mg 02/28/19 15:33 03/01/19 21:36 Tylenol - PO 650 mg TID PRN Administration FEVER Apixaban 5 mg 02/28/19 22:00 03/04/19 09:36 Eliquis - PO 5 mg BID REJI Administration Carvedilol 12.5 mg 02/28/19 22:00 03/04/19 09:36 Coreg - PO 12.5 mg BID ERJI Administration Furosemide 40 mg 02/28/19 18:00 03/04/19 06:07 Lasix Injection - IVPUSH 40 mg Q12H REJI Administration Gabapentin 200 mg 03/01/19 10:00 03/04/19 09:36 Neurontin - PO 200 mg DAILY REJI Administration Mirtazapine 7.5 mg 02/28/19 22:00 03/03/19 23:37 Remeron - PO Not Given HS REJI Non-Formulary Medication 14 mg 03/01/19 10:00 Memantine Hcl [Namenda Xr] PO DAILY REJI Potassium Chloride 20 meq 03/01/19 10:00 03/04/19 09:36 K-Dur - PO 20 meq DAILY REJI Administration Quetiapine Fumarate 25 mg 02/28/19 22:00 03/03/19 23:37 Seroquel - PO Not Given HS REJI Rosuvastatin Calcium 20 mg 02/28/19 22:00 03/03/19 23:36 Crestor - PO Not Given HS REJI CBC, BMP 02/28/19 11:11 03/03/19 06:42 Assessment/Plan Echo 12/11: LVEF 25-30% (global). RV mildly hypo. mod-severe MR/TR. PASP at least 40. (small peric effusion, + pleural eff) Acute on chronic systolic CHF exac, shortness of breath, pulm HTN, MR: - h/o med non-compliance in [place] per prior notes, had been on IM lasix at [place] - Cont Coreg - not on ACEI due to CKD - per review of notes from [facility] prior admits, pt EF was 40-45% in 2017; was following with outside cardio and decisions re: cath, ICD have been deferred to outpt f/u though it has been unclear whether she has complied with cardiology office visits. she has no recollection of any of this at the moment. unfortunately, pt would be a poor candidate for PCIs given frequent med non- adherence (risks of premature discontinuation of DAPT) and doubt she would be a candidate for CABG if has MVDz in light of what appears to be poor baseline functional status. - med optimization for now - Pt has stated on previous admissions that she is not interested in invasive measures and is now DNR/DNI advanved directive - cont IV lasix, daily chem7 Afib: - Cont Eliquis, adjust for renal fx and age - rates controlled on average, on carvedilol Elevated trop: - indeterminate range, similar to prior values - likely demand in setting of CHF exac HTN: - controlled - cont home meds HLD: - cont statin
[2019-03-04] MEDS: QUEtiapine FUMARATE 25 MG TABLET (FP) PO SCH ×2 (22:47→22:54)
[2019-03-04] MEDS: ROSUVASTATIN CA 20 MG TABLET (FP) PO SCH ×2 (22:47→22:54)
[2019-03-04] MEDS: MIRTAZAPINE 15 MG TABLET (FP) PO SCH ×2 (22:47→22:54)
[2019-03-05] MEDS: FUROSEMIDE 40 MG/4 ML INJECTABLE VIAL IVPUSH SCH ×2 (05:44→18:21)
--- NOTE | 2019-03-05 09:05 | PN ---
Progress Note, Physician Chief Complaint: feeling better - Current Medication List Current Medications: Active Medications Acetaminophen (Tylenol -) 650 mg PO TID PRN PRN Reason: FEVER Last Admin: 03/01/19 21:36 Dose: 650 mg Apixaban (Eliquis -) 5 mg PO BID [facility] Last Admin: 03/04/19 22:54 Dose: Not Given Carvedilol (Coreg -) 12.5 mg PO BID [facility] Last Admin: 03/04/19 22:53 Dose: Not Given Furosemide (Lasix Injection -) 40 mg IVPUSH Q12H [facility] Last Admin: 03/05/19 05:44 Dose: 40 mg Gabapentin (Neurontin -) 200 mg PO DAILY [facility] Last Admin: 03/04/19 09:36 Dose: 200 mg Mirtazapine (Remeron -) 7.5 mg PO HS [facility] Last Admin: 03/04/19 22:54 Dose: Not Given Non-Formulary Medication (Memantine Hcl [Namenda Xr]) 14 mg PO DAILY [facility] Potassium Chloride (K-Dur -) 20 meq PO DAILY [facility] Last Admin: 03/04/19 09:36 Dose: 20 meq Quetiapine Fumarate (Seroquel -) 25 mg PO [facility] Last Admin: 03/04/19 22:54 Dose: Not Given Rosuvastatin Calcium (Crestor -) 20 mg PO [facility] Last Admin: 03/04/19 22:54 Dose: Not Given - Objective Vital Signs: Vital Signs Temperature 97.8 F 03/04/19 22:00 Pulse Rate 125 H 03/04/19 22:00 Respiratory Rate 20 03/04/19 22:00 Blood Pressure 134/113 H 03/04/19 22:00 O2 Sat by Pulse Oximetry (%) 95 03/04/19 22:00 Constitutional: Yes: Calm Cardiovascular: Yes: Pulse Irregular Respiratory: Yes: CTA Bilaterally Gastrointestinal: Yes: Soft Edema: Yes Edema: LLE: 2+, RLE: 2+ Neurological: Yes: Alert Labs: CBC, BMP 02/28/19 11:11 03/03/19 06:42 INR, PTT INR 1.30 (0.83-1.09) H 02/28/19 11:30 Assessment/Plan Assessment/Plan Echo 12/11: LVEF 25-30% (global). RV mildly hypo. mod-severe MR/TR. PASP at least 40. (small peric effusion, + pleural eff) Acute on chronic systolic CHF exac, shortness of breath, pulm HTN, MR: - h/o med non-compliance in [place] per prior notes, had been on IM lasix [place] - Cont Coreg - not on ACEI due to CKD - per review of notes from [facility] prior admits, pt EF was 40-45% in 2017; was following with outside cardio and decisions re: cath, ICD have been deferred to outpt f/u though it has been unclear whether she has complied with cardiology office visits. she has no recollection of any of this at the moment. unfortunately, pt would be a poor candidate for PCIs given frequent med non- adherence (risks of premature discontinuation of DAPT) and doubt she would be a candidate for CABG if has MVDz in light of what appears to be poor baseline functional status. - med optimization for now - Pt has stated on previous admissions that she is not interested in invasive measures and is now DNR/DNI advanved directive - cont IV lasix, daily chem7, still with LE edema. Would aim to transition to PO on Friday Afib: - Cont Eliquis, adjust for renal fx and age - rates controlled on average, on carvedilol Elevated trop: - indeterminate range, similar to prior values - likely demand in setting of CHF exac HTN: - controlled - cont home meds HLD: - cont statin
[2019-03-05] MEDS: POTASSIUM CHLORIDE TABS 20 MEQ TABLET.ER (FP) PO SCH (10:35)
[2019-03-05] MEDS: APIXABAN 5 MG TABLET PO SCH ×2 (10:35→23:34)
[2019-03-05] MEDS: GABAPENTIN 100 MG CAPSULE (FP) PO SCH (10:35)
[2019-03-05] MEDS: CARVEDILOL 12.5 MG TABLET (FP) PO SCH ×2 (10:37→23:34)
--- NOTE | 2019-03-05 13:52 | PN ---
Progress Note (short form) - Note Progress Note: pt seen/ examined. chart reviewed awake/ comfortable Vital Signs Temp 97.8 F 03/04/19 22:00 Pulse 97 H 03/05/19 10:30 Resp 20 03/05/19 10:30 BP 94/67 03/05/19 10:30 Pulse Ox 95 03/05/19 09:00 Intake & Output 03/04/19 03/05/19 03/05/19 23:59 11:59 23:59 Intake Total 200 20 Output Total 1000 Balance -800 20 Weight 189 lb 9.6 oz Intake: IV 20 SALINE LOCK 20 Oral 200 Output: Urine 1000 [place] 1000 Other: Voiding Method Indwelling Catheter Indwelling Catheter Bowel Movement No Weight Measurement Method Built in [facility] Active Medications Acetaminophen (Tylenol -) 650 mg PO TID PRN PRN Reason: FEVER Last Admin: 03/01/19 21:36 Dose: 650 mg Apixaban (Eliquis -) 5 mg PO BID [facility] Last Admin: 03/05/19 10:35 Dose: 5 mg Carvedilol (Coreg -) 12.5 mg PO BID [facility] Last Admin: 03/05/19 10:37 Dose: Not Given Furosemide (Lasix Injection -) 40 mg IVPUSH Q12H [facility] Last Admin: 03/05/19 05:44 Dose: 40 mg Gabapentin (Neurontin -) 200 mg PO DAILY [facility] Last Admin: 03/05/19 10:35 Dose: 200 mg Mirtazapine (Remeron -) 7.5 mg PO HS [facility] Last Admin: 03/04/19 22:54 Dose: Not Given Non-Formulary Medication (Memantine Hcl [Namenda Xr]) 14 mg PO DAILY [facility] Potassium Chloride (K-Dur -) 20 meq PO DAILY [facility] Last Admin: 03/05/19 10:35 Dose: 20 meq Quetiapine Fumarate (Seroquel -) 25 mg PO HS [facility] Last Admin: 03/04/19 22:54 Dose: Not Given Rosuvastatin Calcium (Crestor -) 20 mg PO HS [facility] Last Admin: 03/04/19 22:54 Dose: Not Given CBC, BMP 02/28/19 11:11 03/03/19 06:42 Physical S1 S2 Irregular Lungs decreased Abd- soft, obese edema++ PLAN continue with medical management for now iv lasix renal function noted -- worsening creatinine labs -- ordered for tomorrow weight daily cardiology follow up noted will follow Problem List - Problems (1) Non compliance w medication regimen Code(s): Z91.14 - PATIENT'S OTHER NONCOMPLIANCE WITH MEDICATION REGIMEN (2) CHF (congestive heart failure) Code(s): I50.9 - HEART FAILURE, UNSPECIFIED Qualifiers: Heart failure type: systolic Heart failure chronicity: acute on chronic Qualified Code(s): I50.23 - Acute on chronic systolic (congestive) heart failure (3) A-fib Code(s): I48.91 - UNSPECIFIED ATRIAL FIBRILLATION Qualifiers: Atrial fibrillation type: chronic Qualified Code(s): I48.2 - Chronic atrial fibrillation (4) Acute exacerbation of CHF (congestive heart failure) Code(s): I50.9 - HEART FAILURE, UNSPECIFIED (5) Dementia Code(s): F03.90 - UNSPECIFIED DEMENTIA WITHOUT BEHAVIORAL DISTURBANCE Qualifiers: Dementia type: unspecified type (6) HTN (hypertension) Code(s): I10 - ESSENTIAL (PRIMARY) HYPERTENSION
[2019-03-05] MEDS: QUEtiapine FUMARATE 25 MG TABLET (FP) PO SCH (23:34)
[2019-03-05] MEDS: MIRTAZAPINE 15 MG TABLET (FP) PO SCH (23:34)
[2019-03-05] MEDS: ROSUVASTATIN CA 20 MG TABLET (FP) PO SCH (23:34)
[2019-03-06] MEDS: FUROSEMIDE 40 MG/4 ML INJECTABLE VIAL IVPUSH SCH ×2 (06:35→17:41)
[2019-03-06 07:35] LABS: ALBUMIN 2.7 g/dl (3.4-5.0); BILIRUBIN,TOTAL 1.8 mg/dL (0.2-1); BLOOD UREA NITROGEN 44.5 mg/dL (7-18); CALCIUM 8.6 mg/dL (8.5-10.1); CREATININE 1.8 mg/dL (0.55-1.3); POTASSIUM 3.8 mmol/L (3.5-5.1); TOT PROT 6.5 g/dl (6.4-8.2)
[2019-03-06] MEDS: APIXABAN 5 MG TABLET PO SCH ×2 (08:59→23:24)
[2019-03-06] MEDS: POTASSIUM CHLORIDE TABS 20 MEQ TABLET.ER (FP) PO SCH (08:59)
[2019-03-06] MEDS: CARVEDILOL 12.5 MG TABLET (FP) PO SCH ×2 (08:59→23:24)
[2019-03-06] MEDS: GABAPENTIN 100 MG CAPSULE (FP) PO SCH (08:59)
[2019-03-06 10:13] LABS: BASO % 0.4 % (0-2.0); EOS % 4.2 % (0-4.5); HEMATOCRIT 27.2 % (32.4-45.2); HEMOGLOBIN 8.9 GM/dL (10.7-15.3); LYMPH % 15.6 % (8-40); MCH 30.9 pg (25.7-33.7); MCHC 32.7 g/dl (32.0-36.0); MEAN CELL VOLUME 94.5 fl (80-96); MONO % 14.9 % (3.8-10.2); NEUT % 64.9 % (42.8-82.8); RBC 2.88 M/mm3 (3.60-5.2); RDW 20.2 % (11.6-15.6); WHITE BLOOD COUNT 4.1 K/mm3 (4.0-10.0)
[2019-03-06 10:36] LABS: PLATELET COUNT 185 K/MM3 (134-434)
--- NOTE | 2019-03-06 12:22 | PN ---
Progress Note (short form) - Note Progress Note: at her baseline no distress took her meds today Vital Signs - 24 hr 03/05/19 03/05/19 03/06/19 21:00 21:50 06:00 Temperature 98.0 F Pulse Rate 105 H 89 Respiratory 20 20 Rate Blood Pressure 105/78 113/74 O2 Sat by Pulse 97 Oximetry (%) 03/06/19 03/06/19 03/06/19 08:57 09:00 15:17 Temperature 97.8 F 98.4 F Pulse Rate 96 H 90 Respiratory 16 16 18 Rate Blood Pressure 114/86 124/74 O2 Sat by Pulse 97 Oximetry (%) Current Medications Generic Name Dose Route Start Last Admin Trade Name Freq PRN Reason Stop Dose Admin Acetaminophen 650 mg 02/28/19 15:33 03/01/19 21:36 Tylenol - PO 650 mg TID PRN Administration FEVER Apixaban 5 mg 02/28/19 22:00 03/06/19 08:59 Eliquis - PO 5 mg BID REJI Administration Carvedilol 12.5 mg 02/28/19 22:00 03/06/19 08:59 Coreg - PO 12.5 mg BID REJI Administration Furosemide 40 mg 02/28/19 18:00 03/06/19 17:41 Lasix Injection - IVPUSH 40 mg Q12H REJI Administration Gabapentin 200 mg 03/01/19 10:00 03/06/19 08:59 Neurontin - PO 200 mg DAILY REJI Administration Mirtazapine 7.5 mg 02/28/19 22:00 03/05/19 23:34 Remeron - PO Not Given HS REJI Non-Formulary Medication 14 mg 03/01/19 10:00 Memantine Hcl [Namenda Xr] PO DAILY REJI Potassium Chloride 20 meq 03/01/19 10:00 03/06/19 08:59 K-Dur - PO 20 meq DAILY REJI Administration Quetiapine Fumarate 25 mg 02/28/19 22:00 03/05/19 23:34 Seroquel - PO Not Given HS REJI Rosuvastatin Calcium 20 mg 02/28/19 22:00 03/05/19 23:34 Crestor - PO Not Given HS REJI Laboratory Results - last 24 hr 03/06/19 03/06/19 05:57 05:57 WBC 4.1 RBC 2.88 L Hgb 8.9 L Hct 27.2 L D MCV 94.5 MCH 30.9 MCHC 32.7 RDW 20.2 H Plt Count 185 MPV 10.0 Absolute Neuts (auto) 2.6 Neutrophils % 64.9 Neutrophils % (Manual) 64.3 Band Neutrophils % 0.0 Lymphocytes % 15.6 D Lymphocytes % (Manual) 16.3 Monocytes % 14.9 H Monocytes % (Manual) 14 H Eosinophils % 4.2 Eosinophils % (Manual) 4.1 Basophils % 0.4 Basophils % (Manual) 1.0 Myelocytes % (Man) 0 Promyelocytes % (Man) 0 Blast Cells % (Manual) 0 Nucleated RBC % 0 Metamyelocytes 0 Hypochromia 0 Platelet Estimate Normal Polychromasia 0 Poikilocytosis 1+ Anisocytosis 1+ Microcytosis 0 Macrocytosis 1+ Target Cells 1+ Ovalocytes 1+ Schistocytes 1+ Sodium 148 H Potassium 3.8 Chloride 110 H Carbon Dioxide 30 Anion Gap 8 BUN 44.5 H Creatinine 1.8 H Est GFR (CKD-EPI)AfAm 30.28 Est GFR (CKD-EPI)NonAf 26.12 Random Glucose 112 H Calcium 8.6 Total Bilirubin 1.8 H AST 13 L ALT 8 L Alkaline Phosphatase 109 Total Protein 6.5 Albumin 2.7 L S1 S2 Irregular Lungs decreased Abd- soft, obese edema decreased PLAN continue with medical management for now iv lasix- decrease to once daily renal function noted weight daily -->decreased weight today [facility] cardiology follow up noted Problem List - Problems (1) Non compliance w medication regimen Code(s): Z91.14 - PATIENT'S OTHER NONCOMPLIANCE WITH MEDICATION REGIMEN (2) CHF (congestive heart failure) Code(s): I50.9 - HEART FAILURE, UNSPECIFIED Qualifiers: Heart failure type: systolic Heart failure chronicity: acute on chronic Qualified Code(s): I50.23 - Acute on chronic systolic (congestive) heart failure (3) A-fib Code(s): I48.91 - UNSPECIFIED ATRIAL FIBRILLATION Qualifiers: Atrial fibrillation type: chronic Qualified Code(s): I48.2 - Chronic atrial fibrillation (4) Acute exacerbation of CHF (congestive heart failure) Code(s): I50.9 - HEART FAILURE, UNSPECIFIED (5) Dementia Code(s): F03.90 - UNSPECIFIED DEMENTIA WITHOUT BEHAVIORAL DISTURBANCE Qualifiers: Dementia type: unspecified type (6) HTN (hypertension) Code(s): I10 - ESSENTIAL (PRIMARY) HYPERTENSION
--- NOTE | 2019-03-06 12:27 | PN ---
Progress Note (short form) - Note Progress Note: s: no chest pain, palps, dizziness. edema improving. no sob Vital Signs Period Temp Pulse Resp BP Sys/Villegas Pulse Ox Last 24 Hr 97.4 F-98.7 F 89-134 16-20 86-114/63-86 97-97 Constitutional: Yes: Calm Cardiovascular: Yes: Pulse Irregular Respiratory: Yes: Other (decreased breath sounds at bases, no active wheezing) Gastrointestinal: Yes: Soft, Abdomen, Obese Edema: trace le edema bl Neurological: Yes: Confusion not agitated no jaundice, diaphoresis Current Medications Generic Name Dose Route Start Last Admin Trade Name Freq PRN Reason Stop Dose Admin Acetaminophen 650 mg 02/28/19 15:33 03/01/19 21:36 Tylenol - PO 650 mg TID PRN Administration FEVER Apixaban 5 mg 02/28/19 22:00 03/06/19 08:59 Eliquis - PO 5 mg BID REJI Administration Carvedilol 12.5 mg 02/28/19 22:00 03/06/19 08:59 Coreg - PO 12.5 mg BID REJI Administration Furosemide 40 mg 02/28/19 18:00 03/06/19 06:35 Lasix Injection - IVPUSH 40 mg Q12H REJI Administration Gabapentin 200 mg 03/01/19 10:00 03/06/19 08:59 Neurontin - PO 200 mg DAILY REJI Administration Mirtazapine 7.5 mg 02/28/19 22:00 03/05/19 23:34 Remeron - PO Not Given HS REJI Non-Formulary Medication 14 mg 03/01/19 10:00 Memantine Hcl [Namenda Xr] PO DAILY REJI Potassium Chloride 20 meq 03/01/19 10:00 03/06/19 08:59 K-Dur - PO 20 meq DAILY REJI Administration Quetiapine Fumarate 25 mg 02/28/19 22:00 03/05/19 23:34 Seroquel - PO Not Given HS REJI Rosuvastatin Calcium 20 mg 02/28/19 22:00 03/05/19 23:34 Crestor - PO Not Given HS REJI CBC, BMP 03/06/19 05:57 03/06/19 05:57 Assessment/Plan Echo 12/11: LVEF 25-30% (global). RV mildly hypo. mod-severe MR/TR. PASP at least 40. (small peric effusion, + pleural eff) Acute on chronic systolic CHF exac, shortness of breath, pulm HTN, MR: - h/o med non-compliance in [place] per prior notes, had been on IM lasix at [place] - Cont Coreg - not on ACEI due to CKD - per review of notes from [facility] prior admits, pt EF was 40-45% in 2017; was following with outside cardio and decisions re: cath, ICD have been deferred to outpt f/u though it has been unclear whether she has complied with cardiology office visits. she has no recollection of any of this at the moment. unfortunately, pt would be a poor candidate for PCIs given frequent med non- adherence (risks of premature discontinuation of DAPT) and doubt she would be a candidate for CABG if has MVDz in light of what appears to be poor baseline functional status. - med optimization for now - Pt has stated on previous admissions that she is not interested in invasive measures and is now DNR/DNI advanved directive - chf improving, cont IV lasix, daily chem7 Afib: - Cont Eliquis, adjust for renal fx and age - rates controlled on average, on carvedilol Elevated trop: - indeterminate range, similar to prior values - likely demand in setting of CHF exac HTN: - controlled - cont home meds HLD: - cont statin
[2019-03-06 13:45] LABS: ANISOCYTOSIS 1+; MACROCYTOSIS 1+; OVALOCYTE 1+; PLATELET ESTIMATE NORMAL; TARGET CELLS 1+
[2019-03-06] MEDS: MIRTAZAPINE 15 MG TABLET (FP) PO SCH (23:24)
[2019-03-06] MEDS: ROSUVASTATIN CA 20 MG TABLET (FP) PO SCH (23:24)
[2019-03-06] MEDS: QUEtiapine FUMARATE 25 MG TABLET (FP) PO SCH (23:25)
--- NOTE | 2019-03-07 09:12 | PN ---
Progress Note (short form) - Note Progress Note: at her baseline no distress pulled out iv line no sob Vital Signs - 24 hr 03/06/19 03/06/19 15:17 21:00 Temperature 98.4 F 96.7 F L Pulse Rate 90 112 H Respiratory 18 18 Rate Blood Pressure 124/74 107/75 Current Medications Generic Name Dose Route Start Last Admin Trade Name [place] PRN Reason Stop Dose Admin Acetaminophen 650 mg 02/28/19 15:33 03/01/19 21:36 Tylenol - PO 650 mg TID PRN Administration FEVER Apixaban 5 mg 02/28/19 22:00 03/06/19 23:24 Eliquis - PO Not Given BID REJI Carvedilol 12.5 mg 02/28/19 22:00 03/06/19 23:24 Coreg - PO Not Given BID REJI Furosemide 40 mg 03/07/19 10:00 Lasix Injection - IVPUSH DAILY REJI Gabapentin 200 mg 03/01/19 10:00 03/06/19 08:59 Neurontin - PO 200 mg DAILY REJI Administration Mirtazapine 7.5 mg 02/28/19 22:00 03/06/19 23:24 Remeron - PO Not Given HS REJI Non-Formulary Medication 14 mg 03/01/19 10:00 Memantine Hcl [Namenda Xr] PO DAILY REJI Potassium Chloride 20 meq 03/01/19 10:00 03/06/19 08:59 K-Dur - PO 20 meq DAILY REJI Administration Quetiapine Fumarate 25 mg 02/28/19 22:00 03/06/19 23:25 Seroquel - PO Not Given HS REJI Rosuvastatin Calcium 20 mg 02/28/19 22:00 03/06/19 23:24 Crestor - PO Not Given HS REJI Laboratory Results - last 24 hr 03/06/19 05:57 WBC 4.1 RBC 2.88 L Hgb 8.9 L Hct 27.2 L D MCV 94.5 MCH 30.9 MCHC 32.7 RDW 20.2 H Plt Count 185 MPV 10.0 Absolute Neuts (auto) 2.6 Neutrophils % 64.9 Neutrophils % (Manual) 64.3 Band Neutrophils % 0.0 Lymphocytes % 15.6 D Lymphocytes % (Manual) 16.3 Monocytes % 14.9 H Monocytes % (Manual) 14 H Eosinophils % 4.2 Eosinophils % (Manual) 4.1 Basophils % 0.4 Basophils % (Manual) 1.0 Myelocytes % (Man) 0 Promyelocytes % (Man) 0 Blast Cells % (Manual) 0 Nucleated RBC % 0 Metamyelocytes 0 Hypochromia 0 Platelet Estimate Normal Polychromasia 0 Poikilocytosis 1+ Anisocytosis 1+ Microcytosis 0 Macrocytosis 1+ Target Cells 1+ Ovalocytes 1+ Schistocytes 1+ S1 S2 Irregular Lungs decreased Abd- soft, obese edema decreased PLAN continue with medical management for now change to po lasix renal function noted weight daily -->decreased weight today dc planning Problem List - Problems (1) Non compliance w medication regimen Code(s): Z91.14 - PATIENT'S OTHER NONCOMPLIANCE WITH MEDICATION REGIMEN (2) CHF (congestive heart failure) Code(s): I50.9 - HEART FAILURE, UNSPECIFIED Qualifiers: Heart failure type: systolic Heart failure chronicity: acute on chronic Qualified Code(s): I50.23 - Acute on chronic systolic (congestive) heart failure (3) A-fib Code(s): I48.91 - UNSPECIFIED ATRIAL FIBRILLATION Qualifiers: Atrial fibrillation type: chronic Qualified Code(s): I48.2 - Chronic atrial fibrillation (4) Acute exacerbation of CHF (congestive heart failure) Code(s): I50.9 - HEART FAILURE, UNSPECIFIED (5) Dementia Code(s): F03.90 - UNSPECIFIED DEMENTIA WITHOUT BEHAVIORAL DISTURBANCE Qualifiers: Dementia type: unspecified type (6) HTN (hypertension) Code(s): I10 - ESSENTIAL (PRIMARY) HYPERTENSION
[2019-03-07] MEDS: POTASSIUM CHLORIDE TABS 20 MEQ TABLET.ER (FP) PO SCH (09:55)
[2019-03-07] MEDS: APIXABAN 5 MG TABLET PO SCH ×2 (09:55→22:02)
[2019-03-07] MEDS: FUROSEMIDE 40 MG TABLET (FP) PO SCH (09:55)
[2019-03-07] MEDS: CARVEDILOL 12.5 MG TABLET (FP) PO SCH ×2 (09:55→22:02)
[2019-03-07] MEDS: GABAPENTIN 100 MG CAPSULE (FP) PO SCH (09:56)
[2019-03-07] MEDS ORDERED: FUROSEMIDE 40 MG/4 ML INJECTABLE VIAL IVPUSH SCH (10:00)
--- NOTE | 2019-03-07 10:57 | PN ---
Progress Note (short form) - Note Progress Note: s: no chest pain, palps, dizziness. edema improved. no sob Vital Signs Period Temp Pulse Resp BP Sys/Villegas Pulse Ox Last 24 Hr 96.7 F-98.4 F 90-112 18-18 107-124/74-75 Constitutional: Yes: Calm Cardiovascular: Yes: Pulse Irregular Respiratory: Yes: cta bl nl eff Gastrointestinal: Yes: Soft, Abdomen, Obese Edema: trace le edema bl Neurological: Yes: Confusion not agitated no jaundice, diaphoresis Current Medications Generic Name Dose Route Start Last Admin Trade Name Freq PRN Reason Stop Dose Admin Acetaminophen 650 mg 02/28/19 15:33 03/01/19 21:36 Tylenol - PO 650 mg TID PRN Administration FEVER Apixaban 5 mg 02/28/19 22:00 03/07/19 09:55 Eliquis - PO Not Given BID REJI Carvedilol 12.5 mg 02/28/19 22:00 03/07/19 09:55 Coreg - PO Not Given BID REJI Furosemide 40 mg 03/07/19 10:00 03/07/19 09:55 Lasix - PO Not Given DAILY REJI Gabapentin 200 mg 03/01/19 10:00 03/07/19 09:56 Neurontin - PO Not Given DAILY REJI Mirtazapine 7.5 mg 02/28/19 22:00 03/06/19 23:24 Remeron - PO Not Given HS [facility] Non-Formulary Medication 14 mg 03/01/19 10:00 Memantine Hcl [Namenda Xr] PO DAILY [facility] Potassium Chloride 20 meq 03/01/19 10:00 03/07/19 09:55 K-Dur - PO Not Given DAILY REJI Quetiapine Fumarate 25 mg 02/28/19 22:00 03/06/19 23:25 Seroquel - PO Not Given HS REJI Rosuvastatin Calcium 20 mg 02/28/19 22:00 03/06/19 23:24 Crestor - PO Not Given HS [facility] CBC, BMP 03/06/19 05:57 03/06/19 05:57 Assessment/Plan Echo 12/11: LVEF 25-30% (global). RV mildly hypo. mod-severe MR/TR. PASP at least 40. (small peric effusion, + pleural eff) Acute on chronic systolic CHF exac, shortness of breath, pulm HTN, MR: - h/o med non-compliance in [place] per prior notes, had been [place] - Cont Coreg - not on ACEI due to CKD - per review of notes from [facility] prior admits, pt EF was 40-45% in 2017; was following with outside cardio and decisions re: cath, ICD have been deferred to outpt f/u though it has been unclear whether she has complied with cardiology office visits. she has no recollection of any of this at the moment. unfortunately, pt would be a poor candidate for PCIs given frequent med non- adherence (risks of premature discontinuation of DAPT) and doubt she would be a candidate for CABG if has MVDz in light of what appears to be poor baseline functional status. - med optimization for now - Pt has stated on previous admissions that she is not interested in invasive measures and is now DNR/DNI advanved directive - chf improved after iv lasix, agree with po now Afib: - Cont Eliquis, adjust for renal fx and age - rates controlled on average, on carvedilol Elevated trop: - indeterminate range, similar to prior values - likely demand in setting of CHF exac HTN: - controlled - cont home meds HLD: - cont statin dc tele
[2019-03-07] MEDS: MIRTAZAPINE 15 MG TABLET (FP) PO SCH (22:02)
[2019-03-07] MEDS: ROSUVASTATIN CA 20 MG TABLET (FP) PO SCH (22:02)
[2019-03-07] MEDS: QUEtiapine FUMARATE 25 MG TABLET (FP) PO SCH (22:02)
--- NOTE | 2019-03-08 09:52 | PN ---
Progress Note, Physician Chief Complaint: sob History of Present Illness: states she was very sob in [place] but no more. denies cp. no palpit, syncope denies active cigs - Current Medication List Current Medications: Active Medications Acetaminophen (Tylenol -) 650 mg PO TID PRN PRN Reason: FEVER Last Admin: 03/01/19 21:36 Dose: 650 mg Apixaban (Eliquis -) 5 mg PO BID [facility] Last Admin: 03/07/19 22:02 Dose: Not Given Carvedilol (Coreg -) 12.5 mg PO BID [facility] Last Admin: 03/07/19 22:02 Dose: Not Given Furosemide (Lasix -) 40 mg PO DAILY [facility] Last Admin: 03/07/19 09:55 Dose: Not Given Gabapentin (Neurontin -) 200 mg PO DAILY [facility] Last Admin: 03/07/19 09:56 Dose: Not Given Mirtazapine (Remeron -) 7.[address] [facility] Last Admin: 03/07/19 22:02 Dose: Not Given Non-Formulary Medication (Memantine Hcl [Namenda Xr]) 14 mg PO DAILY [facility] Potassium Chloride (K-Dur -) 20 meq PO DAILY [facility] Last Admin: 03/07/19 09:55 Dose: Not Given Quetiapine Fumarate (Seroquel -) [address] [facility] Last Admin: 03/07/19 22:02 Dose: Not Given Rosuvastatin Calcium (Crestor -) [address] [facility] Last Admin: 03/07/19 22:02 Dose: Not Given - Objective Vital Signs: Vital Signs Temperature 98.1 F 03/08/19 02:06 Pulse Rate 84 03/08/19 02:06 Respiratory Rate 18 03/08/19 09:00 Blood Pressure 142/91 03/08/19 02:06 O2 Sat by Pulse Oximetry (%) 97 03/08/19 09:00 Constitutional: Yes: No Distress, Calm Eyes: No: Sclera Icterus HENT: No: Nasal Congestion Cardiovascular: Yes: Pulse Irregular, S1, S2, Other (PMI non diplaced). No: JVD (tds (short neck)), Gallop, Murmur Respiratory: Yes: CTA Bilaterally. No: Accessory Muscle Use, Rales, Wheezes Gastrointestinal: Yes: Normal Bowel Sounds, Soft. No: Tenderness Musculoskeletal: Yes: Other (No kyphosis) Extremities: No: Cold, Cyanosis Edema: Yes (2-3+ ankles) Integumentary: No: Jaundice Neurological: Yes: Alert. No: Seizure Psychiatric: No: Agitated Labs: CBC, BMP 03/06/19 05:57 03/06/19 05:57 INR, PTT INR 1.30 (0.83-1.09) H 02/28/19 11:30 Assessment/Plan Echo 12/11: LVEF 25-30% (global). RV mildly hypo. mod-severe MR/TR. PASP at least 40. (small peric effusion, + pleural eff) Acute on chronic systolic CHF exac, shortness of breath, pulm HTN, MR: - h/o med non-compliance in NH per prior notes, had been on IM lasix at [place] - Cont Coreg. not on ACEI due to CKD - per review of [place] [facility] [place], pt EF was 40-45% in 2017; was following with outside cardio and decisions re: cath, ICD have been deferred to outpt f/u though it has been unclear whether she has complied with cardiology office visits, likely not. - invasive w/u has been deferred: pt declined invasive procedures, and poor candidate for PCIs given frequent med non-adherence (risks of premature discontinuation of DAPT) and doubt she would be a candidate for CABG if has MVDz in light of what appears to be poor baseline functional status. - chf improved after iv lasix 40 qd-->transitioned to 40 po qd on 03/07 - 03/08: increase lasix to 80 qd given signif residual edema--observe bun/creat trend SAMM on CKD: - baseline creat 1.5-1.7 - up here sec to cardiorenal--improved with diuresis, close to baseline - monitor closely Afib: - rates controlled on average--cont carvedilol - Cont Eliquis, adjust for renal fx and age Elevated trop: - indeterminate range, similar to prior values - likely demand in setting of CHF exac HTN: - controlled - cont home meds HLD: - cont statin d/c tele
[2019-03-08] MEDS: POTASSIUM CHLORIDE TABS 20 MEQ TABLET.ER (FP) PO SCH (10:58)
[2019-03-08] MEDS: GABAPENTIN 100 MG CAPSULE (FP) PO SCH (10:58)
[2019-03-08] MEDS: APIXABAN 5 MG TABLET PO SCH (10:59)
[2019-03-08] MEDS: FUROSEMIDE 40 MG TABLET (FP) PO SCH (10:59)
[2019-03-08] MEDS: CARVEDILOL 12.5 MG TABLET (FP) PO SCH (10:59)
[2019-03-08] MEDS ORDERED: FUROSEMIDE 40 MG TABLET (FP) PO SCH (11:06)
[2019-03-08 12:20] VITALS: BMI 41.8
[2019-03-08 13:34] VITALS: BP 125/98; PULSE 65; TEMP 97.8
--- NOTE | 2019-03-08 13:48 | DS ---
Physical Examination Vital Signs: Vital Signs Temperature 97.8 F 03/08/19 13:32 Pulse Rate 65 03/08/19 13:32 Respiratory Rate 18 03/08/19 13:32 Blood Pressure 125/98 03/08/19 13:32 O2 Sat by Pulse Oximetry (%) 97 03/08/19 09:00 Findings/Remarks: pt seen/ examined. chart reviewed awake/ comfortable Constitutional: Yes: No Distress, Calm Eyes: Yes: Conjunctiva Clear Neck: Yes: Supple Cardiovascular: Yes: Regular Rate and Rhythm Respiratory: Yes: Diminished Gastrointestinal: Yes: Soft Edema: LLE: 1+, RLE: 1+ (improved) Neurological: Yes: Other (awake) Psychiatric: Yes: Alert Labs: CBC, BMP 03/06/19 05:57 03/06/19 05:57 Discharge Summary Reason For Visit: CONGESTIVE HEART FAILURE Current Active Problems CHF (congestive heart failure) (Acute) Non compliance w medication regimen (Acute) Hospital Course: admitted for chf exac compliance issues much better with i/v lasix monitored on tele cardiology followed d/c on po lasix-- higher doses monitor lytes in [place] meds reconcilled Discussed with nursing staff/ director case management Condition: Guarded - Instructions Disposition: HOME - Home Medications Comprehensive Discharge Medication List: Ambulatory Orders Mirtazapine 7.5 mg PO HS 01/21/18 Rosuvastatin [Crestor -] 20 mg PO HS 01/21/18 Potassium Chloride 20 meq PO DAILY #30 tablet.er 07/28/18 Famotidine 20 mg PO DAILY 12/19/18 Gabapentin 200 mg PO DAILY 12/19/18 Multivitamins [Multivit ([facility] Formulary)] 1 tab PO DAILY 12/19/18 Sennosides [Senna -] 17.2 tab PO HS 12/19/18 Quetiapine Fumarate [Seroquel -] 25 mg PO HS #30 tab 12/22/18 Acetaminophen 650 mg PO TID 02/09/19 Memantine HCl [Namenda Xr] 14 mg PO DAILY 02/09/19 Nystatin Cream [Mycostatin Cream -] 1 applic TP BID 02/09/19 Triamcinolone 0.1% Cream 1 applic TP DAILY 02/09/19 Apixaban [Eliquis -] 5 mg PO BID 02/28/19 Carvedilol [Coreg -] 25 mg PO BID 02/28/19 Furosemide [Lasix -] 80 mg PO DAILY tablet 03/08/19
== END 2019-03-08 16:46 | disposition home or self-care (01) | DRG 291 ==
LOC: JER 09:21 → JERBED 14:23 → J4W 17:16
PROVIDERS: ADMIT Internal Medicine; ATTEND Internal Medicine
DX: I13.0 Hypertensive heart and chronic kidney disease with heart failure and stage 1 through stage 4 chronic kidney disease, or unspecified chronic kidney disease (principal); I50.23 Acute on chronic systolic (congestive) heart failure; Z68.41 Body mass index [BMI] 40.0-44.9, adult; I31.3 Pericardial effusion (noninflammatory); I24.8 Other forms of acute ischemic heart disease; N17.9 Acute kidney failure, unspecified; F03.90 Unspecified dementia, unspecified severity, without behavioral disturbance, psychotic disturbance, mood disturbance, and anxiety; G62.9 Polyneuropathy, unspecified; I48.91 Unspecified atrial fibrillation; E78.5 Hyperlipidemia, unspecified; K21.9 Gastro-esophageal reflux disease without esophagitis; F32.9 Major depressive disorder, single episode, unspecified; Z91.14 Patient's other noncompliance with medication regimen; E66.8 Other obesity; I08.1 Rheumatic disorders of both mitral and tricuspid valves; I27.20 Pulmonary hypertension, unspecified; I48.2 Chronic atrial fibrillation; N18.9 Chronic kidney disease, unspecified
CPT/HCPCS: 36415; 36600; 71045-TC-FY; 80048; 80053; 81003; 82375; 82550; 82803; 82962; 83050; 83880; 84484; 85025; 85610; 85730; 87086; 93005; 93010; 99285-25

== ENCOUNTER 2019-03-30 16:05 | Inpatient (IN) | payer OTHER ==
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
[2019-03-30] MEDS ORDERED: QUEtiapine FUMARATE 25 MG TABLET (FP) PO ONE (22:10)
[2019-03-30] MEDS ORDERED: QUEtiapine FUMARATE 25 MG TABLET (FP) ONE (22:20)
--- NOTE | 2019-03-30 23:11 | PDOC ---
Documentation entered by Jose Angel Quintanilla SCRIBE, acting as scribe for Zoya Canada MD. Zoya Canada MD: This documentation has been prepared by the Socorro torres Xhesika, SCRIBE, under my direction and personally reviewed by me in its entirety. I confirm that the documentation accurately reflects all work, treatment, procedures, and medical decision making performed by me. Attending Attestation - Resident Resident Name: Neyda Banda - ED Attending Attestation I have performed the following: I have examined & evaluated the patient, The case was reviewed & discussed with the resident, I agree w/resident's findings & plan, Exceptions are as noted - HPI HPI: 03/30/19 22:38 The patient is an 78 year old female from from [facility] with a significant PMH of HF, HTN, HLD, Afib (on Eliquis), OA, renal insufficiency, GERD, depression, dementia, peripheral neuropathy, chronic pain who presents to the emergency department with increasing pitting edema. Patient endorses fatigue, weakness, and pain in her legs. The patient denies chest pain, shortness of breath, headache and dizziness. Denies fever, chills, cough, nausea, vomiting, diarrhea and constipation. Denies dysuria, frequency, urgency and hematuria. Allergies: NKDA PCP: Elizabeth Bradley - Physicial Exam PE: 03/30/19 23:10 Agree with resident exam. - Medical Decision Making 03/31/19 01:22 78-year-old female brought in by ambulance from [facility] for increased edema Patient was admitted at this hospital this January and February for acute on chronic CHF. she is not in any acute respiratory distress currently She is conversant but has dementia and is a poor historian e has 4+ pitting edema in her lower extremities. Review of her labs shows chronic anemia Today, her hemoglobin was 8.3, hematocrit is 26 03/31/19 01:29 pt to receive diuretics and admission for acute on chronic chf
[2019-03-31 00:12] LABS: BASO % 0.6 % (0-2.0); EOS % 4.1 % (0-4.5); HEMOGLOBIN 8.3 GM/dL (10.7-15.3); LYMPH % 16.9 % (8-40); MCH 30.2 pg (25.7-33.7); MEAN CELL VOLUME 94.2 fl (80-96); MEAN PLT VOLUME 10.3 fl (7.5-11.1); MONO % 12.3 % (3.8-10.2); NEUT % 66.1 % (42.8-82.8); PLATELET COUNT 164 K/MM3 (134-434); RBC 2.76 M/mm3 (3.60-5.2); RDW 18.6 % (11.6-15.6); WHITE BLOOD COUNT 3.9 K/mm3 (4.0-10.0)
[2019-03-31 00:36] LABS: ALBUMIN 2.9 g/dl (3.4-5.0); BILIRUBIN,TOTAL 1.6 mg/dL (0.2-1); BLOOD UREA NITROGEN 77.1 mg/dL (7-18); CALCIUM 8.9 mg/dL (8.5-10.1); CREATININE 2.5 mg/dL (0.55-1.3); POTASSIUM 4.4 mmol/L (3.5-5.1); TOT PROT 7.4 g/dl (6.4-8.2)
[2019-03-31 00:38] LABS: INR 1.88 (0.83-1.09); PROTHROMBIN TIME (PATIENT) 22.3 SEC (9.7-13.0)
[2019-03-31] MEDS ORDERED: FUROSEMIDE 40 MG/4 ML INJECTABLE VIAL IVPUSH ONE (01:29)
[2019-03-31] MEDS ORDERED: FUROSEMIDE 40 MG/4 ML INJECTABLE VIAL ONE (01:35)
[2019-03-31] MEDS ORDERED: ACETAMINOPHEN 325 MG TABLET (FP) PO PRN (07:19)
--- NOTE | 2019-03-31 07:27 | HP ---
Admitting History and Physical - Primary Care Physician PCP: China Cuello - Admission Chief Complaint: Generalized Edema, Leg Pain History of Present Illness: This is a 78 year old woman from [facility] with a significant PMHx of HF, HTN , HLD, Afib (on Eliquis), OA, Renal Insufficiency, GERD, Depression, Dementia, Peripheral Neuropathy, Chronic Pain. The patient has Dementia and is agitated at present unable to provide HPI. Per ED record : Who presents to the ED with increasing pitting edema. Patient endorses fatigue, weakness, and pain in her legs. The patient denies chest pain, shortness of breath, headache and dizziness. Denies fever, chills, cough, nausea, vomiting, diarrhea and constipation. Denies dysuria, frequency, urgency and hematuria. 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, Peripheral Neuropathy Cardiovascular: Yes: AFIB, CHF, HTN, Hyperlipdemia Gastrointestinal: Yes: GERD Renal/: Yes: Renal Inusuff Psych: Yes: Depression - Past Surgical History Past Surgical History: Yes: None - Smoking History Smoking history: Never smoked Have you smoked in the past 12 months: No - Alcohol/Substance Use Hx Alcohol Use: No History of Substance Use: reports: None - Social History Usual Living Arrangement: Yes: Care Home ADL: Support Services History of Recent Travel: No Home Medications - Allergies Allergies/Adverse Reactions: Allergies Allergy/AdvReac Type Severity Reaction Status Date / Time No Known Allergies Allergy Verified 03/31/19 06:38 - Home Medications Home Medications: Ambulatory Orders Mirtazapine 7.5 mg PO HS 01/21/18 Rosuvastatin [Crestor -] 20 mg PO HS 01/21/18 Potassium Chloride 20 meq PO DAILY #30 tablet.er 07/28/18 Famotidine 20 mg PO DAILY 12/19/18 Gabapentin 200 mg PO DAILY 12/19/18 Multivitamins [Multivit ([facility] Formulary)] 1 tab PO DAILY 12/19/18 Sennosides [Senna -] 17.2 tab PO HS 12/19/18 Quetiapine Fumarate [Seroquel -] 25 mg PO HS #30 tab 12/22/18 Acetaminophen 650 mg PO TID 02/09/19 Memantine HCl [Namenda Xr] 14 mg PO DAILY 02/09/19 Nystatin Cream [Mycostatin Cream -] 1 applic TP BID 02/09/19 Triamcinolone 0.1% Cream 1 applic TP DAILY 02/09/19 Apixaban [Eliquis -] 5 mg PO BID 02/28/19 Carvedilol [Coreg -] 25 mg PO BID 02/28/19 Furosemide [Lasix -] 80 mg PO DAILY tablet 03/08/19 Family Disease History - Family Disease History Family History: Unable to Obtain Review of Systems Unable to obtain ROS, reason: Dementia Physical Examination Vital Signs: Vital Signs Temperature 97.5 F L 03/30/19 20:37 Pulse Rate 89 03/30/19 20:37 Respiratory Rate 17 03/31/19 06:32 Blood Pressure 101/73 03/31/19 06:32 O2 Sat by Pulse Oximetry (%) 96 03/31/19 06:32 Constitutional: Yes: Other (Agitated and Uncooperative) Eyes: Yes: Conjunctiva Clear, PERRL HENT: Yes: WNL, Atraumatic, Normocephalic Neck: Yes: WNL, Supple, Trachea Midline Cardiovascular: Yes: Pulse Irregular, S1, S2 Respiratory: Yes: Rales (bases) Gastrointestinal: Yes: WNL, Normal Bowel Sounds, Soft, Abdomen, Obese ...Rectal Exam: Yes: Deferred Renal/: Yes: Incontinence Breast(s): Yes: WNL Edema: Yes Edema: LUE: 4+, RUE: 4+, LLE: 4+, RLE: 4+ Peripheral Pulses WNL: Yes Neurological: Yes: Asterixis Psychiatric: Yes: Agitated Labs: CBC, BMP 03/30/19 23:45 03/30/19 23:45 Laboratory Results - last 24 hr 03/30/19 03/30/19 03/30/19 23:45 23:45 23:45 WBC 3.9 L RBC 2.76 L Hgb 8.3 L Hct 26.0 L MCV 94.2 MCH 30.2 MCHC 32.0 RDW 18.6 H Plt Count 164 MPV 10.3 Absolute Neuts (auto) 2.6 Neutrophils % 66.1 Lymphocytes % 16.9 Monocytes % 12.3 H Eosinophils % 4.1 Basophils % 0.6 Nucleated RBC % 0 PT with INR INR PTT (Actin FS) 47.8 H Sodium Potassium Chloride Carbon Dioxide Anion Gap BUN Creatinine Est GFR (CKD-EPI)AfAm Est GFR (CKD-EPI)NonAf Random Glucose Calcium Total Bilirubin AST ALT Alkaline Phosphatase Creatine Kinase 115 Troponin I 0.08 H B-Natriuretic Peptide Total Protein Albumin 03/30/19 03/30/19 03/30/19 23:45 23:45 23:45 WBC RBC Hgb Hct MCV MCH MCHC RDW Plt Count MPV Absolute Neuts (auto) Neutrophils % Lymphocytes % Monocytes % Eosinophils % Basophils % Nucleated RBC % PT with INR 22.30 H INR 1.88 H PTT (Actin FS) Sodium 144 Potassium 4.4 Chloride 106 Carbon Dioxide 29 Anion Gap 9 BUN 77.1 H Creatinine 2.5 H Est GFR (CKD-EPI)AfAm 20.35 Est GFR (CKD-EPI)NonAf 17.56 Random Glucose 101 Calcium 8.9 Total Bilirubin 1.6 H AST 22 ALT 15 Alkaline Phosphatase 134 H Creatine Kinase Troponin I B-Natriuretic Peptide 89914.0 H Total Protein 7.4 Albumin 2.9 L Intake & Output 03/28/19 03/29/19 03/30/19 03/31/19 23:59 23:59 23:59 23:59 Weight 95.254 kg Current Medications Generic Name Dose Route Start Last Admin Trade Name Freq PRN Reason Stop Dose Admin Acetaminophen 650 mg 03/31/19 07:19 Tylenol - PO Q8H PRN FEVER Apixaban 2.5 mg 03/31/19 10:00 Eliquis - PO BID [facility] Mirtazapine 7.5 mg 03/31/19 22:00 Remeron - PO HS [facility] Multivitamins/Minerals/Vitamin C 1 tab 03/31/19 10:00 Tab-A-Vit - PO DAILY [facility] Non-Formulary Medication 14 mg 03/31/19 10:00 Memantine Hcl [Namenda Xr] PO DAILY [facility] Nystatin 1 applic 03/31/19 10:00 Mycostatin Cream - TP BID [facility] Quetiapine Fumarate 25 mg 03/31/19 22:00 Seroquel - PO HS [facility] Ranitidine HCl 150 mg 03/31/19 10:00 Zantac - PO DAILY [facility] Rosuvastatin Calcium 20 mg 03/31/19 22:00 Crestor - PO HS [facility] Imaging - Results Chest X-ray: Report Reviewed, Image Reviewed EKG: Image Reviewed Assessment/Plan This is a 85 y/o woman from [facility] with a PMHx of HTN, HLD, CHF, Afib (on Eliquis), Anasarca, Dementia. Admitted to Telemetry for CHF Exacerbation, Metabolic Encephalopathy, Elevated Troponin, Acute on Chronic CKD for further evaluation of their emergent condition. Plan: Admit Telemetry Cardiac Monitoring Elevated Troponin likely demand in setting of CHF Exacerbation Serial Enzymes Chest Xray report- Cardiomegaly without evidence of acute lung disease However, patient presents with Anasarca +4 b/l UE/LE Rales appreciated at bases Lasix given in ED, will defer to cardiology 2/2 soft BP Appreciate Cardiology consult Continue Eliquis renal dosing- age and Cr 2.5 EKG- Afib rate control Echo 11/2018- LVSF severly reduced, EF 25-30%, LA severely dilated, RA moderately dilated, mod to severe MR/TR Will hold BP meds 2/2 soft BP Monitor CBC, BMP Maintain Map >65 Strict INOs Daily Weights Fall Precautions Functional Quadriplegia- requires total care, Turn Q2h, Alicia Lift as needed, Heel Protectors FEN- Replete lytes prn, Mechanical Soft, Regular Thin Fluids DVT ppx- SCDs, Continue Eliquis Code Status: DNR/DNI, Molst- no feeding tube, trial IV ABX Dispo: Requires Inpatient Care Visit type - Emergency Visit Emergency Visit: Yes ED Registration Date: 03/30/19 Care time: The patient presented to the Emergency Department on the above date and was hospitalized for further evaluation of their emergent condition. - New Patient This patient is new to me today: Yes Date on this admission: 03/31/19 - Critical Care Critical Care patient: No
[2019-03-31] MEDS ORDERED: PATIENT'S OWN MEDICATION (NON-FORMULARY) (Memantine Hcl [Namenda Xr] 14 MG) PO SCH (10:00)
[2019-03-31 11:23] LABS: BASO % 0.8 % (0-2.0); EOS % 5.1 % (0-4.5); HEMATOCRIT 26.5 % (32.4-45.2); HEMOGLOBIN 8.4 GM/dL (10.7-15.3); LYMPH % 18.3 % (8-40); MCH 30.1 pg (25.7-33.7); MCHC 31.8 g/dl (32.0-36.0); MEAN CELL VOLUME 94.6 fl (80-96); MEAN PLT VOLUME 10.2 fl (7.5-11.1); MONO % 12.8 % (3.8-10.2); PLATELET COUNT 168 K/MM3 (134-434); RBC 2.81 M/mm3 (3.60-5.2); WHITE BLOOD COUNT 3.9 K/mm3 (4.0-10.0)
[2019-03-31] MEDS: RANITIDINE HCL 150 MG TABLET (FP) PO SCH (12:08)
[2019-03-31] MEDS: NYSTATIN 100,000 UNIT/GM TOPICAL CREAM 15 GM TUBE TP SCH ×2 (12:08→21:04)
[2019-03-31] MEDS: APIXABAN 5 MG TABLET PO SCH ×2 (12:08→21:04)
[2019-03-31] MEDS: MULTIVITAMINS (DAILY MVI) TABLET (FP) PO SCH (12:08)
[2019-03-31 12:22] LABS: BLOOD UREA NITROGEN 75.6 mg/dL (7-18); CREATININE 2.3 mg/dL (0.55-1.3); POTASSIUM 4.4 mmol/L (3.5-5.1)
--- NOTE | 2019-03-31 13:30 | EKG ---
Test Reason : Blood Pressure : / mmHG Vent. Rate : 099 BPM Atrial Rate : 077 BPM P-R Int : 000 ms QRS Dur : 068 ms QT Int : 310 ms P-R-T Axes : 000 037 164 degrees QTc Int : 397 ms ATRIAL FIBRILLATION LOW VOLTAGE QRS SEPTAL INFARCT (CITED ON OR BEFORE 21-JAN-2018) ABNORMAL ECG WHEN COMPARED WITH ECG OF 28-FEB-2019 10:29, NONSPECIFIC T WAVE ABNORMALITY, WORSE IN ANTERIOR LEADS Confirmed by YENNI GRAHAM MD ([id number]) on 03/31/2019 1:29:53 PM Referred By: Confirmed By:YENNI GRAHAM MD
[2019-03-31] MEDS: QUEtiapine FUMARATE 25 MG TABLET (FP) PO SCH (21:04)
[2019-03-31] MEDS: MIRTAZAPINE 15 MG TABLET (FP) PO SCH (21:04)
[2019-03-31] MEDS: ROSUVASTATIN CA 10 MG TABLET (FP) PO SCH (22:00)
[2019-04-01] MEDS: APIXABAN 5 MG TABLET PO SCH (09:32)
[2019-04-01] MEDS: MULTIVITAMINS (DAILY MVI) TABLET (FP) PO SCH (09:32)
[2019-04-01] MEDS: NYSTATIN 100,000 UNIT/GM TOPICAL CREAM 15 GM TUBE TP SCH ×2 (09:32→21:15)
[2019-04-01] MEDS: RANITIDINE HCL 150 MG TABLET (FP) PO SCH (09:33)
[2019-04-01] MEDS: FUROSEMIDE 40 MG/4 ML INJECTABLE VIAL IVPUSH SCH ×2 (10:16→17:16)
--- NOTE | 2019-04-01 10:35 | CON.CARD ---
Cardiology Consult (text) - Consultation Consultation Note: Chief Complaint: sent from tx for le edema History of Present Illness: pt poor historian , hx from charts 78F h/o dementia, chronic systolic HF, HTN, afib, CKD p/w leg swelling. Unable to provide hx. Appears comfortable. Treating for chf. 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, Peripheral Neuropathy Cardio/Vascular: Yes: AFIB, CHF, HTN, Hyperlipdemia Gastrointestinal: Yes: GERD Renal/: Yes: Renal Inusuff Psych: Yes: Depression - Past Surgical History Past Surgical History: Yes: None - Alcohol/Substance Use Hx Alcohol Use: No History of Substance Use: reports: None - Smoking History Smoking history: Unknown if ever smoked Have you smoked in the past 12 months: No - Social History Usual Living Arrangement: With Child ADL: Support Services History of Recent Travel: No Home Medications - Allergies Allergies/Adverse Reactions: Allergies Allergy/AdvReac Type Severity Reaction Status Date / Time No Known Allergies Allergy Verified 03/31/19 06:38 - Home Medications Home Medications: Ambulatory Orders Home Medications Medication Instructions Recorded Mirtazapine 7.5 mg PO HS 01/21/18 Rosuvastatin [Crestor -] 20 mg PO HS 01/21/18 Potassium Chloride 20 meq PO DAILY #30 tablet.er 07/28/18 Famotidine 20 mg PO DAILY 12/19/18 Gabapentin 200 mg PO DAILY 12/19/18 Multivitamins [Multivit ([facility] 1 tab PO DAILY 12/19/18 Formulary)] Sennosides [Senna -] 17.2 tab PO HS 12/19/18 Quetiapine Fumarate [Seroquel -] 25 mg PO HS #30 tab 12/22/18 Acetaminophen 650 mg PO TID 02/09/19 Memantine HCl [Namenda Xr] 14 mg PO DAILY 02/09/19 Nystatin Cream [Mycostatin Cream -] 1 applic TP BID 02/09/19 Triamcinolone 0.1% Cream 1 applic TP DAILY 02/09/19 Apixaban [Eliquis -] 5 mg PO BID 02/28/19 Carvedilol [Coreg -] 25 mg PO BID 02/28/19 Furosemide [Lasix -] 80 mg PO DAILY tablet 03/08/19 Family Disease History - Family Disease History Family History: Unremarkable Review of Systems - Review of Systems unable to obtain 2/2 dementia Vital Signs Vital Signs Period Temp Pulse Resp BP Sys/Villegas Pulse Ox Last 24 Hr 97.2 F-98.9 F 58-111 18-20 98-114/64-77 99-99 Constitutional: Yes: No Distress, Calm Eyes: Yes: Conjunctiva Clear, EOM Intact HENT: Yes: Atraumatic, Normocephalic Neck: Yes: Supple, Trachea Midline Respiratory: Yes: Regular, Rales (bases camilo) Gastrointestinal: Yes: Normal Bowel Sounds, Soft Cardiovascular: Yes: Pulse Irregular JVD: Yes Carotid Bruit: No PMI: Non-Displaced Heart Sounds: Yes: S1, S2 Musculoskeletal: No: Back Pain Edema: Yes Edema: LLE: 1+, RLE: 1+ Peripheral Pulses WNL: No Peripheral Pulses: 1+ Left Doralis Pedis, 1+ Right Dorsalis Pedis Integumentary: No: Jaundice Neurological: Yes:confused Psychiatric: No: Agitated - Other Data Labs, Other Data: Laboratory Last Values WBC 3.9 K/mm3 (4.0-10.0) L 03/31/19 11:15 RBC 2.81 M/mm3 (3.60-5.2) L 03/31/19 11:15 Hgb 8.4 GM/dL (10.7-15.3) L 03/31/19 11:15 Hct 26.5 % (32.4-45.2) L 03/31/19 11:15 MCV 94.6 fl (80-96) 03/31/19 11:15 MCH 30.1 pg (25.7-33.7) 03/31/19 11:15 MCHC 31.8 g/dl (32.0-36.0) L 03/31/19 11:15 RDW 19.0 % (11.6-15.6) H 03/31/19 11:15 Plt Count 168 K/MM3 (134-434) 03/31/19 11:15 MPV 10.2 fl (7.5-11.1) 03/31/19 11:15 Absolute Neuts (auto) 2.4 K/mm3 (1.5-8.0) 03/31/19 11:15 Neutrophils % 63.0 % (42.8-82.8) 03/31/19 11:15 Lymphocytes % 18.3 % (8-40) 03/31/19 11:15 Monocytes % 12.8 % (3.8-10.2) H 03/31/19 11:15 Eosinophils % 5.1 % (0-4.5) H 03/31/19 11:15 Basophils % 0.8 % (0-2.0) 03/31/19 11:15 Nucleated RBC % 0 % (0-0) 03/31/19 11:15 PT with INR 22.30 SEC (9.7-13.0) H 03/30/19 23:45 INR 1.88 (0.83-1.09) H 03/30/19 23:45 PTT (Actin FS) 47.8 SECONDS (25.2-36.5) H 03/30/19 23:45 Sodium 142 mmol/L (136-145) 03/31/19 11:15 Potassium 4.4 mmol/L (3.5-5.1) 03/31/19 11:15 Chloride 108 mmol/L (98-107) H 03/31/19 11:15 Carbon Dioxide 25 mmol/L (21-32) 03/31/19 11:15 Anion Gap 9 MMOL/L (8-16) 03/31/19 11:15 BUN 75.6 mg/dL (7-18) H 03/31/19 11:15 Creatinine 2.3 mg/dL (0.55-1.3) H 03/31/19 11:15 Est GFR (CKD-EPI)AfAm 22.51 03/31/19 11:15 Est GFR (CKD-EPI)NonAf 19.42 03/31/19 11:15 Random Glucose 89 mg/dL (74-106) 03/31/19 11:15 Calcium 9.0 mg/dL (8.5-10.1) 03/31/19 11:15 Total Bilirubin 1.6 mg/dL (0.2-1) H 03/30/19 23:45 AST 22 U/L (15-37) 03/30/19 23:45 ALT 15 U/L (13-61) 03/30/19 23:45 Alkaline Phosphatase 134 U/L (45-117) H 03/30/19 23:45 Creatine Kinase 115 U/L (26-192) 03/30/19 23:45 Troponin I 0.08 ng/ml (0.00-0.05) H 03/30/19 23:45 B-Natriuretic Peptide 87921.0 pg/ml (5-450) H 03/30/19 23:45 Total Protein 7.4 g/dl (6.4-8.2) 03/30/19 23:45 Albumin 2.9 g/dl (3.4-5.0) L 03/30/19 23:45 Assessment/Plan EKG: afib, no ischemic changes CXR: no chf tele: afib, rate ok Echo 12/11: LVEF 25-30% (global). RV mildly hypo. mod-severe MR/TR. PASP at least 40. (small peric effusion, + pleural eff) Acute on chronic systolic CHF exac,pulm HTN, MR - per review of notes from mult prior admits, pt EF was 40-45% in 2017; was following with outside cardio and decisions re: cath, ICD have been deferred to outpt f/u though it has been unclear whether she has complied with cardiology office visits, likely not. - invasive w/u has been deferred: pt declined invasive procedures -will start iv lasix 40 bid -monitor daily weights, Cr, lytes -continue carvedilol -not on ACEI due to CKD Afib - cont eliquis - cont carvedilol elevated trop - indeterminate range, similar to prior values, not c/w acs HTN - cont home meds HLD - cont statin SAMM on CKD: - up here likely sec to cardiorenal--monitor with diuresis
--- NOTE | 2019-04-01 17:16 | PN ---
Progress Note, Physician History of Present Illness: pt seen/ examined chart reviewed well known to me compliance issues - Current Medication List Current Medications: Active Medications Acetaminophen (Tylenol -) 650 mg PO Q8H PRN PRN Reason: FEVER Apixaban (Eliquis -) 2.5 mg PO BID [facility] Furosemide (Lasix Injection -) 40 mg IVPUSH BID@0600,1400 [facility] Mirtazapine (Remeron -) 7.5 mg PO [facility] Last Admin: 03/31/19 21:04 Dose: Not Given Multivitamins/Minerals/Vitamin C (Tab-A-Vit -) 1 tab PO DAILY [facility] Last Admin: 04/01/19 09:32 Dose: Not Given Non-Formulary Medication (Memantine Hcl [Namenda Xr]) 14 mg PO DAILY [facility] Nystatin (Mycostatin Cream -) 1 applic TP BID [facility] Last Admin: 04/01/19 09:32 Dose: Not Given Quetiapine Fumarate (Seroquel -) 25 mg PO [facility] Last Admin: 03/31/19 21:04 Dose: Not Given Ranitidine HCl (Zantac -) 150 mg PO DAILY [facility] Last Admin: 04/01/19 09:33 Dose: Not Given Rosuvastatin Calcium (Crestor -) 10 mg PO [facility] - Objective Vital Signs: Vital Signs Temperature 98.3 F 04/01/19 06:00 Pulse Rate 72 04/01/19 06:00 Respiratory Rate 18 04/01/19 06:00 Blood Pressure 98/77 04/01/19 06:00 O2 Sat by Pulse Oximetry (%) 99 03/31/19 21:00 Constitutional: Yes: No Distress, Calm Eyes: Yes: Conjunctiva Clear Neck: Yes: Supple Cardiovascular: Yes: Pulse Irregular Respiratory: Yes: Diminished Gastrointestinal: Yes: Soft Edema: LLE: 2+, RLE: 2+ Labs: CBC, BMP 03/31/19 11:15 03/31/19 11:15 INR, PTT INR 1.88 (0.83-1.09) H 03/30/19 23:45 Problem List - Problems (1) CHF (congestive heart failure) Code(s): I50.9 - HEART FAILURE, UNSPECIFIED Qualifiers: Heart failure type: unspecified Heart failure chronicity: acute on chronic Qualified Code(s): I50.9 - Heart failure, unspecified (2) A-fib Code(s): I48.91 - UNSPECIFIED ATRIAL FIBRILLATION Qualifiers: Atrial fibrillation type: chronic Qualified Code(s): I48.2 - Chronic atrial fibrillation (3) Acute exacerbation of CHF (congestive heart failure) Code(s): I50.9 - HEART FAILURE, UNSPECIFIED (4) Dementia Code(s): F03.90 - UNSPECIFIED DEMENTIA WITHOUT BEHAVIORAL DISTURBANCE Qualifiers: Dementia type: unspecified type Assessment/Plan continue present care daily weigh low salt diet monitor lytes PT Pt is dnr/ Di Will follow Discussed with nursing staff also
[2019-04-01] MEDS: APIXABAN 2.5 MG TABLET PO SCH (21:14)
[2019-04-01] MEDS: QUEtiapine FUMARATE 25 MG TABLET (FP) PO SCH (21:15)
[2019-04-01] MEDS: MIRTAZAPINE 15 MG TABLET (FP) PO SCH (21:15)
[2019-04-01] MEDS: ROSUVASTATIN CA 10 MG TABLET (FP) PO SCH (21:31)
[2019-04-02] MEDS: FUROSEMIDE 40 MG/4 ML INJECTABLE VIAL IVPUSH SCH ×2 (05:45→18:04)
[2019-04-02 07:17] LABS: ALBUMIN 2.9 g/dl (3.4-5.0); BLOOD UREA NITROGEN 77.7 mg/dL (7-18); CALCIUM 9.1 mg/dL (8.5-10.1); CREATININE 2.3 mg/dL (0.55-1.3); POTASSIUM 3.6 mmol/L (3.5-5.1)
[2019-04-02 07:25] LABS: BASO % 0.9 % (0-2.0); EOS % 4.3 % (0-4.5); HEMATOCRIT 25.8 % (32.4-45.2); HEMOGLOBIN 8.5 GM/dL (10.7-15.3); LYMPH % 17.3 % (8-40); MCH 30.6 pg (25.7-33.7); MCHC 32.9 g/dl (32.0-36.0); MEAN CELL VOLUME 92.9 fl (80-96); MEAN PLT VOLUME 10.3 fl (7.5-11.1); MONO % 14.7 % (3.8-10.2); NEUT % 62.8 % (42.8-82.8); PLATELET COUNT 168 K/MM3 (134-434); RBC 2.78 M/mm3 (3.60-5.2); RDW 19.3 % (11.6-15.6); WHITE BLOOD COUNT 3.9 K/mm3 (4.0-10.0)
--- NOTE | 2019-04-02 08:58 | PN ---
Progress Note, Physician Chief Complaint: laying in bed "Nothing has changed" Laying flat comfortably. - Current Medication List Current Medications: Active Medications Acetaminophen (Tylenol -) 650 mg PO Q8H PRN PRN Reason: FEVER Apixaban (Eliquis -) 2.5 mg PO BID [facility] Last Admin: 04/01/19 21:14 Dose: 2.5 mg Furosemide (Lasix Injection -) 40 mg IVPUSH BID@0600,1400 [facility] Last Admin: 04/02/19 05:45 Dose: 40 mg Mirtazapine (Remeron -) 7.5 mg PO [facility] Last Admin: 04/01/19 21:15 Dose: 7.5 mg Multivitamins/Minerals/Vitamin C (Tab-A-Vit -) 1 tab PO DAILY [facility] Last Admin: 04/01/19 09:32 Dose: Not Given Non-Formulary Medication (Memantine Hcl [Namenda Xr]) 14 mg PO DAILY [facility] Nystatin (Mycostatin Cream -) 1 applic TP BID [facility] Last Admin: 04/01/19 21:15 Dose: Not Given Quetiapine Fumarate (Seroquel -) 25 mg PO [facility] Last Admin: 04/01/19 21:15 Dose: 25 mg Ranitidine HCl (Zantac -) 150 mg PO DAILY [facility] Last Admin: 04/01/19 09:33 Dose: Not Given Rosuvastatin Calcium (Crestor -) 10 mg PO [facility] Last Admin: 04/01/19 21:31 Dose: 10 mg - Objective Vital Signs: Vital Signs Temperature 98 F 04/02/19 06:00 Pulse Rate 108 H 04/02/19 06:00 Respiratory Rate 18 04/02/19 06:00 Blood Pressure 97/51 L 04/02/19 06:00 O2 Sat by Pulse Oximetry (%) 96 04/01/19 21:00 Constitutional: Yes: No Distress Cardiovascular: Yes: Pulse Irregular Respiratory: Yes: Other (no wheezing, clear anteriorly) Gastrointestinal: Yes: Soft Edema: Yes Edema: LLE: 2+, RLE: 2+ Labs: CBC, BMP 04/02/19 06:10 04/02/19 06:10 INR, PTT INR 1.88 (0.83-1.09) H 03/30/19 23:45 - ....Imaging EKG: Image Reviewed (AF w/ average rates < 100bpm) Assessment/Plan Assessment/Plan EKG: afib, no ischemic changes CXR: no chf tele: afib, rate ok Echo 12/11: LVEF 25-30% (global). RV mildly hypo. mod-severe MR/TR. PASP at least 40. (small peric effusion, + pleural eff) Acute on chronic systolic CHF exac,pulm HTN, MR: - per review of notes from mult prior admits, pt EF was 40-45% in 2017; was following with outside cardio and decisions re: cath, ICD have been deferred to outpt f/u though it has been unclear whether she has complied with cardiology office visits, likely not. - invasive w/u has been deferred: pt declined invasive procedures -cont IV lasix -monitor daily weights, Cr, lytes -continue carvedilol -not on ACEI due to CKD Afib: - cont eliquis - cont carvedilol Elevated trop: - indeterminate range, similar to prior values, not c/w acs HTN - cont home meds HLD - cont statin SAMM on CKD: - up here likely sec to cardiorenal--monitor with diuresis Dispo: DNR/DNI status noted. Can d/c telemetry.
[2019-04-02] MEDS: APIXABAN 2.5 MG TABLET PO SCH ×2 (11:06→22:16)
[2019-04-02] MEDS: RANITIDINE HCL 150 MG TABLET (FP) PO SCH (11:06)
[2019-04-02] MEDS: MULTIVITAMINS (DAILY MVI) TABLET (FP) PO SCH (11:07)
[2019-04-02] MEDS: NYSTATIN 100,000 UNIT/GM TOPICAL CREAM 15 GM TUBE TP SCH ×2 (11:07→23:24)
--- NOTE | 2019-04-02 11:21 | PN ---
Progress Note (short form) - Note Progress Note: pt seen/ examined feels same no distress Vital Signs Temp 98.7 F 04/02/19 09:04 Pulse 108 H 04/02/19 09:04 Resp 18 04/02/19 09:04 BP 96/50 L 04/02/19 09:04 Pulse Ox 97 04/02/19 09:29 Intake & Output 04/01/19 04/01/19 04/02/19 11:59 23:59 11:59 Intake Total 250 770 370 Balance 250 770 370 Weight 202 lb Intake: IV 10 10 10 saline lock 10 10 10 Oral 240 760 360 Other: Voiding Method Incontinent Incontinent Diaper # Unmeasured Voids Void 2 1 2 Bowel Movement No No Weight Measurement Method Patient Lift Scale Active Medications Acetaminophen (Tylenol -) 650 mg PO Q8H PRN PRN Reason: FEVER Apixaban (Eliquis -) 2.5 mg PO BID [facility] Last Admin: 04/02/19 11:06 Dose: 2.5 mg Furosemide (Lasix Injection -) 40 mg IVPUSH BID@0600,1400 [facility] Last Admin: 04/02/19 05:45 Dose: 40 mg Mirtazapine (Remeron -) 7.5 mg PO [facility] Last Admin: 04/01/19 21:15 Dose: 7.5 mg Multivitamins/Minerals/Vitamin C (Tab-A-Vit -) 1 tab PO DAILY [facility] Last Admin: 04/02/19 11:07 Dose: Not Given Non-Formulary Medication (Memantine Hcl [Namenda Xr]) 14 mg PO DAILY [facility] Nystatin (Mycostatin Cream -) 1 applic TP BID [facility] Last Admin: 04/02/19 11:07 Dose: Not Given Quetiapine Fumarate (Seroquel -) 25 mg PO [facility] Last Admin: 04/01/19 21:15 Dose: 25 mg Ranitidine HCl (Zantac -) 150 mg PO DAILY [facility] Last Admin: 04/02/19 11:06 Dose: 150 mg Rosuvastatin Calcium (Crestor -) 10 mg PO [facility] Last Admin: 04/01/19 21:31 Dose: 10 mg CBC, BMP 04/02/19 06:10 04/02/19 06:10 Physical exam Constitutional: Yes: No Distress, Calm Eyes: Yes: Conjunctiva Clear Neck: Yes: Supple Cardiovascular: Yes: Pulse Irregular Respiratory: Yes: Diminished Gastrointestinal: Yes: Soft Edema: LLE: 2+, RLE: 2+ Assessment/Plan continue present care diuretics low salt diet monitor lytes PT Pt is dnr/ Di compliance issues Transfer to floor care Will follow Discussed with nursing staff also. Problem List - Problems (1) CHF (congestive heart failure) Code(s): I50.9 - HEART FAILURE, UNSPECIFIED Qualifiers: Heart failure type: unspecified Heart failure chronicity: acute on chronic Qualified Code(s): I50.9 - Heart failure, unspecified (2) A-fib Code(s): I48.91 - UNSPECIFIED ATRIAL FIBRILLATION Qualifiers: Atrial fibrillation type: chronic Qualified Code(s): I48.2 - Chronic atrial fibrillation (3) Acute exacerbation of CHF (congestive heart failure) Code(s): I50.9 - HEART FAILURE, UNSPECIFIED (4) Dementia Code(s): F03.90 - UNSPECIFIED DEMENTIA WITHOUT BEHAVIORAL DISTURBANCE Qualifiers: Dementia type: unspecified type
[2019-04-02] MEDS: QUEtiapine FUMARATE 25 MG TABLET (FP) PO SCH (22:16)
[2019-04-02] MEDS: MIRTAZAPINE 15 MG TABLET (FP) PO SCH (22:16)
[2019-04-02] MEDS: ROSUVASTATIN CA 10 MG TABLET (FP) PO SCH (22:16)
[2019-04-02 23:07] VITALS: BMI 32.5
[2019-04-03] MEDS: FUROSEMIDE 40 MG/4 ML INJECTABLE VIAL IVPUSH SCH ×2 (06:19→18:08)
[2019-04-03 07:15] LABS: ALBUMIN 2.7 g/dl (3.4-5.0); BILIRUBIN,TOTAL 1.9 mg/dL (0.2-1); BLOOD UREA NITROGEN 72.5 mg/dL (7-18); CALCIUM 8.8 mg/dL (8.5-10.1); CREATININE 2.1 mg/dL (0.55-1.3); POTASSIUM 3.4 mmol/L (3.5-5.1); TOT PROT 6.9 g/dl (6.4-8.2)
[2019-04-03 07:22] LABS: BASO % 0.6 % (0-2.0); EOS % 4.8 % (0-4.5); HEMATOCRIT 25.5 % (32.4-45.2); HEMOGLOBIN 8.4 GM/dL (10.7-15.3); LYMPH % 17.3 % (8-40); MCH 30.7 pg (25.7-33.7); MEAN CELL VOLUME 92.9 fl (80-96); MEAN PLT VOLUME 9.8 fl (7.5-11.1); MONO % 13.6 % (3.8-10.2); NEUT % 63.7 % (42.8-82.8); PLATELET COUNT 168 K/MM3 (134-434); RBC 2.74 M/mm3 (3.60-5.2); RDW 18.8 % (11.6-15.6); WHITE BLOOD COUNT 3.7 K/mm3 (4.0-10.0)
--- NOTE | 2019-04-03 10:20 | PN ---
Progress Note, Physician Chief Complaint: sleeping Weight is down No distress History of Present Illness: CHF, edema - Current Medication List Current Medications: Active Medications Acetaminophen (Tylenol -) 650 mg PO Q8H PRN PRN Reason: FEVER Apixaban (Eliquis -) 2.5 mg PO BID [facility] Last Admin: 04/02/19 22:16 Dose: 2.5 mg Furosemide (Lasix Injection -) 40 mg IVPUSH BID@0600,1400 [facility] Last Admin: 04/03/19 06:19 Dose: 40 mg Mirtazapine (Remeron -) 7.5 mg PO [facility] Last Admin: 04/02/19 22:16 Dose: 7.5 mg Multivitamins/Minerals/Vitamin C (Tab-A-Vit -) 1 tab PO DAILY [facility] Last Admin: 04/02/19 11:07 Dose: Not Given Non-Formulary Medication (Memantine Hcl [Namenda Xr]) 14 mg PO DAILY [facility] Nystatin (Mycostatin Cream -) 1 applic TP BID [facility] Last Admin: 04/02/19 23:24 Dose: 1 applic Quetiapine Fumarate (Seroquel -) 25 mg PO [facility] Last Admin: 04/02/19 22:16 Dose: 25 mg Ranitidine HCl (Zantac -) 150 mg PO DAILY [facility] Last Admin: 04/02/19 11:06 Dose: 150 mg Rosuvastatin Calcium (Crestor -) 10 mg PO [facility] Last Admin: 04/02/19 22:16 Dose: 10 mg - Objective Vital Signs: Vital Signs Temperature 97.8 F 04/03/19 05:00 Pulse Rate 85 04/03/19 05:00 Respiratory Rate 20 04/03/19 05:00 Blood Pressure 116/73 04/03/19 05:00 O2 Sat by Pulse Oximetry (%) 98 04/02/19 21:00 Constitutional: Yes: No Distress Eyes: Yes: Conjunctiva Clear Cardiovascular: Yes: Pulse Irregular Respiratory: Yes: Other (decreased breath sounds at bases.) Gastrointestinal: Yes: Soft, Abdomen, Obese Edema: Yes Edema: LLE: 2+, RLE: 2+ Neurological: Yes: Alert, Oriented Labs: CBC, BMP 04/03/19 06:10 04/03/19 06:10 INR, PTT INR 1.88 (0.83-1.09) H 03/30/19 23:45 - ....Imaging EKG: Image Reviewed, Other (TELE discontinued) Assessment/Plan Assessment/Plan EKG: afib, no ischemic changes CXR: no chf tele: discontinued 04/02 Echo 12/11: LVEF 25-30% (global). RV mildly hypo. mod-severe MR/TR. PASP at least 40. (small peric effusion, + pleural eff) Acute on chronic systolic CHF exac,pulm HTN, MR: - per review of notes from [facility] prior admits, pt EF was 40-45% in 2017; was following with outside cardio and decisions re: cath, ICD have been deferred to outpt f/u though it has been unclear whether she has complied with cardiology office visits, likely not. - invasive w/u has been deferred: pt declined invasive procedures -cont IV lasix as she still has significant edema, daily BMP to follow renal fx -monitor daily weights, Cr, lytes -continue carvedilol -not on ACEI due to CKD Afib: - cont eliquis - cont carvedilol Elevated trop: - indeterminate range, similar to prior values, not c/w acs HTN - cont home meds HLD - cont statin SAMM on CKD: - up here likely sec to cardiorenal- improving w/ diuresis Dispo: DNR/DNI status noted. Tele d/c'd 04/02
[2019-04-03] MEDS: APIXABAN 2.5 MG TABLET PO SCH ×2 (10:49→21:49)
[2019-04-03] MEDS: MULTIVITAMINS (DAILY MVI) TABLET (FP) PO SCH (10:49)
[2019-04-03] MEDS: NYSTATIN 100,000 UNIT/GM TOPICAL CREAM 15 GM TUBE TP SCH ×2 (10:49→21:52)
[2019-04-03] MEDS: RANITIDINE HCL 150 MG TABLET (FP) PO SCH (10:49)
--- NOTE | 2019-04-03 13:43 | PN ---
Progress Note (short form) - Note Progress Note: comfortable no distress feels better Vital Signs Temp 97.8 F 04/03/19 05:00 Pulse 85 04/03/19 05:00 Resp 20 04/03/19 05:00 BP 116/73 04/03/19 05:00 Pulse Ox 98 04/02/19 21:00 Intake & Output 04/02/19 04/03/19 04/03/19 23:59 11:59 23:59 Intake Total 450 120 Balance 450 120 Weight 202 lb 199 lb Intake: Oral 450 120 Other: Voiding Method Diaper Diaper # Unmeasured Voids Void 1 2 Bowel Movement No Height 5 ft 6 in Body Mass Index (BMI) 32.5 Weight Measurement Method Patient Lift Scale Active Medications Acetaminophen (Tylenol -) 650 mg PO Q8H PRN PRN Reason: FEVER Apixaban (Eliquis -) 2.5 mg PO BID [facility] Last Admin: 04/03/19 10:49 Dose: 2.5 mg Furosemide (Lasix Injection -) 40 mg IVPUSH BID@0600,1400 [facility] Last Admin: 04/03/19 06:19 Dose: 40 mg Mirtazapine (Remeron -) 7.5 mg PO [facility] Last Admin: 04/02/19 22:16 Dose: 7.5 mg Multivitamins/Minerals/Vitamin C (Tab-A-Vit -) 1 tab PO DAILY [facility] Last Admin: 04/03/19 10:49 Dose: 1 tab Non-Formulary Medication (Memantine Hcl [Namenda Xr]) 14 mg PO DAILY [facility] Nystatin (Mycostatin Cream -) 1 applic TP BID [facility] Last Admin: 04/03/19 10:49 Dose: 1 applic Potassium Chloride (K-Dur -) 20 meq PO DAILY [facility] Quetiapine Fumarate (Seroquel -) 25 mg PO [facility] Last Admin: 04/02/19 22:16 Dose: 25 mg Ranitidine HCl (Zantac -) 150 mg PO DAILY [facility] Last Admin: 04/03/19 10:49 Dose: 150 mg Rosuvastatin Calcium (Crestor -) 10 mg PO HS [facility] Last Admin: 04/02/19 22:16 Dose: 10 mg CBC, BMP 04/03/19 06:10 04/03/19 06:10 Physical exam Constitutional: Yes: No Distress, Calm Eyes: Yes: Conjunctiva Clear Neck: Yes: Supple Cardiovascular: Yes: Pulse Irregular Respiratory: Yes: Diminished Gastrointestinal: Yes: Soft Edema: LLE: 2+, RLE: 2+-- Improved Assessment/Plan continue present care diuretics low salt diet monitor lytes PT Pt is dnr/ Di compliance issues Transfer to floor care Will follow Discussed with nursing staff also. Problem List - Problems (1) CHF (congestive heart failure) Code(s): I50.9 - HEART FAILURE, UNSPECIFIED Qualifiers: Heart failure type: unspecified Heart failure chronicity: acute on chronic Qualified Code(s): I50.9 - Heart failure, unspecified (2) A-fib Code(s): I48.91 - UNSPECIFIED ATRIAL FIBRILLATION Qualifiers: Atrial fibrillation type: chronic Qualified Code(s): I48.2 - Chronic atrial fibrillation (3) Acute exacerbation of CHF (congestive heart failure) Code(s): I50.9 - HEART FAILURE, UNSPECIFIED (4) Dementia Code(s): F03.90 - UNSPECIFIED DEMENTIA WITHOUT BEHAVIORAL DISTURBANCE Qualifiers: Dementia type: unspecified type
[2019-04-03] MEDS: POTASSIUM CHLORIDE TABS 20 MEQ TABLET.ER (FP) PO SCH (14:44)
[2019-04-03] MEDS: QUEtiapine FUMARATE 25 MG TABLET (FP) PO SCH (21:49)
[2019-04-03] MEDS: MIRTAZAPINE 15 MG TABLET (FP) PO SCH (21:49)
[2019-04-03] MEDS: ROSUVASTATIN CA 10 MG TABLET (FP) PO SCH (21:49)
[2019-04-04] MEDS: FUROSEMIDE 40 MG/4 ML INJECTABLE VIAL IVPUSH SCH ×2 (06:36→13:22)
--- NOTE | 2019-04-04 10:36 | PN ---
Progress Note, Physician Chief Complaint: sleeping, feeling "ok" History of Present Illness: Weights down. Saturating well on Room Air - Current Medication List Current Medications: Active Medications Acetaminophen (Tylenol -) 650 mg PO Q8H PRN PRN Reason: FEVER Apixaban (Eliquis -) 2.5 mg PO BID [facility] Last Admin: 04/03/19 21:49 Dose: 2.5 mg Furosemide (Lasix Injection -) 40 mg IVPUSH BID@0600,1400 [facility] Last Admin: 04/04/19 06:36 Dose: 40 mg Mirtazapine (Remeron -) 7.5 mg PO HS [facility] Last Admin: 04/03/19 21:49 Dose: 7.5 mg Multivitamins/Minerals/Vitamin C (Tab-A-Vit -) 1 tab PO DAILY [facility] Last Admin: 04/03/19 10:49 Dose: 1 tab Non-Formulary Medication (Memantine Hcl [Namenda Xr]) 14 mg PO DAILY [facility] Nystatin (Mycostatin Cream -) 1 applic TP BID [facility] Last Admin: 04/03/19 21:52 Dose: 1 applic Potassium Chloride (K-Dur -) 20 meq PO DAILY [facility] Last Admin: 04/03/19 14:44 Dose: Not Given Quetiapine Fumarate (Seroquel -) 25 mg PO [facility] Last Admin: 04/03/19 21:49 Dose: 25 mg Ranitidine HCl (Zantac -) 150 mg PO DAILY [facility] Last Admin: 04/03/19 10:49 Dose: 150 mg Rosuvastatin Calcium (Crestor -) 10 mg PO [facility] Last Admin: 04/03/19 21:49 Dose: 10 mg - Objective Vital Signs: Vital Signs Temperature 98.5 F 04/04/19 06:00 Pulse Rate 102 H 04/04/19 06:00 Respiratory Rate 20 04/04/19 06:00 Blood Pressure 100/67 04/04/19 06:00 O2 Sat by Pulse Oximetry (%) 97 04/03/19 21:00 Constitutional: Yes: No Distress Cardiovascular: Yes: Pulse Irregular Respiratory: Yes: Other (clear anteriorly and laterally w/out active wheezing) Gastrointestinal: Yes: Soft, Abdomen, Obese Edema: Yes Edema: LLE: 2+, RLE: 2+ Neurological: Yes: Alert, Oriented Labs: CBC, BMP 04/03/19 06:10 04/03/19 06:10 INR, PTT INR 1.88 (0.83-1.09) H 03/30/19 23:45 Assessment/Plan Assessment/Plan EKG: afib, no ischemic changes CXR: no chf tele: discontinued 04/02 Echo 12/11: LVEF 25-30% (global). RV mildly hypo. mod-severe MR/TR. PASP at least 40. (small peric effusion, + pleural eff) Acute on chronic systolic CHF exac,pulm HTN, MR: - per review of notes from mult prior admits, pt EF was 40-45% in 2017; was following with outside cardio and decisions re: cath, ICD have been deferred to outpt f/u though it has been unclear whether she has complied with cardiology office visits, likely not. - invasive w/u has been deferred: pt declined invasive procedures -cont IV lasix for today with plan to switch to PO on 04/05. Volume status has sig improved, weight down, not requiring supp O2. -monitor daily weights, Cr, lytes -continue carvedilol -not on ACEI due to CKD Afib: - cont eliquis - cont carvedilol Elevated trop: - indeterminate range, similar to prior values, not c/w acs HTN - cont home meds HLD - cont statin SAMM on CKD: - up here likely sec to cardiorenal- improved w/ diuresis Dispo: DNR/DNI status noted. Tele d/c'd 04/02
--- NOTE | 2019-04-04 12:19 | PN ---
Progress Note (short form) - Note Progress Note: awake/ comfortable Vital Signs Temp 98.5 F 04/04/19 06:00 Pulse 102 H 04/04/19 06:00 Resp 20 04/04/19 09:00 BP 100/67 04/04/19 06:00 Pulse Ox 97 04/04/19 09:00 Intake & Output 04/03/19 04/04/19 04/04/19 23:59 11:59 23:59 Intake Total 640 Balance 640 Intake: Oral 640 Other: Voiding Method Diaper Diaper # Unmeasured Voids Void 1 1 Bowel Movement No Yes Active Medications Acetaminophen (Tylenol -) 650 mg PO Q8H PRN PRN Reason: FEVER Apixaban (Eliquis -) 2.5 mg PO BID [facility] Last Admin: 04/03/19 21:49 Dose: 2.5 mg Furosemide (Lasix Injection -) 40 mg IVPUSH BID@0600,1400 [facility] Last Admin: 04/04/19 06:36 Dose: 40 mg Mirtazapine (Remeron -) 7.5 mg PO [facility] Last Admin: 04/03/19 21:49 Dose: 7.5 mg Multivitamins/Minerals/Vitamin C (Tab-A-Vit -) 1 tab PO DAILY [facility] Last Admin: 04/03/19 10:49 Dose: 1 tab Non-Formulary Medication (Memantine Hcl [Namenda Xr]) 14 mg PO DAILY [facility] Nystatin (Mycostatin Cream -) 1 applic TP BID [facility] Last Admin: 04/03/19 21:52 Dose: 1 applic Potassium Chloride (K-Dur -) 20 meq PO DAILY [facility] Last Admin: 04/03/19 14:44 Dose: Not Given Quetiapine Fumarate (Seroquel -) 25 mg PO [facility] Last Admin: 04/03/19 21:49 Dose: 25 mg Ranitidine HCl (Zantac -) 150 mg PO DAILY [facility] Last Admin: 04/03/19 10:49 Dose: 150 mg Rosuvastatin Calcium (Crestor -) 10 mg PO [facility] Last Admin: 04/03/19 21:49 Dose: 10 mg CBC, BMP 04/03/19 06:10 04/03/19 06:10 Physical exam Constitutional: Yes: No Distress, Calm Eyes: Yes: Conjunctiva Clear Neck: Yes: Supple Cardiovascular: Yes: Pulse Irregular Respiratory: Yes: Diminished Gastrointestinal: Yes: Soft Edema: LLE: 2+, RLE: 2+-- Improved Assessment/Plan continue present care diuretics low salt diet monitor lytes PT Pt is dnr/ Di compliance issues Transfer to floor care Will follow Discussed with nursing staff also. Anticipate d/c on po diuretics tomorrow Problem List - Problems (1) CHF (congestive heart failure) Code(s): I50.9 - HEART FAILURE, UNSPECIFIED Qualifiers: Heart failure type: unspecified Heart failure chronicity: acute on chronic Qualified Code(s): I50.9 - Heart failure, unspecified (2) A-fib Code(s): I48.91 - UNSPECIFIED ATRIAL FIBRILLATION Qualifiers: Atrial fibrillation type: chronic Qualified Code(s): I48.2 - Chronic atrial fibrillation (3) Acute exacerbation of CHF (congestive heart failure) Code(s): I50.9 - HEART FAILURE, UNSPECIFIED (4) Dementia Code(s): F03.90 - UNSPECIFIED DEMENTIA WITHOUT BEHAVIORAL DISTURBANCE Qualifiers: Dementia type: unspecified type
[2019-04-04] MEDS: APIXABAN 2.5 MG TABLET PO SCH ×2 (13:13→22:17)
[2019-04-04] MEDS: RANITIDINE HCL 150 MG TABLET (FP) PO SCH (13:13)
[2019-04-04] MEDS: MULTIVITAMINS (DAILY MVI) TABLET (FP) PO SCH (13:13)
[2019-04-04] MEDS: POTASSIUM CHLORIDE TABS 20 MEQ TABLET.ER (FP) PO SCH (13:13)
[2019-04-04] MEDS: NYSTATIN 100,000 UNIT/GM TOPICAL CREAM 15 GM TUBE TP SCH ×2 (13:13→22:17)
[2019-04-04] MEDS ORDERED: ACETAMINOPHEN 325 MG TABLET (FP) PO PRN (17:38)
[2019-04-04] MEDS ORDERED: QUEtiapine FUMARATE 25 MG TABLET (FP) PO SCH (22:00)
[2019-04-04] MEDS ORDERED: MIRTAZAPINE 15 MG TABLET (FP) PO SCH (22:00)
[2019-04-04] MEDS ORDERED: ROSUVASTATIN CA 10 MG TABLET (FP) PO SCH (22:00)
[2019-04-05] MEDS ORDERED: FUROSEMIDE 40 MG/4 ML INJECTABLE VIAL IVPUSH SCH (06:00)
[2019-04-05 07:58] LABS: BLOOD UREA NITROGEN 66.4 mg/dL (7-18); CALCIUM 8.8 mg/dL (8.5-10.1); CREATININE 1.9 mg/dL (0.55-1.3); POTASSIUM 3.6 mmol/L (3.5-5.1)
[2019-04-05 08:13] VITALS: BP 91/72; PULSE 100; TEMP 97.7
--- NOTE | 2019-04-05 09:26 | DS ---
Physical Examination Vital Signs: Vital Signs Temperature 97.7 F 04/05/19 06:00 Pulse Rate 100 H 04/05/19 06:00 Respiratory Rate 18 04/05/19 06:00 Blood Pressure 91/72 04/05/19 06:00 O2 Sat by Pulse Oximetry (%) 97 04/04/19 09:00 Findings/Remarks: awake/ comfortable no complains Constitutional: Yes: No Distress, Calm Eyes: Yes: Conjunctiva Clear Neck: Yes: Supple Cardiovascular: Yes: Pulse Irregular Respiratory: Yes: Diminished Gastrointestinal: Yes: Soft Edema: LLE: 1+, RLE: 1+ Neurological: Yes: Alert Labs: CBC, BMP 04/03/19 06:10 04/05/19 06:35 Discharge Summary Reason For Visit: ACUTE ON CHRONIC CONGESTIVE HEART FAILURE Current Active Problems CHF (congestive heart failure) (Acute) Hospital Course: admitted for chf exac treated with i/v diuretics better ckd -- 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- monitor stable for d/c on po lasix meds reconcilled discussed with nursing staff Condition: Guarded - Instructions Disposition: NURSING HOME FACILITY - Home Medications Comprehensive Discharge Medication List: Ambulatory Orders Mirtazapine 7.5 mg PO HS 01/21/18 Rosuvastatin [Crestor -] 20 mg PO HS 01/21/18 Potassium Chloride 20 meq PO DAILY #30 tablet.er 07/28/18 Famotidine 20 mg PO DAILY 12/19/18 Gabapentin 200 mg PO DAILY 12/19/18 Multivitamins [Multivit ([facility] Formulary)] 1 tab PO DAILY 12/19/18 Sennosides [Senna -] 17.2 tab PO HS 12/19/18 Quetiapine Fumarate [Seroquel -] 25 mg PO HS #30 tab 12/22/18 Memantine HCl [Namenda Xr] 14 mg PO DAILY 02/09/19 Nystatin Cream [Mycostatin Cream -] 1 applic TP BID 02/09/19 Apixaban [Eliquis -] 5 mg PO BID 02/28/19 Carvedilol [Coreg -] 25 mg PO BID 02/28/19 Furosemide [Lasix -] 80 mg PO DAILY tablet 03/08/19 Acetaminophen [Tylenol .Regular Strength -] 650 mg PO Q8H PRN tablet 04/05/19
[2019-04-05] MEDS ORDERED: MULTIVITAMINS (DAILY MVI) TABLET (FP) PO SCH (10:00)
[2019-04-05] MEDS ORDERED: PATIENT'S OWN MEDICATION (NON-FORMULARY) (Memantine Hcl [Namenda Xr] 14 MG) PO SCH (10:00)
[2019-04-05] MEDS ORDERED: RANITIDINE HCL 150 MG TABLET (FP) PO SCH (10:00)
[2019-04-05] MEDS: APIXABAN 2.5 MG TABLET PO SCH (12:28)
[2019-04-05] MEDS: NYSTATIN 100,000 UNIT/GM TOPICAL CREAM 15 GM TUBE TP SCH (12:28)
[2019-04-05] MEDS: POTASSIUM CHLORIDE TABS 20 MEQ TABLET.ER (FP) PO SCH (12:28)
== END 2019-04-05 13:59 | DRG 291 ==
LOC: JER 16:05 → JERBED 03-31 01:48 → J4W 03-31 20:20 → J5S 04-04 17:37
PROVIDERS: ADMIT Internal Medicine; ATTEND Internal Medicine
DX: I13.0 Hypertensive heart and chronic kidney disease with heart failure and stage 1 through stage 4 chronic kidney disease, or unspecified chronic kidney disease (principal); I50.23 Acute on chronic systolic (congestive) heart failure; N17.9 Acute kidney failure, unspecified; I31.3 Pericardial effusion (noninflammatory); N18.9 Chronic kidney disease, unspecified; I48.2 Chronic atrial fibrillation; E78.5 Hyperlipidemia, unspecified; I48.91 Unspecified atrial fibrillation; K21.9 Gastro-esophageal reflux disease without esophagitis; F32.9 Major depressive disorder, single episode, unspecified; F03.90 Unspecified dementia, unspecified severity, without behavioral disturbance, psychotic disturbance, mood disturbance, and anxiety; G62.9 Polyneuropathy, unspecified; G89.29 Other chronic pain; M19.90 Unspecified osteoarthritis, unspecified site; I27.20 Pulmonary hypertension, unspecified; I34.0 Nonrheumatic mitral (valve) insufficiency; E66.9 Obesity, unspecified; Z68.32 Body mass index [BMI] 32.0-32.9, adult
CPT/HCPCS: 36415; 71045-TC-FY; 80048; 80053; 82550; 83880; 84484; 85025; 85610; 85730; 93005; 93010; 97162-GP; 99285-25